=== PATIENT | female | born 2000 | race Caucasian/White ===

== ENCOUNTER 2024-02-01 17:09 | Emergency (ER) | payer OTHER, SELFPAY ==
[2024-02-01 17:14] VITALS: BP 144/79; PULSE 86; TEMP 36.7; O2SAT 100; BMI 22.3
--- NOTE | 2024-02-01 17:23 | US_ITS ---
The [address] [address] Patient Name: ALAINA WARNER MRN: [id number] date: 2000 Sex: F Assigned Patient Location: ER Current Patient Location: ER Accession/Order Number: [id number] Exam Date: 02/01/2024 18:20 Report Date: 02/01/2024 20:54 At the request of: NICK DELANEY Procedure: US OB transvaginal EXAM: US OB transvaginal HISTORY: Bleeding, 7 weeks preg COMPARISON: None. TECHNIQUE: OB ultrasound transvaginal with limited Doppler. FINDINGS: Intrauterine demonstrating a single living fetus and normal-appearing yolk sac. Heart rate 119 bpm. [place]-rump length measurement 0.42 cm corresponds to an ultrasound age of 6 weeks 1 day. Gestational sac margins well-defined, normal adjacent uterus.. No implantation bleed seen. Cervix is closed, length 3.1 cm. Right ovary 4.6 x 2 x 3.5 cm demonstrates a heterogeneous area 1.4 cm consistent with corpus luteum. Trace adnexal free fluid. Left ovary 3.9 x 1.6 x 3 cm with small cyst 1.2 cm. Normal blood flow. US/US OB transvaginal IMPRESSION: Single living IUP, heart rate 119 bpm. [place]-rump length measurement corresponds to an ultrasound age of 6 weeks 1 day. Normal-appearing gestational sac, no evidence of adjacent implantation bleed or hemorrhage. Electronically authenticated by: WILL VALENTIN Date: 02/01/2024 20:54
--- NOTE | 2024-02-01 17:32 | ED_ITS ---
HPI HPI - General Adult General Chief complaint: OB/Uterine Contractions Stated complaint: BLEEDING DURING INTERCOURSE 7 WKS PREG Time Seen by Provider: 02/01/24 17:10 Source: patient Mode of arrival: walk-in History of Present Illness HPI narrative: And is a 23-year-old female who presents to the emergency department for vaginal bleeding. She is a G4, who presents at 6 to 7 weeks of . She states she had intercourse last week and noticed a small amount of bleeding, she had intercourse again last night and noticed more bleeding. She is not continuing to bleed and has not saturated any pads. She states she called her [facility] DIRECT[facility] office and was ordered to have blood work, but on arriving to the hospital there were no orders that had crossed over, and she was not able to get a hold of the office so she states she figured she should come in . She has no pain or nausea at this time. No fevers or vomiting. No urinary symptoms. Related Data Allergies Allergy/AdvReac Type Severity Reaction Status Date / Time No Known Drug Allergies Allergy Verified 02/01/24 17:19 Opioid HPI Opioid Management Most Recent Opioid Data: No Data to Display Review of Systems ROS Constitutional Denies: fever or chills Ears, nose, mouth, and throat Denies: throat pain or nasal congestion Respiratory Denies: shortness of breath Gastrointestinal Denies: abdominal pain, nausea or vomiting Genitourinary Reports: vaginal bleeding; Denies: pelvic pain Integumentary/Breast Denies: rash Neurological Denies: headache Hematologic/Lymphatic Denies: easy bruising or easy bleeding Exam Narrative Exam Narrative: Gen.: Awake, alert, in no distress Head: Normocephalic, atraumatic ENT: Moist mucous membranes Respiratory: No respiratory distress Gastrointestinal: Abdomen is soft, nondistended and nontender to palpation Extremities: Moves extremities equally Psych: Normal mood and affect Neuro: No focal neuro deficit Skin: Warm, dry, intact Constitutional Vital Signs, click to edit/add: Last Vital Signs Temp 98.1 F 02/01/24 17:14 Pulse 77 02/01/24 19:08 Resp 16 02/01/24 19:08 BP 100/58 02/01/24 19:08 Pulse Ox 99 02/01/24 19:08 O2 Del Method Room Air 02/01/24 19:08 Course Vital Signs Vital signs: Vital Signs Temperature 98.1 F 02/01/24 17:14 Pulse Rate 86 02/01/24 17:14 Respiratory Rate 16 02/01/24 17:14 Blood Pressure 144/79 H 02/01/24 17:14 Pulse Oximetry 100 02/01/24 17:14 Oxygen Delivery Method Room Air 02/01/24 17:14 Temperature 98.1 F 02/01/24 17:14 Pulse Rate 77 02/01/24 19:08 Respiratory Rate 16 02/01/24 19:08 Blood Pressure 100/58 02/01/24 19:08 Pulse Oximetry 99 02/01/24 19:08 Oxygen Delivery Method Room Air 02/01/24 19:08 Medical Decision Making MDM Narrative Medical decision making narrative: Patient with no significant hemorrhage in the ER, no request for pain medication or nausea medication. Lab studies show contaminated urine specimen, we will wait for culture as she has no other urinary symptoms. Ultrasound shows a single live intrauterine gestation at 6 weeks and 1 day with heart rate of 119. Patient with O+ blood type, no indication for RhoGAM. She was instructed to follow pelvic rest and follow-up with [facility] DIRECT[facility] for repeat ultrasound surveillance and quantitative hCG levels. Return to the ER if symptoms change or worsen. SUPERVISED APC VISIT, PHYSICIAN ATTESTATION: Based on the medical record the care appears appropriate. ? Medical Records Medical records reviewed: Yes I reviewed the patient's medical records Lab Data Lab results reviewed: Yes I reviewed the patient's lab results Labs: Lab Results 02/01/24 Range/Units 17:24 WBC 8.0 (4.0-11.0) 10^3/uL RBC 4.12 L (4.20-5.40) 10^6/uL Hgb 13.6 (12.0-16.0) g/dL Hct 41.2 (36.0-48.0) % MCV 100.0 H (81.0-99.0) fL MCH 33.0 (26.7-34.0) pg MCHC 33.0 (29.9-35.2) g/dL RDW 12.6 (11.0-15.0) % Plt Count 211 (150-450) 10^3/uL MPV 10.3 (9.5-13.5) fL Neut % (Auto) 52.7 (43.0-75.0) % Lymph % (Auto) 34.1 (20.5-60.0) % [place] % (Auto) 7.4 (1.7-12.0) % Eos % (Auto) 4.8 (0.9-7.0) % Baso % (Auto) 0.9 (0.2-2.0) % Neut # (Auto) 4.2 (1.4-6.5) 10^3/uL Lymph # (Auto) 2.7 (1.2-3.8) 10^3/uL [place] # (Auto) 0.6 (0.3-0.8) 10^3/uL Eos # (Auto) 0.4 (0.0-0.7) 10^3/uL Baso # (Auto) 0.1 (0.0-0.1) 10^3/uL Abs Immat Gran (auto) 0.01 (0.00-0.03) 10^3/uL Imm/Tot Granulo (auto) 0.1 (0.0-0.5) % HCG, Quant 17324 mIU/mL Urine Color Yellow (YELLOW) Urine Clarity Sl cloudy (CLEAR) Urine pH 6.0 (5.0-9.0) Ur Specific [place] >=1.030 A (1.005-1.025) Urine Protein Negative (NEG/TRACE) mg/dL Urine Glucose (UA) Negative (NEGATIVE) mg/dL Urine Ketones Negative (NEGATIVE) mg/dL Urine Occult Blood Moderate A (NEGATIVE) Urine Nitrite Negative (NEGATIVE) Urine Bilirubin Negative (NEGATIVE) Urine Urobilinogen 0.2 (0.2-1.0) EU/dL Ur Leukocyte Esterase Negative (NEGATIVE) Urine RBC 2-5 A (0-2) #/HPF Urine WBC 2-5 A (NONE SEEN) #/HPF Ur Squamous Epith Cells Many A (NONE/RARE) #/LPF Ur Transition Epith Cell Rare A (NONE SEEN) #/LPF Urine Crystals None seen (None Seen) #/HPF Urine Bacteria Moderate A (NONE SEEN) #/HPF Urine Casts None seen (NONE SEEN) #/LPF Urine Mucus Large A (NONE SEEN) Ur Culture Indicated? Yes Blood Type O Positive Imaging Data US - abdomen: Attestation: I have reviewed the pertinent imaging results. Radiologist's impression: ITS Impressions Transvaginal US 02/01/24 17:23 IMPRESSION: Single living IUP, heart rate 119 bpm. [place]-rump length measurement corresponds to an ultrasound age of 6 weeks 1 day. Normal-appearing gestational sac, no evidence of adjacent implantation bleed or hemorrhage. Electronically authenticated by: WILL VALENTIN Date: 02/01/2024 20:54 Discharge Plan Discharge Stand Alone Forms: Portal Instructions Chief Complaint: OB/Uterine Contractions Clinical Impression: Threatened miscarriage, Vaginal bleeding in Patient Disposition: Home, Self-Care Time of Disposition Decision: 21:02 Condition: Good Print Language: Maltese Instructions: Threatened Miscarriage (ED) Referrals: Blake Bowling DO [Physician] - 1 week Physician,Non-Staff, MD [Primary Care Provider] - 1 week
[2024-02-01 17:37] LABS: Basophils Absolute Auto 0.1 10^3/uL (0.0-0.1); Basophils Percent Auto 0.9 % (0.2-2.0); Eosinophils Absolute Auto 0.4 10^3/uL (0.0-0.7); Eosinophils Percent Auto 4.8 % (0.9-7.0); Hematocrit 41.2 % (36.0-48.0); Hemoglobin 13.6 g/dL (12.0-16.0); Immature Granulocytes Abs Auto 0.01 10^3/uL (0.00-0.03); Immature Granulocytes Pct Auto 0.1 % (0.0-0.5); Lymphocytes Absolute Auto 2.7 10^3/uL (1.2-3.8); Lymphocytes Percent Auto 34.1 % (20.5-60.0); Mean Platelet Volume 10.3 fL (9.5-13.5); Monocytes Absolute Auto 0.6 10^3/uL (0.3-0.8); Monocytes Percent Auto 7.4 % (1.7-12.0); Neutrophils Absolute Auto 4.2 10^3/uL (1.4-6.5); Neutrophils Percent Auto 52.7 % (43.0-75.0); Platelet Count 211 10^3/uL (150-450); Red Blood Count 4.12 10^6/uL (4.20-5.40); Red Cell Distribution Width 12.6 % (11.0-15.0)
[2024-02-01 17:39] LABS: Bilirubin Urine NEGATIVE (NEGATIVE); Blood Urine MODERATE (NEGATIVE); Clarity Urine SL CLOUDY (CLEAR); Color Urine YELLOW (YELLOW); Glucose Urine UA NEGATIVE (NEGATIVE); Ketones Urine NEGATIVE (NEGATIVE); Leukocyte Esterase Urine NEGATIVE (NEGATIVE); Nitrite Urine NEGATIVE (NEGATIVE); Protein Urine NEGATIVE (NEG/TRACE); Specific Gravity Urine >=1.030 (1.005-1.025); Urobilinogen Urine 0.2 EU/dL (0.2-1.0)
[2024-02-01 18:19] LABS: Urine Microscopic Indicated YES
[2024-02-01 18:21] LABS: Bacteria Urine MODERATE #/HPF (NONE SEEN); Cast Seen? NONE SEEN #/LPF (NONE SEEN); Crystals Seen? None Seen #/HPF (None Seen); Mucus Urine LARGE (NONE SEEN); Squamous Epithelial Cell Urine MANY #/LPF (NONE/RARE); Transitional Epi Cells Urine RARE #/LPF (NONE SEEN); Urine Culture Indicated YES
[2024-02-01 18:22] LABS: HCG Quantitative 11552 mIU/mL
[2024-02-01 19:08] VITALS: BP 100/58; PULSE 77; O2SAT 99
[2024-02-01 21:06] VITALS: BP 104/72; PULSE 68; O2SAT 100
== END 2024-02-01 21:08 | disposition home or self-care (01) ==
PROVIDERS: Physician Assistant; Emergency Provider Student in an Organized Health Care Education/Training Program
DX: O20.0 Threatened abortion (principal); O20.9 Hemorrhage in early pregnancy, unspecified; Z3A.01 Less than 8 weeks gestation of pregnancy
CPT/HCPCS: 36415; 76817; 81001; 84702; 84703; 85025; 86900; 86901; 87086; 99285

== ENCOUNTER 2024-02-28 08:11 | Outpatient (OUT) | payer OTHER, SELFPAY ==
--- OUTSIDE RECORDS SUMMARY | 2024-02-28 08:20 | XMS_ITS | CCD ---
Author Organization [facility] Care Team Providers Care Checkman Name Role Phone Eloisa Alvarez Unavailable [phone] Unavailable Unavailable lEisa PATEL Primary Care Physician [phone] Unavailable Unavailable MD MARIA R GOSS Referring Unava ilable Kim, Dr. Eloisa Valdovinos Primary Care MD MARIA R Dixon Attending Nedava ilMD MARIA R Motley Referring Unava ilable Lusk, Dr. Eloisa Valdovinos Primary Care MD MARIA R Dixon Attending Nedava ilMD MARIA R Motley Referring Unava ilable Lusk, Dr. Eloisa Valdovinos Primary Care MD MARIA R Dixon Attending Nedava ilable MD MARIA R GOSS Attending Unava ilable Kim, Dr. Eloisa Valdovinos Primary Care MD MARIA R Dixon Referring Unava ilable Eloisa Alvarez MD Primary Care Provider MARIA R GOSS Attending Unavailable ELOISA ALVAREZ Primary Care Unavailabl e Ayde aGnet Attending Unavailable Spencer Gan Admitting Unavailable Trevor Cabral Attending Unavailable Julián Mercer Attending Unavailable Narinder Cardona Attending Unavailable Spencer Gan Attending Unavailable Spencer Gan Attending Unavailable Elisa PATEL Attending Unavailable Elisa PATEL Attending Unavailable Elisa PATEL Admitting Unavailable González Muhammad Attending Unavailable Héctor Denton Attending Unavailabl Héctor Rubalcava Referring UnavailHéctor Benavides Admitting Unavailabl e Corrie, Héctor Awad Attending Unavailabl e Héctor Denton Referring Unavailabl e ROBUCK, Elisa Scherer Attending Unavailable ROBUCK, Elisa E Referring Unavailable ROBUCK, Elisa E Admitting Unavailable Liv, Renea Elias Admitting Unavailable Liv, Renea Elias Attending Unavailable LivRenea Referring Unavailable Tracy, Lucas Baig Referring Unavailable Tracy, Lucas Baig Admitting Unavailable Tracy, Lucas Baig Attending Unavailable Gudimella, Spencer Admitting Unavailable Gudimella, Spencer Attending Unavailable ROBUCK, Elisa E Attending Unavailable ROBUCK, Elisa E Attending Unavailable ROBUCK, Elisa E Attending Unavailable Tracy, Lucas Baig Admitting Unavailable Tracy, Lucas aBig Attending Unavailable ROBUCK, Elisa E Admitting Unavailable ROBUCK, Elisa E Attending Unavailable SarminiSravani Attending Unavaila ble ROBUCK, Elisa E Attending Unavailable ROBUCK, Elisa E Attending Unavailable ROBUCK, Elisa E Attending Unavailable ROBUCK, Elisa E Attending Unavailable ROBUCK, Elisa E Attending Unavailable ROBUCK, Elisa E Attending Unavailable ROBUCK, ORGANIZATIONAL RESEARCH CONSULTANT Elisa E Attending Unavailable Medications Current Medications Medication Drug Class(es) Dates Sig (Normalized) Sig (Original) acetaminophen 325 mg oral tablet (3 sources) Start: 05-22-2023 End: 06-05-2023 take 2 tablets by mouth every six hours Tylenol 325 mg Tab 650 mg, Oral, q6hr, X 14 day(s), # 112 tab(s), Refills(s) 0 Start Date: 05/22/23 Stop Date: 06/05/23 Status: Ordered amoxicillin 875 mg / clavulanate 125 mg oral tablet (1 source) Penicillin-class Antibacterial Start: 04-16-2023 End: 04-26-2023 take 1 tablet by mouth every twelve hours Augmentin 875 mg oral tablet = 1 tab(s), Oral, q12hr, X 10 day(s), # 20 tab(s), Refills(s) 0, Pharmacy: [facility] #[id number], 160, cm, 04/16/23 14:52:00 EDT, Height/Length Dosing, 57.7, kg, 04/16/23 14:52:00 EDT, Weight Dosing Start Date: 04/16/23 Stop Date: 04/26/23 Status: Ordered cephalexin 500 mg oral capsule (1 source) Cephalosporin Antibacterial Start: 11-22-2023 End: 11-29-2023 take 1 capsule by mouth every six hours Keflex 500 mg Cap 500 mg = 1 cap(s), Oral, q6hr, X 7 day(s), # 28 cap(s), Refills(s) 0, Pharmacy: [facility] #[id number], 160, cm, 11/22/23 14:35:00 EDT, Height/Length Dosing, 59.5, kg, 11/22/23 14:35:00 EDT, Weight Dosing Start Date: 11/22/23 Stop Date: 11/29/23 Status: Ordered clindamycin 20 mg/ml vaginal cream (1 source) Lincosamide Antibacterial Start: 07-06-2023 End: 07-13-2023 clindamycin (Cleocin) 2 % vaginal cream Indications: BV (bacterial vaginosis) Insert 1 Application into the vagina once daily at bedtime for 7 days. 20 g 1 07/06/2023 07/13/2023 Active Desogestrel / Ethinyl Estradiol (1 source) Progestin, Estrogen Start: 06-23-2023 take 1 tablet by mouth once daily Enskyce 0.15-0.03 mg tablet Take 1 tablet by mouth once daily. 0 06/23/2023 Active dicyclomine hydrochloride 20 mg oral tablet (16 sources) Anticholinergic Start: 10-01-2023 take 1 tablet by mouth four times daily dicyclomine 20 mg Tab 20 mg = 1 tab(s), Oral, QID, Refills(s) 0 Start Date: 10/01/23 Status: Ordered Start: 06-25-2023 take 1 tablet by zachery th four times daily before mealtime dicyclomine (Bentyl) 20 mg tablet Take 1 tablet (20 mg) by mouth 4 times a day before meals. 0 06/25/2023 Active Start: 03-24-2023 take 1 tablet by zachery th twice daily as needed dicyclomine 20 mg Tab 20 mg = 1 tab(s), Oral, BID, PRN Irritable bowel symptoms, # 180 tab(s), Refills(s) 3, Pharmacy: [facility] #[id number], 160, cm, 03/24/23 16:27:00 EDT, Height/Length Dosing, 58.7, kg, 03/24/23 16:27:00 EDT, Weight Dosing Start Date: 03/24/23 Status: Ordered Start: 10-07-2021 take 1 tablet by zachery th four times daily as needed dicyclomine 20 mg Tab 20 mg = 1 tab(s), Oral, QID, PRN Irritable bowel symptoms, # 30 tab(s), Refills(s) 1, Pharmacy: [facility], 160, cm, 10/07/21 10:23:00 EDT, Height/Length Dosing, 63.5, kg, 10/07/21 10:23:00 EDT, Weight Dosing Start Date: 10/07/21 Status: Ordered doxycycline hyclate 100 mg oral capsule (6 sources) Tetracycline-class Drug Start: 05-28-2023 End: 06-04-2023 take 1 capsule by mouth twice daily doxycycline hyclate 100 mg Cap 100 mg = 1 cap(s), Oral, BID, X 7 day(s), # 14 cap(s), Refills(s) 0, Pharmacy: [facility] #[id number], 160, cm, 05/28/23 15:52:00 EDT, Height/Length Dosing, 59.3, kg, 05/28/23 15:52:00 EDT, Weight Dosing Start Date: 05/28/23 Stop Date: 06/04/23 Status: Ordered Start: 01-08-2022 take 1 tablet by zachery th once daily Doxycycline Hyclate 100 MG Oral Tablet TAKE 1 TABLET EVERY 12 HOURS DAILY. Quantity: 28 Refills: 0 Ordered: 08-Jan-2022 Maria R Goss DO Start : 08-Jan-2022 Active multivitamin, with Folic Acid 1 mg Tab (1 source) Start: 10-04-2020 multivitamin, with Folic Acid 1 mg Tab 1 cap(s), Oral, Daily, 30 cap(s), Refill(s) 0 Start Date: 10/04/20 Status: Ordered omeprazole 20 mg delayed release oral capsule (2 sources) Proton Pump Inhibitor Start: 09-22-2022 take 1 capsule by mouth once daily omeprazole 20 mg Cap-DR 20 mg = 1 cap(s), Oral, Daily, # 90 cap(s), Refills(s) 1, [facility]acy: [facility] #[id number], 160, cm, 09/22/22 14:23:00 EST, Height/Length Dosing, 61.2, kg, 09/22/22 14:23:00 EST, Weight Dosing Start Date: 09/22/22 Status: Ordered Start: 08-25-2022 take 1 capsule [address] [facility] once daily omeprazole 40 mg Cap-DR 40 mg = 1 cap(s), Oral, Daily, # 30 cap(s), Refills(s) 0, Pharmacy: [facility] #[id number], 160, cm, 08/25/22 12:56:00 EST, Height/Length Dosing, 61.6, kg, 08/25/22 12:56:00 EST, Weight Dosing Start Date: 08/25/22 Status: Ordered ondansetron 4 mg oral tablet (3 sources) Serotonin-3 Receptor Antagonist Start: 09-22-2022 take 1 tablet by mouth every six hours as needed for nausea ondansetron 4 mg Tab 4 mg = 1 tab(s), Oral, q6hr, PRN Nausea/Vomiting, # 60 tab(s), Refills(s) 2, Pharmacy: [facility] #[id number], 160, cm, 09/22/22 14:23:00 EST, Height/Length Dosing, 61.2, kg, 09/22/22 14:23:00 EST, Weight Dosing Start Date: 09/22/22 Status: Ordered Start: 10-07-2021 take 1 tablet by [facility] every six hours as needed for nausea ondansetron 4 mg Tab 4 mg = 1 tab(s), Oral, q6hr, PRN Nausea/Vomiting, # 30 tab(s), Refills(s) 1, Pharmacy: [facility] [address] [facility], 160, cm, 10/07/21 10:23:00 EDT, Height/Length Dosing, 63.5, kg, 10/07/21 10:23:00 EDT, Weight Dosing Start Date: 10/07/21 Status: Ordered oxyCODONE hydrochloride 5 mg oral tablet (1 source) Opioid Agonist Start: 05-22-2023 End: 05-27-2023 take 1 tablet by mouth every six hours as needed for pain oxyCODONE 5 mg Tab 5 mg = 1 tab(s), Oral, q6hr, PRN Pain, X 5 day(s), # 20 tab(s), Refills(s) 0, Pharmacy: [facility] #[id number], 158, cm, 05/22/23 6:19:00 EDT, Height/Length Dosing, 57.9, kg, 05/22/23 6:27:00 EDT, Weight Dosing Start Date: 05/22/23 Stop Date: 05/27/23 Status: Ordered phenazopyridine hydrochloride 100 mg oral tablet (1 source) Start: 11-22-2023 End: 11-25-2023 take 1 tablet by mouth three times daily Pyridium 100 mg Tab 100 mg = 1 tab(s), Oral, TID, X 3 day(s), # 9 tab(s), Refills(s) 0, Pharmacy: [facility] #[id number], 160, cm, 11/22/23 14:35:00 EDT, Height/Length Dosing, 59.5, kg, 11/22/23 14:35:00 EDT, Weight Dosing Start Date: 11/22/23 Stop Date: 11/25/23 Status: Ordered Zofran ODT 4 mg Tab-Dis (1 source) Start: 11-22-2023 take 1 tablet by mouth every eight hours as needed for nausea Zofran ODT 4 mg Tab-Dis 4 mg = 1 tab(s), Oral, q8hr, PRN Nausea/Vomiting, # 12 tab(s), Refills(s) 0, Pharmacy: [facility] #[id number], 160, cm, 11/22/23 14:35:00 EDT, Height/Length Dosing, 59.5, kg, 11/22/23 14:35:00 EDT, Weight Dosing Start Date: 11/22/23 Status: Ordered Completed/Discontinued Medications Medication Drug Class(es) Dates Sig (Normalized) Sig (Original) Apri 0.15-30 MG-MCG Oral Tablet (3 sources) Start: 07-16-2021 take 1 tablet by mouth once daily Apri 0.15-30 MG-MCG Oral Tablet TAKE 1 TABLET BY MOUTH EVERY DAY Quantity: 1 Refills: 2 Ordered: 16-Jul-2021 Maria R Goss DO Start : 16-Jul-2021 Active azithromycin 250 mg oral tablet (9 sources) Macrolide Antimicrobial Start: 10-15-2021 take 4 tablets by mouth once Azithromycin 250 MG Oral Tablet TAKE 4 TABLET Once Quantity: 4 Refills: 0 Ordered: 15-Oct-2021 Maria R Goss DO Start : 15-Oct-2021 Active Depo-Provera 150 MG/ML Intramuscular Suspension (1 source) Start: 10-14-2021 Depo-Provera 150 MG/ML Intramuscular Suspension 0 SUSP IM Quantity: 0 Refills: 0 Ordered: 14-Oct-2021 DO Start : 14-Oct-2021 Complete Enskyce 0.15-30 MG-MCG Oral Tablet (4 sources) Start: 10-09-2021 take 1 tablet by mouth once daily Enskyce 0.15-30 MG-MCG Oral Tablet take 1 tablet by mouth once daily Quantity: 28 Refills: 11 Ordered: 24-Feb-2023 Maria R Goss MD Start : 09-Oct-2021 Active Start: 10-09-2021 take 1 tablet by zachery th once daily Enskyce 0.15-30 MG-MCG Oral Tablet take 1 tablet by mouth once daily Quantity: 28 Refills: 11 Ordered: 09-Oct-2021 Maria R Goss DO Start : 09-Oct-2021 Active fluconazole 100 mg oral tablet (2 sources) Azole Antifungal Start: 02-26-2023 take 1 tablet by mouth every other day Fluconazole 100 MG Oral Tablet TAKE 1 TABLET Other every 2 days x 3 doses Quantity: 3 Refills: 2 Ordered: 26-Feb-2023 Maria R Goss MD Start : 26-Feb-2023 Active 1 ml medroxyPROGESTERone acetate 150 mg/ml injection (18 sources) Progestin Start: 06-24-2022 Depo-Provera 150 MG/ML Intramuscular Suspension 0 SUSP IM Quantity: 0 Refills: 0 Ordered: 24-Jun-2022 DO Start : 24-Jun-2022 Complete Start: 01-06-2022 Depo-Provera 1 50 MG/ML Intramuscular Suspension 0 SUSP IM Quantity: 0 Refills: 0 Ordered: 06-Jan-2022 DO Start : 06-Jan-2022 Complete Depo-Provera 150 MG/ML Intramuscular Suspension Prefilled Syringe Quantity: 0 Refills: 0 Ordered: 14-Oct-2021 DO Active TABS (20 sources) TABS Qu antity: 0 Refills: 0 Ordered: 29-Mar-2021 DO Active Senna Leaves (2 sources) Start: 05-22-2023 End: 05-29-2023 take 7 tablets by mouth once daily at bedtime Senna 8.6 mg oral tablet 8.6 mg, 1 tab(s), Oral, Once a day (at bedtime) for constipation for 7 day(s), 7 tab(s), Refill(s) 0, [facility] #[id number], 158, cm, 05/22/23 6:19:00 EDT, Height/Length Dosing, 57.9, kg, 05/22/23 6:27:00 EDT, Weight Dosing Start Date: 05/22/23 Stop Date: 05/29/23 Status: Ordered Problems Active Problems Problem Classification Problem Date Documented Da te Episodic/Chronic Abdominal pain (3 sources) Left lower quadrant pain; Translations: [Left lower quadrant pain] Onset: 2 Episodic Bacterial infection; unspecified site (15 sources) Chlamydial infection; Translations: [Unspecified chlamydial infection] Episodic Biliary tract disease (20 sources) Cholelithiasis without obstruction; Translations: [Calculus of gallbladder without cholecystitis without obstruction] Onset: 2 Episodic Cardiac dysrhythmias (12 sources) Palpitations; Translations: [Palpitations] Onset: 4 Episodic Conditions associated with dizziness or vertigo (12 sources) Dizziness and giddiness; Translations: [Dizziness and giddiness] Onset: 4 Episodic Contraceptive and procreative management (10 sources) Contraception ; Translations: [Surveillance of other contraceptive method] 01-12-2024 Episodic Esophageal disorders (20 sources) Gastroesophageal reflux disease without esophagitis; Translations: [Gastro-esophageal reflux disease without esophagitis] Onset: 2 Chronic Genitourinary symptoms and ill-defined conditions (10 sources) Dysuria; Translations: [Dysuria] Onset: 3 Episodic Immunizations and screening for infectious disease (20 sources) Patient encounter status; Translations: [Screening examination for venereal disease] Episodic Inflammatory diseases of female pelvic organs (2 sources) Bacterial vaginosis; Translations: [Acute vaginitis] 07-06-2023 Episodic Mood disorders (20 sources) Depression 05-29-2014 Chronic Nausea and vomiting (2 sources) Nausea; Translations: [Nausea] Onset: 3 10-07-2021 Episodic Noninfectious gastroenteritis (20 sources) Chronic diarrhea 07-24-2014 Episodic Other female genital disorders (1 source) Abnormal uterine bleeding; Translations: [Abnormal uterine and vaginal bleeding, unspecified] Onset: 4 Chronic Other female genital disorders (6 sources) Vaginal irritation; Translations: [Unspecified noninflammatory disorder of vagina] Episodic Other female genital disorders (3 sources) Vaginal discharge; Translations: [Leukorrhea, not specified as infective] Episodic Other gastrointestinal disorders (20 sources) Irritable bowel syndrome; Translations: [Irritable bowel syndrome without diarrhea] Onset: 3 Chronic Other gastrointestinal disorders (2 sources) Diarrhea; Translations: [Diarrhea, unspecified] Onset: 2 Episodic Other nervous system disorders (1 source) Postoperative pain ; Translations: [Other acute postprocedural pain] Onset: 3 Episodic Other and delivery including normal (20 sources) Delivery normal; Translations: [Normal delivery] Episodic Comment on above: 05/23/2019 29 weeks female 6lbs 9oz; Other screening for suspected conditions (not mental disorders or infectious disease) (20 sources) Cancer cervix screening status; Translations: [Screening for malignant neoplasms of cervix] Episodic Other upper respiratory infections (16 sources) Chronic maxillary sinusitis; Translations: [Chronic maxillary sinusitis] Onset: 3 Chronic Other upper respiratory infections (11 sources) Common cold; Translations: [Acute nasopharyngitis [common cold]] Onset: 4 Episodic Residual codes; unclassified (20 sources) Gestation period, 35 weeks; Translations: [ state, incidental] Episodic Residual codes; unclassified (20 sources) Gestation period, 36 weeks; Translations: [ state, incidental] Episodic Residual codes; unclassified (20 sources) Gestation period, 37 weeks; Translations: [ state, incidental] Episodic Residual codes; unclassified (20 sources) Gestation period, 38 weeks; Translations: [ state, incidental] Episodic Residual codes; unclassified (6 sources) Body mass index 20-24 - normal; Translations: [Body mass index (BMI) 22.0-22.9, adult] Onset: 3 Episodic Residual codes; unclassified (1 source) Acquired absence of organ; Translations: [Acquired absence of other specified parts of digestive tract] Onset: 3 Episodic Residual codes; unclassified (1 source) H/O: risk factor; Translations: [Other specified personal risk factors, not elsewhere classified] Onset: 4 Episodic Screening and history of mental health and substance abuse codes (20 sources) H/O: depression 05-05-2019 Episodic Short gestation; low weight; and growth retardation (20 sources) Small for gestational age fetus; Translations: [Small for gestational age fetus] Episodic Spontaneous (4 sources) Miscarriage; Translations: [Spontaneous , without mention of complication, unspecified] Onset: 4 Episodic Substance-related disorders (20 sources) Smoker; Translations: [Nicotine dependence] Onset: 4 09-22-2022 Chronic Comment on above: Added secondary to d ocumentation in Social History. Substance-related disorders (20 sources) Marijuana user; Translations: [Cannabis misuse] Onset: 4 02-18-2021 Episodic Syncope (6 sources) Syncope and collapse; Translations: [Syncope and collapse] Onset: 4 Episodic Unclassified (1 source) Patient encounter status 12-10-2020 Unclassified (2 sources) Urinary Symptom; Translations: [Urinary Symptom] Onset: 3 Urinary tract infections (20 sources) Acute cystitis; Translations: [Acute cystitis] Onset: 4 Episodic Past or Other Problems Problem Classification Problem Date Documented Da te Episodic/Chronic Unclassified (20 sources) Finding of menstrual bleeding; Translations: [Menstruation] Comment on above: 14; Unclassified (20 sources) Onset: 08-23-2018 Resolved: 07-27-2021 05-25-2019 Results Test Name Value Interpretation Reference Range Facility Coding Summary.on 01-19-2024 Coding Summary. [id number]+PG hlYW Q+US6LNFJaR41ehPCvwF0tX1 NMTElOSywgQVBQTElOSyIgbm IaJF8dwHHsQFWw IC8+CB0tOLKjCousnANjp2X5 uCS6A80ldi0kDFxauOI1CXTh PjGhhupxq8dpaCu0DWtsMqie OyBt NSIxgJ25SZQ3lV43Wm36uYRk sYYkj3yjwRl3EgDiQFYvJZV0 mKacFSuao1KjIYUoE82kpEAm c2U6 HIDhqXdqgUPjDcIbdSG5vH6j TBdiiyben8zdhndaOss1zz20 mYExz9C2jUT9C5HlqiY2YVWp bGQg JjzvzUPJgP2aveypc8ytbvlo PiBbKJXcRDs3MOo9ZZZysOqk AsWhIY09MSO7SLYvwtScF6Zr LWFs iFagSeY8k6O1Zp2OW6AYXupn B1ZZZWVSTEvhtWD+FV51dx42 E3HcMouzLum0CHHhEZI4iZV7 aD0n VLMnTPwcf3R9nDH8A3CjaqHm vh2xp5blUTIkXUnpE79olILb z2I0MQJqnBN7JIRaoEjeXoDx aG93 Oyc+NRNejAxwq3NvXcbit9pr p0ycnLk6BfbiCZWipvNfjLlu QHK8r4QhFg5yKYYmqNV3yHJ4 aD0i FcIoDpY3CBjdV514KzExoCWh XtqyX58yM2VgfNI+PHRyPjx0 ECWvdHhlIY7wK7LzNSWkoxki bGVm pMxdWR8lZSAxpdauECRahQ7w QSIbV0b6PjBbBiZ4OSxvO4Il VHQnsxfjNk60pW0jSfBhHpB8 MGlu N2PyliL6SNZyeOWyUGusEUY1 F01hc0W3CXViFOMgNCU7xAF4 fX5tcQysazpphCQveAdvfrMy dGlj BFfaJWsbY429LSQsqSyaZvPi ZGluZyBEYXRlOiAgMDYvMjUv MjAyNDwvdGQ+ILBcWBU3fErg PSAn oCUiFYlnQs4usPmsyFvjKK7u DMYpehjwUCIyfO6dZTGqvWYz mDziJG8hAKNpaqbra549CpPt MHB0 BKPydASaY6SleP2vRoTnAKLz QLWaS5KrjYPrDYdjB786ZFys PjS8NXRhwcOlB8FtDSBtrPuf OiB0 e2J0Zp3Ig1BdsisiP4QxkSCe JsOiEdlxKEo9W2DxYnrptKC+ KW18FGLaGP28WPq3GUP2cBvu PSdi FTDpW1SznT6qNrEiKUUmHCUv Oyc+PHRhYmxlIHdpZHRoPScx ARCbYrTtzGxzGG7xHx6wZCYk LWNv tIhifQAzYgUpv0ckYBYsSVob TL7kgYpuW0NqaDE7VUZyr2j3 Yg56F08rN7RoyJK+PGNvbCB3 aWR0 yR5eWkHdQtJ4VJnsZ983VrLl rLWsHgoet2ddy2mqaKk9VoS0 SUPnaaQwtKlkHJY9e7QhPr25 Y29s IHdpZHRoPSIxNSUiIHZhbGln eg5hkU7kAe5+LRAjiZL5qGL1 pJ6kLjZeCtI2SEpiA640MwUw cCIv Vojev2lak2ccoOh8OuNsREJg qlOfkGctAMJ6l1IgQj16G0Uw bWmqt7RvFsn2ey38tPRin8S4 bGU9 L8XhUIGcsksruCWnlTanPG2a EXWchivgKORkxN9sUKKjT8w7 LlXzUjA3GXpyB8HkikM5PBOr bGQg WBZzxMBCzC5ytgpcx2yrfwln DsTtCGFlYEc4ACq1TDLwlZha FzKtQUS5YsD4JMK2lLAtiE0k bGln zlwseA2lZya+VED0zAUuzLBK HZ5kNazrwNF+MMDyQPV7cNom OKalHKMobX8wQBOvR5p9AfVr LjA1 EBtvD5FncdY3PIOwqKNnYTDm gENDsE4bwqrst8xllzusHqFn IEGrFHu4FRi0SLQprPksRdPb ZWZ0 OkL6SLQ7jMZljB0biNeuqdhn uC9jXgl+YslqmZoqLNX2DJd0 H5AtCtj6INPreOysXK5qpPAo ZGlu Ok0bsLnaiRfeAY1dXAGtvjfs k139LpSyi9qhPAQlvHAtQMaz XAY5B85gs6U9ZWBnVUDhPXF8 dGV4 sE4bkGcghewlrPPisWbljzXe cNocBIozFYarL985ITVbpGdo LeOtCGc6V3SvIls3DPLwuZyu ZT0n qGLrQWuxVi7oxVawlKnqKY6n YZTsmqmum556YtAlb6cmXLKp iFUoLFekXOL2Y93at5N2CBHf MDAw ZFJ1pXR0zM0pmHknjzfphDBp mIpogiIftYdoYEpkAIlyH258 BOTdaRnfIuRjcHo2Q2QwBhk6 ZCBz aGtdNN9mgIWhEKyqBb7cxMqd sNicNA8bHLYigfefy434OrEs b7mnRJHdrCToNIsmNGN1F95a b3I6 ENKaTLElSVF9eVV1sJ5asQrh bjogbGVmdDsgdmVydGljYWwt XCutC004DJTtiUkeIyYenOak bnQg APciHUr5G5WrWgbeeBF+PC90 PBScMV11gYAvgCWlg2wtdLw4 CnIdFQOkUFA5vVtiVOfzu4Pp ZXIt I63xuSVgp5R7PIIjgRwsdEFw VyKszWU8hS7oYUbjqtful6ud drthGabkd5pdxu07pY26M43z IHdp TQDkZXQlHYSpBLLjgLdfrx8p cM6sXz4+ULPhaOM6sJL9fV7q XLYjKrM1CTflV747HaOilATh Pjxj y0xyi4skiKw7TuE7EAUfqcKj uPcfWOK2r0DrZs94H03jWVcy PGUbOYPmOWXxTZMigWqkmb3f dG9w Ii8+GAFvwWO4gAU7yO2fFtDi IgW8GVyjK298MpFvgCTaZqxd N80lS6BkpKJ+VPVkPnp3IXCe dHls AT6blDWfJIusJz2mOBE1EgVb UgWrCYspJ6PlWOYazikjuiqo jUN8QWJdDMAlrE70Pg6zsSfo MTBw bWBTbW6dzwugf8bcunhqIgLa GKUuPDc2YLj4AJOcgMdmJdBd SFF0FdX8PNH5oWNcqM3igQad bjog jP1lQ0BaKYCdubccQp01qM5c TbUnPvR0OMxhHwc+L74WKIZL QXKbUNJHOIEIJMGSGZ80OE59 dGQg u6V2oVK3V5UqTUJfqvajgcau xWW4IHOnETZurY66mFGyPRbz Ed0hc3W5w757STYyZDRetA62 Zm9u sWmoYMHmsDPWaH8gtnocy4tq feqzLxUaPKQtALa7HHv3USJg nMddHnHnUZB2SxZ3PEI9yMFq bC1h lGomhdsfaK0tXkc+MDUvMDMv TOp5AFepsFM+KTNfNMY7iAmb HSbhUSRdvW8aWSKqL8c3UpCn LjA1 DAndU2VpXRJzajzbMd14lQ9b YpKpOuY6XEyjO3NjmuK6WWLr sNUqUHacYXD3B30if3O7MEOh MDAw XUH4bBN7iR7voBstwufheTNm yQcepdJtjGsjAZtyEQojS801 CHHcxOhyXyM7MCizYPBfXZ17 ZD48 lCOph6B0oGZ8U1HhIDIxkqyh bxqxxNF7USHzLOKiaW05gGYj NPzdPo6ye1I2m476NBCqIMUf aW47 Bw9xiXqrBXGhbGFOjM7opmqr s1cogqzpZaViBMCzTGz2BCw8 TVLywJalImDqXGH3VqW0UFY0 aWNh cD6fiNyraojquI9rXcn+RmVt XDtfGE61GF76cQLuw0V3rEU1 R6NaGWTpsaktjlzxqGW1PXKf MDUw nX74dVAzFKeyIy9uq6H0x865 RUAiWIQaiD75Au4wxHjnBHFx eDYBqB4rzrgba2idvrqrKzYn MDAw HNg2EKp5ATOrhGngIjFlEEC4 AhB8YQN0jFKhvI2phFgvqhuc uA4xWxe+OHKfXOIuf1Zdx5Ed PC90 QE70P0XnQrdeqDNghVT+PHRh YmxlIHdpZHRoPScxMDAlJyBz hQcgYA2oBx9nSYBcPHYrbNln cHNl KzHgl7slNMEjUSekRB8usKie Z1QvaQB4MVSvm0t0Oz99R15s W4NyiLX+ZVUdtEW4bIA7mQ3n MzAl MaA9UBqoN775UuHxlLIrLaoo d9dxe2sadCk6ReNsBUFcbmNt oSgiFPL9l5IbRt20B94rLWae ZHRo WLFtTDFcYZBrtXubet9qgW0u Ii8+MCSnlGN0pON9rP8jYzAd ApD2DRojO461PpTtjFTtPilb Y29s Z3ApkQV+KFWlOgk1KCRzlZct IU9inZInKNmsIy0yAHR9CeWx TjDdSLdeP6NcJWXrxmgavbom aHQ6 MMGdMDClnO97Fl4anIixLd0r KUGdRQK8VSTbrWSyW1QqdP1n VlZjFDVwNFSnS7GqeHJcGVmn Z246 VJwdWmB2NRJxskWtX1YpJDRy zQvxTyZ8x6K2Zq6ObPlkaUKy ZP7nSwZePMi1H2OpDsp4MAXs dHls OR6gxSFhHRaoLu9isVxsnOjo ST2xQBPgociev891ByGvy2wc KIVcrEWiKCjgAII3S74ar2F6 ICMw ZFKlKRP9lZX3uX9ekCrnyysk bGVmdDsgdmVydGljYWwtYWxp J908FVFrcHjoIxKDImp4A2On Pjx0 JHHgiSolIA3sgHSaMOtqGu1t sPyueXtnUH5sEPDvskybf036 RvOcy1bjSFCpvFZyIRhwSWH3 Y29s h5Z0EIHiPIMaWYQ1uIV5dM5v bGlnbjogbGVmdDsgdmVydGlj LOabOAypR614AUQvcMdoBp3Q Tjo8 H4WmTpe6JSSqtQrrHH3noEKd ZJeqHq4vgZjpjQanDG4xYLXj vllcj535PfJru7guKEEzqVSh VGlt XRT3M78zc2C4JCRnFLKfLIQ1 sQM4qP7isUulowujiCIxuNva mvQhtIcmAAdpUYmaH140ORPf cDsn PlBheWVyOjwvdGQ+JI56kl85 A5VdZeqeBtr4BZRrBTH0eDM9 sI1kYMEqGHvpm0G8fNE6W4Qo cmRl sb4ev0ymQYQoB (more content not included)... Normal [facility] Provider Letteron 01-19-2024 Provider Letter (Inserted Image. Neda ble to display) January 19, 2024 ALAINA QUINTINRENNY [address] [place] [id number] : 2000 Dear Alaina_ , We have been trying to reach you with no success. It is important that you return our call regarding your urine culture upon receiving this letter. Also, at the time of your call, please provide us with your current information. Thank you for your prompt attention to this matter. Sincerely, Normal [facility] Chlam/GC/Trich,NAAon 024 C. trachomatis rRNA JOHNIE+probe Ql (Unsp spec) Negative Invalid Interpretation Code Negative [facility] Comment on above: Performed By: #### 1 [id number] #### [facility] [address] [place] [address] N. gonorrhoeae rRNA JOHNIE+probe Ql (Unsp spec) Negative Invalid Interpretation Code Negative [facility] Comment on above: Performed By: #### 1 [id number] #### [facility] [address] [place] [address] T. vaginalis rRNA JOHNIE+probe Ql (Unsp spec) Negative Invalid Interpretation Code Negative [facility] Comment on above: Result Comment: Perf ormed at: = [facility] [id number] MD Deepa Galdamez Performed By: #### 1 [id number] #### [facility] [address] [place] [address] .Interpretation:on 4 HCV Ab IA Ql Comment Invalid Interpretation Code [facility] Comment on above: Result Comment: Not infected with HCV unless early or acute infection is suspected (which may be delayed in an immunocompromised individual), or other evidence exists to indicate HCV infection. Performed at: [facility] [id number] PhD Coreen Lerma Performed By: #### 2 [id number] #### [facility] [address] [place] [id number] Acute Hepatitis A B C Panelo n 01-14-2024 HAV IgM IA Ql Negative Invalid Interpretation Code Negative [facility] Comment on above: Performed By: #### 3 [id number] #### [facility] [address] [place] [address]25 HBV core IgM IA Ql Negative Invalid Interpretation Code Negative [facility] Comment on above: Performed By: #### 3 [id number] #### [facility] [address] [place] [address] 94387 HBV surface Ag IA Ql Negative Invalid Interpretation Code Negative [facility] Comment on above: Performed By: #### 3 [id number] #### [facility] [address] [place] [address] 66357 HCV IgG IA Ql Non-Reactive Invalid Interpretation Code Non Reactive [facility] Comment on above: Result Comment: Perf ormed at: [facility] [address] [id number] PhD Coreen Lerma Performed By: #### 3 [id number] #### [facility] [address] [place] [address] [id number] C Urineon 01-14-2024 Bacteria identified Cx Nom (U) Microbiology PROCEDURE: Urine Culture [R1] SOURCE: U CleanCatch BODY SITE: COLLECTED DATE/TIME: 01/12/2024 12:52 EDT RECEIVED DATE/TIME: 01/12/2024 17:29 EDT START DATE/TIME: 01/12/2024 17:29 EDT FREE TEXT SOURCE: Spencer Gan MD FINAL REPORTS Final Report [] Verified Date/Time: 01/14/2024 12:37 EDT 3,000 cfu/ml Mixed skin contaminants Performing Locations R1: This test was performed at: [facility], [address] [place] [address], [phone] , Normal [facility] Comment on above: Performed By: #### 2 [id number] #### [facility] [address] [place] [address] HIV Screen 4th Generation wR fxon 01-14-2024 HIV 1+2 Ab+HIV1 p24 Ag IA Ql Non-Reactive Invalid Interpretation Code Non Reactive [facility] Comment on above: Result Comment: HIV Negative HIV-1/HIV-2 antibodies and HIV-1 p24 antigen were NOT detected. There is no laboratory evidence of HIV infection. Performed at: [facility] [address] [id number] PhD Coreen Lerma Performed By: #### 9 [id number] #### [facility] [address] [place] [address] RPR with Conf Rfxon 01-14-20 24 Reagin Ab RPR Ql (S) Non-Reactive Invalid Interpretation Code Non Reactive [facility] Comment on above: Result Comment: Perf ormed at: [facility] [address] [id number] PhD Coreen Lerma Performed By: #### 1 [id number] #### [facility] [address] [place] [address] CHEMISTRYOrdered By: SYSTEM SYSTEM on 01-12-2024 Albumin [Mass/Vol] 4.6 g/dL Normal 3.3 - 5.0 gm/dL Remisol Chem Albumin/Globulin [Mass ratio] 1.6 {ratio} Normal 1.1 - 2.2 Remisol Chem ALP [Catalytic activity/Vol] 53 [iU]/d Normal 21 - 98 Int._Unit/L Remisol Chem ALT No additional P-5'-P [Catalytic activity/Vol] 17 [iU]/d Normal 6 - 46 Int._Unit/L Remisol Chem Anion gap [Moles/Vol] 12 mmol/L Normal 6 - 16 mEq/L Remisol Chem AST [Catalytic activity/Vol] 22 [iU]/d Normal 5 - 43 Int._Unit/L Remisol Chem Bilirubin [Mass/Vol] 0.8 mg/dL Normal 0.0 - 1 .1 mg/dL [facility] Chem Calcium [Mass/Vol] 9.7 mg/dL Normal 8.9 - 11. 1 mg/dL [facility] Chem Chloride [Moles/Vol] 106 mmol/L Normal 101 - 1 11 mmol/L [facility] Chem CO2 [Moles/Vol] 23 mmol/L Normal 21 - 31 mmol/L [facility] Chem Creatinine [Mass/Vol] 0.7 mg/dL Normal 0.5 - 1.3 mg/dL [facility] Chem eGFR 123 mL/min/1.73 m2 Normal >=59mL/mi n/1. 73 m2 [facility] Globulin (S) [Mass/Vol] 2.8 g/dL Normal 1.4 - 4.0 gm/dL [facility] Glucose [Mass/Vol] 74 mg/dL Normal 55 - 199 mg/dL [facility] Potassium [Moles/Vol] 3.5 mmol/L Normal 3.5 - 5.3 mmol/L Rem[facility] Chem Protein [Mass/Vol] 7.4 g/dL Normal 6.0 - 7.8 gm/dL [facility] Chem Sodium [Moles/Vol] 137 mmol/L Normal 135 - 145 mmol/L Remisol Chem Urea nitrogen [Mass/Vol] 11 mg/dL Normal 5 - 21 mg/dL [facility] Chem Urea nitrogen/Creatinine [Mass ratio] 16 mg/mg Normal 10 - 20 Remisol Chem CMPon 01-12-2024 Albumin [Mass/Vol] 4.6 g/dL Normal 3.3-5.0 [facility] Comment on above: Performed By: #### 2 [id number] #### [facility] [address] [place] [address] Albumin/Globulin (S) [Mass conc ratio] 1.6 Normal 1.1-2.2 [facility] Comment on above: Performed By: #### 2 [id number] #### [facility] [address] [place] [address] ALP [Catalytic activity/Vol] 53 Int._Unit/L Normal 21-98 [facility] Comment on above: Performed By: #### 2 [id number] #### [facility] [address] [place] [address] ALT No additional P-5'-P [Catalytic activity/Vol] 17 Int._Unit/L Normal 6-46 [facility] Comment on above: Performed By: #### 2 [id number] #### [facility] [address] [place] [address] Anion gap [Moles/Vol] 12 mmol/L Normal 6-16 [facility] Comment on above: Performed By: #### 2 [id number] #### [facility] [address] [place] [address] AST [Catalytic activity/Vol] 22 Int._Unit/L Normal 5-43 [facility] Comment on above: Performed By: #### 2 [id number] #### [facility] [address] [place] [address] Bilirubin [Mass/Vol] 0.8 mg/dL Normal 0.0-1.1 [facility] Comment on above: Performed By: #### 2 [id number] #### [facility] [address] [place] [address] Calcium [Mass/Vol] 9.7 mg/dL Normal 8.9-11.1 [facility] Comment on above: Performed By: #### 2 [id number] #### [facility] [address] [place] [address] Chloride [Moles/Vol] 106 mmol/L Normal 101-111 [facility] Comment on above: Performed By: #### 2 [id number] #### [facility] [address] [place] [address] CO2 [Moles/Vol] 23 mmol/L Normal 21-31 [facility] Comment on above: Performed By: #### 2 [id number] #### [facility] [address] [place] [address] Creatinine [Mass/Vol] 0.7 mg/dL Normal 0.5-1.3 [facility] Comment on above: Performed By: #### 2 [id number] #### [facility] [address] [place] [address] Globulin (S) [Mass/Vol] 2.8 g/dL Normal 1.4-4.0 [facility] Comment on above: Performed By: #### 2 [id number] #### [facility] [address] [place] [address] Glucose [Mass/Vol] 74 mg/dL Normal 55-199 [facility] Comment on above: Performed By: #### 2 [id number] #### [facility] [address] [place] [address] Potassium [Moles/Vol] 3.5 mmol/L Normal 3.5-5.3 [facility] Comment on above: Performed By: #### 2 [id number] #### [facility] [address] [place] [address] Protein [Mass/Vol] 7.4 g/dL Normal 6.0-7.8 [facility] Comment on above: Performed By: #### 2 [id number] #### [facility] [address] [place] [address] Sodium [Moles/Vol] 137 mmol/L Normal 135-145 [facility] Comment on above: Performed By: #### 2 [id number] #### [facility] [address] [place] [address] Urea nitrogen [Mass/Vol] 11 mg/dL Normal 5-21 [facility] Comment on above: Performed By: #### 2 [id number] #### [facility] [address] [place] [address] Urea nitrogen/Creatinine [Mass ratio] 16 No Units Normal 10-20 [facility] Comment on above: Performed By: #### 2 [id number] #### [facility] [address] [place] [address] Family Medicine Office/Clini c Noteon 01-12-2024 Family Medicine Office/Clinic Note Chief Complaint dysuria and nausea HPI Staff Patient here today for dysuria. 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 She was diagnosed with a yeast infection and diagnosed with bacterial vaginosis. Her burning on urination started 2 days ago. She has burning on urination, also has nausea. She has tried cranberry juice. Her last UTI was on 08/03/2023. She has no history of kidney stones. The patient was previously diagnosed with bacterial vaginosis and yeast infection by Dr. White, who prescribed an additional antibiotic in conjunction with her existing medications. Upon receiving the results, it was determined that there was no other infection detected, prompting her to discontinue doxycycline. She has since completed the prescribed yeast infection medication and metronidazole. Currently, she experiences a burning sensation during urination, accompanied by an increased frequency of urination. Approximately 4 days ago, she experienced frequent urination, but for the past 2 days, she has felt the urge to urinate every 4 to 5 hours, a change from her usual frequency 2 months ago. She maintains a high water intake, consuming approximately 6 12-ounce bottles daily. She took Azo for a yeast infection less than a week ago. She is sexually active with 3 male partners in the past 12 months, with the most recent one occurring 2 weeks ago. She reports no use of protection. She has noticed a change in her vaginal discharge, characterized by a white, clumpy discharge, even in her underwear, and more pronounced during urination. She believes the fluconazole was effective in treating her yeast infection, as she no longer experiences vaginal irritation. A follow-up appointment with Dr. White is scheduled in [address] White conducted an STD test, which yielded negative results, including gonorrhea and chlamydia. She denies douching. Review of Systems PHQ Score Initial Depression Screen Score: 0 SCORE Negative except as above Physical Exam Vitals & Measurements HR: 76(Peripheral) BP: 106/78 SpO2: 98% HT: 63 in HT: 160 cm WT: 60.1 kg WT: 132.22 lb BMI: 23.48 General: Patient is alert and oriented x 4 no cardiopulmonary distress answers all questions maintains eye contact Assessment/Plan Vitals within normal limits 1. Symptoms involving urinary system (R39.9: Unspecified symptoms and signs involving the genitourinary system) Ordered lab work Ordered: Acute Hepatitis A B C Panel Chlam/GC/Trich,JOHNIE Comprehensive Metabolic Panel E&M of Est. Patient Moderate 30-39 Min 77343 HIV Screen 4th Generation wRfx RPR with Conf Rfx UA with Cult Rflx 2. Occasionally uses contraception (Z91.89: Other specified personal risk factors, not elsewhere classified) Ordered lab work Ordered: Acute Hepatitis A B C Panel Chlam/GC/Trich,JOHNIE Comprehensive Metabolic Panel E&M of Est. Patient Moderate 30-39 Min 20257 HIV Screen 4th Generation wRfx RPR with Conf Rfx 3. Marijuana use (F12.90: Cannabis use, unspecified, uncomplicated) Patient has reduced from daily use to 2-3 times a month Ordered: E&M of Est. Patient Moderate 30-39 Min 41556 4. Smoker (F17.200: Nicotine dependence, unspecified, uncomplicated) Advised to refrain from use Ordered: E&M of Est. Patient Moderate 30-39 Min 28885 HCG, Urine POC 53252 Urnls Dip Stick Auto w/o Microscopy POC 06194 5. BMI 23.0-23.9, adult (Z68.23: Body mass index [BMI] 23.0-23.9, adult) Advised to follow healthy physical activity, nutrition, and lifestyle practices Ordered: E&M of Est. Patient Moderate 30-39 Min 81518 HCG, Urine POC 46363 Urnls Dip Stick Auto w/o Microscopy POC 64516 31 min spent today preparing the chart, spending ulqz-qw-gxty time with the Pt and family, documenting the encounter, reviewing the chart, and placing orders. Follow-up No qualifying data available Problem List/Past Medical History Ongoing Dizziness H/O: depression IBS (irritable bowel syndrome) Marijuana use Occasionally uses contraception Palpitations Smoker Symptoms involving urinary system Historical Chronic diarrhea Depression Procedure/Surgical History Laparoscopic cholecystectomy (05/22/2023), None. Medications No active medications Allergies No Known Allergies Social History Alcohol - Denies Alcohol Use, 03/25/2014 Household alcohol concerns: No., 01/12/2024 Employment/School Unemployed, 05/22/2019 Substance Abuse Past, Marijuana, 1-2 times per week, 01/12/2024 Tobacco - High Risk, 05/28/2023 4 or less cigarettes(less than 1/4 pack)/day in last 30 days Tobacco Use:. Former vaping or e-cigarette use Smokeless Tobacco Use:. Cigarettes, Ready to change: No. Ye (more content not included)... Normal [facility] Comment on above: Result Comment: Elec tronically Signed By: Spencer Gan MD\.br\Date and Time Signed: 01/12/24 12:45 EDT UA with Cult Rflxon 01-12-20 Bilirubin Ql (U) Negative Normal Negative [facility] Comment on above: Performed By: #### 4 [id number] #### [facility] [address] [place] [address] Clarity (U) Ex.Turbid Abnormal Clear [facility] Comment on above: Performed By: #### 4 [id number] #### [facility] [address] [place] [address] Color (U) [place] Abnormal Yellow [facility] Comment on above: Result Comment: Micr oscopic readings are only performed on those samples that meet specific criteria set forth by [facility]. Performed By: #### 4 [id number] #### [facility] [address] [place] [address] Glucose Ql (U) Negative Normal Negative [facility] Comment on above: Performed By: #### 4 [id number] #### [facility] [address] [place] [address] Hemoglobin Auto test strip (U) [Mass/Vol] Negative Normal Negative [facility] Comment on above: Performed By: #### 4 [id number] #### [facility] [address] [place] [address] Ketones Auto test strip Ql (U) Negative Normal Negative [facility] Comment on above: Performed By: #### 4 [id number] #### [facility] [address] [place] [address] Leukocyte esterase Auto test strip Ql (U) 75 Finn/uL Abnormal Negative [facility] Comment on above: Performed By: #### 4 [id number] #### [facility] [address] [place] [address] Mucus Auto Ql (U) 4+ CD:[id number] Abnormal Negative F [facility] Comment on above: Performed By: #### 4 [id number] #### [facility] [address] [place] [address] Nitrite Auto test strip Ql (U) Negative Normal Negative [facility] Comment on above: Performed By: #### 4 [id number] #### [facility] [address] [place] [address] pH (U) 5.5 [pH] Invalid Interpretation Code 5.0-9.0 [facility] Comment on above: Performed By: #### 4 [id number] #### [facility] [address] [place] [address] Protein Ql (U) 1+ mg/dL Abnormal Negative [facility] Comment on above: Performed By: #### 4 [id number] #### [facility] [address] [place] [address] Specific gravity (U) [Rel density] 1.031 Invalid Interpretation Code 1.005-1.030 [facility] Comment on above: Performed By: #### 4 [id number] #### [facility] [address] [place] [address] Urobilinogen (U) [Mass/Vol] Negative Normal Negative [facility] Comment on above: Performed By: #### 4 [id number] #### [facility] [address] [place] [address] Type of Urine collection method Clean Catch Normal [facility] Comment on above: Performed By: #### 4 [id number] #### [facility] [address] [place], [place] [id number] URINALYSISOrdered By: SYSTEM SYSTEM on 01-12-2024 Bilirubin Ql (U) Negative Normal Negativemg/dL [facility] [place] [place] UA Auto SS Clarity (U) Ex.Turbid *ABN* (01/12/24 12:52 PM) Invalid Interpretation Code Clear [facility] [place] [place] UA Auto SS Color (U) [place] 1 *ABN* (01/12/24 12:52 PM) Invalid Interpretation Code Yellow [facility] UA Auto SS Comment on above: Interpretive Data: M icroscopic readings are only performed on those samples that meet specific criteria set forth by [facility]. Glucose Ql (U) Negative Normal Negativemg/dL [facility] UA Auto SS Hemoglobin Auto test strip (U) [Mass/Vol] Negative Normal Negativemg/dL [facility] UA Aut o SS Ketones Auto test strip Ql (U) Negative Normal Negativemg/dL [facility] UA Auto SS Leukocyte esterase Auto test strip Ql (U) 75 Finn/uL Finn/uL Invalid Interpretation Code NegativeLeu/u L [facility] UA Auto SS Mucus Auto Ql (U) 4+ graded/LPF Invalid Interpretation Code Negativegrade d/LPF [facility] UA Auto SS Nitrite Auto test strip Ql (U) Negative Normal Negativemg/dL [facility] [place] [place] UA Auto SS pH (U) 5.5 *NA* (01/12/24 12:52 PM) Invalid Interpretation Code 5.0 - 9.0 [facility] [place] [place] UA Auto SS Protein Ql (U) 1+ mg/dL Invalid Interpretation Code Negativemg/dL [facility] [place] [place] UA Auto SS Specific gravity (U) [Rel density] 1.031 *NA* (01/12/24 12:52 PM) Invalid Interpretation Code 1.005 - 1.030 [facility] [place] [place] UA Auto SS Urobilinogen (U) [Mass/Vol] Negative Normal Negativemg/dL [facility] [place] [place] UA Auto SS URINALYSISOrdered By: Apurva zapata on 01-12-2024 UA Spec Desc Clean Catch (01/12/24 12:52 PM) Normal [facility] [place] [place] UA Auto SS eGFRon 01-12-2024 eGFR 123 mL/min/1.73 m2 Normal >=59 [facility] Comment on above: Order Comment: Order added by Discern Expert. Performed By: #### 1 [id number] #### [facility] [address] [place] [address] Monitor Recordon 12-30-2023 Monitor Record [id number]#[id number] F Normal [facility] Holter Monitoron 12-29-2023 Holter Monitor HOLTER MONITOR ENROLLMENT PERIOD: 12/18/2023 through 12/20/2023 INDICATION: Palpitations. FINDINGS: Over the monitoring time the Holter monitor recorded predominantly sinus rhythm with minimum heart rate of 51, average heart rate 87, maximum heart rate 145 beats per minute. There were no patient events with symptoms and baseline. There was no secondary arrythmia. There was a total of 32 premature supraventricular contractions, no premature ventricular contractions. CONCLUSIONS: Underlying sinus rhythm, unremarkable Holter monitor. READ BY: Ivan Brock MD ca Dictated: 12/28/2023 [id number] Transcribed: 12/28/2023 [facility] Comment on above: Result Comment: Elec tronically Signed By: Delmy AYALA, Ivan Baig\.br\Date and Time Signed: 12/29/23 13:02 EDT Consent for Treatmenton 11-25 Consent for Treatment [id number]#[id number] F [facility] US Pelvis Non-OB Completeon 12-10-2023 US Pelvis Non-OB Complete Exam Date/Time: 12/08/2023 08:22 EDT Reason for Exam: N93.8 Report IMPRESSION: NEGATIVE ULTRASOUND OF THE PELVIS. CLINICAL HISTORY: N93.8. Irregular periods COMPARISON: Ultrasound 10/02/2023 COMMENT: Transabdominal images were obtained. The uterus measurements and an estimated volume are: Uterus Length: 8.4 cm Uterus Width: 5.2 cm Uterus Height: 3.4 cm Uterus Volume: 77.1 cm3 Endometrium Thickness: 0.4 cm Normal sonographic appearance of uterus. The right ovary measurements and an estimated volume are: Right Ovary Length: 3.4 cm Right Ovary Width: 3.6 cm Right Ovary Height: 2.1 cm Right Ovary Volume: 13.7 cm3 The left ovary measurements and an estimated volume are: Left Ovary Length: 3.5 cm Left Ovary Width: 3.2 cm Left Ovary Height: 2.6 cm Left Ovary Volume: 14.9 cm3 Normal sonographic appearance of the ovaries. Blood flow is identified to both ovaries. No adnexal mass or free fluid within the pelvis. Ordering Provider: Renea Peck FINAL REPORT Dictated: 12/10/2023 1:15 pm Jose M Vaz DO Signed (Electronic Signature): 12/10/2023 1:15 pm Signed by: Jose M Vaz DO Transcribed by: DERIC Technologist: [facility] Normal [facility] Consent for Treatmenton 11-24 Consent for Treatment [id number] F Normal [facility] Family Medicine Office/Clini c Noteon 12-03-2023 Family Medicine Office/Clinic Note Chief Complaint UTI f/u HPI Staff Pt was dx with UTI at [facility] [place] [place] ED 11/22/23. She was prescribed Keflex 500 mg 1Q 6 hrs X 7 days. Pyridium and Zofran. She states her vaginal pressure and abd cramping is gone. She is c/o lower abd pain that makes her feel like she constantly has to have a BM. Pt states she has had the bowel urgency with abd pain for years. States she has discussed this with you and would like to discuss GI referral. We strongly recommend to quit tobacco use. Cigarette smoking harms nearly every organ of the body, causes many diseases, and reduces the health of smokers in general. Quitting smoking lowers your risk for smoking-related diseases and can add years to your life. We encourage you to visit www.smokefree.gov access to helpful resources including free telephone support. If you decide on prescription treatment to help you quit, we would be happy to provide these. History of Present Illness Alaina Warner is a 23-year-old female who is here today for an ER follow-up. She was seen at [facility] ER on 11/22/2023 for vaginal pressure and abdominal cramping. At the ER, she was found to have a UTI, prescribed Keflex, Pyridium, and Zofran. Her UA was very positive, but culture came back negative. UA was positive for protein, ketone, trace ketones, blood, leukocytes, WBCs, but negative for nitrites. She has continued complaints of abdominal pain. She always feels like she has to have a bowel movement, that was a long time ago. This is not new for years. as had bowel urgency and lower abdominal pain. She is interested in a GI referral for this. She did have an abdominal ultrasound back in 09/2022 that showed small gallstones, but otherwise negative study. Then, she had a gallbladder ultrasound that showed cholelithiasis. She underwent cholecystectomy for this in 04/2023. I diagnosed her with IBS a couple of years ago. She was given dicyclomine to use and never worked very well. The patient reports that the initial administration of Dicyclomine (Bentyl) for her irritable bowel syndrome (IBS) was effective in alleviating cramping, but its efficacy has diminished over time. Post-cholecystectomy, she experiences frequent bowel movements, characterized by watery stools 99% of the time. This symptom has slightly increased post-cholecystic removal. She also experiences sporadic periods of constipation lasting only 2 days, accompanied by a sensation of her stomach appearing . She describes a sensation of incomplete bowel evacuation, with a need to defecate 5 minutes post-defecation. She tried xqym-tng-gyvzjga a laxative supplemented with beverages during periods of constipation, which provides some relief, but she refrains from doing so due to its potential to revert to diarrhea. She no longer experiences heartburn, which she believes began immediately post-cholecystectomy. Review of Systems PHQ Score Initial Depression Screen Score: 0 SCORE All other systems are negative except as stated in the HPI. Physical Exam Vitals & Measurements HR: 8(Peripheral) RR: 16 BP: 107/73 SpO2: 100% HT: 63 in HT: 160 cm WT: 62.4 kg WT: 137.28 lb BMI: 24.38 General: Well developed, well nourished, in no acute distress. Lungs: Normal respiratory effort and clear to auscultation. Cardio: Regular rate and rhythm, normal S1 and S2, no murmur, no rub. Neurologic: Grossly normal. Lymph Nodes: No cervical adenopathy, nodes normal. Mental Status: Alert and oriented x3. Normal mood and affect. Abdomen: Soft, nontender, and nondistended. Bowel sounds are within normal limits in all 4 quadrants. There is no hepatosplenomegaly in the gastrointestinal area. Assessment/Plan 1. IBS (irritable bowel syndrome) (K58.9: Irritable bowel syndrome without diarrhea) A referral to a materials handling coordinator has been initiated for further evaluation and management. The patient's current prescription of dicyclomine is no longer effective. She has previously attempted dietary modifications and the FODMAP diet, both of which have proven ineffective. 2. BMI 24.0-24.9, adult (Z68.24: Body mass index [BMI] 24.0-24.9, adult) Normal. ATTESTATION: Documentation services were performed after patient or guardian consented to allow gogaming[employer] experience to record this visit. MILES integrated specialist and provider reviewed before signing. MILES: Nicolas Conner. Portions of this record may have been created with voice recognition artificial intelligence software, specifically [employer], [employer] and or ustyme. Substitutions may have occurred due to the inherent limitations of voice recognition and artificial intelligence software. Follow-up No qualifying data available Patient Education Steps to Quit Smoking, Sycj-mc-[id number] Problem List/Past Medical History Ongoing Dizziness H/O: depression IBS (irritable bowel syndrome) Marijuana use Palpitations Smoker Historical Chronic diarrhea Depression Procedur (more content not included)... [facility] Comment on above: Result Comment: Elec tronically Signed By: Elisa PATEL CNP\.br\Date and Time Signed: 12/03/23 09:10 EDT\.br\Electronically Co-Signed By: Nicolas Conner\.br\Date and Time Co-Signed: 12/02/23 11:19 EDT Physician Orderon 12-03-2023 Physician Order [id number] [facility] Ambulatory Visit Summaryon 0 12-02-2023 Ambulatory Visit Summary ALAINA WARNER Katharine :2000 Visit Date:12/02/2023 Ambulatory Visit Instructions Your Diagnosis IBS (irritable bowel syndrome) BMI 24.0-24.9, adult Your Care Team Attending Physician - Elisa PATEL CNP Primary Care Physician - Elisa PATEL CNP This Is Your Medications List Contact prescribing physician if questions or concerns dicyclomine (dicyclomine 20 mg Tab) Procedures Performed Laparoscopic cholecystectomy (05/22/2023), None. Discharge Vitals Heart Rate (Peripheral) 8 Respiratory Rate 16 Blood Pressure 107/73 Height 160 cm Height 63 in Weight 62.4 kg Weight 137.28 lb BMI 24.38 What to do next Scheduled Follow-Up Appointments Thursday 11:00 AM EDT Where: [facility] Medications What How Much When Instructions Unchanged dicyclomine (dicyclomine 20 mg Tab) 1 Tablets By Mouth 4 times a day Contact prescribing physician if questions or concerns Allergies No Known Allergies Problems Ongoing - Any problem that you are currently receiving treatment for. Dizziness H/O: depression IBS (irritable bowel syndrome) Marijuana use Palpitations Smoker Historical - Any problem that you are no longer receiving treatment for. Chronic diarrhea Depression Patient Survey You may receive a survey via text or e-mail asking about your office visit. Please share your experience with us by completing your survey. We appreciate your feedback and thank you for choosing us for your care. Education Materials Steps to Quit Smoking Smoking tobacco is the leading cause of preventable . It can affect almost every organ in the body. Smoking puts you and people around you at risk for many serious, long-lasting (chronic) diseases. Quitting smoking can be hard, but it is one of the best things that you can do for your health. It is never too late to quit. Do not give up if you cannot quit the first time. Some people need to try many times to quit. Do your best to stick to your quit plan, and talk with your doctor if you have any questions or concerns. How do I get ready to quit? ? Pick a date to quit. Set a date within the next 2 weeks to give you time to prepare. ? Write down the reasons why you are quitting. Keep this list in places where you will see it often. ? Tell your family, friends, and co-workers that you are quitting. Their support is important. ? Talk with your doctor about the choices that may help you quit. ? Find out if your health insurance will pay for these treatments. ? Know the people, places, things, and activities that make you want to smoke (triggers). Avoid them. What first steps can I take to quit smoking? ? Throw away all cigarettes at home, at work, and in your car. ? Throw away the things that you use when you smoke, such as ashtrays and lighters. ? Clean your car. Empty the ashtray. ? Clean your home, including curtains and carpets. What can I do to help me quit smoking? Talk with your doctor about taking medicines and seeing a counselor. You are more likely to succeed when you do both. If you are or : ? Talk with your doctor about counseling or other ways to quit smoking. ? Do not take medicine to help you quit smoking unless your doctor tells you to. Quit right away ? Quit smoking completely, instead of slowly cutting back on how much you smoke over a period of time. Stopping smoking right away may be more successful than slowly quitting. ? Go to counseling. In-person is best if this is an option. You are more likely to quit if you go to counseling sessions regularly. Take medicine You may take medicines to help you quit. Some medicines need a prescription, and some you can buy [id number]. Some medicines may contain a drug called nicotine to replace the nicotine in cigarettes. Medicines may: ? Help you stop having the desire to smoke (cravings). ? Help to stop the problems that come when you stop smoking (withdrawal symptoms). Your doctor may ask you to use: ? Nicotine patches, gum, or lozenges. ? Nicotine inhalers or sprays. ? Non-nicotine medicine that you take by mouth. Find resources Find resources and other ways to help you quit smoking and remain smoke-free after you quit. They include: ? Online chats with a counselor. ? Phone quitlines. ? Printed self-help materials. ? Support groups or group counseling. ? Text messaging programs. ? Mobile phone apps. Use apps on your mobile phone or tablet that can help you stick to your quit plan. Examples of free services include Quit Guide from the CDC and smokefree.gov What can I do to make it easier to quit? ? Talk to your family and friends. Ask them to support and encourage you. ? Call a phone quitline, such as 0-747-FBGN-NOW, reach out to support groups, o (more content not included)... Normal [facility] Patient Educationon 12-02-19 24 Patient Education Pulmonary Medicine Steps to Quit Smoking Smoking tobacco is the leading cause of preventable . It can affect almost every organ in the body. Smoking puts you and people around you at risk for many serious, long-lasting (chronic) diseases. Quitting smoking can be hard, but it is one of the best things that you can do for your health. It is never too late to quit. Do not give up if you cannot quit the first time. Some people need to try many times to quit. Do your best to stick to your quit plan, and talk with your doctor if you have any questions or concerns. How do I get ready to quit? ? Pick a date to quit. Set a date within the next 2 weeks to give you time to prepare. ? Write down the reasons why you are quitting. Keep this list in places where you will see it often. ? Tell your family, friends, and co-workers that you are quitting. Their support is important. ? Talk with your doctor about the choices that may help you quit. ? Find out if your health insurance will pay for these treatments. ? Know the people, places, things, and activities that make you want to smoke (triggers). Avoid them. What first steps can I take to quit smoking? ? Throw away all cigarettes at home, at work, and in your car. ? Throw away the things that you use when you smoke, such as ashtrays and lighters. ? Clean your car. Empty the ashtray. ? Clean your home, including curtains and carpets. What can I do to help me quit smoking? Talk with your doctor about taking medicines and seeing a counselor. You are more likely to succeed when you do both. If you are or : ? Talk with your doctor about counseling or other ways to quit smoking. ? Do not take medicine to help you quit smoking unless your doctor tells you to. Quit right away ? Quit smoking completely, instead of slowly cutting back on how much you smoke over a period of time. Stopping smoking right away may be more successful than slowly quitting. ? Go to counseling. In-person is best if this is an option. You are more likely to quit if you go to counseling sessions regularly. Take medicine You may take medicines to help you quit. Some medicines need a prescription, and some you can buy [id number]. Some medicines may contain a drug called nicotine to replace the nicotine in cigarettes. Medicines may: ? Help you stop having the desire to smoke (cravings). ? Help to stop the problems that come when you stop smoking (withdrawal symptoms). Your doctor may ask you to use: ? Nicotine patches, gum, or lozenges. ? Nicotine inhalers or sprays. ? Non-nicotine medicine that you take by mouth. Find resources Find resources and other ways to help you quit smoking and remain smoke-free after you quit. They include: ? Online chats with a counselor. ? Phone quitlines. ? Printed self-help materials. ? Support groups or group counseling. ? Text messaging programs. ? Mobile phone apps. Use apps on your mobile phone or tablet that can help you stick to your quit plan. Examples of free services include Quit Guide from the CDC and smokefree.gov What can I do to make it easier to quit? ? Talk to your family and friends. Ask them to support and encourage you. ? Call a phone quitline, such as 9-832-UXXO-NOW, reach out to support groups, or work with a counselor. ? Ask people who smoke to not smoke around you. ? Avoid places that make you want to smoke, such as: ? Bars. ? Parties. ? Smoke-break areas at work. ? Spend time with people who do not smoke. ? Lower the stress in your life. Stress can make you want to smoke. Try these things to lower stress: ? Getting regular exercise. ? Doing deep-breathing exercises. ? Doing yoga. ? Meditating. What benefits will I see if I quit smoking? Over time, you may have: ? A better sense of smell and taste. ? Less coughing and sore throat. ? A slower heart rate. ? Lower blood pressure. ? Clearer skin. ? Better breathing. ? Fewer sick days. Summary ? Quitting smoking can be hard, but it is one of the best things that you can do for your health. ? Do not give up if you cannot quit the first time. Some people need to try many times to quit. ? When you decide to quit smoking, make a plan to help you succeed. ? Quit smoking right away, not slowly over a period of time. ? When you start quitting, get help and support to keep you smoke-free. This information is not intended to replace advice given to you by your health care provider. Make sure you discuss any questions you have with your health care provider. Document Revised: 07/04/2022 Document Reviewed: 07/04/2022 Elsevier Patient Education ? 2022 [employer] [facility] ED Note-Physicianon 11-26-19 ED Note-Physician Basic Information Time Seen: James LECHUGA, Gregory Self 11/22/2023 15:03 Chief Complaint c/o nausea, diarrhea, and lower abdominal pain, pressure near rectum and vaginal area that started last night. took motrin last night, helped minimally. gallbladder removed last year. History of Present Illness 22-year-old female reports to the emergency department with a chief complaint of some nausea, lower abdominal pressure, and pressure near her vagina and rectum. Reports that this all started last night. Reports increased smell of her urine as well. States that she took some Motrin last night, without any improvement. Reports that she does have chronic diarrhea, and that has not changed. She reports history of having her gallbladder out. Reports that she has been taking Bentyl, without any relief. States that she does have a history of UTIs. Denies any fever or chills. Denies any allergies to any antibiotics. Review of Systems A 10 point review of systems is negative except as noted above. Medical and Surgical History: Reviewed and noted Social history: Lives at home Family History: Reviewed. Tobacco: User Physical Exam Vitals & Measurements T: 36.5 ?C(Oral) HR: 100(Peripheral) RR: 16 BP: 109/86 SpO2: 100% HT: 160 cm WT: 59.5 kg BMI: 23.24 General: The patient appears well and in no apparent distress. Patient is resting comfortably on bed. Skin: Warm, dry, no pallor noted. Head: Normocephalic, atraumatic Neck: No JVD Eye: PERRLA, EOMI ENT: Moist mucus membranes Cardiovascular: Regular rate normal peripheral perfusion Respiratory: No respiratory distress no accessory muscle use no obvious audible wheezing Chest Wall: no deformity Musculoskeletal: normal ROM, no deformity, no swelling GI: No obvious distention soft suprapubic tenderness on palpation, without CVA tenderness. No rebound tenderness or guarding noted. Neurological: A&O moves all extremities equal strength and symmetry Psychiatric: Cooperative and appropriate Medical Decision Making MEDICAL DECISION MAKING Number and Complexity of Problems Differential Diagnosis: [] [facility] Data External documents reviewed: [] My EKG interpretation: [] My CT interpretation: [] My X-ray interpretation: [] My Ultrasound interpretation: [] Decision rules/scores evaluated: [] Discussed with: [] Treatment and Disposition ED Course: 22-year-old female reports to the ED with a chief complaint of lower abdominal pressure, nausea, and pressure around her rectum and Vagina. Reports increasing smell of her urine as well. Reports that she denies any fevers or chills. States that does have a history of UTIs. Denies any vaginal discharge. Reports that she has chronic diarrhea. On exam of the patient, she does have some suprapubic tenderness on my examination. Rectal exam was relatively benign. No CVA tenderness. Due to her concerns, we did do lab work as well as a urine on the patient. Lab work reviewed and noted. No acute changes seen with labs. Urine was positive for UTI. Discussed with patient discussed using antibiotics for treatment as well as Pyridium. Discussed precautions. Follow-up with your primary care provider in 3 to 5 days. If symptoms worsen, do not improve, or new symptoms arise please report back to emergency department for further evaluation. The patient was understanding and agreeable to plan moving forward. Shared decision making: [] Code status: [] Assessment/Plan UTI (urinary tract infection) (N39.0: Urinary tract infection, site not specified) Orders: cephalexin, 500 mg = 1 cap(s), Oral, q6hr, X 7 day(s), # 28 cap(s), Refills(s) 0, Pharmacy: [facility] #[id number], 160, cm, 11/22/23 14:35:00 EDT, Height/Length Dosing, 59.5, kg, 11/22/23 14:35:00 EDT, Weight Dosing ondansetron, 4 mg = 1 tab(s), Oral, q8hr, PRN Nausea/Vomiting, # 12 tab(s), Refills(s) 0, Pharmacy: [facility] #[id number], 160, cm, 11/22/23 14:35:00 EDT, Height/Length Dosing, 59.5, kg, 11/22/23 14:35:00 EDT, Weight Dosing phenazopyridine, 100 mg = 1 tab(s), Oral, TID, X 3 day(s), # 9 tab(s), Refills(s) 0, Pharmacy: [facility] #[id number], 160, cm, 11/22/23 14:35:00 EDT, Height/Length Dosing, 59.5, kg, 11/22/23 14:35:00 EDT, Weight Dosing Medications Administered Given NS 1000 ml Bolus, 1000 mL, IV Disposition Plan Patient Discharge Condition Stable Discharge Disposition To home Discharge Prescription List Prescriptions Keflex 500 mg Cap, 500 mg= 1 cap(s), Oral, q6hr Pyridium 100 mg Tab, 100 mg= 1 tab(s), Oral, TID Zofran ODT 4 mg Tab-Dis, 4 mg= 1 tab(s), Oral, q8hr, PRN Follow-up With When Contact Information Elisa PATEL In 3 days [address] [place] [address] Business (1) Additional Instructions: Patient Education Upper Respiratory Infection, Adult, Ebrh-vy-Msrs Dysuria Attestation Patient seen and evaluated by the physician advertising assistant manager. Attending physician was present in the emergency department and supervised care. This v (more content not included)... [facility] Comment on above: Result Comment: Elec tronically Signed By: Gregory Ramirez PA-C\.br\Date and Time Signed: 11/22/23 15:42 EDT\.br\Electronically Co-Signed By: Trevor Cabral MD\.br\Date and Time Co-Signed: 11/26/23 22:54 EDT C Urineon 11-24-2023 Bacteria identified Cx Nom (U) Microbiology PROCEDURE: Urine Culture [R1] SOURCE: U CleanCatch BODY SITE: COLLECTED DATE/TIME: 11/22/2023 14:56 EDT RECEIVED DATE/TIME: 11/22/2023 21:59 EDT START DATE/TIME: 11/22/2023 22:00 EDT FREE TEXT SOURCE: Jose Raul LECHUGA, Paul Blunt PA-C, Paul FINAL REPORTS Final Report [] Verified Date/Time: 11/24/2023 09:14 EDT 1,000 cfu/ml Mixed skin contaminants Performing Locations R1: This [facility] performed at: [facility], [address] [place] [address], [address] , , [facility] Comment on above: Performed By: #### 2 [id number], 8871721, 4763479, [id number], 6195542 #### [facility] [address] [place] [address], [place] [address] B hCG Qualon 11-22-2023 Beta HCG ( test) Ql Negative Normal [facility] Comment on above: Performed By: #### 2 432064, 5637872, 02871029, 8328836, 30144345, 7520141 ####[facility] [id number] [place] [address] BMPon 11-22-2023 Anion gap [Moles/Vol] 11 mmol/L Normal 6-16 [facility] Comment on above: Performed By: #### 2 069265, 9284975, 44639454, 7547745, 57352820, 4933401 #### [facility] [address] [place] [address] Calcium [Mass/Vol] 9.4 mg/dL Normal 8.9-11.1 [facility] Comment on above: Performed By: #### 2 843212, 3538644, 83491170, 0046048, 30395890, 9662230 #### [facility] [address] [place] [address] Chloride [Moles/Vol] 104 mmol/L Normal 101-111 [facility] Comment on above: Performed By: #### 2 699666, 9325949, 77208716, 9914223, 95881167, 2411964 #### [facility] [address] [place] [address] CO2 [Moles/Vol] 26 mmol/L Normal 21-31 [facility] Comment on above: Performed By: #### 2 244962, 9258202, 88852087, 6615480, 03710097, 2072307 #### [facility] [address] [place] [address] Creatinine [Mass/Vol] 0.7 mg/dL Normal 0.5-1.3 [facility] Comment on above: Performed By: #### 2 022383, 6631715, 25488119, 8161140, 75203414, 1260949 #### [facility] [address] [place] [address] Glucose [Mass/Vol] 124 mg/dL Normal 55-199 [facility] Comment on above: Performed By: #### 2 630267, 7586027, 85552599, 8160184, 25507952, 2214553 #### [facility] [address] [place] [address] Potassium [Moles/Vol] 3.7 mmol/L Normal 3.5-5.3 [facility] Comment on above: Performed By: #### 2 256848, 0668118, 55206494, 0858449, 62948824, 3958592 #### [facility] [address] [place] [address] Sodium [Moles/Vol] 137 mmol/L Normal 135-145 [facility] Comment on above: Performed By: #### 2 852464, 4940973, 51893135, 0339360, 10477206, 7505220 #### [facility] [address] [place] [address] Urea nitrogen [Mass/Vol] 19 mg/dL Normal 5-21 [facility] Comment on above: Performed By: #### 2 425278, 3362743, 28358852, 2884674, 24300015, 6678414 #### [facility] [address] [place] [address] Urea nitrogen/Creatinine [Mass ratio] 27 No Units High 10-20 [facility] Comment on above: Performed By: #### 2 300586, 5450062, 52752585, 8004267, 28257892, 9235675 #### [facility] [address] [place] [address] CBC w/ Auto Diffon 4 Basophils/100 WBC (Bld) 0.8 % Normal 0.0-2.0 [facility] Comment on above: Performed By: #### 2 401279, 6440955, 97243425, 3823358, 64063424, 5696741 #### [facility] [address] [place] [address] Basophils/Leukocytes Auto (Bld) [Pure # fraction] 0.1 E9/L Normal 0.0-0.2 [facility] Comment on above: Performed By: #### 2 947378, 0196167, 24364754, 8783229, 55277390, 7721497 #### [facility] [address] [place] [address] Eosinophils (Bld) [#/Vol] 0.1 E9/L Normal 0.0-0.5 [facility] Comment on above: Performed By: #### 2 659952, 1003096, 50095878, 7089386, 21262274, 2627200 #### [facility] [address] [place] [address] Eosinophils/100 WBC (Bld) 1.7 % Normal 0.0-8.0 [facility] Comment on above: Performed By: #### 2 175775, 3420281, 94452587, 5836593, 55531471, 5524076 #### [facility] [address] [place] [address] Erythrocyte distribution width (RBC) [Ratio] 13.1 % Normal 10.9-14.2 [facility] Comment on above: Performed By: #### 2 023038, 5628738, 82252084, 1743194, 84748028, 8655754 #### [facility] [address] [place] [address] Hematocrit (Bld) [Volume fraction] 43.1 % Normal 34.0-46.0 [facility] Comment on above: Performed By: #### 2 569030, 7258325, 05887193, 3011644, 57157659, 1484868 #### [facility] [address] [place] [address] Hemoglobin (Bld) [Mass/Vol] 14.3 g/dL Normal 12.0-16.0 [facility] Comment on above: Performed By: #### 2 616338, 7259649, 35248366, 3499219, 23745095, 8050001 #### [facility] [address] [place] [address] Lymphocytes (Bld) [#/Vol] 1.6 E9/L Normal 1.0-4.0 [facility] Comment on above: Performed By: #### 2 337088, 0261408, 65280974, 8533228, 75162807, 5017633 #### [facility] [address] [place] [address] Lymphocytes/100 WBC (Bld) 20.8 % Normal 14.0-50.0 [facility] Comment on above: Performed By: #### 2 037059, 2559739, 55412962, 9908483, 86789477, 2308146 #### [facility] [address] [place] [address]996 MCH (RBC) [Entitic mass] 31.8 pg Normal 27.0-34.0 [facility] Comment on above: Performed By: #### 2 044601, 5338580, 14842956, 7349422, 29793714, 1570456 #### [facility] [address] [place] [address]137 MCHC (RBC) [Mass/Vol] 33.0 g/dL Normal 31.4-36.0 [facility] Comment on above: Performed By: #### 2 199612, 0752741, 84607483, 5519521, 21436507, 4208014 #### [facility] [address] [place] [address] MCV (RBC) [Entitic vol] 96.3 fL Normal 80.0-100.0 [facility] Comment on above: Performed By: #### 2 268411, 0848557, 79031049, 9782124, 89587160, 1315644 #### [facility] [address] [place] [address] Monocytes (Bld) [#/Vol] 0.5 E9/L Normal 0.2-1.0 [facility] Comment on above: Performed By: #### 2 058155, 1230589, 86049738, 8912891, 08065198, 8462405 #### [facility] [address] [place] [address]004 Neutrophils (Bld) [#/Vol] 5.3 E9/L Normal 2.0-7.5 [facility] Comment on above: Performed By: #### 2 398183, 7939289, 90342942, 1216739, 29242964, 4225757 #### [facility] [address] [place] [address]149 Neutrophils/100 WBC (Bld) 69.6 % Normal 36.0-75.0 [facility] Comment on above: Performed By: #### 2 788736, 1897934, 15624138, 6399913, 52023431, 0408217 #### [facility] [address] [place] [address] 77455 Platelet 226.0 E9/L Normal 150.0-500.0 [facility] Comment on above: Performed By: #### 2 927899, 2492172, 49778247, 7419909, 63778628, 0251986 #### [facility] [address] [place] [address] Platelet mean volume (Bld) [Entitic vol] 7.8 fL Normal 6.4-10.8 [facility] Comment on above: Performed By: #### 2 710387, 3701506, 67451862, 2436370, 10593249, 1723253 #### [facility] [address] [place] [address] RBC (Bld) [#/Vol] 4.5 E12/L Normal 4.3-5.9 [facility] Comment on above: Performed By: #### 2 859549, 7914410, 73256503, 6170466, 36090102, 5979789 #### [facility] [address] [place] [id number] WBC corrected for nucl RBC Auto (Bld) [#/Vol] 7.6 E9/L Normal 4.0-11.0 [facility] Comment on above: Performed By: #### 2 442444, 6166753, [id number], 7943665, 23584537, 7649435 #### [facility] [address] [place] [address] CHEMISTRYOrdered By: SYSTEM SYSTEM on 11-22-2023 Albumin [Mass/Vol] 4.5 g/dL Normal 3.3 - 5.0 gm/dL Remisol Chem Albumin/Globulin [Mass ratio] 1.6 {ratio} Normal 1.1 - 2.2 Remisol Chem ALP [Catalytic activity/Vol] 71 [iU]/d Normal 21 - 98 Int._Unit/L Remisol Chem ALT No additional P-5'-P [Catalytic activity/Vol] 24 [iU]/d Normal 6 - 46 Int._Unit/L Remisol Chem Anion gap [Moles/Vol] 11 mmol/L Normal 6 - 16 mEq/L Remisol Chem AST [Catalytic activity/Vol] 38 [iU]/d Normal 5 - 43 Int._Unit/L Remisol Chem Bilirubin [Mass/Vol] 1.3 mg/dL High 0.0 - 1 .1 mg/dL Remisol Chem Bilirubin.direct [Mass/Vol] 0.2 mg/dL Normal 0.0 - 0.4 mg/dL Remisol Chem Bilirubin.indirect [Mass or moles/Vol] 1.1 mg/dL High 0.1 - 0.9 mg/dL Remisol Chem Calcium [Mass/Vol] 9.4 mg/dL Normal 8.9 - 11. 1 mg/dL Remisol Chem Chloride [Moles/Vol] 104 mmol/L Normal 101 - 1 11 mmol/L Remisol Chem CO2 [Moles/Vol] 26 mmol/L Normal 21 - 31 mmol/L Remisol Chem Creatinine [Mass/Vol] 0.7 mg/dL Normal 0.5 - 1.3 mg/dL Remisol Chem eGFR 123 mL/min/1.73 m2 Normal >=59mL/mi n/1. 73 m2 Remisol Chem Globulin (S) [Mass/Vol] 2.8 g/dL Normal 1.4 - 4.0 gm/dL Remisol Chem Glucose [Mass/Vol] 124 mg/dL Normal 55 - 199 mg/dL Remisol Chem Lipase [Catalytic activity/Vol] 29 U/L Normal 13 - 58 unit/L Remisol Chem Potassium [Moles/Vol] 3.7 mmol/L Normal 3.5 - 5.3 mmol/L Remisol Chem Protein [Mass/Vol] 7.3 g/dL Normal 6.0 - 7.8 gm/dL Remisol Chem Sodium [Moles/Vol] 137 mmol/L Normal 135 - 145 mmol/L Remisol Chem Urea nitrogen [Mass/Vol] 19 mg/dL Normal 5 - 21 mg/dL Remisol Chem Urea nitrogen/Creatinine [Mass ratio] 27 mg/mg High 10 - 20 Remisol Chem Consent for Treatmenton 10-26 Consent for Treatment [id number] F Normal [facility] Discharge Instructionson Discharge Instructions [id number] IFF Normal [facility] ED Clinical Summaryon 2023 ED Clinical Summary (Inserted Image. Neda ble to display) [place] [id number] ED Clinical Summary Person Information Name: ALAINA WARNER Lori/[facility] Age: 22 Years : 2000 Sex: Female Language: Nigerien PCP: Elisa PATEL CNP Marital Status: Single Phone: [phone] Visit Id: Visit Reason: Nausea; Diarrhea; Pelvic pain; Abdominal pain; ABD PAIN PRESSURE Speciality: Acuity: 3 Enc Type: Emergency Med Service: Emergency Arrival: 11/22/2023 14:27:01 Discharge: 11/22/2023 15:40:22 LOS: 000 01:13 Checkin: 11/22/2023 14:27:01 Checkout: 11/22/2023 15:40:22 Dispo Type: Home (Routine DC) EVENTS: Event Name Event Status Request Date/Time Start Date/Time Complete Date/Time Arrive Complete 11/22/2023 14:27:01 11/22/2023 14:27:01 11/22/2023 14:27:01 Document Home Meds Request 11/22/2023 14:27:01 Triage Complete 11/22/2023 14:27:01 11/22/2023 14:35:09 11/22/2023 14:35:09 Bed Assign Complete 11/22/2023 14:28:57 11/22/2023 14:28:57 11/22/2023 14:28:57 Dr Exam Complete 11/22/2023 14:28:57 11/22/2023 15:03:00 11/22/2023 15:03:00 RN Exam Complete 11/22/2023 14:28:57 11/22/2023 15:00:10 11/22/2023 15:00:10 Registration Complete 11/22/2023 14:29:19 11/22/2023 14:29:19 11/22/2023 14:29:19 Reg Complete Request 11/22/2023 14:29:19 Reg Bed Request Complete 11/22/2023 14:29:19 11/22/2023 14:29:19 11/22/2023 14:29:19 Meds Admin Complete 11/22/2023 14:39:03 11/22/2023 14:54:04 Pending Labs Complete 11/22/2023 14:39:03 11/22/2023 15:21:03 Lab Complete 11/22/2023 14:39:03 11/22/2023 15:14:50 Pending Labs Complete 11/22/2023 14:56:00 11/22/2023 14:56:00 11/22/2023 15:14:50 Lab Complete 11/22/2023 14:56:00 11/22/2023 14:56:00 11/22/2023 15:14:50 Pending Labs Complete 11/22/2023 14:58:13 11/22/2023 14:58:13 11/22/2023 14:58:14 Registration Complete 11/22/2023 15:03:00 11/22/2023 15:06:57 11/22/2023 15:06:57 Pending Labs Collected 11/22/2023 15:10:36 11/22/2023 15:10:36 Lab Collected 11/22/2023 15:10:36 11/22/2023 15:10:36 Discharge Complete 11/22/2023 15:31:41 11/22/2023 15:40:26 11/22/2023 15:40:26 Transfer Complete 11/22/2023 15:40:26 11/22/2023 15:40:26 11/22/2023 15:40:26 ADDRESS: [address] [place] [id number] PHYS DOC NOTES: MEDICAL INFORMATION: Prescriptions Given: New Medications [id number], [address] [place], [place] [id number], [phone] cephalexin (Keflex 500 mg Cap) 1 Capsules By Mouth every 6 hours for 7 Days. Refills: 0. ondansetron (Zofran ODT 4 mg Tab-Dis) 1 Tablets By Mouth every 8 hours as needed Nausea/Vomiting. Refills: 0. phenazopyridine (Pyridium 100 mg Tab) 1 Tablets By Mouth 3 times a day for 3 Days. Refills: 0. Medications to Continue with No Changes Other Medications dicyclomine (dicyclomine 20 mg Tab) 1 Tablets By Mouth 4 times a day. PATIENT EDUCATION INFORMATION: Instructions: Upper Respiratory Infection, Adult, Emsf-lw-Tatq; Dysuria Follow up: With: Address: When: Elisa PATEL [address] [place] [address] Business (1) In 3 days DIAGNOSIS: UTI (urinary tract infection) Normal [facility] ED Patient Education Noteon 11-22-2023 ED Patient Education Note Infectious Disease Upper Respiratory Infection, Adult An upper respiratory infection (URI) affects the nose, throat, and upper airways that lead to the lungs. The most common type of URI is often called the common cold. URIs usually get better on their own, without medical treatment. What are the causes? A URI is caused by a germ (virus). You may catch these germs by: ? Breathing in droplets from an infected person's cough or sneeze. ? Touching something that has the germ on it (is contaminated) and then touching your mouth, nose, or eyes. What increases the risk? You are more likely to get a URI if: ? You are very young or very old. ? You have close contact with others, such as at work, school, or a health care facility. ? You smoke. ? You have long-term (chronic) heart or lung disease. ? You have a weakened disease-fighting system (immune system). ? You have nasal allergies or asthma. ? You have a lot of stress. ? You have poor nutrition. What are the signs or symptoms? ? Runny or stuffy (congested) nose. ? Cough. ? Sneezing. ? Sore throat. ? Headache. ? Feeling tired (fatigue). ? Fever. ? Not wanting to eat as much as usual. ? Pain in your forehead, behind your eyes, and over your cheekbones (sinus pain). ? Muscle aches. ? Redness or irritation of the eyes. ? Pressure in the ears or face. How is this treated? URIs usually get better on their own within 7?10 days. Medicines cannot cure URIs, but your doctor may recommend certain medicines to help relieve symptoms, such as: ? Gzyt-eot-spsbtri cold medicines. ? Medicines to reduce coughing (cough suppressants). Coughing is a type of defense against infection that helps to clear the nose, throat, windpipe, and lungs (respiratory system). Take these medicines only as told by your doctor. ? Medicines to lower your fever. Follow these instructions at home: Activity ? Rest as needed. ? If you have a fever, stay home from work or school until your fever is gone, or until your doctor says you may return to work or school. ? You should stay home until you cannot spread the infection anymore (you are not contagious). ? Your doctor may have you wear a face mask so you have less risk of spreading the infection. Relieving symptoms ? Rinse your mouth often with salt water. To make salt water, dissolve ??1 tsp (3?6 g) of salt in 1 cup (237 mL) of warm water. ? Use a cool-mist humidifier to add moisture to the air. This can help you breathe more easily. Eating and drinking ? Drink enough fluid to keep your pee (urine) pale yellow. ? Eat soups and other clear broths. General instructions ? Take hglq-soa-iutbckx and prescription medicines only as told by your doctor. ? Do not smoke or use any products that contain nicotine or tobacco. If you need help quitting, ask your doctor. ? Avoid being where people are smoking (avoid secondhand smoke). ? Stay up to date on all your shots (immunizations), and get the flu shot every year. ? Keep all follow-up visits. How to prevent the spread of infection to others ? Wash your hands with soap and water for at least 20 seconds. If you cannot use soap and water, use hand photographic platemaker. ? Avoid touching your mouth, face, eyes, or nose. ? Cough or sneeze into a tissue or your sleeve or elbow. Do not cough or sneeze into your hand or into the air. Contact a doctor if: ? You are getting worse, not better. ? You have any of these: ? A fever or chills. ? Brown or red mucus in your nose. ? Yellow or brown fluid (discharge)coming from your nose. ? Pain in your face, especially when you bend forward. ? Swollen neck glands. ? Pain when you swallow. ? White areas in the back of your throat. Get help right away if: ? You have shortness of breath that gets worse. ? You have very bad or constant: ? Headache. ? Ear pain. ? Pain in your forehead, behind your eyes, and over your cheekbones (sinus pain). ? Chest pain. ? You have long-lasting (chronic) lung disease along with any of these: ? Making high-pitched whistling sounds when you breathe, most often when you breathe out (wheezing). ? Long-lasting cough (more than 14 days). ? Coughing up blood. ? A change in your usual mucus. ? You have a stiff neck. ? You have changes in your: ? Vision. ? Hearing. ? Thinking. ? Mood. These symptoms may be an emergency. Get help right away. Call 911. ? Do not wait to see if the symptoms will go away. ? Do not drive yourself to the hospital. Summary ? An upper respiratory infection (URI) is caused by a germ (virus). The most common type of URI is often called the common cold. ? URIs usually get better within 7?10 days. ? Take pttr-uyb-jdyhwkt and prescription medicines only as told by your doctor. This information is not intended to replace advice given to you by your health care (more content not included)... Normal [facility] ED Patient Summaryon 024 ED Patient Summary (Inserted Image. Neda ble to display) [address] [address] Patient Discharge Instructions Person Information Name: ALAINA WARNER Age: 22 Years Arrival Date: 11/22/2023 14:27:01 Discharge Diagnosis: UTI (urinary tract infection) Primary Care Physician: Elisa PATEL CNP Provider Information Primary Provider: Advanced Superintendent Meter Tests:None The exam and treatment you received in the Emergency Department were for an urgent problem and are not intended as complete care. It is important that you follow up with a doctor, nurse practitioner, or physician?s advertising assistant manager for ongoing care. If your symptoms become worse or you do not improve as expected and you are unable to reach your usual health care provider, you should return to the Emergency Department. We are available 24 hours a day. ALAINA WARNER has been given the following list of patient education materials, prescriptions and follow-up instructions: Follow-up Instructions: With: Address: When: Elisa PATEL [address] [place] [address] Business (1) In 3 days In the event that this physician does not participate in your insurance network, please consult with your insurance company to find a nearby participating provider. Patient Education Materials: Upper Respiratory Infection, Adult, Xmtf-om-Hjaj; Dysuria A MESSAGE TO ALL PATIENTS REGARDING OPIOIDS PRESCRIPTION OPIOIDS: WHAT YOU NEED TO KNOW Prescription opioids can be used to help relieve lzrdcvgb-cr-capbua pain and are often prescribed following a surgery or injury, or for certain health conditions. These medications can be an important part of the treatment but also come with serious risks. It is important to work with your healthcare provider to make sure you are getting the safest, most effective care. WHAT ARE THE RISKS AND SIDE EFFECTS OF OPIOID USE? Prescription opioids carry serious risks of addiction and overdose, especially with prolonged use. An opioid overdose, often marked by slowed breathing, can cause sudden . The use of prescription opioids can have a number of side effects as well, even when taken as directed: ? Tolerance?meaning you might need to take more of the medication for the same pain relief ? Physical dependence?meaning you have symptoms of withdrawal when a medication is stopped ? Increased sensitivity to pain ? Constipation ? Nausea, vomiting, and dry mouth ? Sleepiness and dizziness ? Confusion ? Depression ? Low levels of testosterone that can result in lower sex drive, energy, and strength ? Itching and sweating RISKS ARE GREATER WITH: ? History of drug misuse, substance use disorder, or overdose ? Mental health conditions (such as depression or anxiety) ? Sleep apnea ? Older age (65 years and older) ? Avoid alcohol while taking prescription opioids. Also, unless specifically advised by your health care provider, medications to avoid include: ? Benzodiazepines (such as Xanax or Valium) ? Muscle relaxants (such as Soma or Flexeril) ? Hypnotics (such as Ambien or Lunesta) ? Other prescription opioids KNOW YOUR OPTIONS Talk to your health care provider about ways to manage your pain that don?t involve prescription opioids. Some of these options may actually work better and have fewer risks and side effects. Options may include: ? Pain relievers such as acetaminophen, ibuprofen, and naproxen ? Some medication that are also used for depression or seizures ? Physical therapy and exercise ? Cognitive behavioral therapy, a psychological, goal-directed approach, in which patients learn how to modify physical, behavioral, and emotional triggers of pain and stress. IF YOU ARE PRESCRIBED OPIOIDS FOR PAIN: ? Never take opioids in greater amounts or more often than prescribed. ? Follow up with your primary health care provider. o Work together to create a plan on how to manage your pain. o Talk about ways to help manage your pain that don?t involve prescription opioids. o Talk about any and all concerns and side effects. ? Help prevent misuse and abuse o Never sell or share prescription opioids. o Never use another person?s prescription opioids. ? Store prescription opioids in a secure place and out of reach of others (this may include visitors, children, friends, and family). ? Safely dispose of unused prescription opioids: Find your community drug take-back program or your pharmacy mail-back program, or flush them down the toilet, following guidance from the Food and Drug Administration (www.fda.gov/Drugs/Resou rcesForYou). ? Visit www.cdc.gov/drugoverdose to learn about the risks of opioids abuse and overdose. ? If you believe you may be struggling with addiction, tell your health career center advisor and ask for guidance or call [facility]?S National Helpline at 2-221-272-NWRD. n Source: [place] Departme (more content not included)... Normal [facility] HEMATOLOGYOrdered By: SYSTEM SYSTEM on 11-22-2023 Basophils/100 WBC (Bld) 0.8 % Normal 0.0 - 2.0 % Remisol Heme Basophils/Leukocytes Auto (Bld) [Pure # fraction] 0.1 E9/L Normal 0.0 - 0.2 E9/L Remisol Heme Eosinophils (Bld) [#/Vol] 0.1 E9/L Normal 0.0 - 0.5 E9/L Remisol Heme Eosinophils/100 WBC (Bld) 1.7 % Normal 0.0 - 8.0 % Remisol Heme Erythrocyte distribution width (RBC) [Ratio] 13.1 % Normal 10.9 - 14.2 % Remisol Heme Hematocrit (Bld) [Volume fraction] 43.1 % Normal 34.0 - 46.0 % Remisol Heme Hemoglobin (Bld) [Mass/Vol] 14.3 g/dL Normal 12.0 - 16.0 gm/dL Remisol Heme Lymphocytes (Bld) [#/Vol] 1.6 E9/L Normal 1.0 - 4.0 E9/L Remisol Heme Lymphocytes/100 WBC (Bld) 20.8 % Normal 14.0 - 50.0 % Remisol Heme MCH (RBC) [Entitic mass] 31.8 pg Normal 27.0 - 34.0 pg Remisol Heme MCHC (RBC) [Mass/Vol] 33.0 g/dL Normal 31.4 - 36.0 gm/dL Remisol Heme MCV (RBC) [Entitic vol] 96.3 fL Normal 80.0 - 100.0 fL Rem[facility] Heme Monocytes (Bld) [#/Vol] 0.5 E9/L Normal 0.2 - 1.0 E9/L Remisol Heme Monocytes/100 WBC (Bld) 7.1 % Normal 4.0 - 14.0 % Remisol Heme Neutrophils (Bld) [#/Vol] 5.3 E9/L Normal 2.0 - 7.5 E9/L Remisol Heme Neutrophils/100 WBC (Bld) 69.6 % Normal 36.0 - 75.0 % [facility] Heme Platelet 226.0 E9/L Normal 150.0 - 500.0 E9/L Remisol Heme Platelet mean volume (Bld) [Entitic vol] 7.8 fL Normal 6.4 - 10.8 fL Remisol Heme RBC (Bld) [#/Vol] 4.5 E12/L Normal 4.3 - 5.9 E12/L Rem[facility] Heme WBC corrected for nucl RBC Auto (Bld) [#/Vol] 7.6 E9/L Normal 4.0 - 11.0 E9/L Remisol Heme Hep Func Panelon 11-22-2023 Albumin [Mass/Vol] 4.5 g/dL Normal 3.3-5.0 [facility] Comment on above: Performed By: #### 2 888110, 3559291, 99560444, 3535505, 25460620, 8112729 ####[facility] [address] [place] [address] Albumin/Globulin (S) [Mass conc ratio] 1.6 Normal 1.1-2.2 [facility] Comment on above: Performed By: #### 2 285991, 8561913, 49181001, 6626563, 03628640, 6506611 ####[facility] [address] [place] [address] ALP [Catalytic activity/Vol] 71 Int._Unit/L Normal 21-98 [facility] Comment on above: Performed By: #### 2 424358, 9990902, 76219254, 4476984, 84161065, 5264556 ####[facility] [address] [place] [address] ALT No additional P-5'-P [Catalytic activity/Vol] 24 Int._Unit/L Normal 6-46 [facility] Comment on above: Performed By: #### 2 382753, 1847028, 01743595, 8563452, 58993771, 2594116 ####[facility] [address] [place] [address] AST [Catalytic activity/Vol] 38 Int._Unit/L Normal 5-43 [facility] Comment on above: Performed By: #### 2 478208, 7108933, 42833869, 5727420, 77651911, 5472599 ####[facility] [address] [place] [address] Bilirubin [Mass/Vol] 1.3 mg/dL High 0.0-1.[address] [facility] Comment on above: Performed By: #### 2 150306, 0713697, 73155501, 0138063, 92217794, 8118327 ####[place] [address] [place] [address] Bilirubin.direct [Mass/Vol] 0.2 mg/dL Normal 0.0-0.4 [facility] Comment on above: Performed By: #### 2 054161, 4081931, 02442406, 5607529, 89085954, 8656248 ####[facility] [address] [place] [address] Bilirubin.indirect [Mass or moles/Vol] 1.1 mg/dL High 0.1-0.9 [facility] Comment on above: Performed By: #### 2 977645, 6834750, 25189725, 4227420, 73933220, 1840473 ####[place] [address] [place] [address] Globulin (S) [Mass/Vol] 2.8 g/dL Normal 1.4-4.0 [facility] Comment on above: Performed By: #### 2 757972, 1655076, 87237364, 9033098, 50070394, 2044866 ####[facility] [address] [place] [address] Protein [Mass/Vol] 7.3 g/dL Normal 6.0-7.8 [facility] Comment on above: Performed By: #### 2 642453, 7102095, 68188580, 0391848, 52833208, 8421124 ####[facility] [address] [place] [address] Lipase Levelon 11-22-2023 Lipase [Catalytic activity/Vol] 29 U/L Normal 13-58 [facility] Comment on above: Performed By: #### 2 844292, 8416053, 84998696, 7018265, 53987444, 7259239 ####[facility] [address] [place] [address] SEROLOGYOrdered By: Dawson Viramontes urgeon on 11-22-2023 Beta HCG ( test) Ql Negative (11/22/23 2:51 PM) Normal [facility] [place] [place] Man Sero UA with Cult Rflxon 11-22-19 Bilirubin Ql (U) Negative Normal Negative [facility] Comment on above: Performed By: #### 2 446687, 0161936, 3315326, 25965661, 6490753 #### [facility] [address] [place] [address] Clarity (U) Turbid Abnormal Clear [facility] Comment on above: Performed By: #### 2 344716, 1549592, 7000776, 29174167, 7324227 #### [facility] [address] [place] [address] Color (U) Yellow Normal Yellow [facility] Comment on above: Result Comment: Micr oscopic readings are only performed on those samples that meet specific criteria set forth by [facility]. Performed By: #### 2 381229, 1583354, 6097680, 72768463, 1219190 #### [facility] [address] [place] [address] Epithelial cells.squamous Auto (Urine sed) [#/Area] >10 Abnormal 0-2 [facility] Comment on above: Performed By: #### 2 012352, 4209783, 2232152, 09337340, 0088946 #### [facility] [address] [place] [address] Glucose Ql (U) Negative Normal Negative [facility] Comment on above: Performed By: #### 2 192790, 9266952, 6664609, 11269029, 4020997 #### [facility] [address] [place] [address] Hemoglobin Auto test strip (U) [Mass/Vol] 1+ mg/dL Abnormal Negative [facility] Comment on above: Performed By: #### 2 192649, 8483956, 0226764, 62670385, 0563499 #### [facility] [address] [place] [address] Ketones Auto test strip Ql (U) Trace Abnormal Negative [facility] Comment on above: Performed By: #### 2 508802, 1736865, 7612007, 72816385, 0227463 #### [facility] [address] [place] [address] Leukocyte esterase Auto test strip Ql (U) 75 Finn/uL Abnormal Negative [facility] Comment on above: Performed By: #### 2 164099, 5822297, 5646181, 65479893, 2053366 #### [facility] [address] [place] [address] Mucus Auto Ql (U) 1+ [id number] Abnormal Negative F [facility] Comment on above: Performed By: #### 2 877947, 2239940, 8923271, 43218286, 6198537 #### [facility] [address] [place] [address] Nitrite Auto test strip Ql (U) Negative Normal Negative [facility] Comment on above: Performed By: #### 2 474750, 2354875, 2545252, 77528302, 2226203 #### [facility] [address] [place] [address] pH (U) 5.5 [pH] Invalid Interpretation Code 5.0-9.0 [facility] Comment on above: Performed By: #### 2 763470, 8126498, 2730446, 83952610, 8633865 #### [facility] [address] [place] [address] Protein Ql (U) 1+ mg/dL Abnormal Negative [facility] Comment on above: Performed By: #### 2 348441, 3956279, 4752950, 35305410, 6687715 #### [facility] [address] [place] [address] RBC Ql (U) 4-20 Abnormal 0-3 [facility] Comment on above: Performed By: #### 2 855205, 5615365, 0760965, 97833487, 5890649 #### [facility] [address] [place], [place] [address] Specific gravity (U) [Rel density] 1.034 Invalid Interpretation Code 1.005-1.030 [facility] Comment on above: Performed By: #### 2 267172, 7754216, 7312471, 06954828, 8179618 #### [facility] [address] [place] [address] Urobilinogen (U) [Mass/Vol] 2 mg/dL Abnormal Negative [facility] Comment on above: Performed By: #### 2 843420, 4271029, 8700309, 12690094, 8690613 #### [facility] [address] [place], [place] [address] WBC Auto (Urine sed) [#/Area] 16-25 Abnormal 0-5 [facility] Comment on above: Performed By: #### 2 870117, 6092624, 0105871, 49307752, 6702069 #### [facility] [address] [place] [address] Type of Urine collection method Clean Catch Normal [facility] Comment on above: Performed By: #### 2 845563, 3362753, 2464507, 22672328, 5808139 #### [facility] [address] [place] [address] URINALYSISOrdered By: SYSTEM SYSTEM on 11-22-2023 Bilirubin Ql (U) Negative Normal Negativemg/dL [facility] [place] [place] UA Auto SS Clarity (U) Turbid *ABN* (11/22/23 2:56 PM) Invalid Interpretation Code Clear [facility] UA Auto SS Color (U) Yellow 1 (11/22/23 2:56 PM) Normal Yellow [facility] UA Auto SS Comment on above: Interpretive Data: M icroscopic readings are only performed on those samples that meet specific criteria set forth by [facility]. Epithelial cells.squamous Auto (Urine sed) [#/Area] >10 graded/HPF Invalid Interpretation Code 0-2graded/HPF [facility] UA Auto SS Glucose Ql (U) Negative Normal Negativemg/dL [facility] Auto SS Hemoglobin Auto test strip (U) [Mass/Vol] 1+ mg/dL Invalid Interpretation Code Negativemg/dL [facility] SS Ketones Auto test strip Ql (U) Trace mg/dL Invalid Interpretation Code Negativemg/dL [facility] SS Leukocyte esterase Auto test strip Ql (U) 75 Finn/uL Finn/uL Invalid Interpretation Code NegativeLeu/u L [facility] Mucus Auto Ql (U) 1+ graded/LPF Invalid Interpretation Code Negativegrade d/LPF [facility] SS Nitrite Auto test strip Ql (U) Negative Normal Negativemg/dL [facility] pH (U) 5.5 *NA* (11/22/23 2:56 PM) Invalid Interpretation Code 5.0 - 9.0 [facility] SS Protein Ql (U) 1+ mg/dL Invalid Interpretation Code Negativemg/dL [facility] Auto SS RBC Ql (U) 4-20 graded/HPF Invalid Interpretation Code 0-3graded/HPF [facility] Auto SS Specific gravity (U) [Rel density] 1.034 *NA* (11/22/23 2:56 PM) Invalid Interpretation Code 1.005 - 1.030 [facility] Auto SS Urobilinogen (U) [Mass/Vol] 2 mg/dL Invalid Interpretation Code Negativemg/dL [facility] Auto SS WBC Auto (Urine sed) [#/Area] 16-25 graded/HPF Invalid Interpretation Code 0-5graded/HPF [facility] Auto SS URINALYSISOrdered By: Paul Blunt on 11-22-2023 UA Spec Desc Clean Catch (11/22/23 2:56 PM) Normal [facility] Auto SS Work Phone: eGFRon 11-22-2023 eGFR 123 mL/min/1.73 m2 Normal >=59 [facility] Comment on above: Order Comment: Order added by Discern Expert. Performed By: #### 2 [id number], [id number], [id number], 9792406, [id number], [id number] ####[facility] [address] [place] [address] Clipboard Summaryon 10-06-19 Clipboard Summary {[id number] -[id number] }XML Normal [facility] PAP [id number] 10-06-2023 Cytology report Cyto stain Doc (Cvx/Vag) Note Invalid Interpretation Code [facility] Comment on above: Result Comment: TEST S RESULT FLAG UNITS REF RANGE LAB Clinician Provided Cytology Information Source.............Endocervix LMP / Prev Treat...OSR=[id number] Other..............Oral Contraceptives No. of containers..01 ThinPrep Vial DIAGNOSIS: 01 NEGATIVE FOR INTRAEPITHELIAL LESION OR MALIGNANCY. Specimen adequacy: 01 Satisfactory for evaluation. Endocervical and/or squamous metaplastic cells (endocervical component) are present. Performed by: Dinesh Wolff, Bomb Loader ([facility]) . 01 Note: Note 01 The Pap smear is a screening test designed to aid in the detection of premalignant and malignant conditions of the uterine cervix. It is not a diagnostic procedure and should not be used as the sole means of detecting cervical cancer. Both false-positive and false-negative reports do occur. Test Methodology: Note 01 The Noitavonne(R) Manager System was unable to read this specimen. Therefore a manual review was performed. . 01 The HPV DNA reflex criteria were not met with this specimen result therefore, no HPV testing was performed. FLAG LEGEND: L-Low Normal,H-High Normal,LL-Alert Low,HH-Alert High <-Panic Low,>-Panic High,A-Abnormal,AA-Critical Abnormal Performed at: 01 [facility] [address] [place] [address] Denice Arenas MD, Performed at: [facility] [address] [place], [place] [id number] MD Deepa Galdamez Performed By: #### 2 783308, 0411700, 5430907, [id number], [id number] #### [facility] [address] [place] [address] BMPon 10-02-2023 Anion gap [Moles/Vol] 13 mmol/L Normal 6-16 [facility] Comment on above: Performed By: #### 2 826300, 2205738, 1570742, 76587687, 0114502 #### [facility] [address] [place] [address] Calcium [Mass/Vol] 9.4 mg/dL Normal 8.9-11.1 [facility] Comment on above: Performed By: #### 2 001802, 9192162, 8308977, 53284912, 4127385 #### [facility] [address] [place] [address] Chloride [Moles/Vol] 104 mmol/L Normal 101-111 [facility] Comment on above: Performed By: #### 2 893606, 0326811, 0619731, 24244497, 4995071 #### [facility] [address] [place] [address] CO2 [Moles/Vol] 22 mmol/L Normal 21-31 [facility] Comment on above: Performed By: #### 2 053345, 0995635, 9710083, 87288339, 1980204 #### [facility] [address] [place] [address] Creatinine [Mass/Vol] 0.9 mg/dL Normal 0.5-1.3 [facility] Comment on above: Performed By: #### 2 092712, 4630764, 5716902, 22824808, 0520973 #### [facility] [address] [place] [address] Glucose [Mass/Vol] 81 mg/dL Normal 55-199 [facility] Comment on above: Performed By: #### 2 207219, 5156116, 7491082, 90282262, 2544655 #### [facility] [address] [place] [address] Potassium [Moles/Vol] 4.1 mmol/L Normal 3.5-5.3 [facility] Comment on above: Performed By: #### 2 435473, 1368980, 6787251, 45571317, 3830442 #### [facility] [address] [place] [address] Sodium [Moles/Vol] 135 mmol/L Normal 135-145 [facility] Comment on above: Performed By: #### 2 727321, 4848819, 4959682, 54440315, 4116150 #### [facility] [address] [place] [address] Urea nitrogen [Mass/Vol] 17 mg/dL Normal 5-21 [facility] Comment on above: Performed By: #### 2 160619, 0151586, 0370257, 11966212, 1913504 #### [facility] [address] [place] [address] Urea nitrogen/Creatinine [Mass ratio] 19 No Units Normal 10-20 [facility] Comment on above: Performed By: #### 2 615891, 3656486, 2105089, 29509010, 2027335 #### [facility] [address] [place] [address] CHEMISTRYOrdered By: SYSTEM SYSTEM on 10-02-2023 Anion gap [Moles/Vol] 13 mmol/L Normal 6 - 16 mEq/L [facility] Calcium [Mass/Vol] 9.4 mg/dL Normal 8.9 - 11. 1 mg/dL [facility] Chloride [Moles/Vol] 104 mmol/L Normal 101 - 1 11 mmol/L [facility] Cholesterol [Mass/Vol] 171 mg/dL Normal 120 - 200 mg/dL [facility] Cholesterol in HDL [Mass/Vol] 62 mg/dL Invalid Interpretation Code [facility] Comment on above: Result Comment: '>= 60 LOW RISK' '<= 40 HIGH RISK' Cholesterol in LDL [Mass/Vol] 101 mg/dL Normal <=129mg/dL [facility] Cholesterol in VLDL [Mass/Vol] 17 mg/dL Normal 7 - 40 mg/dL [facility] CO2 [Moles/Vol] 22 mmol/L Normal 21 - 31 mmol/L [facility] Creatinine [Mass/Vol] 0.9 mg/dL Normal 0.5 - 1.3 mg/dL [facility] eGFR 91 mL/min/1.73 m2 Normal >=59mL/min /1. 73 m2 [facility] Glucose [Mass/Vol] 81 mg/dL Normal 55 - 199 mg/dL [facility] Potassium [Moles/Vol] 4.1 mmol/L Normal 3.5 - 5.3 mmol/L [facility] Sodium [Moles/Vol] 135 mmol/L Normal 135 - 145 mmol/L [facility] Triglyceride [Mass/Vol] 84 mg/dL Normal <=149mg/dL [facility] TSH Qn 0.89 m[IU]/L Normal 0.34 - 5.60 mcIU/mL [facility] Urea nitrogen [Mass/Vol] 17 mg/dL Normal 5 - 21 mg/dL [facility] Urea nitrogen/Creatinine [Mass ratio] 19 mg/mg Normal 10 - 20 [facility] Consent for Treatmenton Consent for Treatment [id number] F Normal [facility] Consent for Treatment [id number] F Normal [facility] Lipid Panelon 10-02-2023 Cholesterol [Mass/Vol] 171 mg/dL Normal 120-200 [facility] Comment on above: Performed By: #### 2 600854, 7997501, 7237825, 73959055, 5906113 #### [facility] [address] [place] [address] Cholesterol in HDL [Mass/Vol] 62 mg/dL Invalid Interpretation Code [facility] Comment on above: Result Comment: '>= 60 LOW RISK' '<= 40 HIGH RISK' Performed By: #### 2 450223, 9906735, 1697292, 25875978, 9441344 #### [facility] [address] [place] [address] Cholesterol in LDL [Mass/Vol] 101 mg/dL Normal <=129 [facility] Comment on above: Performed By: #### 2 064338, 2395865, 3340793, 85607044, 2002516 #### [facility] [address] [place] [address] Cholesterol in VLDL [Mass/Vol] 17 mg/dL Normal 7-40 [facility] Comment on above: Performed By: #### 2 411774, 8195243, 5595294, 05507901, 0991329 #### [facility] [address] [place] [address] Triglyceride [Mass/Vol] 84 mg/dL Normal <=149 [facility] Comment on above: Performed By: #### 2 591619, 1490850, 1177803, 80781036, 2260918 #### [facility] [address] [place] [address] TSH With T4fr Reflexon 10-01 TSH Qn 0.89 m[IU]/L Normal 0.34-5.60 [facility] Comment on above: Performed By: #### 2 330577, 0527253, 8682078, 97909908, 2719442 #### [facility] [address] [place] [address] US Pelvis Non-OB Completeon 10-02-2023 US Pelvis Non-OB Complete Exam Date/Time: 10/02/2023 12:38 EST Reason for Exam: N93.8 Report IMPRESSION: NEGATIVE ULTRASOUND OF THE PELVIS. EXAM: US Pelvis Non-OB Complete DATE: 10/02/2023 12:25 PM CLINICAL HISTORY: N93.8. Irregular periods. COMPARISON: First trimester ultrasound 08/03/2023. TECHNIQUE: Transabdominal ultrasound was performed of the pelvis. FINDINGS: The study is mild to moderately limited by the patient's body habitus. The uterus is anteverted in position, and otherwise unremarkable in appearance. The central endometrial complex appears within normal limits for early proliferative phase, measuring approximately 2.2 mm in combined thickness in the fundus. Both ovaries appear within normal limits for the patient's age group. Equivalent blood flow is noted to both ovaries on Doppler analysis. There is no significant free fluid, abnormal adnexal masses, or other findings of concern identified. The uterine measurements and estimated volume: Uterus Length: 8.7 cm Uterus Width: 4.7 cm Uterus Height: 3.0 cm Uterus Volume: 64.0 cm3 Endometrium Thickness: 0.2 cm The right ovary measurements and estimated volume: Right Ovary Length: 3.4 cm Right Ovary Width: 4.0 cm Right Ovary Height: 2.8 cm Right Ovary Volume: 20.0 cm3 The left ovary measurements and an estimated volume are: Report Left Ovary Length: 4.0 cm Left Ovary Width: 3.7 cm Left Ovary Height: 3.1 cm Left Ovary Volume: 24.0 cm3 Ordering Provider: Lucas Molina FINAL REPORT Dictated: 10/02/2023 5:24 pm Reinaldo Lewis MD Signed (Electronic Signature): 10/02/2023 5:24 pm Signed by: Reinaldo Lewis MD Transcribed by: DERIC Technologist: BRANDON Technical Comments Transabdominal Ultrasound Performed Uterus Position Anteverted Normal [facility] eGFRon 10-02-2023 eGFR 91 mL/min/1.73 m2 Normal >=59 [facility] Comment on above: Order Comment: Order added by Discern Expert. Performed By: #### 2 181519, 0236273, 9459485, 36939705, 2827006 #### [facility] [address] [place] [address] Family Medicine Office/Clini c Noteon 10-01-2023 Family Medicine Office/Clinic Note Chief Complaint Weakness, dizziness. HPI Staff Pt is here today with c/o weakness and dizziness after eating sugary foods. States drinking a sugary coffee or donut will make her feel nauseous, shaky and lightheaded. Pt also c/o passing out or nearly passing out while laughing, states she will be laughing and feel herself go out for a second and come right back. Both of these issues have been going on for years, since middle school. She states as a teenage she was supposed to cardiac testing, but she cannot remember if she ever went through with it. History of Present Illness Alaina Warner is a 22-year-old female who is here today for an acute visit. She is complaining of near syncope with laughing and also weakness and dizziness after sugary food intake. These issues have been going on for many years since she was in middle school. She was seen for the near syncope when she was in middle school and high school. They wanted to do cardiac testing. She does not think she ever had it done. The patient reports episodes of sudden loss of consciousness, typically occurring during laughter. She describes the episodes as brief, with a sensation of her body dropping. The frequency of these episodes is unknown as she does not monitor their occurrence. She notes that these episodes do not occur every time she laughs, despite laughing frequently. She suspects these episodes are triggered when she is worked up . No similar episodes are reported during times when she is not laughing. She has researched her symptoms and suspects they may be due to hypoxia. She admits to a history of heavy breathing and occasionally requires deep breaths to achieve full respiration. She denies any history of asthma. She also reports that when she contracts a cold, it typically progresses from her throat to her chest. The patient has been experiencing prolonged episodes of weakness and dizziness, which occur almost immediately after consuming sugary or sweet foods. She describes an instance where she felt shaky and nauseous after drinking coffee from [employer], necessitating her to lie down. She infrequently consumes sweets and drinks. If she skips caffeinated or sugary beverages for breakfast or lunch, she experiences lightheadedness. Her symptoms improve after consuming a beverage with a small amount of sugar. Her eating pattern is intermittent, and she does not consume 3 meals daily. She often lacks an appetite but ensures she eats lunch and dinner. The patient typically consumes iced coffee or a donut in the morning. There is no correlation with bowel movements. She experiences dizziness upon sudden positional changes. She denies tachycardia but reports sensations of heart palpitations. The patient experienced severe throat discomfort 2 weeks ago, which has since resolved. She initially suspected pneumonia. She attempted to schedule an appointment, but due to a fully booked schedule for the upcoming week, she was unable to secure a slot. The patient expresses reluctance to visit an urgent care center due to accessibility issues. Review of Systems PHQ Score Initial Depression Screen Score: 1 SCORE All other systems are negative except as stated in the HPI. Physical Exam Vitals & Measurements HR: 91(Peripheral) BP: 101/69 SpO2: 96% HT: 63 in HT: 160 cm WT: 60.8 kg WT: 133.76 lb BMI: 23.75 General: Well developed, well nourished, in no acute distress. Eyes: PERRLA bilaterally. Lungs: Normal respiratory effort and clear to auscultation. Cardio: Regular rate and rhythm, normal S1 and S2, no murmur, no rub. Neurologic: Grossly neurologically intact. Lymph Nodes: No cervical adenopathy, nodes normal. Mental Status: Alert and oriented x3. Normal mood and affect. Assessment/Plan 1. Palpitations (R00.2: Palpitations) We will get Holter monitor given near syncope episodes. Also, we will check thyroid with fasting labs. 2. Dizziness (R42: Dizziness and giddiness) Had lengthy discussion about good eating habits, body metabolism, and how blood sugar and insulin works. She was encouraged to eat a more routine and regular diet, higher in proteins and healthy fats and limit carbs. 3. Near syncope (R55: Syncope and collapse) Unclear etiology. Lungs sound clear today. I will get Holter monitor and go from there. Follow up in 6 weeks. 4. BMI 23.0-23.9, adult (Z68.23: Body mass index [BMI] 23.0-23.9, adult) Normal BMI. Portions of this record may have been created with voice recognition artificial intelligence software, specifically [employer], [employer] and or ustyme. Substitutions may have occurred due to the inherent limitations of voice recognition and artificial intelligence software. Documentation services were performed after patient or guardian consented to allow gogamingo experience to record this visit. MILES integrated specialist and provider reviewed before signing. MILES: Bar King. Follow-up With When Contact Information MARILYN (more content not included)... Normal [facility] Comment on above: Result Comment: Elec tronically Signed By: Elisa PATEL CNP\.br\Date and Time Signed: 10/01/23 14:33 EST\.br\Electronically Co-Signed By: Bar King\.br\Date and Time Co-Signed: 10/01/23 14:09 EST PAP [id number] 10-01-2023 Collection [employer]ique BRUSH-SPATULA Normal [facility] Comment on above: Performed By: #### 2 044423, 4163576, 4838407, 27811228, 7842248 #### [facility] [address] [place] [address] Gynecological Body Site ENDOCERVIX Normal [facility] Comment on above: Performed By: #### 2 454240, 3321965, 5594876, 44822246, 0587071 #### [facility] [address] [place] [address] LMP or Menopause Date [id number] Invalid Interpretation Code [facility] Comment on above: Performed By: #### 2 421830, 4367953, 8446353, 90405400, 3206681 #### [facility] [address] [place] [address] Other Patient Information OC Normal [facility] Comment on above: Performed By: #### 2 597707, 5017897, 4965048, 88050268, 0659205 #### [facility] [address] [place] [address] Previous Cytology Negative Normal [facility] Comment on above: Performed By: #### 2 701877, 7171221, 6725639, 63629094, 9925434 #### [facility] [address] [place] [address] Previous Treatment NONE [facility] Comment on above: Performed By: #### 2 005200, 9150699, 8133972, 91217163, 8920226 #### [facility] [address] [place] [address] Physician Orderon 09-30-2023 Physician Order [id number] FF [facility] Physician Order [id number] F [facility] C Urineon 08-05-2023 Bacteria identified Cx Nom (U) Microbiology PROCEDURE: Urine Culture [R1] SOURCE: U CleanCatch BODY SITE: COLLECTED DATE/TIME: 08/03/2023 14:02 EST RECEIVED DATE/TIME: 08/03/2023 14:38 EST START DATE/TIME: 08/03/2023 14:38 EST FREE TEXT SOURCE: James LECHUGA, Gregory Elias. James LECHUGA, Gregory Elias. FINAL REPORTS Final Report [] Verified Date/Time: 08/05/2023 10:15 EST 200 cfu/ml Streptococcus agalactiae (Group B) Presumptive isolated. Penicillin is the drug of choice for Beta Hemolytic Streptococci Isolates. Routine susceptibility testing on Beta Hemolytic Streptococcus isolates is no longer performed. Susceptibilities will continue to be performed on Isolates from sterile body fluids and serious wound infections. 1,000 cfu/ml Mixed skin contaminants Performing Locations R1: This test was performed at: [facility], [address] [place] [address], [address] , , [facility] Comment on above: Performed By: #### 2 212988, 3214700, 8251132, 60913523, 8751539 #### [facility] [address] [place] [address] Family Medicine Office/Clini c Noteon 08-05-2023 Family Medicine Office/Clinic Note HPI Staff Sx onset - 3 days Headache - On and off Body aches - No Earache - No Cough - No Runny/stuffy nose - Runny Sore throat - Yes Scratchy tickly throat - No Chest symptoms - No NICE - No Orthopnea - No Lung Hx asthma, bronchitis, chest colds - No Fever/chills - No GI symptoms - Nausea, diarrhea Exposure - Daughter tested positive for strep Sun. OTC [place] - No We strongly recommend to quit tobacco use. Cigarette smoking harms nearly every organ of the body, causes many diseases, and reduces the health of smokers in general. Quitting smoking lowers your risk for smoking-related diseases and can add years to your life. We encourage you to visit www.smokefree.gov access to helpful resources including free telephone support. If you decide on prescription treatment to help you quit, we would be happy to provide these. History of Present Illness The patient or their guardian verbally consented to allow Devonte Dominguez to record this visit. Alaina Warner is a 22-year-old female who presents today with concerns of streptococcal pharyngitis. She has a sore throat and her youngest daughter tested positive for strep over the weekend. The patient and her older daughter also had a sore throat. Her sore throat has been present for 3 days now. She has intermittent headaches, but no body aches, earache, or cough. She does have a little bit of rhinorrhea, however, no shortness of breath or wheezing. She has had some nausea and diarrhea. No fever. Review of Systems All other systems are negative except as stated in the HPI. Physical Exam Vitals & Measurements T: 37.0 ?C(Tympanic) HR: 79(Peripheral) BP: 119/86 SpO2: 96% HT: 63 in HT: 160 cm WT: 61.8 kg WT: 135.96 lb BMI: 24.14 General: Well developed, well nourished, in no acute distress Ears: No deformity or lesion of external ear. Canals and TM appear normal bilaterally. TM's intact, not inflamed, with normal light reflex. Hearing grossly normal to conversational speech Nose: No deformity, discharge, inflammation, or lesions Mouth: Mucous membranes moist. Normal oropharynx, and posterior pharynx without lesions or exudates. Tongue normal no cobblestoning no tonsillar enlargement no tonsillar exudate Neck: Neck supple. No masses or palpable cervical nodes. Trachea midline. Thyroid without nodules, masses, tenderness, or enlargement Lungs: Normal respiratory effort and clear to auscultation Cardio: Regular rate and rhythm, normal S1 and S2, no murmur, no rub Abdomen: Not assessed Musculoskeletal: Not assessed Extremity: Not assessed Neurologic: Grossly normal Skin: [place], moist, well hydrated. No tenting Lymph Nodes: No cervical adenopathy, nodes normal Mental Status: Alert and oriented x3. Normal mood and affect Assessment/Plan 1. Acute nasopharyngitis (J00: Acute nasopharyngitis [common cold]) Procedure 2. Viral pharyngitis (J02.9: Acute pharyngitis, unspecified) 3. BMI 24.0-24.9, adult (Z68.24: Body mass index [BMI] 24.0-24.9, adult) BMI is 24, normal. Portions of this record may have been created with voice recognition artificial intelligence software, specifically [employer], [employer] and or [employer]. Substitutions may have occurred due to the inherent limitations of voice recognition and artificial intelligence ATTESTATION: Documentation services were performed after patient or guardian consented to allow [email or web address] to record this visit. MILES integrated specialist and provider reviewed before signing. MILES: Rosa Mishra/ Federico Thompson Follow-up With When Contact Information Elisa PATEL CNP Only if needed [address] [phone] Additional Instructions: Patient Education Steps to Quit Smoking, Qcdq-vq-Zohz Problem List/Past Medical History Ongoing Acute nasopharyngitis Gallstones GERD (gastroesophageal reflux disease) H/O: depression IBS (irritable bowel syndrome) Marijuana use Maxillary sinusitis Smoker Viral pharyngitis Historical Chronic diarrhea Depression Procedure/Surgical History Laparoscopic cholecystectomy (05/22/2023), None. Medications No active medications Allergies No Known Allergies Social History Alcohol - Denies Alcohol Use, 03/25/2014 Household alcohol concerns: No., 07/05/2019 Employment/School Unemployed, 05/22/2019 Substance Abuse Current, Marijuana, 1-2 times per week, 05/21/2023 Household substance abuse concerns: No., 07/05/2019 Tobacco - High Risk, 05/28/2023 5-9 cigarettes (between 1/4 to 1/2 pack)/day in last 30 days Tobacco Use:. Never Smokeless Tobacco Use:. Cigarettes, Ready to change: No. Household tobacco concerns: No. Yes, 08/04/2023 Family History Family history is negative Immunizations Vaccine Date Status Comments influenza virus vaccine, inactivated - Not Given Patient Refuses influenza virus vaccine, inactivated - Not Given Patien (more content not included)... Normal [facility] Comment on above: Result Comment: Elec tronically Signed By: Elisa PATEL CNP\.br\Date and Time Signed: 08/05/23 09:27 EST\.br\Electronically Co-Signed By: Nicolas Conner\.br\Date and Time Co-Signed: 08/04/23 13:20 EST Ambulatory Visit Summaryon 0 08-04-2023 Ambulatory Visit Summary ALAINA WARNER :2000 Visit Date:08/04/2023 Ambulatory Visit Instructions Your Diagnosis Acute nasopharyngitis Viral pharyngitis BMI 24.0-24.9, adult Your Care Team Attending Physician - Elisa PATEL CNP Primary Care Physician - Elisa PATEL CNP Procedures Performed Laparoscopic cholecystectomy (05/22/2023), None. Discharge Vitals Temperature (Tympanic) 37.0 ?C Heart Rate (Peripheral) 79 Blood Pressure 119/86 Height 160 cm Height 63 in Weight 61.8 kg Weight 135.96 lb BMI 24.14 What to do next You Need to Schedule the Following Appointments Follow Up with Elisa PATEL CNP When: Only if needed Where: [address] [place] [address]- Allergies No Known Allergies Problems Ongoing - Any problem that you are currently receiving treatment for. Acute nasopharyngitis Gallstones GERD (gastroesophageal reflux disease) H/O: depression IBS (irritable bowel syndrome) Marijuana use Maxillary sinusitis Smoker Viral pharyngitis Historical - Any problem that you are no longer receiving treatment for. Chronic diarrhea Depression Patient Survey You may receive a survey via text or e-mail asking about your office visit. Please share your experience with us by completing your survey. We appreciate your feedback and thank you for choosing us for your care. Education Materials Steps to Quit Smoking Smoking tobacco is the leading cause of preventable . It can affect almost every organ in the body. Smoking puts you and people around you at risk for many serious, long-lasting (chronic) diseases. Quitting smoking can be hard, but it is one of the best things that you can do for your health. It is never too late to quit. Do not give up if you cannot quit the first time. Some people need to try many times to quit. Do your best to stick to your quit plan, and talk with your doctor if you have any questions or concerns. How do I get ready to quit? ? Pick a date to quit. Set a date within the next 2 weeks to give you time to prepare. ? Write down the reasons why you are quitting. Keep this list in places where you will see it often. ? Tell your family, friends, and co-workers that you are quitting. Their support is important. ? Talk with your doctor about the choices that may help you quit. ? Find out if your health insurance will pay for these treatments. ? Know the people, places, things, and activities that make you want to smoke (triggers). Avoid them. What first steps can I take to quit smoking? ? Throw away all cigarettes at home, at work, and in your car. ? Throw away the things that you use when you smoke, such as ashtrays and lighters. ? Clean your car. Empty the ashtray. ? Clean your home, including curtains and carpets. What can I do to help me quit smoking? Talk with your doctor about taking medicines and seeing a counselor. You are more likely to succeed when you do both. If you are or : ? Talk with your doctor about counseling or other ways to quit smoking. ? Do not take medicine to help you quit smoking unless your doctor tells you to. Quit right away ? Quit smoking completely, instead of slowly cutting back on how much you smoke over a period of time. Stopping smoking right away may be more successful than slowly quitting. ? Go to counseling. In-person is best if this is an option. You are more likely to quit if you go to counseling sessions regularly. Take medicine You may take medicines to help you quit. Some medicines need a prescription, and some you can buy htkc-byh-lytcpkz. Some medicines may contain a drug called nicotine to replace the nicotine in cigarettes. Medicines may: ? Help you stop having the desire to smoke (cravings). ? Help to stop the problems that come when you stop smoking (withdrawal symptoms). Your doctor may ask you to use: ? Nicotine patches, gum, or lozenges. ? Nicotine inhalers or sprays. ? Non-nicotine medicine that you take by mouth. Find resources Find resources and other ways to help you quit smoking and remain smoke-free after you quit. They include: ? Online chats with a counselor. ? Phone quitlines. ? Printed self-help materials. ? Support groups or group counseling. ? Text messaging programs. ? Mobile phone apps. Use apps on your mobile phone or tablet that can help you stick to your quit plan. Examples of free services include Quit Guide from the CDC and smokefree.gov What can I do to make it easier to quit? ? Talk to your family and friends. Ask them to support and encourage you. ? Call a phone quitline, such as 3-132-DELEStoryzNOW, reach out to support groups, or work with a counselor. ? Ask people who smoke to not smoke around you. ? Avoid places that make you want to smoke, such a (more content not included)... Normal [facility] ED Note-Physicianon 08-04-19 ED Note-Physician Basic Information Time Seen: James LECHUGA, Gregory Elias. 08/03/2023 13:54 Chief Complaint Patient states that she took the pill 2 weeks ago. Since then she has been having cramping and abdominal pain. patient states that she passed a couple clots and had some bleeding after the pill. History of Present Illness A 22-year-old female reports the emergency department with chief complaint of some lower abdominal cramping and vaginal bleeding that is been going on for a couple weeks now. Reports that she was treated for a UTI as well as her , that she went to terminate. Reports that 2 weeks ago, she did go to a facility in [facility] and, that was like [facility], where she was given an pill. Reports that she was given this 2 weeks ago. Reports ever then since she has had some lower abdominal cramping, has been passing some clots as well. Reports still having some vaginal bleeding. Reports little bit lightheadedness with this as well. She denies any nausea or vomiting. Denies any fevers or chills. Denies any known allergies. Reports that she believes that she has been a total of 5 times, with 2 living children. Reports that her EN[facility]IRONMENT[facility] MON[facility]ING SPECIALIST is Dr. Goss in [place]. Review of Systems A 10 point review of systems is negative except as noted above. Medical and Surgical History: Reviewed and noted Social history: Lives at home Family History: Reviewed. Tobacco: Denies Physical Exam Vitals & Measurements T: 36.3 ?C(Oral) HR: 96(Peripheral) RR: 16 BP: 123/80 SpO2: 98% HT: 160 cm WT: 59.6 kg BMI: 23.28 General: The patient appears well and in no apparent distress. Patient is resting comfortably on bed. afebrile Skin: Warm, dry, no pallor noted. Head: Normocephalic, atraumatic Neck: No JVD Eye: PERRLA, EOMI ENT: Moist mucus membranes Cardiovascular: Regular rate normal peripheral perfusion. Radial pulses +2 bilaterally Respiratory: No respiratory distress no accessory muscle use no obvious audible wheezing Chest Wall: no deformity Musculoskeletal: normal ROM, no deformity, no swelling GI: No obvious distention soft. Mild tenderness around the suprapubic region of the abdomen. No rebound tenderness or guarding noted. Neurological: A&O moves all extremities equal strength and symmetry Psychiatric: Cooperative and appropriate Medical Decision Making MEDICAL DECISION MAKING Number and Complexity of Problems Differential Diagnosis: [] [facility] Data External documents reviewed: [] My EKG interpretation: [] My CT interpretation: [] My X-ray interpretation: [] My Ultrasound interpretation: reviewed Decision rules/scores evaluated: [] Discussed with: [] Treatment and Disposition ED Course: 22-year-old female reports to the emergency department with chief complaint of some lower abdominal pain, and vaginal bleeding. States that this has been going on for last 2 weeks. Reports that 2 weeks ago she took an pill had some clinic. Reports that she was treated for UTI as well. Reports that she still having bleeding, will get checked out. Reports he does follow-up with ENVIRONMENTAL [facility]ITORING SPECIALIST in [place]. Denies any fevers or chills. States that she believes that she is approximately 7 weeks when she took the pill. Physical exam is benign. Mild tenderness of her abdomen, but no other signs of infection. Due to concerns, we did do lab work as well as urine, and ultrasound. Lab reviewed. No acute changes seen, except potassium slightly low. Due to this, we did replace here in emergency department. Her Beta quant level was 929. Ultrasound showed no retained products. Discussed with the patient. Discussed follow-up with ENVIRONMENTAL MONITORING SPECIALIST. Discussed that appears that she is continue to have some vaginal bleeding due to her . Discussed return precautions. Follow-up with your primary care provider in 3 to 5 days. If symptoms worsen, do not improve, or new symptoms arise please report back to emergency department for further evaluation. The patient was understanding and agreeable to plan moving forward. Shared decision making: [] Code status: [] Assessment/Plan Complete (O03.9: Complete or unspecified spontaneous without complication) Vaginal bleeding (N93.9: Abnormal uterine and vaginal bleeding, unspecified) Orders: potassium chloride, 40 mEq = 2 tab(s), Tab-ER, Oral, Once, Stop date 08/03/23 15:40:00 EST, STAT, Start date 08/03/23 15:40:00 EST, 08/03/23 15:40:00 EST ABO/Rh Automated Diff Basic Metabolic Panel Beta hCG Quantitative CBC w/ Auto Diff eGFR Extra SST Tube U Beta Hcg Qual UA With Cult Reflex Urine Culture US 1st Trimester Disposition Plan Patient Discharge Condition stable Discharge Disposition to home Discharge Prescription List Prescriptions No active prescription medications Follow-up With When Contact Information Lucas Tracy In 3 days 08/06/[address], [place] [address] (more content not included)... Normal [facility] Comment on above: Result Comment: Elec tronically Signed By: Gregory Ramirez PA-C\.br\Date and Time Signed: 08/03/23 16:00 EST\.br\Electronically Co-Signed By: Narinder Cardona DO\.natalie\Date and Time Co-Signed: 08/04/23 08:46 EST Patient Educationon 08-04-19 Patient Education Pulmonary Medicine Steps to Quit Smoking Smoking tobacco is the leading cause of preventable . It can affect almost every organ in the body. Smoking puts you and people around you at risk for many serious, long-lasting (chronic) diseases. Quitting smoking can be hard, but it is one of the best things that you can do for your health. It is never too late to quit. Do not give up if you cannot quit the first time. Some people need to try many times to quit. Do your best to stick to your quit plan, and talk with your doctor if you have any questions or concerns. How do I get ready to quit? ? Pick a date to quit. Set a date within the next 2 weeks to give you time to prepare. ? Write down the reasons why you are quitting. Keep this list in places where you will see it often. ? Tell your family, friends, and co-workers that you are quitting. Their support is important. ? Talk with your doctor about the choices that may help you quit. ? Find out if your health insurance will pay for these treatments. ? Know the people, places, things, and activities that make you want to smoke (triggers). Avoid them. What first steps can I take to quit smoking? ? Throw away all cigarettes at home, at work, and in your car. ? Throw away the things that you use when you smoke, such as ashtrays and lighters. ? Clean your car. Empty the ashtray. ? Clean your home, including curtains and carpets. What can I do to help me quit smoking? Talk with your doctor about taking medicines and seeing a counselor. You are more likely to succeed when you do both. If you are or : ? Talk with your doctor about counseling or other ways to quit smoking. ? Do not take medicine to help you quit smoking unless your doctor tells you to. Quit right away ? Quit smoking completely, instead of slowly cutting back on how much you smoke over a period of time. Stopping smoking right away may be more successful than slowly quitting. ? Go to counseling. In-person is best if this is an option. You are more likely to quit if you go to counseling sessions regularly. Take medicine You may take medicines to help you quit. Some medicines need a prescription, and some you can buy ucuh-ajg-[id number]. Some medicines may contain a drug called nicotine to replace the nicotine in cigarettes. Medicines may: ? Help you stop having the desire to smoke (cravings). ? Help to stop the problems that come when you stop smoking (withdrawal symptoms). Your doctor may ask you to use: ? Nicotine patches, gum, or lozenges. ? Nicotine inhalers or sprays. ? Non-nicotine medicine that you take by mouth. Find resources Find resources and other ways to help you quit smoking and remain smoke-free after you quit. They include: ? Online chats with a counselor. ? Phone quitlines. ? Printed self-help materials. ? Support groups or group counseling. ? Text messaging programs. ? Mobile phone apps. Use apps on your mobile phone or tablet that can help you stick to your quit plan. Examples of free services include Quit Guide from the CDC and smokefree.gov What can I do to make it easier to quit? ? Talk to your family and friends. Ask them to support and encourage you. ? Call a phone quitline, such as 0-805-DJWOStoryzNOW, reach out to support groups, or work with a counselor. ? Ask people who smoke to not smoke around you. ? Avoid places that make you want to smoke, such as: ? Bars. ? Parties. ? Smoke-break areas at work. ? Spend time with people who do not smoke. ? Lower the stress in your life. Stress can make you want to smoke. Try these things to lower stress: ? Getting regular exercise. ? Doing deep-breathing exercises. ? Doing yoga. ? Meditating. What benefits will I see if I quit smoking? Over time, you may have: ? A better sense of smell and taste. ? Less coughing and sore throat. ? A slower heart rate. ? Lower blood pressure. ? Clearer skin. ? Better breathing. ? Fewer sick days. Summary ? Quitting smoking can be hard, but it is one of the best things that you can do for your health. ? Do not give up if you cannot quit the first time. Some people need to try many times to quit. ? When you decide to quit smoking, make a plan to help you succeed. ? Quit smoking right away, not slowly over a period of time. ? When you start quitting, get help and support to keep you smoke-free. This information is not intended to replace advice given to you by your health care provider. Make sure you discuss any questions you have with your health care provider. Document Revised: 07/04/2022 Document Reviewed: 07/04/2022 Elsevier Patient Education ? 2022 [employer] Normal [facility] ABO/Rhon 08-03-2023 ABO/Rh Positive Invalid Interpretation Code [facility] Comment on above: Performed By: #### 2 [id number], 4097911, 9352903, [id number], 8877334 #### [facility] [address] [place] [address] Auto Diffon 08-03-2023 Basophils/100 WBC (Bld) 1.4 % Normal 0.0-2.0 [facility] Comment on above: Order Comment: Order Added by Discern Expert. Performed By: #### 2 868541, 3028607, 6543834, 37529855, 1616303 #### [facility] [address] [place] [address] Basophils/Leukocytes Auto (Bld) [Pure # fraction] 0.1 E9/L Normal 0.0-0.2 [facility] Comment on above: Order Comment: Order Added by Discern Expert. Performed By: #### 2 614477, 1852709, 8589504, 48374127, 0554721 #### [facility] [address] [place] [address] Eosinophils/100 WBC (Bld) 2.7 % Normal 0.0-8.0 [facility] Comment on above: Order Comment: Order Added by Discern Expert. Performed By: #### 2 783599, 7356863, 2015654, 41253212, 0631595 #### [facility] [address] [place] [address] Eosinophils/Leukocyt es Auto (Bld) [Pure # fraction] 0.2 E9/L Normal 0.0-0.5 [facility] Comment on above: Order Comment: Order Added by Discern Expert. Performed By: #### 2 490754, 7941409, 9663004, 56568027, 7848699 #### [facility] [address] [place] [address] Lymphocytes/100 WBC (Bld) 28.9 % Normal 14.0-50.0 [facility] Comment on above: Order Comment: Order Added by Discern Expert. Performed By: #### 2 703193, 1756438, 8344011, 58069313, 9516245 #### [facility] [address] [place] [address] Lymphocytes/Leukocyt es Auto (Bld) [Pure # fraction] 1.7 E9/L Normal 1.0-4.0 [facility] Comment on above: Order Comment: Order Added by Discern Expert. Performed By: #### 2 687689, 1066819, 0867920, 72768316, 1390520 #### [facility] [address] [place] [address] Monocytes/100 WBC (Bld) 5.2 % Normal 4.0-14.0 [facility] Comment on above: Order Comment: Order Added by Discern Expert. Performed By: #### 2 247729, 3046760, 7136575, 53946696, 7892918 #### [facility] [address] [place] [address] Monocytes/Leukocytes Auto (Bld) [Pure # fraction] 0.3 E9/L Normal 0.2-1.0 [facility] Comment on above: Order Comment: Order Added by Discern Expert. Performed By: #### 2 387794, 5875453, 2480349, 37262851, 5153568 #### [facility] [address] [place] [address] Neutrophils/100 WBC (Bld) 61.8 % Normal 36.0-75.0 [facility] Comment on above: Order Comment: Order Added by Discern Expert. Performed By: #### 2 815069, 6083225, 4028695, 65203027, 7728316 #### [facility] [address] [place] [address] Neutrophils/Leukocyt es Auto (Bld) [Pure # fraction] 3.7 E9/L Normal 2.0-7.5 [facility] Comment on above: Order Comment: Order Added by Discern Expert. Performed By: #### 2 798139, 9473093, 4635426, 97129668, 2606237 #### [facility] [address] [place] [address] BLOOD BANKOrdered By: Marge Musa on 08-03-2023 ABO/Rh Interp Positive Invalid Interpretation Code [facility] [place] [place] BB Subsection BMPon 08-03-2023 Anion gap [Moles/Vol] 9 mmol/L Normal 6-16 [facility] Comment on above: Performed By: #### 2 823489, 7557131, 5668236, 44524937, 5070587 #### [facility] [address] [place] [address] BUN/Creat Ratio 11 No Units Normal 10-20 [facility] Comment on above: Performed By: #### 2 739970, 4936002, 9551768, 60013497, 7630327 #### [facility] [address] [place] [address] Calcium [Mass/Vol] 8.8 mg/dL Low 8.9-11.1 [facility] Comment on above: Performed By: #### 2 604479, 0207292, 1936780, 04552668, 8150439 #### [facility] [address] [place] [address] Chloride [Moles/Vol] 108 mmol/L Normal 101-111 [facility] Comment on above: Performed By: #### 2 157239, 4918231, 1275131, 49725619, 6815771 #### [facility] [address] [place] [address] CO2 [Moles/Vol] 24 mmol/L Normal 21-31 [facility] Comment on above: Performed By: #### 2 326585, 5392302, 7218919, 23639226, 8924486 #### [facility] [address] [place] [address] Creatinine [Mass/Vol] 0.8 mg/dL Normal 0.5-1.3 [facility] Comment on above: Performed By: #### 2 600968, 6987322, 0177706, 92342209, 4802529 #### [facility] [address] [place] [address] Glucose [Mass/Vol] 124 mg/dL Normal 55-199 [facility] Comment on above: Performed By: #### 2 030734, 7711184, 3326198, 25546176, 4444028 #### [facility] [address] [place] [address] Potassium [Moles/Vol] 3.2 mmol/L Low 3.5-5.3 [facility] Comment on above: Performed By: #### 2 173528, 2646479, 3897795, 12652812, 6721775 #### [facility] [address] [place] [address] Sodium [Moles/Vol] 138 mmol/L Normal 135-145 [facility] Comment on above: Performed By: #### 2 184419, 8171603, 6302036, 40007574, 7464053 #### [facility] [address] [place] [address] Urea nitrogen [Mass/Vol] 9 mg/dL Normal 5-21 [facility] Comment on above: Performed By: #### 2 637863, 6314060, 2091854, 98262919, 9758764 #### [facility] [address] [place] [address] BhCG Quanton 08-03-2023 Beta hCG Qnt 929 mIU/mL High 1-3 [facility] Comment on above: Result Comment: 'F N ON < 1 - 3' ' 0.2 - 1 WEEK = 5 TO 50' ' 1 - 2 WEEKS = 50 - 500' ' 2 - 3 WEEKS = 100 - 5000' ' 3 - 4 WEEKS = 500 - 30747' ' 4 - 5 WEEKS = 1000 - 14941' ' 5 - 6 WEEKS = 70062 - 884808' ' 6 - 8 WEEKS = 60803 - 590532' ' 8 - 12 WEEKS = 85393 - 348303' Performed By: #### 2 962456, 9207103, 6201062, 94063056, 7153451 #### [facility] [address] [place] [address] CBC w/ Auto Diffon 4 Erythrocyte distribution width (RBC) [Ratio] 13.2 % Normal 10.9-14.2 [facility] Comment on above: Performed By: #### 2 651680, 0993376, 2383980, 29909727, 0052396 #### [facility] [address] [place] [address] Hematocrit (Bld) [Volume fraction] 39.0 % Normal 34.0-46.0 [facility] Comment on above: Performed By: #### 2 777833, 9178160, 1229453, 03519515, 1370736 #### [facility] [address] [place] [address] Hemoglobin (Bld) [Mass/Vol] 13.1 g/dL Normal 12.0-16.0 [facility] Comment on above: Performed By: #### 2 357990, 0465414, 7477609, 77682821, 6083307 #### [facility] [address] [place] [address] MCH (RBC) [Entitic mass] 32.0 pg Normal 27.0-34.0 [facility] Comment on above: Performed By: #### 2 702171, 5485910, 8056267, 55245636, 5879875 #### [facility] [address] [place] [address] MCHC (RBC) [Mass/Vol] 33.6 g/dL Normal 31.4-36.0 [facility] Comment on above: Performed By: #### 2 945296, 7171875, 6226202, 29950553, 3724079 #### [facility] [address] [place] [address] 27787 MCV (RBC) [Entitic vol] 95.3 fL Normal 80.0-100.0 [facility] Comment on above: Performed By: #### 2 098725, 9473470, 5311929, 40196020, 7832454 #### [facility] [address] [place] [address] Platelet mean volume (Bld) [Entitic vol] 7.9 fL Normal 6.4-10.8 [facility] Comment on above: Performed By: #### 2 155626, 0198210, 5167684, 83803975, 5227915 #### [facility] [address] [place] [address] Platelets (Bld) [#/Vol] 209.0 E9/L Normal 150.0-500.0 [facility] Comment on above: Performed By: #### 2 102977, 4657790, 7335453, 23771844, 9309503 #### [facility] [address] [place] [address] RBC (Bld) [#/Vol] 4.1 E12/L Low 4.3-5.9 [facility] Comment on above: Performed By: #### 2 433227, 8930699, 4851490, 98904028, 1092961 #### [facility] [address] [place] [address] 695[address] WBC corrected for nucl RBC Auto (Bld) [#/Vol] 6.0 E9/L Normal 4.0-11.0 [facility] Comment on above: Performed By: #### 2 144231, 7529997, 9769976, 43436614, 7952121 #### [facility] [address] [place] [address] CHEMISTRYOrdered By: SYSTEM SYSTEM on 08-03-2023 Anion gap [Moles/Vol] 9 mmol/L Normal 6 - 16 mEq/L [facility] Calcium [Mass/Vol] 8.8 mg/dL Low 8.9 - 11. 1 mg/dL [facility] Chloride [Moles/Vol] 108 mmol/L Normal 101 - 1 11 mmol/L [facility] CO2 [Moles/Vol] 24 mmol/L Normal 21 - 31 mmol/L [facility] Creatinine [Mass/Vol] 0.8 mg/dL Normal 0.5 - 1.3 mg/dL [facility] eGFR mL/min/1.73 m2 Normal >=59mL/min/1. 73 m2 [facility] Glucose [Mass/Vol] 124 mg/dL Normal 55 - 199 mg/dL [facility] HCG.beta subunit Qn 929 m[IU]/mL High 1 - 3 mIU/mL R [facility] Comment on above: Result Comment: 'F N ON < 1 - 3' ' 0.2 - 1 WEEK = 5 TO 50' ' 1 - 2 WEEKS = 50 - 500' ' 2 - 3 WEEKS = 100 - 5000' ' 3 - 4 WEEKS = 500 - 19266' ' 4 - 5 WEEKS = 1000 - 84029' ' 5 - 6 WEEKS = 24358 - 780429' ' 6 - 8 WEEKS = 50482 - 876100' ' 8 - 12 WEEKS = 95894 - 364426' Potassium [Moles/Vol] 3.2 mmol/L Low 3.5 - 5.3 mmol/L [facility] Sodium [Moles/Vol] 138 mmol/L Normal 135 - 145 mmol/L [facility] Urea nitrogen [Mass/Vol] 9 mg/dL Normal 5 - 21 mg/dL Remisol Chem Urea nitrogen/Creatinine [Mass ratio] 11 mg/mg Normal 10 - 20 Remisol Chem Consent for Treatmenton Consent for Treatment [id number] F Normal [facility] Discharge Instructionson Discharge Instructions [id number] FF Normal [facility] ED Clinical Summaryon 2023 ED Clinical Summary (Inserted Image. Neda ble to display) [address] [address] ED Clinical Summary Person Information Name: ALAINA WARNER [place] Age: 22 Years : 2000 Sex: Female Language: Nigerien PCP: [facility] CONSULTANT, Elisa E Marital Status: Single Phone: [phone] Visit Id: Visit Reason: Test; Abdominal pain; CRAMPING AND DIZZINESS Speciality: Acuity: 3 Enc Type: Emergency Med Service: Emergency Arrival: 08/03/2023 13:47:37 Discharge: 08/03/2023 16:03:25 LOS: 000 02:16 Checkin: 08/03/2023 13:47:37 Checkout: 08/03/2023 16:03:25 Dispo Type: Home (Routine DC) EVENTS: Event Name Event Status Request Date/Time Start Date/Time Complete Date/Time Arrive Complete 08/03/2023 13:47:37 08/03/2023 13:47:37 08/03/2023 13:47:37 Document Home Meds Request 08/03/2023 13:47:37 Triage Complete 08/03/2023 13:47:37 08/03/2023 13:58:11 08/03/2023 13:58:11 Bed Assign Complete 08/03/2023 13:49:54 08/03/2023 13:49:54 08/03/2023 13:49:54 Dr Exam Complete 08/03/2023 13:49:54 08/03/2023 13:54:20 08/03/2023 13:54:20 RN Exam Complete 08/03/2023 13:49:54 08/03/2023 14:10:33 08/03/2023 14:10:33 Registration Complete 08/03/2023 13:50:18 08/03/2023 13:50:18 08/03/2023 13:50:18 Reg Complete Request 08/03/2023 13:50:18 Reg Bed Request Complete 08/03/2023 13:50:18 08/03/2023 13:50:18 08/03/2023 13:50:18 Registration Request 08/03/2023 13:54:20 Dr Exam Complete 08/03/2023 13:54:34 08/03/2023 13:54:34 08/03/2023 13:54:34 Pending Labs Complete 08/03/2023 13:59:05 08/03/2023 14:21:44 Lab Complete 08/03/2023 13:59:05 08/03/2023 14:21:44 Urine Collect Complete 08/03/2023 13:59:05 08/03/2023 14:21:44 Pending Labs Inlab 08/03/2023 14:13:01 08/03/2023 14:13:01 Lab Inlab 08/03/2023 14:13:01 08/03/2023 14:13:01 Pending Labs Complete 08/03/2023 14:15:27 08/03/2023 14:51:53 Lab Complete 08/03/2023 14:15:27 08/03/2023 14:51:53 US Complete 08/03/2023 14:15:27 08/03/2023 15:17:14 08/03/2023 15:46:26 Pending Labs Complete 08/03/2023 14:17:06 08/03/2023 14:45:02 Blood Collect Request 08/03/2023 14:17:06 Pending Labs Complete 08/03/2023 14:27:44 08/03/2023 14:27:44 08/03/2023 14:51:53 Lab Complete 08/03/2023 14:27:44 08/03/2023 14:27:44 08/03/2023 14:51:53 Pending Labs Complete 08/03/2023 14:34:21 08/03/2023 14:34:21 08/03/2023 14:34:22 Pending Labs Complete 08/03/2023 14:35:21 08/03/2023 14:35:21 08/03/2023 15:15:58 Lab Complete 08/03/2023 14:35:21 08/03/2023 14:35:21 08/03/2023 15:15:58 Pending Labs Complete 08/03/2023 14:39:01 08/03/2023 14:39:01 08/03/2023 14:39:09 Lab Complete 08/03/2023 14:39:01 08/03/2023 14:39:01 08/03/2023 14:39:09 Meds Admin Complete 08/03/2023 15:41:01 08/03/2023 15:58:55 Discharge Complete 08/03/2023 15:53:52 08/03/2023 16:03:35 08/03/2023 16:03:35 Transfer Complete 08/03/2023 16:03:35 08/03/2023 16:03:35 08/03/2023 16:03:35 ADDRESS: [address] [place] [phone] PHYS DOC NOTES: MEDICAL INFORMATION: Prescriptions Given: PATIENT EDUCATION INFORMATION: Instructions: Follow up: With: Address: When: Lucas Molina [address] [place] [id number] Business (1) In 3 days 08/06/2023 With: Address: When: Follow-up with your ENVIRONMENTAL MONITORING SPECIALIST for further evaluation of your symptoms. If symptoms continue may report back to emergency department. In 3 days 08/06/2023 With: Address: When: Elisa PATEL [address] [place] [address] Business (1) In 3 days 08/06/2023 Comments: Follow-up with your primary care provider in 3 to 5 days. If symptoms worsen, do not improve, or new symptoms arise please report back to emergency department for further evaluation. DIAGNOSIS: Complete ; Vaginal bleeding Normal [facility] ED Patient Education Noteon 08-03-2023 ED Patient Education Note Normal [facility] ED Patient Summaryon 024 ED Patient Summary (Inserted Image. Neda ble to display) [address] [address] Patient Discharge Instructions Person Information Name: ALAINA WARNER Age: 22 Years Arrival Date: 08/03/2023 13:47:37 Discharge Diagnosis: Complete ; Vaginal bleeding Primary Care Physician: Elisa PATEL CNP Provider Information Primary Provider: Narinder Cardona DO Advanced Superintendent Meter Tests:None The exam and treatment you received in the Emergency Department were for an urgent problem and are not intended as complete care. It is important that you follow up with a doctor, nurse practitioner, or physician?s advertising assistant manager for ongoing care. If your symptoms become worse or you do not improve as expected and you are unable to reach your usual health care provider, you should return to the Emergency Department. We are available 24 hours a day. LAAINA WARNER has been given the following list of patient education materials, prescriptions and follow-up instructions: Follow-up Instructions: With: Address: When: Lucas Molina [address], [facility] [address], [place] [address] Business (1) In 3 days 08/06/2023 With: Address: When: Follow-up with your ENVIRONMENTAL MONITORING SPECIALIST for further evaluation of your symptoms. If symptoms continue may report back to emergency department. In 3 days 08/06/2023 With: Address: When: Elisa SANDERSJULIAN [address] [place] [address] Business (1) In 3 days 08/06/2023 Comments: Follow-up with your primary care provider in 3 to 5 days. If symptoms worsen, do not improve, or new symptoms arise please report back to emergency department for further evaluation. In the event that this physician does not participate in your insurance network, please consult with your insurance company to find a nearby participating provider. Patient Education Materials: A MESSAGE TO ALL PATIENTS REGARDING OPIOIDS PRESCRIPTION OPIOIDS: WHAT YOU NEED TO KNOW Prescription opioids can be used to help relieve rtpatfeu-ds-jqzwmk pain and are often prescribed following a surgery or injury, or for certain health conditions. These medications can be an important part of the treatment but also come with serious risks. It is important to work with your healthcare provider to make sure you are getting the safest, most effective care. WHAT ARE THE RISKS AND SIDE EFFECTS OF OPIOID USE? Prescription opioids carry serious risks of addiction and overdose, especially with prolonged use. An opioid overdose, often marked by slowed breathing, can cause sudden . The use of prescription opioids can have a number of side effects as well, even when taken as directed: ? Tolerance?meaning you might need to take more of the medication for the same pain relief ? Physical dependence?meaning you have symptoms of withdrawal when a medication is stopped ? Increased sensitivity to pain ? Constipation ? Nausea, vomiting, and dry mouth ? Sleepiness and dizziness ? Confusion ? Depression ? Low levels of testosterone that can result in lower sex drive, energy, and strength ? Itching and sweating RISKS ARE GREATER WITH: ? History of drug misuse, substance use disorder, or overdose ? Mental health conditions (such as depression or anxiety) ? Sleep apnea ? Older age (65 years and older) ? Avoid alcohol while taking prescription opioids. Also, unless specifically advised by your health care provider, medications to avoid include: ? Benzodiazepines (such as Xanax or Valium) ? Muscle relaxants (such as Soma or Flexeril) ? Hypnotics (such as Ambien or Lunesta) ? Other prescription opioids KNOW YOUR OPTIONS Talk to your health care provider about ways to manage your pain that don?t involve prescription opioids. Some of these options may actually work better and have fewer risks and side effects. Options may include: ? Pain relievers such as acetaminophen, ibuprofen, and naproxen ? Some medication that are also used for depression or seizures ? Physical therapy and exercise ? Cognitive behavioral therapy, a psychological, goal-directed approach, in which patients learn how to modify physical, behavioral, and emotional triggers of pain and stress. IF YOU ARE PRESCRIBED OPIOIDS FOR PAIN: ? Never take opioids in greater amounts or more often than prescribed. ? Follow up with your primary health care provider. o Work together to create a plan on how to manage your pain. o Talk about ways to help manage your pain that don?t involve prescription opioids. o Talk about any and all concerns and side effects. ? Help prevent misuse and abuse o Never sell or share prescription opioids. o Never use another person?s prescription opioids. ? Store prescription opioids in a secure place and out of reach of others (this may include visitors, children, friends, and family). ? Safely dispose of unused prescription opioids: Fi (more content not included)... Normal [facility] HEMATOLOGYOrdered By: SYSTEM SYSTEM on 08-03-2023 Basophils/100 WBC (Bld) 1.4 % Normal 0.0 - 2.0 % [facility] [place] [place] HemeAutoSS Basophils/Leukocytes Auto (Bld) [Pure # fraction] 0.1 E9/L Normal 0.0 - 0.2 E9/L FT HemeAutoSS Eosinophils/100 WBC (Bld) 2.7 % Normal 0.0 - 8.0 % [facility] [place] [place] HemeAutoSS Eosinophils/Leukocyt es Auto (Bld) [Pure # fraction] 0.2 E9/L Normal 0.0 - 0.5 E9/L [facility] [place] [place] HemeAutoSS Lymphocytes/100 WBC (Bld) 28.9 % Normal 14.0 - 50.0 % [facility] HemeAutoSS Lymphocytes/Leukocyt es Auto (Bld) [Pure # fraction] 1.7 E9/L Normal 1.0 - 4.0 E9/L [facility] HemeAutoSS Monocytes/100 WBC (Bld) 5.2 % Normal 4.0 - 14.0 % [facility] HemeAutoSS Monocytes/Leukocytes Auto (Bld) [Pure # fraction] 0.3 E9/L Normal 0.2 - 1.0 E9/L [facility] HemeAutoSS Neutrophils/100 WBC (Bld) 61.8 % Normal 36.0 - 75.0 % [facility] HemeAutoSS Neutrophils/Leukocyt es Auto (Bld) [Pure # fraction] 3.7 E9/L Normal 2.0 - 7.5 E9/L [facility] HemeAutoSS HEMATOLOGYOrdered By: Marge Musa on 08-03-2023 Erythrocyte distribution width (RBC) [Ratio] 13.2 % Normal 10.9 - 14.2 % [facility] HemeAutoSS Hematocrit (Bld) [Volume fraction] 39.0 % Normal 34.0 - 46.0 % [facility] HemeAutoSS Hemoglobin (Bld) [Mass/Vol] 13.1 g/dL Normal 12.0 - 16.0 gm/dL [facility] HemeAutoSS MCH (RBC) [Entitic mass] 32.0 pg Normal 27.0 - 34.0 pg [facility] HemeAutoSS MCHC (RBC) [Mass/Vol] 33.6 g/dL Normal 31.4 - 36.0 gm/dL [facility] HemeAutoSS MCV (RBC) [Entitic vol] 95.3 fL Normal 80.0 - 100.0 fL [facility] HemeAutoSS Platelet mean volume (Bld) [Entitic vol] 7.9 fL Normal 6.4 - 10.8 fL [facility] HemeAutoSS Platelets (Bld) [#/Vol] 209.0 E9/L Normal 150.0 - 500.0 E9/L [facility] HemeAutoSS RBC (Bld) [#/Vol] 4.1 E12/L Low 4.3 - 5.9 E12/L [facility] HemeAutoSS WBC corrected for nucl RBC Auto (Bld) [#/Vol] 6.0 E9/L Normal 4.0 - 11.0 E9/L [facility] HemeAutoSS SEROLOGYOrdered By: Mitra Palafox on 08-03-2023 HCG.beta subunit (U) [Moles/Vol] Positive (08/03/23 2:02 PM) Normal [facility] [place] [place] Man Sero U BetaHcg Qualon 08-03-2023 HCG.beta subunit (U) [Moles/Vol] Positive Normal [facility] Comment on above: Performed By: #### 2 081024, [id number], 8721267, [id number], 0848525 #### [facility] [address] [place] [address] UA With Cult Reflexon 2023 Bacteria LM Ql (Urine sed) TRACE Normal Trace [facility] Comment on above: Performed By: #### 2 426280, 8918572, 5370933, [id number], 7669868 #### [facility] [address] [place] [address] Bilirubin Ql (U) Negative Normal Negative [facility] Comment on above: Performed By: #### 2 216862, 7480919, 1449870, 99564276, 4046899 #### [facility] [address] [place] [address] Clarity (U) SL CLOUDY Abnormal Clear [facility] Comment on above: Performed By: #### 2 403473, 5289270, 9439569, 03949066, 5841249 #### [facility] [address] [place] [address] Color (U) YELLOW Normal Yellow [facility] Comment on above: Performed By: #### 2 639847, 4951321, 3473929, 77917352, 2809254 #### [facility] [address] [place] [address] Crystals LM Ql (Urine sed) Present Normal [facility] Comment on above: Performed By: #### 2 343368, 0951047, 6616715, 83227496, 2295200 #### [facility] [address] [place] [address] Epithelial cells.squamous LM.HPF (Urine sed) [#/Area] 5-8 Normal 0-2 [facility] Comment on above: Performed By: #### 2 503932, 8926916, 2771518, 58624742, 3501258 #### [facility] [address] [place] [address] Glucose Test strip (U) [Mass/Vol] Negative Normal Negative [facility] Comment on above: Performed By: #### 2 884744, 0354236, 4843965, 11555132, 5729083 #### [facility] [address] [place] [address] Hemoglobin Ql (U) TRACE Abnormal Negative [facility] Comment on above: Performed By: #### 2 774584, 1904940, 3624500, 23238601, 1427431 #### [facility] [address] [place] [address] Ketones (U) [Mass/Vol] Negative Normal Negative [facility] Comment on above: Performed By: #### 2 710898, 6817834, 2657085, 61558149, 8955845 #### [facility] [address] [place] [address] Montmorenci.plasma/Lithi um.RBC (Bld) [Mass ratio] 0-3 Normal 0-3 [facility] Comment on above: Performed By: #### 2 264407, 5527454, 4566273, 49975739, 1026689 #### [facility] [address] [place] [address] Mucus Ql (Urine sed) TRACE Normal [facility] Comment on above: Performed By: #### 2 046551, 9456753, 0348266, 91485272, 5638468 #### [facility] [address] [place] [address] Nitrite Ql (U) Negative Normal Negative [facility] Comment on above: Performed By: #### 2 453752, 9803969, 5651829, 62777566, 6293058 #### [facility] [address] [place] [address] pH (U) 6.0 [pH] Invalid Interpretation Code 5.0-9.0 [facility] Comment on above: Performed By: #### 2 668387, 4597063, 8623269, 54051109, 7538946 #### [facility] [address] [place] [address] Protein (U) [Mass/Vol] Negative Normal Negative [facility] Comment on above: Performed By: #### 2 631928, 9843198, 4183210, 38289918, 3149426 #### [facility] [address] [place] [address] Specific gravity (U) [Rel density] 1.015 Invalid Interpretation Code 1.005-1.030 [facility] Comment on above: Performed By: #### 2 081138, 2128639, 7757947, 45261346, 4214910 #### [facility] [address] [place] [address] Type of Urine collection method Clean Catch Normal [facility] Comment on above: Performed By: #### 2 722951, 9964948, 2567936, 71904568, 5500948 #### [facility] [address] [place] [address] Urobilinogen Qn (U) 0.2 {Jan'U}/dL Normal 0.0-1.0 [facility] Comment on above: Performed By: #### 2 886306, 8108997, 1658974, 07423395, 6185384 #### [facility] [address] [place] [address] WBC Auto Ql (U) 2+ Abnormal Negative [facility] Comment on above: Performed By: #### 2 619646, 6519607, 0115032, 17669789, 6069367 #### [facility] [address] [place] [address] WBC casts LM.LPF (Urine sed) [#/Area] 0-3 Normal [facility] Comment on above: Performed By: #### 2 157848, 6720604, 0712835, 73141579, 2280427 #### [facility] [address] [place] [address] WBC LM.HPF (Urine sed) [#/Area] 6-15 Abnormal 0-5 [facility] Comment on above: Performed By: #### 2 123527, 3055632, 9089334, 08971660, 3970015 #### [facility] [address] [place] [address] URINALYSISOrdered By: Sho Palafox on 08-03-2023 Bacteria LM Ql (Urine sed) Trace /HPF Normal Trace/HPF [facility] UA Auto SS Bilirubin Ql (U) Negative (08/03/23 2:02 PM) Normal Negative [facility] UA Auto SS Clarity (U) Slightly Cloudy *ABN* (08/03/23 2:02 PM) Invalid Interpretation Code Clear [facility] UA Auto SS Color (U) Yellow (08/03/23 2:02 PM) Normal Yellow [facility] UA Auto SS Crystals LM Ql (Urine sed) Present (08/03/23 2:02 PM) Normal [facility] UA Auto SS Epithelial cells.squamous LM.HPF (Urine sed) [#/Area] 5-8 /HPF Normal 0-2/HPF [facility] UA Auto SS Glucose Test strip (U) [Mass/Vol] Negative (08/03/23 2:02 PM) Normal Negative [facility] UA Auto SS Hemoglobin Ql (U) Trace *ABN* (08/03/23 2:02 PM) Invalid Interpretation Code Negative [facility] UA Auto SS Ketones (U) [Mass/Vol] Negative (08/03/23 2:02 PM) Normal Negative [facility] UA Auto SS Montmorenci.plasma/Lithi um.RBC (Bld) [Mass ratio] 0-3 /HPF Normal 0-3/HPF [facility] UA Auto SS Mucus Ql (Urine sed) Trace (08/03/23 2:02 PM) Normal [facility] UA Auto SS Nitrite Ql (U) Negative (08/03/23 2:02 PM) Normal Negative [facility] UA Auto SS pH (U) 6.0 *NA* (08/03/23 2:02 PM) Invalid Interpretation Code 5.0 - 9.0 [facility] UA Auto SS Protein (U) [Mass/Vol] Negative (08/03/23 2:02 PM) Normal Negative [facility] [place] [place] UA Auto SS Specific gravity (U) [Rel density] 1.015 *NA* (08/03/23 2:02 PM) Invalid Interpretation Code 1.005 - 1.030 [facility] [place] [place] UA Auto SS UA Spec Desc Clean Catch (08/03/23 2:02 PM) Normal [facility] [place] [place] UA Auto SS Urobilinogen Qn (U) 0.2938219 {Jan'U}/dL Normal 0.0 - 1.0 EU/dL [facility] [place] [place] UA Auto SS WBC Auto Ql (U) 2+ *ABN* (08/03/23 2:02 PM) Invalid Interpretation Code Negative [facility] [place] [place] UA Auto SS WBC casts LM.LPF (Urine sed) [#/Area] 0-3 (08/03/23 2:02 PM) Normal [facility] [place] [place] UA Auto SS WBC LM.HPF (Urine sed) [#/Area] 6-15 /HPF Invalid Interpretation Code 0-5/HPF [facility] [place] [place] UA Auto SS US 1st Trimesteron 08-03-2023 US 1st Trimester Exam Date/Time: 08/03/2023 15:46 EST Reason for Exam: retained products;Other (please specify) Report IMPRESSION: NO EVIDENCE OF INTRAUTERINE GESTATIONAL SAC NOR RETAINED PRODUCTS OF CONCEPTION. CLINICAL HISTORY: retained products. COMMENT: Transabdominal images were obtained. The patient declined transvaginal scanning. The uterus measurements and an estimated volume are: Uterus Length: 8.3 cm Uterus Width: 6.0 cm Uterus Height: 4.2 cm Uterus Volume: 109.1 cm3 Endometrium Thickness: 0.7 cm The uterus is retroflexed. No fluid is noted in the uterine canal. No intrauterine gestational sac nor ultrasound evidence of retained products of conception is noted. The echo pattern of the myometrium is unremarkable. No uterine mass is evident. The right ovary measurements and an estimated volume are: Right Ovary Length: 3.0 cm Right Ovary Width: 2.1 cm Right Ovary Height: 3.3 cm Right Ovary Volume: 10.6 cm3 The left ovary measurements and an estimated volume are: Left Ovary Length: 2.7 cm Left Ovary Width: 2.9 cm Left Ovary Height: 2.3 cm Left Ovary Volume: 9.4 cm3 There are small follicular ovarian cysts. No large cyst nor adnexal mass is evident. On color flow Doppler images, there is vascular flow to each ovary. No free fluid is noted in the cul-de-sac.. Ordering Provider: Gregory Ramirez FINAL REPORT Dictated: 08/03/2023 4:32 pm Héctor Meng M.D. Signed (Electronic Signature): 08/03/2023 4:32 pm Signed by: Héctor Meng M.D. Transcribed by: DERIC Technologist: BRANDON Technical Comments LMP : 05/18/23 History 5 Para 2 SAB 3 Transabdominal Ultrasound Performed Uterus Position Retroflexed Normal [facility] eGFRon 08-03-2023 GFR/1.73 sq M.predicted among non-blacks MDRD (S/P/Bld) [Vol rate/Area] mL/min/{1.73_m2} Normal >=59 [facility] Comment on above: Order Comment: Order added by Discern Expert. Performed By: #### 2 925975, 8708673, 0118408, 58739288, 3521790 #### [facility] [address] [place] [address] Bacteria identifiedon 2022 Bacteria identified Aer cx Nom (Genital specimen) Test: Genital Culture Specimen Source: Vaginal Specimen Type: Swab Specimen Date: 07/06/2023 10:37 AM Result Date: 07/10/2023 10:21 AM Result Status: Final result Abnormal: Yes Resulting Lab: [facility] [id number] [place] [address] CULTURE (1+) Rare Streptococcus agalactiae (Group B Streptococcus) (Abnormal) (1+) Rare Anahi albicans (Abnormal) Culture examined for Group A Streptococcus, Group B Streptococcus, Neisseria gonorrhoeae and Yeast ONLY.Streptococcus agalactiae (Group B Streptococcus) is universally susceptible to beta-lactam antibiotics and vancomycin. Routine susceptibility testing not performed. For penicillin allergic patients, please contact the laboratory within 5 days of collection at to request susceptibility testing. Abnormal [facility] Comment on above: Performed By: #### 1 0352-3 #### STALIN Verma ([id number]) [facility] ([facility]) [address] [place] [address] Bacteria identified Cx Nom (U) Test: Urine Culture Specimen Source: Clean Catch/Voided Specimen Type: Urine Specimen Date: 07/06/2023 10:37 AM Result Date: 07/07/2023 11:49 AM Result Status: Final result Abnormal: No Resulting Lab: [facility] [address] [place] [address] CULTURE No significant growth Normal [facility] Comment on above: Performed By: #### 6 30-4 #### STALIN Verma ([id number]) [facility] ([facility]) [address] [place], [place] [id number] C Urineon 06-12-2023 Bacteria identified Cx Nom (U) Microbiology PROCEDURE: Urine Culture [R1] SOURCE: U CleanCatch BODY SITE: COLLECTED DATE/TIME: 06/10/2023 15:17 EST RECEIVED DATE/TIME: 06/10/2023 17:34 EST START DATE/TIME: 06/10/2023 17:34 EST FREE TEXT SOURCE: Elisa PATEL CNP, CNP, Elisa Scherer FINAL REPORTS Final Report [] Verified Date/Time: 06/12/2023 11:08 EST 1,000 cfu/ml Mixed skin contaminants Performing Locations R1: This test was performed at: [facility], [address] [place] [address], [address] , , [facility] Comment on above: Performed By: #### 2 [id number] ####[facility] [id number] [place] [address] Chlamydia/Gonococcus, NAAon 06-02-2023 C. trachomatis rRNA JOHNIE+probe Ql (Unsp spec) Negative Invalid Interpretation Code Negative [facility] Comment on above: Performed By: #### 1 [id number] ####[facility] [address] [place] [address] N. gonorrhoeae rRNA JOHNIE+probe Ql (Unsp spec) Negative Invalid Interpretation Code Negative [facility] Comment on above: Result Comment: Perf ormed at: =G [facility] [address] MICHELLE Rojas [id number] MD Deepa Galdamez Performed By: #### 1 [id number] ####[facility] [id number] [place] [address] Operative Reporton 3 Operative Report Indication for Surge ry This is a 22-year-old female that emergency department with right upper quadrant abdominal pain. This has been going on for multiple months making her miss work. Ultrasound was consistent with cholelithiasis. Risk benefits potential complications to elective minimally invasive cholecystectomy were explained to the patient and she wished to proceed. Preoperative Diagnosis Cholelithiasis Postoperative Diagnosis Same Operation Robotic cholecystectomy Surgeon(s) Héctor Denton DO Anesthesia General Estimated Blood Loss 10 Urine Output Not recorded Findings Cholelithiasis Specimen(s) Gallbladder Complications None Technique Patient is brought the operating placed in supine position. After induction of general anesthesia the abdomen is prepped and draped in usual sterile fashion. The abdomen was entered using the Optiview technique in the left upper quadrant at Marion's point. The abdomen was insufflated and tolerated well by the patient. The abdomen is inspected there is no signs of any injury from injury. Next 3 additional 5 to 8 mm trocars were placed in a linear fashion just inferior to the umbilicus to in the right lower quadrant and 1 in the left hemiabdomen. The left upper quadrant 5 mm trocar was then exchanged for an 8 mm trocar. The robot was then docked and the instruments inserted under direct visualization. The dome of the gallbladder was then grasped and retracted cephalad. The cystic duct and cystic artery were then dissected free with a combination of blunt and sharp dissection to obtain a critical view of safety. The cystic duct and cystic artery were then clipped proximally distally and divided between with hook cautery. The gallbladder was then removed from the gallbladder fossa using electrocautery. An 8 mm bag was then advanced through the left upper quadrant incision and the gallbladder placed in it. The abdomen is inspected and hemostasis was achieved. The robotic instruments were removed and the robot was undocked. The gallbladder was then removed through the left upper quadrant technique with no dilation of the incision. The ports were removed and the abdomen desufflated. Skin incision was closed with subcuticular 4-0 Monocryl. Patient was extubated taken to PACU in stable condition. Normal [facility] Comment on above: Result Comment: Elec tronically Signed By: Héctor Denton DO\.br\Date and Time Signed: 06/01/23 10:44 EST ED Note-Physicianon 05-29-20 ED Note-Physician Basic Information Time Seen: Julián Mercer DO 05/28/2023 15:51 Chief Complaint pt c/o burning with urination that started last night. pt states that she noticed a foul smell two days ago and hematuria. denies fever, chills, n/v. hx gallbladder removal on thursday. History of Present Illness 22-year-old female presents to the ED with complaints of burning with urination. States she has noted a foul smell as well. States she has seen some blood in her urine. Reports some mild suprapubic abdominal pain. No fevers, chills, nausea, vomiting. Patient's history significant for recent cholecystectomy 1 week ago. Patient does admit to mild vaginal discharge as well. Reports that she did have recent exposure to a new sexual partner and is uncertain of any history of STIs. Review of Systems All organ systems are reviewed. Pertinent positive and negative findings as mentioned in the HPI. Physical Exam Vitals & Measurements T: 36.7 ?C(Oral) HR: 81(Peripheral) RR: 16 BP: 116/76 SpO2: 99% HT: 160 cm WT: 59.3 kg BMI: 23.16 GENERAL APPEARANCE: Well developed, well nourished, alert and cooperative, and appears to be in no acute distress. HEAD: normocephalic, atraumatic EYES: PERRL, EOMI. Vision is grossly intact. EARS: External auditory canals clear, hearing grossly intact. NOSE: No nasal discharge. THROAT: Oral cavity and pharynx normal. Oral mucosa moist. CARDIAC: Normal heart sounds, no murmurs. Rhythm is regular. LUNGS: Clear to auscultation without rales, rhonchi, wheezing or diminished breath sounds. ABDOMEN: Soft, nondistended, nontender. No guarding or rebound. MUSCULOSKELETAL: Adequately aligned spine. ROM intact spine and extremities. No joint erythema or tenderness. : Pelvic exam deferred NEUROLOGICAL: CN grossly intact. Strength and sensation symmetric and intact throughout. SKIN: Skin normal color, texture and turgor with no lesions or eruptions. Assessment/Plan 1. Dysuria (R30.0: Dysuria) Orders: ceftriaxone, 500 mg = 1 EA, Injection, IntraMuscular, Once, Stop date 05/28/23 16:45:00 EDT, STAT, Start date 05/28/23 16:45:00 EDT, 05/28/23 16:45:00 EDT doxycycline, 100 mg = 1 cap(s), Oral, BID, X 7 day(s), # 14 cap(s), Refills(s) 0, Pharmacy: [facility] #[id number], 160, cm, 05/28/23 15:52:00 EDT, Height/Length Dosing, 59.3, kg, 05/28/23 15:52:00 EDT, Weight Dosing doxycycline, 100 mg = 1 cap(s), Cap, Oral, Once, Stop date 05/28/23 16:53:00 EDT, STAT, Start date 05/28/23 16:53:00 EDT, 05/28/23 16:53:00 EDT fluconazole, 150 mg = 1 tab(s), Tab, Oral, Once, Stop date 05/28/23 16:55:00 EDT, STAT, Start date 05/28/23 16:55:00 EDT, 05/28/23 16:55:00 EDT ondansetron, 4 mg = 1 tab(s), Tab-Dis, Oral, Once, Stop date 05/28/23 16:45:00 EDT, STAT, Start date 05/28/23 16:45:00 EDT, 05/28/23 16:45:00 EDT Add on Test Chlamydia/Gonococcus, JOHNIE 22-year-old female presents to the ED with complaints of dysuria. In the ED patient is afebrile, vital signs are stable stable no acute distress. Urinalysis without evidence of obvious infection. Urine negative. Results discussed with the patient. Discussed recent new sexual partner and possible exposure to STIs. Patient is requesting treatment and prophylaxis for STIs. Patient treated with Rocephin, Doxy, Zofran, and also given fluconazole. Educated on abstaining from sexual activity until finishing antibiotics and having partners tested for STIs as well. She is to follow with her PCP and is to return to the ED with any new or worsening symptoms. Patient voices understanding and is agreeable to plan Medications Administered Given cefTRIAXone IM, 500 mg, IntraMuscular doxycycline hyclate 100 mg Cap, 100 mg, Oral fluconazole 150 mg Tab, 150 mg, Oral Zofran ODT 4 mg Tab-Dis, 4 mg, Oral Disposition Plan Patient Discharge Condition Improved, stable Discharge Disposition To home Discharge Prescription List Prescriptions doxycycline hyclate 100 mg Cap, 100 mg= 1 cap(s), Oral, BID Follow-up With When Contact Information Elisa PATEL In 3 days [address] [id number] Business (1) Additional Instructions: Patient Education Dysuria Attestation Patient was treated and evaluated by the Physician Patient Biller. The attending physician was in the Emergency Department at all times and supervised care. The case was discussed with the attending physician and diagnostics were reviewed as needed. Problem List/Past Medical History Ongoing Gallstones GERD (gastroesophageal reflux disease) H/O: depression IBS (irritable bowel syndrome) Marijuana use Maxillary sinusitis Smoker Historical Chronic diarrhea Depression Procedure/Surgical History Laparoscopic cholecystectomy (05/22/2023), None. Medications Inpatient No active inpatient medications Home doxycycline hyclate 100 mg Cap, 100 mg= 1 cap(s), Oral, BID Senna 8.6 mg oral tablet, 8.6 mg= 1 tab(s), Oral, Once a day (at bedtime), PRN Tylenol 325 mg Tab, 650 mg, (more content not included)... [facility] Comment on above: Result Comment: Elec tronically Signed By: Meaghan Timmons PA-C\.br\Date and Time Signed: 05/28/23 21:12 EDT\.br\Electronically Co-Signed By: Julián Mercer DO.br\Date and Time Co-Signed: 05/29/23 14:11 EDT Consent for Treatmenton Consent for Treatment [id number] FF [facility] Discharge Instructionson Discharge Instructions [id number] F Normal [facility] ED Clinical Summaryon 2022 ED Clinical Summary (Inserted Image. Neda ble to display) [address] [id number] ED Clinical Summary Person Information Name: ALAINA WARNER [place] Age: 22 Years : 2000 Sex: Female Language: Nigerien PCP: Elisa PATEL CNP Marital Status: Single Visit Id: Visit Reason: Hematuria; Dysuria; BURNING - URINATION Speciality: Acuity: 4 Enc Type: Emergency Med Service: Emergency Arrival: 05/28/2023 15:45:21 Discharge: 05/28/2023 17:41:10 LOS: 000 01:56 Checkin: 05/28/2023 15:45:21 Checkout: 05/28/2023 17:41:10 Dispo Type: Home (Routine DC) EVENTS: Event Name Event Status Request Date/Time Start Date/Time Complete Date/Time Arrive Complete 05/28/2023 15:45:21 05/28/2023 15:45:21 05/28/2023 15:45:21 Document Home Meds Request 05/28/2023 15:45:21 Triage Complete 05/28/2023 15:45:21 05/28/2023 15:52:10 05/28/2023 15:52:10 Bed Assign Complete 05/28/2023 15:46:54 05/28/2023 15:46:54 05/28/2023 15:46:54 Dr Exam Complete 05/28/2023 15:46:54 05/28/2023 15:51:05 05/28/2023 15:51:05 RN Exam Complete 05/28/2023 15:46:54 05/28/2023 15:51:06 05/28/2023 15:51:06 Pending Labs Complete 05/28/2023 15:50:32 05/28/2023 16:19:44 Lab Complete 05/28/2023 15:50:32 05/28/2023 16:19:44 Urine Collect Complete 05/28/2023 15:50:32 05/28/2023 16:19:44 Pending Labs Complete 05/28/2023 15:50:51 05/28/2023 16:08:26 Lab Complete 05/28/2023 15:50:51 05/28/2023 16:08:26 Urine Collect Complete 05/28/2023 15:50:51 05/28/2023 16:08:26 Registration Complete 05/28/2023 15:51:05 05/28/2023 16:02:41 05/28/2023 16:02:41 Dr Exam Complete 05/28/2023 15:51:45 05/28/2023 15:51:45 05/28/2023 15:51:45 Dr Exam Complete 05/28/2023 15:51:52 05/28/2023 15:51:52 05/28/2023 15:51:52 Reg Complete Request 05/28/2023 16:02:41 Reg Bed Request Complete 05/28/2023 16:02:41 05/28/2023 16:02:41 05/28/2023 16:02:41 Dr Exam Complete 05/28/2023 16:12:24 05/28/2023 16:12:24 05/28/2023 16:12:24 Registration Complete 05/28/2023 16:12:24 05/28/2023 16:50:27 05/28/2023 16:50:27 Pending Labs Collected 05/28/2023 16:27:25 05/28/2023 16:27:25 Meds Admin Complete 05/28/2023 16:56:16 05/28/2023 17:11:17 Discharge Complete 05/28/2023 16:56:49 05/28/2023 17:41:14 05/28/2023 17:41:14 Transfer Complete 05/28/2023 17:41:14 05/28/2023 17:41:14 05/28/2023 17:41:14 ADDRESS: [address] [place] [id number] PHYS DOC NOTES: MEDICAL INFORMATION: Prescriptions Given: New Medications [facility] #[id number], [address] [place], [place] [id number], [phone] doxycycline (doxycycline hyclate 100 mg Cap) 1 Capsules By Mouth 2 times a day for 7 Days. Refills: 0. Medications to Continue with No Changes Other Medications acetaminophen (Tylenol 325 mg Tab) 650 Milligram By Mouth every 6 hours for 14 Days. Refills: 0. senna (Senna 8.6 mg oral tablet) 1 Tablets By Mouth once a day (at bedtime) as needed for constipation for 7 Days. Refills: 0. PATIENT EDUCATION INFORMATION: Instructions: Dysuria Follow up: With: Address: When: Elisa PATEL [address] [place] [address] Business (1) In 3 days DIAGNOSIS: 1:Dysuria Normal [facility] ED Patient Education Noteon 05-28-2023 ED Patient Education Note Urology Dysuria Dysuria is pain or discomfort during urination. The pain or discomfort may be felt in the part of the body that drains urine from the bladder (urethra) or in the surrounding tissue of the genitals. The pain may also be felt in the groin area, lower abdomen, or lower back. You may have to urinate frequently or have the sudden feeling that you have to urinate (urgency). Dysuria can affect anyone, but it is more common in females. Dysuria can be caused by many different things, including: ? Urinary tract infection. ? Kidney stones or bladder stones. ? Certain STIs (sexually transmitted infections), such as chlamydia. ? Dehydration. ? Inflammation of the tissues of the vagina. ? Use of certain medicines. ? Use of certain soaps or scented products that cause irritation. Follow these instructions at home: Medicines ? Take srsb-nkc-pxvllcq and prescription medicines only as told by your health care provider. ? If you were prescribed an antibiotic medicine, take it as told by your health care provider. Do not stop taking the antibiotic even if you start to feel better. Eating and drinking ? Drink enough fluid to keep your urine pale yellow. ? Avoid caffeinated beverages, tea, and alcohol. These beverages can irritate the bladder and make dysuria worse. In males, alcohol may irritate the prostate. General instructions ? Watch your condition for any changes. ? Urinate often. Avoid holding urine for long periods of time. ? If you are female, you should wipe from front to back after urinating or having a bowel movement. Use each piece of toilet paper only once. ? Empty your bladder after sex. ? Keep all follow-up visits. This is important. ? If you had any tests done to find the cause of dysuria, it is up to you to get your test results. Ask your health care provider, or the department that is doing the test, when your results will be ready. Contact a health care provider if: ? You have a fever. ? You develop pain in your back or sides. ? You have nausea or vomiting. ? You have blood in your urine. ? You are not urinating as often as you usually do. Get help right away if: ? Your pain is severe and not relieved with medicines. ? You cannot eat or drink without vomiting. ? You are confused. ? You have a rapid heartbeat while resting. ? You have shaking or chills. ? You feel extremely weak. Summary ? Dysuria is pain or discomfort while urinating. Many different conditions can lead to dysuria. ? If you have dysuria, you may have to urinate frequently or have the sudden feeling that you have to urinate (urgency). ? Watch your condition for any changes. Keep all follow-up visits. ? Make sure that you urinate often and drink enough fluid to keep your urine pale yellow. This information is not intended to replace advice given to you by your health care provider. Make sure you discuss any questions you have with your health care provider. Document Revised: 02/22/2021 Document Reviewed: 02/22/2021 [employer] Patient Education ? 2022 [employer] Normal [facility] ED Patient Summaryon 023 ED Patient Summary (Inserted Image. Neda ble to display) [address] [id number] Patient Discharge Instructions Person Information Name: ALAINA WARNER Age: 22 Years Arrival Date: 05/28/2023 15:45:21 Discharge Diagnosis: 1:Dysuria Primary Care Physician: Elisa PATEL CNP Provider Information Primary Provider: Julián Mercer DO Advanced Superintendent Meter Tests:Meaghan Timmons PA-C The exam and treatment you received in the Emergency Department were for an urgent problem and are not intended as complete care. It is important that you follow up with a doctor, nurse practitioner, or physician?s advertising assistant manager for ongoing care. If your symptoms become worse or you do not improve as expected and you are unable to reach your usual health care provider, you should return to the Emergency Department. We are available 24 hours a day. ALAINA WARNER has been given the following list of patient education materials, prescriptions and follow-up instructions: Follow-up Instructions: With: Address: When: Elisa PATEL [address] [place] [address] [employer] (1) In 3 days In the event that this physician does not participate in your insurance network, please consult with your insurance company to find a nearby participating provider. Patient Education Materials: Dysuria A MESSAGE TO ALL PATIENTS REGARDING OPIOIDS PRESCRIPTION OPIOIDS: WHAT YOU NEED TO KNOW Prescription opioids can be used to help relieve fkxbkiyy-rt-noalli pain and are often prescribed following a surgery or injury, or for certain health conditions. These medications can be an important part of the treatment but also come with serious risks. It is important to work with your healthcare provider to make sure you are getting the safest, most effective care. WHAT ARE THE RISKS AND SIDE EFFECTS OF OPIOID USE? Prescription opioids carry serious risks of addiction and overdose, especially with prolonged use. An opioid overdose, often marked by slowed breathing, can cause sudden . The use of prescription opioids can have a number of side effects as well, even when taken as directed: ? Tolerance?meaning you might need to take more of the medication for the same pain relief ? Physical dependence?meaning you have symptoms of withdrawal when a medication is stopped ? Increased sensitivity to pain ? Constipation ? Nausea, vomiting, and dry mouth ? Sleepiness and dizziness ? Confusion ? Depression ? Low levels of testosterone that can result in lower sex drive, energy, and strength ? Itching and sweating RISKS ARE GREATER WITH: ? History of drug misuse, substance use disorder, or overdose ? Mental health conditions (such as depression or anxiety) ? Sleep apnea ? Older age (65 years and older) ? Avoid alcohol while taking prescription opioids. Also, unless specifically advised by your health care provider, medications to avoid include: ? Benzodiazepines (such as Xanax or Valium) ? Muscle relaxants (such as Soma or Flexeril) ? Hypnotics (such as Ambien or Lunesta) ? Other prescription opioids KNOW YOUR OPTIONS Talk to your health care provider about ways to manage your pain that don?t involve prescription opioids. Some of these options may actually work better and have fewer risks and side effects. Options may include: ? Pain relievers such as acetaminophen, ibuprofen, and naproxen ? Some medication that are also used for depression or seizures ? Physical therapy and exercise ? Cognitive behavioral therapy, a psychological, goal-directed approach, in which patients learn how to modify physical, behavioral, and emotional triggers of pain and stress. IF YOU ARE PRESCRIBED OPIOIDS FOR PAIN: ? Never take opioids in greater amounts or more often than prescribed. ? Follow up with your primary health care provider. o Work together to create a plan on how to manage your pain. o Talk about ways to help manage your pain that don?t involve prescription opioids. o Talk about any and all concerns and side effects. ? Help prevent misuse and abuse o Never sell or share prescription opioids. o Never use another person?s prescription opioids. ? Store prescription opioids in a secure place and out of reach of others (this may include visitors, children, friends, and family). ? Safely dispose of unused prescription opioids: Find your community drug take-back program or your pharmacy mail-back program, or flush them down the toilet, following guidance from the Food and Drug Administration (www.fda.gov/Drugs/Resou rcesForYou). ? Visit www.cdc.gov/drugoverdose to learn about the risks of opioids abuse and overdose. ? If you believe you may be struggling with addiction, tell your health career center advisor and ask for guidance or call [facility] National Helpline at 4-700-039-FEGN. v Source: US Department of Health and Human Services/ (more content not included)... Normal [facility] SEROLOGYOrdered By: Mitra Palafox on 05-28-2023 HCG.beta subunit (U) [Moles/Vol] Negative Normal [facility] [place] [place] Man Sero U BetaHcg Qualon 05-28-2023 HCG.beta subunit (U) [Moles/Vol] Negative Normal [facility] Comment on above: Performed By: #### 2 [id number] #### [facility] [address] [place] [id number] UA With Cult Reflexon 2022 Bacteria LM Ql (Urine sed) TRACE Normal Trace [facility] Comment on above: Performed By: #### 1 [id number] #### [facility] [address] [place] [address] Bilirubin Ql (U) Negative Normal Negative [facility] Comment on above: Performed By: #### 1 [id number] #### [facility] [address] [place] [address] Clarity (U) SL CLOUDY Abnormal Clear [facility] Comment on above: Performed By: #### 1 [id number] #### [facility] [address] [place] [address] Color (U) YELLOW Normal Yellow [facility] Comment on above: Performed By: #### 1 [id number] #### [facility] [address] [place] [address] Crystals LM Ql (Urine sed) Present Normal [facility] Comment on above: Performed By: #### 1 [id number] #### [facility] [address] [place] [address] Epithelial cells.squamous LM.HPF (Urine sed) [#/Area] 5-8 Normal 0-2 [facility] Comment on above: Performed By: #### 1 [id number] #### [facility] [address] [place] [address] Glucose Test strip (U) [Mass/Vol] Negative Normal Negative [facility] Comment on above: Performed By: #### 1 [id number] #### [facility] [address] [place] [address] Hemoglobin Ql (U) 1+ Abnormal Negative [facility] Comment on above: Performed By: #### 1 [id number] #### [facility] [address] [place] [address] Ketones (U) [Mass/Vol] Negative Normal Negative [facility] Comment on above: Performed By: #### 1 [id number] #### [facility] [address] [place] [address] Montmorenci.plasma/Lithi um.RBC (Bld) [Mass ratio] 0-3 Normal 0-3 [facility] Comment on above: Performed By: #### 1 [id number] #### [facility] [address] [place] [address] Mucus Ql (Urine sed) TRACE Normal [facility] Comment on above: Performed By: #### 1 [id number] #### [facility] [address] [place] [address] Nitrite Ql (U) Negative Normal Negative [facility] Comment on above: Performed By: #### 1 [id number] #### [facility] [address] [place] [address] pH (U) 5.5 [pH] Invalid Interpretation Code 5.0-9.0 [facility] Comment on above: Performed By: #### 1 [id number] #### [facility] [address] [place] [address] Protein (U) [Mass/Vol] Negative Normal Negative [facility] Comment on above: Performed By: #### 1 [id number] #### [facility] [address] [place] [address] Specific gravity (U) [Rel density] >=1.030 Invalid Interpretation Code 1.005-1.030 [facility] Comment on above: Performed By: #### 1 [id number] #### [facility] [address] [place] [address] Type of Urine collection method Clean Catch Normal [facility] Comment on above: Performed By: #### 1 [id number] #### [facility] [address] [place] [address] Urobilinogen Qn (U) 0.2 {Jan'U}/dL Normal 0.0-1.0 [facility] Comment on above: Performed By: #### 1 [id number] #### [facility] [address] [place] [address] WBC Auto Ql (U) Negative Normal Negative [facility] Comment on above: Performed By: #### 1 [id number] #### [facility] [address] [place] [address] WBC LM.HPF (Urine sed) [#/Area] 0-5 Normal 0-5 [facility] Comment on above: Performed By: #### 1 [id number] #### [facility] [address] [place] [address] URINALYSISOrdered By: Sho Palafox on 05-28-2023 Bacteria LM Ql (Urine sed) Trace /HPF Normal Trace/HPF [facility] UA Auto SS Bilirubin Ql (U) Negative (05/28/23 3:56 PM) Normal Negative [facility] UA Auto SS Clarity (U) Slightly Cloudy *ABN* (05/28/23 3:56 PM) Invalid Interpretation Code Clear [facility] UA Auto SS Color (U) Yellow (05/28/23 3:56 PM) Normal Yellow [facility] UA Auto SS Crystals LM Ql (Urine sed) Present (05/28/23 3:56 PM) Normal [facility] UA Auto SS Epithelial cells.squamous LM.HPF (Urine sed) [#/Area] 5-8 /HPF Normal 0-2/HPF [facility] UA Auto SS Glucose Test strip (U) [Mass/Vol] Negative (05/28/23 3:56 PM) Normal Negative [facility] UA Auto SS Hemoglobin Ql (U) 1+ *ABN* (05/28/23 3:56 PM) Invalid Interpretation Code Negative [facility] UA Auto SS Ketones (U) [Mass/Vol] Negative (05/28/23 3:56 PM) Normal Negative [facility] UA Auto SS Mont[place]nci.plasma/Lithi um.RBC (Bld) [Mass ratio] 0-3 /HPF Normal 0-3/HPF [facility] UA Auto SS Mucus Ql (Urine sed) Trace (05/28/23 3:56 PM) Normal [facility] UA Auto SS Nitrite Ql (U) Negative (05/28/23 3:56 PM) Normal Negative [facility] UA Auto SS pH (U) 5.5 *NA* (05/28/23 3:56 PM) Invalid Interpretation Code 5.0 - 9.0 [facility] UA Auto SS Protein (U) [Mass/Vol] Negative (05/28/23 3:56 PM) Normal Negative [facility] UA Auto SS Specific gravity (U) [Rel density] >=1.030 *NA* (05/28/23 3:56 PM) Invalid Interpretation Code 1.005 - 1.030 [facility] [place] [place] UA Auto SS UA Spec Desc Clean Catch (05/28/23 3:56 PM) Normal [facility] [place] [place] UA Auto SS Urobilinogen Qn (U) 0.1752510 {Jan'U}/dL Normal 0.0 - 1.0 EU/dL [facility] [place] [place] UA Auto SS WBC Auto Ql (U) Negative (05/28/23 3:56 PM) Normal Negative [facility] [place] [place] UA Auto SS WBC LM.HPF (Urine sed) [#/Area] 0-5 /HPF Normal 0-5/HPF [facility] [place] [place] UA Auto SS IntraOperative Documentson 1 07-27-2022 Intra[employer]ative Documents [id number] F [facility] Progress Note-Physicianon Progress Note-Physician Patient: ALAINA WARNER Age: 22 years Sex: Female : 2000 Associated Diagnoses: None Author: MD Reza Ahmad F Postoperative Information Postoperative disposition: Postoperative disposition: To PACU. Optimetrix number: Optimetrix number [id number]. Anesthetic utilized: General. Health Status Allergies: Allergic Reactions (Selected) No Known Allergies Physical Examination VS/Measurements Pain Assessment: Controlled. General: Awake, Alert, Appropriate. Respiratory: Adequate air exchange. Cardiovascular: Stable, Normal peripheral perfusion. Neurological: Normal sensory function, Normal motor function. Assessment Anesthetic outcome No anesthetic complications noted. Adequate pain relief. able to void without difficulty, able to ambulate with assist, tolerating PO intake, no N/V. Review / Management Condition: Stable. Plan Transfer/Discharge: Transfer/Discharge Discharge when meets criteria ( To home ). [facility] Comment on above: Result Comment: Elec tronically Signed By: MD Reza Ahmad F\.br\Date and Time Signed: 05/27/23 09:59 EDT Progress Note-Physician Patient: ALAINA WARNER Age: 22 years Sex: Female : 2000 Associated Diagnoses: None Author: MD Libia, Hedy Can Preoperative Information Time patient last ate or drank:=== (npo 8 hours) Anesthesia history: Patient history: No prior anesthesia problems. Re-evaluation prior to induction: Completed, Initial evaluation reviewed. Review of Systems Respiratory: No shortness of breath. Cardiovascular: No chest pain. Hematology/Lymphatics: No bruising tendency, No bleeding tendency. Health Status Allergies: Allergic Reactions (All) No Known Allergies Current medications: (Selected) Prescriptions Prescribed Senna 8.6 mg oral tablet: 8.6 mg, 1 tab(s), Oral, Once a day (at bedtime) for constipation for 7 day(s), 7 tab(s), Refill(s) 0, [facility] #[id number], 158, cm, 05/22/23 6:19:00 EDT, Height/Length Dosing, 57.9, kg, 05/22/23 6:27:00 EDT, Weight Dosing Tylenol 325 mg Tab: 650 mg, Oral, q6hr, X 14 day(s), # 112 tab(s), Refills(s) 0 oxyCODONE 5 mg Tab: 5 mg = 1 tab(s), Oral, q6hr, PRN Pain, X 5 day(s), # 20 tab(s), Refills(s) 0, Pharmacy: [facility] #[id number], 158, cm, 05/22/23 6:19:00 EDT, Height/Length Dosing, 57.9, kg, 05/22/23 6:27:00 EDT, Weight Dosing Problem list: All Problems H/O: depression / SNOMED CT 576744189 / Confirmed Marijuana use / SNOMED CT 6185672002 / Confirmed Gallstones / SNOMED CT 671677461 / Confirmed GERD (gastroesophageal reflux disease) / SNOMED CT 415862170 / Confirmed IBS (irritable bowel syndrome) / SNOMED CT 67929929 / Confirmed Smoker / SNOMED CT 394272861 / Confirmed Added secondary to documentation in Social History. Maxillary sinusitis / SNOMED CT 870589733 / Confirmed Resolved: Depression / SNOMED CT 453683115 Resolved: Chronic diarrhea / SNOMED CT 345222529 Resolved: / SNOMED CT 434940297 Resolved: / SNOMED CT 424202388 Canceled: None / SNOMED CT 740175463 Canceled: Supervision of high risk in third trimester / SNOMED CT 59805440 Canceled: Two vessel umbilical cord / SNOMED CT 685546928 Canceled: Preventative health care / SNOMED CT 371116230 Canceled: Supervision of normal intrauterine in multigravida in first trimester / SNOMED CT 894073210 Canceled: Supervision of normal intrauterine in multigravida in second trimester / SNOMED CT 027464077 Canceled: Diarrhea / SNOMED CT 494533290 Canceled: Nausea / SNOMED CT 7195963929 Canceled: Abdominal cramping, bilateral lower quadrant / SNOMED CT 21115861 Canceled: Body mass index (BMI) of 24.0 to 24.9 in adult / SNOMED CT 3791935593 Histories Past Medical History: Resolved (895185014): Onset on 07/23/2020 at 19 years. Resolved. (801070049): Onset on 08/23/2018 at 17 years. Resolved on 05/23/2019 at 18 years. Depression (743360509): Resolved. Chronic diarrhea (830121920): Resolved. Family History: Entire family history is negative. Procedure history: Laparoscopic cholecystectomy ([id number]) on 05/22/2023 at 22 Years. Comments: 05/22/2023 10:08 CAROLE Sow RN, Lashae Alcantar With robotic assistance None ([id number]). Social History Social & Psychosocial Habits Alcohol 05/22/2023 Risk Assessment: Denies Alcohol Use 05/22/2023 Concerns about alcohol use in household: No Comment: DENIES - 04/21/2019 08:05 Heena Smiley LPN Employment/School 05/22/2023 Status: Unemployed Substance Abuse 05/22/2023 Concerns about substance abuse in household: No Comment: DENIES - 04/21/2019 08:05 Heena Smiley LPN 05/22/2023 Use: Current Type: Marijuana Frequency: 1-2 times per week Tobacco 05/22/2023 Tobacco Use: Never (less than 100 in l Smokeless tobacco use: Never Type: Vaping Tobacco use per day: 4 Ready to change: No Concerns about tobacco use in household: No Smoking Cessation Yes 05/22/2023 Type: Cigarettes, Vaping . Physical Examination Please see preop flow sheet Airway: Mallampati classification: II (soft palate, fauces, uvula visible). Respiratory: Lungs are clear to auscultation. Cardiovascular: Normal rate, Regular rhythm. Neurologic: Alert. Review / Management Results review Interpretation of Outside Results Chest x-ray results Radiology results ECG interpretation Condition Plan [place] [employer] Anesthesiologists (ASA) physical status classification: Class II. Anesthetic Preoperative Plan Anesthesia: General. . Anesthetic plan, risks, benefits, and alternatives discussed with the patient and/or family. Risks discussed: nausea, vomiting, headache, sore throat, dental injury, serious complications. Patient verbalized understanding. Communication: face to face with patient 5 minutes. [facility] Comment on above: Result Comment: Elec tronically Signed By: MD Libia, Hedy Can\.br\Date and Time Signed: 05/27/23 09:56 EDT Consent for Anesthesiaon Consent for Anesthesia [id number] FF [facility] Discharge Instructionson Discharge Instructions [id number] FF [facility] IntraOperative Documentson 1 IntraOperative Documents [id number] [facility] Main OR Intraoperative Recor don 05-25-2023 Main OR Intraoperative Record IntraOp Document Type FT Summary Primary Physician: Héctor Denton DO Finalized Date/Time: 05/25/23 13:08:37 Pt. Name: ALAINA WARNER/Sex: 2000 Female Med Rec #: [id number] Physician: Héctor Denton DO Financial #: [id number] Pt. Type: A Room/Bed: AS15 Admit/Disch: 05/22/23 05:49:37 - 05/22/23 12:15:00 Institution: Case Times FT Entry 1 Patient Times In Room 05/22/23 07:31:00 Out Room 05/22/23 09:21:00 Procedure Times Start 05/22/23 07:55:00 Stop 05/22/23 09:08:00 Anesthesia Times Start 05/22/23 07:31:00 Stop 05/22/23 09:21:00 Last Modified By: Daniel Rizo Ii 05/22/23 09:25:00 General Comments: Robot dock and undock time 811 . Surgeon to console time 812. ELIEZER steel 05/25/23 Chart opened to review and send charges LRoth CSFA Case Attendance FT Entry 1 Entry 2 Entry 3 Case Attendee Alfie JOE, Narinder Denton DO, Héctor Gomes CST, Nilda Scherer Role Performed Anesthesiologist Surgeon - Primary SOFTWARE TRAINER/SA Patient Biller Time In 05/22/23 07:31:00 05/22/23 07:31:00 05/22/23 07:31:00 Time Out 05/22/23 09:21:00 05/22/23 09:05:00 05/22/23 09:21:00 Procedure CHOLECYSTECOMY ROBOT CHOLECYSTECOMY ROBOT CHOLECYSTECOMY ROBOT ASSISTED(.) ASSISTED(.) ASSISTED(.) Comments Dr. Reza anesthesia assist supervisor grove Last Modified By: Daniel Rizo Ii, Alfons Ii F Letrondo, Alfons Ii F 05/22/23 09:25:04 05/22/23 09:25:04 05/22/23 09:25:04 Entry 4 Entry 5 Entry 6 Case Attendee Mitra Saab Alfons Ii F Kipp, Jessica D Role Performed Scrub - Primary Caddie - Primary Staff - Other Time In 05/22/23 07:31:00 05/22/23 07:31:00 05/22/23 07:31:00 Time Out 05/22/23 09:21:00 05/22/23 09:21:00 05/22/23 07:50:00 Procedure CHOLECYSTECOMY ROBOT CHOLECYSTECOMY ROBOT CHOLECYSTECOMY ROBOT ASSISTED(.) ASSISTED(.) ASSISTED(.) Comments Helped in positioning Last Modified By: LetronDaniel polanco Ii, Alfons Ii F Letrondo, Alfons Ii F 05/22/23 09:25:04 05/22/23 09:25:04 05/22/23 09:25:04 General Comments: Maximino Hamilton student PA is also scrubbing. ANYA yBrd is also in attendance. milviamobile solutions architect Protocols FT Pre-Care Text: Implements protective measures prior to operative or invasive procedure, confirms identity before the operative or invasive procedure, verifies operative procedure, surgical site, and laterality Entry 1 Procedure(s) CHOLECYSTECOMY ROBOT Patient Identity Birthday, Blood Band, ASSISTED(.) Verified (select at ID Band Check, Patient least 2): Participation Consents / H and P Anesthesia Consent, Operative Site N/A Verified HandP, Surgery/Procedure Marking Verified Consent, Transfusion Consent Surgical Site Yes Laterality Verified n/a Verified Procedure Verified Yes Correct Patient Yes Position Verified Availability Equipment, Medication Prep Dry Yes Verified (If Applicable) PreOp Antibiotic Yes Time Out Narinder Foster, Given Participants Héctor Denton DO, Roth CST, Liane E, Chaput, Madison A, Kipp, Jessica D Time Out Complete 05/22/23 07:54:00 Outcomes Met? Yes Last Modified By: Daniel Rizo Ii 05/22/23 07:58:24 Post-Care Text: The patient is free from signs and symptoms of injury caused by extraneous objects Allergy Information FT Pre-Care Text: Verifies allergies Entry 1 Allergies Reviewed? Yes Allergies Reviewed Self/Patient With Outcomes Met? Yes Last Modified By: Daniel Rizo Ii 05/22/23 07:59:28 Post-Care Text: The patient received appropriate medication(s) safely administered during the perioperative period Surgical Procedures FT Entry 1 Procedure Description Procedure CHOLECYSTECOMY ROBOT Modifiers . ASSISTED Surgeon Description LAPAROSCOPIC ROBOTIC CHOLECYSTECTOMY Primary Procedure Yes Primary Surgeon Héctor Denton DO Start 05/22/23 07:55:00 Stop 05/22/23 09:08:00 Anesthesia Type General Surgical Service General Wound Class 2 - Clean-Contaminated Last Modified By: Daniel Rizo Ii 05/22/23 09:25:14 General Case Data FT Pre-Care Text: Classifies surgical wound, implements aseptic technique, initiates traffic control Entry 1 Case Information OR OR 5 FT Case Level Level 5 Wound Class 2 - Clean-Contaminated Specialty General ASA Class 2 Preop Diagnosis CHOLELITHIASIS Postop Same As Preop Yes Postop Diagnosis CHOLELITHIASIS Outcomes Met? Yes Last Modified By: Daniel Rizo Ii 05/22/23 09:17:05 Post-Care Text: The patient is free from signs and symptoms of infection Skin Assessment (Pre Procedure) FT Pre-Care Text: Implements protective measures to prevent skin/ tissue injury due to thermal or mechanical sources Evaluates for signs and symptoms of physical injury to skin and tissue Entry 1 Skin Integrity Intact, [place], Warm, and Skin Abnormality No Dry Outcomes Met? Yes Last Modified By: Daniel Rizo Ii (more content not included)... [facility] Preoperative Documentson Preoperative Documents [id number] FF [facility] Consent for Procedure/Surger yon 05-22-2023 Consent for Procedure/Surgery [id number] FF [facility] Consent for Treatmenton 04-27 Consent for Treatment [id number] F [facility] Discharge Instructionson Discharge Instructions QUINTINRENNYAMYALAINA N :2000 Visit Date:05/22/2023 Inpatient Discharge Instructions Your Care Team Admitting Physician - Héctor Denton DO Referring Physician - Héctor Denton DO Reason for Your Visit CHOLELITHIASIS` Your Diagnosis Gallstones Biliary colic Acute post-operative pain S/P laparoscopic cholecystectomy Tests Performed XR Cholangiogram in OR -- Results Pending -- Please visit your patient portal for your results or contact your primary care physician. Procedure History Laparoscopic cholecystectomy (05/22/2023), None. Discharge Vitals Temperature (Axillary) 36.4 ?C Heart Rate (Monitored) 81 Respiratory Rate 20 Blood Pressure 113/77 Height 158 cm Weight 57.9 kg What to do next Instructions From Your Doctor Event Name Event Result Discharge Activity Ambulate as tolerated, Expect mild pain, Expect minimal amount of drainage and/or bleeding Discharge Restrictions No restrictions Discharge Diet(s) Regular Call Your Doctor For Persistent or heavy bleeding, Temperature above 100 degrees, Redness, swelling, or pus at operative site, Severe pain at the operative site, Persistent vomiting Pending Diagnostic Test Results None [facility] No heavy lifting >15 lbs for 4 weeks. OK to shower starting tomorrow. The glue over your incisions will fall off in 7-10 days. Taken tylenol every 6 hrs for pain. Take oxycodone every 6 hrs as needed. You will have a phone follow up on 06/03/23. New Follow Up Appointments after Discharge Follow Up with Trauma Clinic When: 06/03/2023 11:00 AM EST Comments: You will have a phone visit between 11am-2pm. Please call with any questions or concerns Where: [address] [place] [phone] Medications What How Much When Instructions Next Dose New acetaminophen (Tylenol 325 mg Tab) 650 Milligram By Mouth Every 6 hours Duration: 14 Days Printed Prescription New oxycodone (oxyCODONE 5 mg Tab) 1 Tablets By Mouth Every 6 hours as needed for Pain Duration: 5 Days Pickup at [facility] #[id number] New senna (Senna 8.6 mg oral tablet) 1 Tablets By Mouth Once a day (at bedtime) as needed for for constipation Duration: 7 Days Pickup at [facility] #[id number] Pharmacy Information [facility] #[id number]: [address] [place], [place] [phone] What How Much When Why Comments Stop Taking dicyclomine (dicyclomine 20 mg Tab) 1 Tablets By Mouth 2 times a day as needed for Irritable bowel symptoms Abdominal cramping, bilateral lower quadrant Allergies No Known Allergies Problems Ongoing - Any problem that you are currently receiving treatment for. Gallstones GERD (gastroesophageal reflux disease) H/O: depression IBS (irritable bowel syndrome) Marijuana use Maxillary sinusitis Smoker Historical - Any problem that you are no longer receiving treatment for. Chronic diarrhea Depression Education Materials Minimally Invasive Cholecystectomy, Care After The following information offers guidance on how to care for yourself after your procedure. Your health care provider may also give you more specific instructions. If you have problems or questions, contact your health care provider. What can I expect after the procedure? After the procedure, it is common to have: ? Pain at your incision sites. You will be given medicines to control this pain. ? Mild nausea or vomiting. ? Bloating and possible shoulder pain from the gas that was used during the procedure. Follow these instructions at home: Medicines ? Take fmgd-hzq-epuuuxy and prescription medicines only as told by your health care provider. ? If you were prescribed an antibiotic medicine, take it as told by your health care provider. Do not stop using the antibiotic even if you start to feel better. ? Ask your health care provider if the medicine prescribed to you: ? Requires you to avoid driving or using machinery. ? Can cause constipation. You may need to take these actions to prevent or treat constipation: ? Drink enough fluid to keep your urine pale yellow. ? Take hkgy-hkg-tkwmmzi or prescription medicines. ? Eat foods that are high in fiber, such as beans, whole grains, and fresh fruits and vegetables. ? Limit foods that are high in fat and processed sugars, such as fried or sweet foods. Incision care ? Follow instructions from your health care provider about how to take care of your incisions. Make sure you: ? Wash your hands with soap and water for at least 20 seconds before and after you change your bandage (dressing). If soap and water are not available, use hand photographic platemaker. ? Change your dressing as told by your health care provider. ? Leave stitches (sutures), ski (more content not included)... Normal [facility] Comment on above: Result Comment: Elec tronically Signed By: Maig MARTINS, Lashae Alcantar\.br\Date and Time Signed: 05/22/23 10:09 EDT Main OR PACU I Recordon 04-27 Main OR PACU I Record PACU Phase I Document Type FT Summary Primary Physician: Héctor Denton DO Finalized Date/Time: 05/22/23 10:12:09 Pt. Name: ALAINA WARNERO.B./Sex: 2000 Female Med Rec #: [id number] Physician: Héctor Denton DO Financial #: [id number] Pt. Type: A Room/Bed: [place] [address] Admit/Disch: 05/22/23 05:49:37 - Institution: Case Times PACU I FT Pre-Care Text: Identifies barriers to communication and implements measures to provide psychological support Develops individualized plan of care, and ensures continuity of care Maintains patient's dignity and privacy, and maintains patient confidentiality Identifies and reports philosophical, cultural, and spiritual beliefs and values Identifies individual values and wishes concerning care Implements aseptic technique, and administers prescribed antibiotic therapy and immunizing agents as ordered Evaluates postoperative tissue perfusion Implements thermoregulation measures, and monitors body temperature Evaluates postoperative respiratory status Evaluates postoperative cardiac status Evaluates postoperative neurological status Assesses pain control, collaborated in initiating patient-controlled analgesia and implements alternative methods of pain control Verifies allergies, administers prescribed medications and solutions, evaluates response to medications Entry 1 In PACU I 05/22/23 09:22:00 Discharge from PACU 05/22/23 09:52:00 I Outcomes Met? Yes Last Modified By: Oxana Dubois RN 05/22/23 10:11:54 Post-Care Text: The patient demonstrates knowledge of the expected response to the operative or invasive procedure The patient's care is consistent with the individualized perioperative plan of care The patient's right to privacy is maintained The patient's value system, lifestyle, ethnicity, and culture are considered, respected, and incorporated into the perioperative plan of care The patient participates in decisions affecting his or her perioperative plan of care The patient is free from signs and symptoms of infection The patient has wound/tissue perfusion consistent with or improved from baseline levels established preoperatively The patient is at or returning to normothermia at the conclusion of the immediate postoperative period The patient's respiratory function is consistent with or improved from baseline levels established preoperatively The patient's cardiovascular status is consistent with or improved from baseline levels established preoperatively The patient's cardiovascular status is consistent with or improved from baseline levels established preoperatively The patient demonstrates and/or reports adequate pain control throughout the perioperative period The patient received appropriate medication(s), safely administered during the perioperative period Acuity Level PACU I FT Entry 1 Start Time 05/22/23 09:22:00 Stop Time 05/22/23 09:52:00 Acuity Level Acuity Level I Last Modified By: Oxana Dubois RN 05/22/23 10:12:05 Finalized By: Oxana Dubois RN Document Signatures Signed By: Oxana Dubois RN 05/22/23 10:12 Normal [facility] Main OR PACU II Recordon Main OR PACU II Record PACU Phase II Document Type FT Summary Primary Physician: Héctor Denton DO Finalized Date/Time: 05/22/23 12:59:54 Pt. Name: ALAINA WARNER Katharine /Sex: 2000 Female Med Rec #: [id number] Physician: Héctor Denton DO Financial #: [id number] Pt. Type: A Room/Bed: [place] [address] Admit/Disch: 05/22/23 05:49:37 - Institution: Case Times PACU II FT Pre-Care Text: Identifies barriers to communication and implements measures to provide psychological support and determines knowledge level Develops individualized plan of care, and ensures continuity of care Maintains patient's dignity and privacy, and maintains patient confidentiality Identifies and reports philosophical, cultural, and spiritual beliefs and values Identifies individual values and wishes concerning care administers prescribed antibiotic therapy and immunizing agents as ordered, Evaluates postoperative tissue perfusion Implements thermoregulation measures, and monitors body temperature Evaluates postoperative respiratory status Evaluates postoperative cardiac status Evaluates postoperative neurological status Assesses pain control, collaborated in initiating patient-controlled analgesia and implements alternative methods of pain control Verifies allergies, administers prescribed medications and solutions, evaluates response to medications Entry 1 In PACU II 05/22/23 09:55:00 Discharge from PACU 05/22/23 12:15:00 II Outcomes Met? Yes Last Modified By: Lashae Sow RN 05/22/23 12:59:51 Post-Care Text: The patient demonstrates knowledge of the expected response to the operative or invasive procedure The patient's care is consistent with the individualized perioperative plan of care The patient's right to privacy is maintained The patient's value system, lifestyle, ethnicity, and culture are considered, respected, and incorporated into the perioperative plan of care The patient participates in decisions affecting his or her perioperative plan of care. The patient is free from signs and symptoms of infection The patient has wound/tissue perfusion consistent with or improved from baseline levels established preoperatively The patient is at or returning to normothermia at the conclusion of the immediate postoperative period The patient's respiratory function is consistent with or improved from baseline levels established preoperatively The patient's cardiovascular status is consistent with or improved from baseline levels established preoperatively The patient's neurological status is consistent with or improved from baseline levels established preoperatively The patient demonstrates and/or reports adequate pain control throughout the perioperative period The patient received appropriate medication(s), safely administered during the perioperative period Finalized By: Lashae Sow RN Document Signatures Signed By: Lashae Sow RN 05/22/23 12:59 Normal [facility] Main OR Preoperative Recordo n 05-22-2023 Main OR Preoperative Record PreOp Document Type FT Summary Primary Physician: Héctor Denton DO Finalized Date/Time: 05/22/23 08:17:39 Pt. Name: ALAINA WARNER Katharine /Sex: 2000 Female Med Rec #: [id number] Physician: Héctor Denton DO Financial #: [id number] Pt. Type: Room/Bed: [place] [address] Admit/Disch: 05/22/23 05:49:37 - Institution: Case Times PreOp FT Pre-Care Text: Verifies consent for planned procedure, identifies individual values and wishes concerning care, includes family members in perioperative teaching Entry 1 Patient Times. In Pre Surgery 05/22/23 05:55:00 Out Pre Surgery 05/22/23 07:29:00 Outcomes Met? Yes Last Modified By: Daniel Rizo Ii 05/22/23 08:17:38 Post-Care Text: The patient participates in decisions affecting his or her perioperative plan of care Finalized By: Daniel Rizo Ii Document Signatures Signed By: Daniel Rizo Ii 05/22/23 08:17 [facility] Monitor Recordon 05-22-2023 Monitor Record [id number] FF [facility] Patient Education - Texton 1 Patient Education - Text Gastroenterology Minimally Invasive Cholecystectomy, Care After The following information offers guidance on how to care for yourself after your procedure. Your health care provider may also give you more specific instructions. If you have problems or questions, contact your health care provider. What can I expect after the procedure? After the procedure, it is common to have: ? Pain at your incision sites. You will be given medicines to control this pain. ? Mild nausea or vomiting. ? Bloating and possible shoulder pain from the gas that was used during the procedure. Follow these instructions at home: Medicines ? Take mvbf-drs-ejyxgpe and prescription medicines only as told by your health care provider. ? If you were prescribed an antibiotic medicine, take it as told by your health care provider. Do not stop using the antibiotic even if you start to feel better. ? Ask your health care provider if the medicine prescribed to you: ? Requires you to avoid driving or using machinery. ? Can cause constipation. You may need to take these actions to prevent or treat constipation: ? Drink enough fluid to keep your urine pale yellow. ? Take oxun-bzz-bbjlamf or prescription medicines. ? Eat foods that are high in fiber, such as beans, whole grains, and fresh fruits and vegetables. ? Limit foods that are high in fat and processed sugars, such as fried or sweet foods. Incision care ? Follow instructions from your health care provider about how to take care of your incisions. Make sure you: ? Wash your hands with soap and water for at least 20 seconds before and after you change your bandage (dressing). If soap and water are not available, use hand photographic platemaker. ? Change your dressing as told by your health care provider. ? Leave stitches (sutures), skin glue, or adhesive strips in place. These skin closures may need to be in place for 2 weeks or longer. If adhesive strip edges start to loosen and curl up, you may trim the loose edges. Do not remove adhesive strips completely unless your health care provider tells you to do that. ? Do not take baths, swim, or use a hot tub until your health care provider approves. Ask your health care provider if you may take showers. You may only be allowed to take sponge baths. ? Check your incision area every day for signs of infection. Check for: ? More redness, swelling, or pain. ? Fluid or blood. ? Warmth. ? Pus or a bad smell. Activity ? Rest as told by your health care provider. Do not do activities that require a lot of effort. ? Avoid sitting for a long time without moving. Get up to take short walks every 1?2 hours. This is important to improve blood flow and breathing. Ask for help if you feel weak or unsteady. ? Do not lift anything that is heavier than 10 lb (4.5 kg), or the limit that you are told, until your health care provider says that it is safe. ? Do not play contact sports until your health care provider approves. ? Do not return to work or school until your health care provider approves. ? Return to your normal activities as told by your health care provider. Ask your health care provider what activities are safe for you. General instructions ? If you were given a sedative during the procedure, it can affect you for several hours. Do not drive or operate machinery until your health care provider says that it is safe. ? Keep all follow-up visits. This is important. Contact a health care provider if: ? You develop a rash. ? You have more redness, swelling, or pain around your incisions. ? You have fluid or blood coming from your incisions. ? Your incisions feel warm to the touch. ? You have pus or a bad smell coming from your incisions. ? You have a fever. ? One or more of your incisions breaks open. Get help right away if: ? You have trouble breathing. ? You have chest pain. ? You have more pain in your shoulders. ? You faint or feel dizzy when you stand. ? You have severe pain in your abdomen. ? You have nausea or vomiting that lasts for more than one day. ? You have leg pain that is new or unusual, or if it is localized to one specific spot. These symptoms may represent a serious problem that is an emergency. Do not wait to see if the symptoms will go away. Get medical help right away. Call your local emergency services (911 in the [place] Do not drive yourself to the hospital. Summary ? After your procedure, it is common to have pain at the incision sites. You may also have nausea or bloating. ? Follow your health care provider's instructions about medicine, activity restrictions, and caring for your incision areas. Do not do activities that require a lot of effort. ? Contact a health care provider if you have a fever or other signs of infection, such as more redness, swelling, or pain around the incisions. ? Get help right away if yo (more content not included)... Normal [facility] Trauma Office/Clinic Noteon 05-22-2023 Trauma Office/Clinic Note HPI Staff Alaina is a 22 y.o. female here for ER follow up Patient presented to [facility] [place] [place] ER on 05/19/23 w abdominal pain, nausea History of Present Illness Is a 22-year-old female who presents for follow-up after presenting to the ER with upper abdominal pain. The pain is located in the midportion of her abdomen sometimes radiates to the back. It is crampy-like in nature and lasts for couple hours. Last night's lasted more than 4 hours. She states she has had this going on for multiple months. She last her last job due to the fact that she missed many days due to upper abdominal pain. She presents to the office today to discuss issues concerning possibly removing her gallbladder. Review of Systems Constitutional: no fever, no chills, no sweats, no weakness Skin: no Jaundice, no rash, no lesions, nopetechiae ENMT: no ear pain, no sore throat, no congestion, no hoarseness Respiratory: no shortness of breath, no cough, no orthopnea, no wheezing Cardiovascular: no chest pain, no palpitations, no edema Gastrointestinal: no nausea, no vomiting, no diarrhea, no GI bleeding Genitourinary: no dysuria, no hematuria, no discharge, no pain Musculoskeletal: no back pain, no trauma Neurologic: no headache, no dizziness, no numbness, no weakness Psychiatric: no sleeping problems, no irritability, no mood swings/depression. Heme/Lymph: no bleeding tendency, no bruising tendency, no petechiae, no swollen nodes Allergy/Immunologic: no seasonal allergies, no food allergies, no recurrent infections, no impaired immunity Additional ROS info: Except as noted in the above Review of Systems and in the History of Present Illness all other systems have been reviewed and are negative or noncontributory. Physical Exam General: Sitting in chair comfortably Skin: warm, dry Head: no trauma, normocephalic Neck: Trachea midline, no adenopathy, no tenderness Eye: normal conjunctiva, sclera clear ENMT: Moist mucous membranes Cardiovascular: Regular rate Respiratory: No audible wheezes or rhonchi Chest wall: no deformity. Gastrointestinal: soft soft, nondistended, mild tenderness in the epigastric and right upper quadrant. No rigidity peritonitis or guarding. Back: No tenderness, Normal ROM, Normal alignment. Extremities: no deformity, no trauma Neurological: oriented x 4, LOC appropriate for age, motor strength equal & normal bilaterally, sensation equal & normal bilaterally, speech normal Psychiatric: cooperative, affect appropriate for age, normal judgement, normal psychiatric thoughts. Assessment/Plan Symptomatic cholelithiasis I discussed the etiology of her pain is likely her gallstones causing intermittent obstruction of her gallbladder which leads to right upper quadrant pain. I discussed that this pain will continue to happen and but she does not require emergent surgery. Patient wishes to have surgical removal of her gallbladder in the next few days. Will discuss OR timing. Last week plan for removal on 05/22/2023. Risk-benefit potential complications including bleeding, infection, damage to surrounding structures were discussed with the patient. Consent will be obtained on day of surgery surgery. Follow-up No qualifying data available Problem List/Past Medical History Ongoing Gallstones GERD (gastroesophageal reflux disease) H/O: depression IBS (irritable bowel syndrome) Marijuana use Maxillary sinusitis Smoker Historical Chronic diarrhea Depression Procedure/Surgical History None. Medications cefazolin additive + Sodium Chloride 0.9% intravenous solution 50 mL dicyclomine 20 mg Tab, 20 mg= 1 tab(s), Oral, BID, PRN, 3 refills, Not taking Lactated Ringers IV Yamilka 1000 mL 1,000 mL, 1000 mL, IV Allergies No Known Allergies Social History Alcohol - Denies Alcohol Use, 03/25/2014 Household alcohol concerns: No., 07/05/2019 Employment/School Unemployed, 05/22/2019 Substance Abuse Current, Marijuana, 1-2 times per week, 05/21/2023 Household substance abuse concerns: No., 07/05/2019 Tobacco Cigarettes, Vaping, 05/21/2023 Never (less than 100 in lifetime) Tobacco Use:. Never Smokeless Tobacco Use:. Vaping, 4 per day. Ready to change: No. Household tobacco concerns: No. Yes, 04/16/2023 Family History Family history is negative Immunizations Vaccine Date Status Comments influenza virus vaccine, inactivated - Not Given Patient Refuses influenza virus vaccine, inactivated - Not Given Patient Refuses SARS-CoV-2 mRNA (tomanojnameran 5y-11y) vac - Not Given Patient Refuses influenza virus vaccine, inactivated - Not Given Patient Refuses influenza virus vaccine, inactivated 04/12/2021 Recorded diphtheria/pertussis, acel/tetanus adult 04/05/2021 Recorded SARS-CoV-2 (COVID-19) mRNA-1273 vaccine - Not Given Postpone due to refusal influenza virus vaccine, inactivated - Not Given Patient Refuses influenza virus vaccine, inactivated 05/24/2019 Given Nursing Judgment influe (more content not included)... 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 [employer]. NPCR PER [facility] CODE LOADING MANAGER [id number]. DX CODE [id number] [facility]. [facility] ED Note-Physicianon 05-20-20 ED Note-Physician Basic Information Time Seen: Tejinder LECHUGA, Shanti Self 05/19/2023 20:16 Chief Complaint Pt arrives to ED with abdominal for about 2 weeks that worsened last night into today. Hx of gallstones. C/o nausea. No vomitting. Pt states she feels constipated; last BM two days ago. History of Present Illness This patient presents emergency department chief complaint of nausea and abdominal pain. She states in the past she had an ultrasound that showed gallstones. She has been absolutely miserable for the last 2 weeks. She denies any constipation or diarrhea. She denies any vaginal discharge. She denies any urinary burning frequency urgency. She denies any fevers chills or sweats. The patient is very nauseous all the time, but has not actually vomited. Review of Systems Constitutional: Denies weight loss, fevers, chills, sweats, malaise Eyes: Denies visual changes, eye pain, double vision, scotomas, floaters ENT: Denies runny nose, epistaxis, sinus pain, ear pain, ringing in ears, tooth ache, sore throat, pain with swallowing Cardiovascular: Denies chest pain, shortness of breath, orthopnea, edema, palpitations, loss of consciousness, claudication Respiratory: Denies cough, sputum production, wheezing, hemoptysis, shortness of breath, dyspnea on exertion Gastrointestinal: Denies unintentional weight loss, difficulty swallowing, indigestion, bloating, cramping, vomiting, diarrhea, constipation, hematochezia, melena. + nausea, loss of appetite, upper abdominal pain Genitourinary: Denies any incontinence of urine, dysuria, hematuria, nocturia, polyuria, hesitancy, frequency, urgency, burning Musculoskeletal: Denies joint pain, morning stiffness, joint swelling, decreased range of motion, crepitus Integumentary: Denies any pruritus, rashes, lesions, wounds, petechiae Neurologic: Denies any changes in sight, smell, hearing, taste, seizures, headache, paresthesia, numbness, weakness, balance disturbance Psychiatric denies any depression, change in sleep patterns, anxiety, difficulty concentrating, paranoia, anhedonia, lack of energy, paolo Hematologic/lymphatic: Denies any purpura, petechiae, excessive bleeding, bruising Physical Exam Vitals & Measurements T: 36.7 ?C(Oral) HR: 73(Monitored) RR: 17 BP: 107/76 SpO2: 99% HT: 162.94 cm WT: 59.1 kg BMI: 22.26 Vital signs and nursing notes reviewed. General: Awake, alert, NAD. HEENT: Head is normocephalic, atraumatic. PERRL. EOMI. Sclerae are anicteric. External ears are normal. TMs are intact bilaterally. Canals are clear bilaterally. Nares are patent bilaterally. Oral mucosa is pink and moist. No lesions noted. Tongue protrudes in midline. Uvula rises with phonation. Neck is supple, no no palpable adenopathy. No JVD. Trachea is midline. Thorax: Symmetrical rise and fall Lungs: Clear to auscultation throughout all mendes, no wheezes, no crackles Heart: Regular rate and rhythm. No murmur, gallop, or rub Abdomen: +tenderness on palpation RUQ, + chavez sign. Bowel sounds are present active and normal. No organomegaly. No palpable masses. No CVA tenderness. Extremities: Motor sensory pulses intact x4 extremities. No lower extremity edema. Skin: No lesions, rashes, ulcerations. No bruising or petechiae. Color appropriate, warm and dry Neuro: No oriented x3, no focal neuro deficits Psych: Mood and affect are normal Medical Decision Making MEDICAL DECISION MAKING Number and Complexity of Problems Differential Diagnosis: Cholecystitis, cholelithiasis, pancreatitis, gastroenteritis, diverticulitis, acute lower urinary tract infection MDM Data External documents reviewed: Not applicable My EKG interpretation: Noted in chart if applicable My CT interpretation: Noted in chart if applicable My X-ray interpretation: Noted in chart if applicable My Ultrasound interpretation: Not applicable Decision rules/scores evaluated: Noted in chart if applicable Discussed with: Dr Denton Treatment and Disposition ED Course: Patient was interviewed and examined. The appropriate ER work-up was initiated. Patient is given a liter IV fluid hydration, white blood count 7.3, hemoglobin 14.1, hematocrit 41.8, platelets of 208. Sodium 138, potassium 3.4, chloride 108, CO2 26, BUN 17, creatinine 0.7, glucose 87, calcium 9.3. Urine hCG negative. UA remarkable for 1+ blood otherwise unremarkable. Ultrasound of the gallbladder was performed which shows multiple large gallstones present. I discussed the case in its entirety with the on-call surgeon, Dr. Denton. He is willing to see the patient in follow-up in clinic tomorrow. I discussed the plan of care with the patient. I discussed with her that she needs to call the clinic at 9 AM tomorrow to get scheduled in for an appointment. The patient was in agreement with this plan of care. I have discussed the discharge diagnosis, plan of care, need for close follow-up with Dr. Denton with the patient. The patient will be discharged home in stable condition. She is to return to the (more content not included)... Normal [facility] Comment on above: Result Comment: Elec tronically Signed By: Shanti Marr PA-C\.br\Date and Time Signed: 05/19/23 23:02 EDT\.br\Electronically Co-Signed By: González Muhammad DO.br\Date and Time Co-Signed: 05/20/23 01:28 EDT US Gallbladderon 05-20-2023 US Gallbladder Exam Date/Time: 05/19/2023 22:19 EDT Reason for Exam: Abdominal pain Report IMPRESSION: CHOLELITHIASIS. EXAMINATION: US Gallbladder HISTORY: Epigastric pain. History of gallstones. COMPARISON: Ultrasound 10/18/2021 TECHNIQUE: Ultrasound evaluation was performed of the right upper quadrant of the abdomen FINDINGS: Normal echogenicity and contour of the liver. No liver lesion or intrahepatic biliary dilatation identified. Liver length measured at approximately 13.2 cm. The gallbladder is partially contracted. Tiny gallstones are identified. No pericholecystic fluid. Gallbladder wall thickness is normal measured at approximately 2.1 mm. Common bile duct is normal measuring approximately 4.8 mm in diameter. No overt abnormality of the pancreas. Ordering Provider: Shanti Marr FINAL REPORT Dictated: 05/20/2023 9:54 am Jose M Vaz DO Signed (Electronic Signature): 05/20/2023 9:54 am Signed by: Jose M Vaz DO Transcribed by: DERIC Technologist: ED Peterson [facility] Auto Diffon 05-19-2023 Basophils/100 WBC (Bld) 1.2 % Normal 0.0-2.0 [facility] Comment on above: Order Comment: Order Added by Discern Expert. Performed By: #### 2 [id number], [id number], 7093316, [id number], [id number] #### [facility] [address] [place] [address] Basophils/Leukocytes Auto (Bld) [Pure # fraction] 0.1 E9/L Normal 0.0-0.2 [facility] Comment on above: Order Comment: Order Added by Discern Expert. Performed By: #### 2 611150, 7912495, 6894278, [id number], [id number] #### [facility] [address] [place] [address] Eosinophils/100 WBC (Bld) 3.5 % Normal 0.0-8.0 [facility] Comment on above: Order Comment: Order Added by Discern Expert. Performed By: #### 2 955842, 4655432, 4390785, [id number], 4817250 #### [facility] [address] [place] [address] Eosinophils/Leukocyt es Auto (Bld) [Pure # fraction] 0.3 E9/L Normal 0.0-0.5 [facility] Comment on above: Order Comment: Order Added by Discern Expert. Performed By: #### 2 391310, 6581325, 5799997, 85104224, 9543679 #### [facility] [address] [place] [address] Lymphocytes/100 WBC (Bld) 35.2 % Normal 14.0-50.0 [facility] Comment on above: Order Comment: Order Added by Discern Expert. Performed By: #### 2 927069, 6171931, 4491372, 09733095, 7361149 #### [facility] [address] [place] [address] Lymphocytes/Leukocyt es Auto (Bld) [Pure # fraction] 2.6 E9/L Normal 1.0-4.0 [facility] Comment on above: Order Comment: Order Added by Discern Expert. Performed By: #### 2 402452, 9969301, 9616129, 84104930, 8065037 #### [facility] [address] [place] [address] Monocytes/100 WBC (Bld) 7.0 % Normal 4.0-14.0 [facility] Comment on above: Order Comment: Order Added by Discern Expert. Performed By: #### 2 093114, 1414542, 8128923, 00706509, 0930598 #### [facility] [address] [place] [address] Monocytes/Leukocytes Auto (Bld) [Pure # fraction] 0.5 E9/L Normal 0.2-1.0 [facility] Comment on above: Order Comment: Order Added by Discern Expert. Performed By: #### 2 247282, 9213816, 6117729, 27298247, 2688665 #### [facility] [address] [place] [address] Neutrophils/100 WBC (Bld) 53.1 % Normal 36.0-75.0 [facility] Comment on above: Order Comment: Order Added by Discern Expert. Performed By: #### 2 310683, 3919355, 9861062, 85504211, 6709692 #### [facility] [address] [place] [address] Neutrophils/Leukocyt es Auto (Bld) [Pure # fraction] 3.9 E9/L Normal 2.0-7.5 [facility] Comment on above: Order Comment: Order Added by Discern Expert. Performed By: #### 2 137581, 5899979, 7384309, 39696897, 7614983 #### [facility] [address] [place] [address] BMPon 05-19-2023 Creatinine [Mass/Vol] 0.7 mg/dL Normal 0.5-1.3 [facility] Comment on above: Performed By: #### 2 278068, 6001259, 6849643, 36290476, 8172890 #### [facility] [address] [place] [address] Urea nitrogen [Mass/Vol] 17 mg/dL Normal 5-21 [facility] Comment on above: Performed By: #### 2 531510, 9884550, 5917887, 29571435, 7675781 #### [facility] [address] [place] [address] Urea nitrogen/Creatinine [Mass ratio] 24 No Units High 10-20 [facility] Comment on above: Performed By: #### 2 864377, 4240146, 8641804, 31399975, 7223102 #### [facility] [address] [place] [address] Anion gap [Moles/Vol] 7 mmol/L Normal 6-16 [facility] Comment on above: Performed By: #### 2 435804, 5677215, 1819475, 42659363, 6805299 #### [facility] [address] [place] [address] Calcium [Mass/Vol] 9.3 mg/dL Normal 8.9-11.1 [facility] Comment on above: Performed By: #### 2 088751, 6454858, 2218887, 02624371, 6494254 #### [facility] [address] [place] [address] Chloride [Moles/Vol] 108 mmol/L Normal 101-111 [facility] Comment on above: Performed By: #### 2 962831, 8091979, 5265653, 51335077, 9383445 #### [facility] [address] [place] [address] CO2 [Moles/Vol] 26 mmol/L Normal 21-31 [facility] Comment on above: Performed By: #### 2 202784, 5462712, 7369862, 36546328, 8974244 #### [facility] [address] [place] [address] Glucose [Mass/Vol] 87 mg/dL Normal 55-199 [facility] Comment on above: Result Comment: If t his glucose result represents a fasting glucose, interpretation should refer to the following reference range: 55-99 mg/dL Performed By: #### 2 651960, 8955777, 0453888, 61247609, 9700168 #### [facility] [address] [place] [address] Potassium [Moles/Vol] 3.4 mmol/L Low 3.5-5.3 [facility] Comment on above: Performed By: #### 2 573321, 3307697, 8001796, 41491017, 0006109 #### [facility] [address] [place] [address] Sodium [Moles/Vol] 138 mmol/L Normal 135-145 [facility] Comment on above: Performed By: #### 2 980539, 5652797, 0265188, 23873262, 2961167 #### [facility] [address] [place] [address] CBC w/ Auto Diffon 3 Erythrocyte distribution width (RBC) [Ratio] 13.2 % Normal 10.9-14.2 [facility] Comment on above: Performed By: #### 2 046678, 2310429, 5011271, 51705965, 1859521 #### [facility] [address] [place] [address] Hematocrit (Bld) [Volume fraction] 41.8 % Normal 34.0-46.0 [facility] Comment on above: Performed By: #### 2 379838, 1002986, 4619791, 33053886, 0603516 #### [facility] [address] [place] [address] Hemoglobin (Bld) [Mass/Vol] 14.1 g/dL Normal 12.0-16.0 [facility] Comment on above: Performed By: #### 2 218879, 6447384, 5464354, 99193844, 0414274 #### [facility] [address] [place] [address] MCH (RBC) [Entitic mass] 32.1 pg Normal 27.0-34.0 [facility] Comment on above: Performed By: #### 2 539352, 3272909, 4103627, 55674771, 4399045 #### [facility] [address] [place] [address] MCHC (RBC) [Mass/Vol] 33.8 g/dL Normal 31.4-36.0 [facility] Comment on above: Performed By: #### 2 189407, 5646829, 9159573, 31329289, 3925582 #### [facility] [address] [place] [address] MCV (RBC) [Entitic vol] 95.1 fL Normal 80.0-100.0 [facility] Comment on above: Performed By: #### 2 441152, 5368697, 4671495, 02702931, 3463029 #### [facility] [address] [place] [address] Platelet mean volume (Bld) [Entitic vol] 8.6 fL Normal 6.4-10.8 [facility] Comment on above: Performed By: #### 2 971175, 2685490, 9370886, 59246647, 3954642 #### [facility] [address] [place] [address] Platelets (Bld) [#/Vol] 208.0 E9/L Normal 150.0-500.0 [facility] Comment on above: Performed By: #### 2 419918, 8860818, 9635483, 20840465, 3945726 #### [facility] [address] [place] [address] RBC (Bld) [#/Vol] 4.4 E12/L Normal 4.3-5.9 [facility] Comment on above: Performed By: #### 2 084780, 0867830, 2567463, 41585087, 4186421 #### [facility] [address] [place] [address] WBC corrected for nucl RBC Auto (Bld) [#/Vol] 7.3 E9/L Normal 4.0-11.0 [facility] Comment on above: Performed By: #### 2 035683, 6858705, 8731759, 66829087, 6026605 #### [facility] [address] [place] [address] CHEMISTRYOrdered By: SYSTEM SYSTEM on 05-19-2023 Albumin [Mass/Vol] 4.5 g/dL Normal 3.3 - 5.0 gm/dL [facility] Remisol Albumin/Globulin [Mass ratio] 1.4 {ratio} Normal 1.1 - 2.2 [facility] Remisol ALP [Catalytic activity/Vol] 65 [iU]/d Normal 21 - 98 Int._Unit/L [facility] Remisol ALT No additional P-5'-P [Catalytic activity/Vol] 13 [iU]/d Normal 6 - 46 Int._Unit/L [facility] Remisol Anion gap [Moles/Vol] 7 mmol/L Normal 6 - 16 mEq/L [facility] Remisol AST [Catalytic activity/Vol] 17 [iU]/d Normal 5 - 43 Int._Unit/L [facility] Bilirubin [Mass/Vol] 0.6 mg/dL Normal 0.0 - 1 .1 mg/dL [facility] Bilirubin.direct [Mass/Vol] mg/dL Normal 0.1 - 0.4 mg/dL [facility] Bilirubin.indirect [Mass or moles/Vol] Unable to Calculate mg/dL Invalid Interpretation Code 0.1 - 0.9 mg/dL [facility] Calcium [Mass/Vol] 9.3 mg/dL Normal 8.9 - 11. 1 mg/dL [facility] Chloride [Moles/Vol] 108 mmol/L Normal 101 - 1 11 mmol/L [facility] CO2 [Moles/Vol] 26 mmol/L Normal 21 - 31 mmol/L [facility] Creatinine [Mass/Vol] 0.7 mg/dL Normal 0.5 - 1.3 mg/dL [facility] GFR/1.73 sq M.predicted among non-blacks MDRD (S/P/Bld) [Vol rate/Area] 124 mL/min/1.73 m2 Normal >=59mL/min/1. 73 m2 [facility] [place] [place] Chem S Comment on above: Interpretive Data: C hronic kidney disease could be indicated at eGFR's of less than 60 mL/min/1.73m2. Kidney failure is indicated at less than 15 mL/min/1.73m2. Globulin (S) [Mass/Vol] 3.2 g/dL Normal 1.4 - 4.0 gm/dL [facility] Glucose [Mass/Vol] 87 mg/dL Normal 55 - 199 mg/dL [facility] Comment on above: Interpretive Data: I f this glucose result represents a fasting glucose, interpretation should refer to the following reference range: 55-99 mg/dL Lipase [Catalytic activity/Vol] 40 U/L Normal 13 - 58 unit/L [facility] Potassium [Moles/Vol] 3.4 mmol/L Low 3.5 - 5.3 mmol/L [facility] Protein [Mass/Vol] 7.7 g/dL Normal 6.0 - 7.8 gm/dL [facility] Sodium [Moles/Vol] 138 mmol/L Normal 135 - 145 mmol/L [facility] Urea nitrogen [Mass/Vol] 17 mg/dL Normal 5 - 21 mg/dL [facility] Urea nitrogen/Creatinine [Mass ratio] 24 mg/mg High 10 - 20 [facility] [place] [place] Remisol Consent for Treatmenton 04-27 Consent for Treatment [id number] F Normal [facility] Discharge Instructionson Discharge Instructions [id number] FF Normal [facility] ED Clinical Summaryon 2022 ED Clinical Summary (Inserted Image. Neda ble to display) [place] [id number] ED Clinical Summary Person Information Name: ALAINA WARNER Lori/[facility] Age: 22 Years : 2000 Sex: Female Language: Nigerien PCP: Elisa PATEL CNP Marital Status: Single Visit Id: Visit Reason: Constipation; Abdominal pain; Nausea; ABD PAIN Speciality: Acuity: 3 Enc Type: Emergency Med Service: Emergency Arrival: 05/19/2023 19:12:34 Discharge: 05/19/2023 23:06:42 LOS: 000 03:54 Checkin: 05/19/2023 19:12:34 Checkout: 05/19/2023 23:06:42 Dispo Type: Home (Routine DC) EVENTS: Event Name Event Status Request Date/Time Start Date/Time Complete Date/Time Arrive Complete 05/19/2023 19:12:34 05/19/2023 19:12:34 05/19/2023 19:12:34 Document Home Meds Request 05/19/2023 19:12:34 Triage Complete 05/19/2023 19:12:34 05/19/2023 19:30:12 05/19/2023 19:30:12 Registration Complete 05/19/2023 19:15:42 05/19/2023 19:15:42 05/19/2023 19:15:42 Reg Complete Request 05/19/2023 19:15:42 Reg Bed Request Complete 05/19/2023 19:15:42 05/19/2023 19:15:42 05/19/2023 19:15:42 Bed Assign Complete 05/19/2023 19:30:51 05/19/2023 19:30:51 05/19/2023 19:30:51 Dr Exam Complete 05/19/2023 19:30:51 05/19/2023 20:16:40 05/19/2023 20:16:40 RN Exam Complete 05/19/2023 19:30:51 05/19/2023 20:00:33 05/19/2023 20:00:33 Registration Start 05/19/2023 20:16:40 05/19/2023 20:56:43 Pending Labs Complete 05/19/2023 20:22:51 05/19/2023 20:49:44 Lab Complete 05/19/2023 20:22:51 05/19/2023 20:49:44 Urine Collect Complete 05/19/2023 20:22:51 05/19/2023 20:49:44 Dr Exam Complete 05/19/2023 20:24:26 05/19/2023 20:24:26 05/19/2023 20:24:26 US Complete 05/19/2023 20:54:58 05/19/2023 21:33:52 05/19/2023 22:19:44 NPO Request 05/19/2023 20:54:58 Meds Admin Complete 05/19/2023 20:54:58 05/19/2023 21:05:54 Pending Labs Complete 05/19/2023 20:54:58 05/19/2023 21:42:12 Lab Complete 05/19/2023 20:54:58 05/19/2023 21:42:12 Patient Care Request 05/19/2023 20:54:58 Pending Labs Complete 05/19/2023 21:18:24 05/19/2023 21:18:24 05/19/2023 21:42:11 Lab Complete 05/19/2023 21:18:24 05/19/2023 21:18:24 05/19/2023 21:42:11 Pending Labs Complete 05/19/2023 21:22:03 05/19/2023 21:22:03 05/19/2023 21:22:11 Lab Complete 05/19/2023 21:22:03 05/19/2023 21:22:03 05/19/2023 21:22:11 CT Cancel 05/19/2023 21:48:09 05/19/2023 21:50:10 Pending Labs Complete 05/19/2023 21:48:38 05/19/2023 21:48:38 05/19/2023 21:48:39 Discharge Complete 05/19/2023 22:48:27 05/19/2023 23:06:47 05/19/2023 23:06:47 Transfer Complete 05/19/2023 23:06:47 05/19/2023 23:06:47 05/19/2023 23:06:47 ADDRESS: [address] [place] [phone] PHYS DOC NOTES: MEDICAL INFORMATION: Prescriptions Given: Medications to Continue with No Changes Other Medications dicyclomine (dicyclomine 20 mg Tab) 1 Tablets By Mouth 2 times a day as needed Irritable bowel symptoms. Refills: 3. PATIENT EDUCATION INFORMATION: Instructions: Cholelithiasis Follow up: With: Address: When: Héctor Denton [address] [facility], [place] [address], [address] [phone] Business (1) In 3 days 05/22/2023 With: Address: When: Elisa PATEL [address] [place] [address] Business (1) In 3 days DIAGNOSIS: 1:Symptomatic cholelithiasis Normal [facility] ED Patient Education Noteon 05-19-2023 ED Patient Education Note Gastroenterology Cholelithiasis Cholelithiasis is a disease in which gallstones form in the gallbladder. The gallbladder is an organ that stores bile. Bile is a fluid that helps to digest fats. Gallstones begin as small crystals and can slowly grow into stones. They may cause no symptoms until they block the gallbladder duct, or cystic duct, when the gallbladder tightens (contracts) after food is eaten. This can cause pain and is known as a gallbladder attack, or biliary colic. There are two main types of gallstones: ? Cholesterol stones. These are the most common type of gallstone. These stones are made of hardened cholesterol and are usually yellow-green in color. Cholesterol is a fat-like substance that is made in the liver. ? Pigment stones. These are dark in color and are made of a red-yellow substance, called bilirubin,that forms when hemoglobin from red blood cells breaks down. What are the causes? This condition may be caused by an imbalance in the different parts that make bile. This can happen if the bile: ? Has too much bilirubin. This can happen in certain blood diseases, such as sickle cell anemia. ? Has too much cholesterol. ? Does not have enough bile salts. These salts help the body absorb and digest fats. In some cases, this condition can also be caused by the gallbladder not emptying completely or often enough. This is common during . What increases the risk? The following factors may make you more likely to develop this condition: ? Being female. ? Having multiple pregnancies. Health care providers sometimes advise removing diseased gallbladders before future pregnancies. ? Eating a diet that is heavy in fried foods, fat, and refined carbohydrates, such as white bread and white rice. ? Being obese. ? Being older than age 40. ? Using medicines that contain female hormones (estrogen) for a long time. ? Losing weight quickly. ? Having a family history of gallstones. ? Having certain medical problems, such as: ? Diabetes mellitus. ? Cystic fibrosis. ? Crohn's disease. ? Cirrhosis or other long-term (chronic) liver disease. ? Certain blood diseases, such as sickle cell anemia or leukemia. What are the signs or symptoms? In many cases, having gallstones causes no symptoms. When you have gallstones but do not have symptoms, you have silent gallstones. If a gallstone blocks your bile duct, it can cause a gallbladder attack. The main symptom of a gallbladder attack is sudden pain in the upper right part of the abdomen. The pain: ? Usually comes at night or after eating. ? Can last for one hour or more. ? Can spread to your right shoulder, back, or chest. ? Can feel like indigestion. This is discomfort, burning, or fullness in your upper abdomen. If the bile duct is blocked for more than a few hours, it can cause an infection or inflammation of your gallbladder (cholecystitis), liver, or pancreas. This can cause: ? Nausea or vomiting. ? Bloating. ? Pain in your abdomen that lasts for 5 hours or longer. ? Tenderness in your upper abdomen, often in the upper right section and under your rib cage. ? Fever or chills. ? Skin or the white parts of your eyes turning yellow (jaundice). This usually happens when a stone has blocked bile from passing through the common bile duct. ? Dark urine or light-colored stools. How is this diagnosed? This condition may be diagnosed based on: ? A physical exam. ? Your medical history. ? Ultrasound. ? CT scan. ? MRI. You may also have other tests, including: ? Blood tests to check for signs of an infection or inflammation. ? Cholescintigraphy, or HIDA scan. This is a scan of your gallbladder and bile ducts (biliary system) using non-harmful radioactive material and special cameras that can see the radioactive material. ? Endoscopic retrograde cholangiopancreatogram. This involves inserting a small tube with a camera on the end (endoscope) through your mouth to look at bile ducts and check for blockages. How is this treated? Treatment for this condition depends on the severity of the condition. Silent gallstones do not need treatment. Treatment may be needed if a blockage causes a gallbladder attack or other symptoms. Treatment may include: ? Home care, if symptoms are not severe. ? During a simple gallbladder attack, stop eating and drinking for 12?24 hours (except for water and clear liquids). This helps to cool down your gallbladder. After 1 or 2 days, you can start to eat a diet of simple or clear foods, such as broths and crackers. ? You may also need medicines for pain or nausea or both. ? If you have cholecystitis and an infection, you will need antibiotics. ? A hospital stay, if needed for pain control or for cholecystitis with severe infection. ? Cholecystectomy, or surgery to remove your gallbladder. This is the most common treatment if all other treatments have not worked. ? Medicines to break (more content not included)... Normal [facility] ED Patient Summaryon 023 ED Patient Summary (Inserted Image. Neda ble to display) [address] [address] Patient Discharge Instructions Person Information Name: ALAINA WARNER Age: 22 Years Arrival Date: 05/19/2023 19:12:34 Discharge Diagnosis: 1:Symptomatic cholelithiasis Primary Care Physician: Elisa PATEL CNP Provider Information Primary Provider: González Muhammad DO Advanced Superintendent Meter Tests:None The exam and treatment you received in the Emergency Department were for an urgent problem and are not intended as complete care. It is important that you follow up with a doctor, nurse practitioner, or physician?s advertising assistant manager for ongoing care. If your symptoms become worse or you do not improve as expected and you are unable to reach your usual health care provider, you should return to the Emergency Department. We are available 24 hours a day. ALAINA WARNER has been given the following list of patient education materials, prescriptions and follow-up instructions: Follow-up Instructions: With: Address: When: Héctor Denton [address] [place] [address], [place] [address], [address] [phone] Business (1) In 3 days 05/22/2023 With: Address: When: Elisa PATEL [address] [place] [phone] Business (1) In 3 days In the event that this physician does not participate in your insurance network, please consult with your insurance company to find a nearby participating provider. Patient Education Materials: Cholelithiasis A MESSAGE TO ALL PATIENTS REGARDING OPIOIDS PRESCRIPTION OPIOIDS: WHAT YOU NEED TO KNOW Prescription opioids can be used to help relieve fqbjwlhg-rx-qgadfj pain and are often prescribed following a surgery or injury, or for certain health conditions. These medications can be an important part of the treatment but also come with serious risks. It is important to work with your healthcare provider to make sure you are getting the safest, most effective care. WHAT ARE THE RISKS AND SIDE EFFECTS OF OPIOID USE? Prescription opioids carry serious risks of addiction and overdose, especially with prolonged use. An opioid overdose, often marked by slowed breathing, can cause sudden . The use of prescription opioids can have a number of side effects as well, even when taken as directed: ? Tolerance?meaning you might need to take more of the medication for the same pain relief ? Physical dependence?meaning you have symptoms of withdrawal when a medication is stopped ? Increased sensitivity to pain ? Constipation ? Nausea, vomiting, and dry mouth ? Sleepiness and dizziness ? Confusion ? Depression ? Low levels of testosterone that can result in lower sex drive, energy, and strength ? Itching and sweating RISKS ARE GREATER WITH: ? History of drug misuse, substance use disorder, or overdose ? Mental health conditions (such as depression or anxiety) ? Sleep apnea ? Older age (65 years and older) ? Avoid alcohol while taking prescription opioids. Also, unless specifically advised by your health care provider, medications to avoid include: ? Benzodiazepines (such as Xanax or Valium) ? Muscle relaxants (such as Soma or Flexeril) ? Hypnotics (such as Ambien or Lunesta) ? Other prescription opioids KNOW YOUR OPTIONS Talk to your health care provider about ways to manage your pain that don?t involve prescription opioids. Some of these options may actually work better and have fewer risks and side effects. Options may include: ? Pain relievers such as acetaminophen, ibuprofen, and naproxen ? Some medication that are also used for depression or seizures ? Physical therapy and exercise ? Cognitive behavioral therapy, a psychological, goal-directed approach, in which patients learn how to modify physical, behavioral, and emotional triggers of pain and stress. IF YOU ARE PRESCRIBED OPIOIDS FOR PAIN: ? Never take opioids in greater amounts or more often than prescribed. ? Follow up with your primary health care provider. o Work together to create a plan on how to manage your pain. o Talk about ways to help manage your pain that don?t involve prescription opioids. o Talk about any and all concerns and side effects. ? Help prevent misuse and abuse o Never sell or share prescription opioids. o Never use another person?s prescription opioids. ? Store prescription opioids in a secure place and out of reach of others (this may include visitors, children, friends, and family). ? Safely dispose of unused prescription opioids: Find your community drug take-back program or your pharmacy mail-back program, or flush them down the toilet, following guidance from the Food and Drug Administration (www.fda.gov/Drugs/Resou rcesForYou). ? Visit www.cdc.gov/drugoverdose to learn about the risks of opioids abuse and overdose. ? If you believe you may be struggling with addiction, tell your healt (more content not included)... Normal [facility] HEMATOLOGYOrdered By: SYSTEM SYSTEM on 05-19-2023 Basophils/100 WBC (Bld) 1.2 % Normal 0.0 - 2.0 % [facility]eAuto[facility] Basophils/Leukocytes Auto (Bld) [Pure # fraction] 0.1 E9/L Normal 0.0 - 0.2 E9/L [facility]eAuto[facility] Eosinophils/100 WBC (Bld) 3.5 % Normal 0.0 - 8.0 % [facility]eAutoSS Eosinophils/Leukocyt es Auto (Bld) [Pure # fraction] 0.3 E9/L Normal 0.0 - 0.5 E9/L [facility]Auto[facility] Lymphocytes/100 WBC (Bld) 35.2 % Normal 14.0 - 50.0 % [facility]eAuto[facility] Lymphocytes/Leukocyt es Auto (Bld) [Pure # fraction] 2.6 E9/L Normal 1.0 - 4.0 E9/L [facility] Monocytes/100 WBC (Bld) 7.0 % Normal 4.0 - 14.0 % [facility]eAuto[facility] Monocytes/Leukocytes Auto (Bld) [Pure # fraction] 0.5 E9/L Normal 0.2 - 1.0 E9/L [facility]AutoSS Neutrophils/100 WBC (Bld) 53.1 % Normal 36.0 - 75.0 % [facility]eAuto[facility] Neutrophils/Leukocyt es Auto (Bld) [Pure # fraction] 3.9 E9/L Normal 2.0 - 7.5 E9/L [facility] HEMATOLOGYOrdered By: Caro Etienne on 05-19-2023 Erythrocyte distribution width (RBC) [Ratio] 13.2 % Normal 10.9 - 14.2 % [facility] Hematocrit (Bld) [Volume fraction] 41.8 % Normal 34.0 - 46.0 % [facility]eAutoSS Hemoglobin (Bld) [Mass/Vol] 14.1 g/dL Normal 12.0 - 16.0 gm/dL [facility] MCH (RBC) [Entitic mass] 32.1 pg Normal 27.0 - 34.0 pg [facility] MCHC (RBC) [Mass/Vol] 33.8 g/dL Normal 31.4 - 36.0 gm/dL [facility] MCV (RBC) [Entitic vol] 95.1 fL Normal 80.0 - 100.0 fL [facility] Platelet mean volume (Bld) [Entitic vol] 8.6 fL Normal 6.4 - 10.8 fL [facility]eAuto[facility] Platelets (Bld) [#/Vol] 208.0 E9/L Normal 150.0 - 500.0 E9/L [facility] [place] [place] HemeAutoSS RBC (Bld) [#/Vol] 4.4 E12/L Normal 4.3 - 5.9 E12/L [facility] [place] [place] HemeAutoSS WBC corrected for nucl RBC Auto (Bld) [#/Vol] 7.3 E9/L Normal 4.0 - 11.0 E9/L [facility] [place] [place] HemeAutoSS Hep Func Panelon 05-19-2023 Bilirubin.indirect [Mass or moles/Vol] UTC Abnormal 0.1-0.9 [facility] Comment on above: Result Comment: Resu lt verified by Discern Rule. Performed result UT (Unable to Calculate) was sent as an Alpha code due the inability to calculate a valid numeric value. Performed By: #### 2 [id number], [id number], 6962065, [id number], [id number] #### [facility] [address] [place] [address] Albumin [Mass/Vol] 4.5 g/dL Normal 3.3-5.0 [facility] Comment on above: Performed By: #### 2 935665, 0574346, 9400136, [id number], 3435742 #### [facility] [address] [place] [address] Albumin/Globulin (S) [Mass conc ratio] 1.4 Normal 1.1-2.2 [facility] Comment on above: Performed By: #### 2 637775, 7808387, 6660243, [id number], 0866414 #### [facility] [address] [place] [address] ALP [Catalytic activity/Vol] 65 Int._Unit/L Normal 21-98 [facility] Comment on above: Performed By: #### 2 744728, 4856015, 4908374, 41693787, 9966331 #### [facility] [address] [place] [address] ALT No additional P-5'-P [Catalytic activity/Vol] 13 Int._Unit/L Normal 6-46 [facility] Comment on above: Performed By: #### 2 808240, 4230751, 8783871, 79328643, 9593606 #### [facility] [address] [place] [address] AST [Catalytic activity/Vol] 17 Int._Unit/L Normal 5-43 [facility] Comment on above: Performed By: #### 2 805018, 2641764, 4422631, 36321958, 6515404 #### [facility] [address] [place] [address] Bilirubin [Mass/Vol] 0.6 mg/dL Normal 0.0-1.1 [facility] Comment on above: Performed By: #### 2 947949, 2461926, 0099946, 02492808, 6988177 #### [facility] [address] [place] [address] Globulin (S) [Mass/Vol] 3.2 g/dL Normal 1.4-4.0 [facility] Comment on above: Performed By: #### 2 595733, 1199610, 5908153, 76799326, 3677871 #### [facility] [address] [place] [address] Protein [Mass/Vol] 7.7 g/dL Normal 6.0-7.8 [facility] Comment on above: Performed By: #### 2 334262, 0383362, 2897254, 05339070, 6786102 #### [facility] [address] [place] [address] Bilirubin.direct [Mass/Vol] mg/dL Normal 0.1-0.4 [facility] Comment on above: Performed By: #### 2 138209, 2807870, 9064786, 54961110, 5322232 #### [facility] [address] [place] [address] Lipase Levelon 05-19-2023 Lipase [Catalytic activity/Vol] 40 U/L Normal 13-58 [facility] Comment on above: Performed By: #### 2 262695, 9017011, 8509276, 76051385, 4493184 #### [facility] [address] [place] [address] SEROLOGYOrdered By: Grisel mack on 05-19-2023 HCG.beta subunit (U) [Moles/Vol] Negative Normal [facility] [place] [place] Man Sero U BetaHcg Qualon 05-19-2023 HCG.beta subunit (U) [Moles/Vol] Negative Normal [facility] Comment on above: Performed By: #### 1 3041868, [id number] ####[facility] [address] [place] [address] UA With Cult Reflexon 2022 Bacteria LM Ql (Urine sed) TRACE Normal Trace [facility] Comment on above: Performed By: #### 1 2767836, [id number] ####[facility] [address] [place] [address] Bilirubin Ql (U) Negative Normal Negative [facility] Comment on above: Performed By: #### 1 7649015, [id number] ####[facility] [address] [place] [address] Clarity (U) SL CLOUDY Invalid Interpretation Code [facility] Comment on above: Performed By: #### 1 1523552, [id number] ####[facility] [address] [place] [address] Color (U) YELLOW Normal Yellow [facility] Comment on above: Performed By: #### 1 2154828, [id number] ####[facility] [address] [place] [address] Epithelial cells.squamous LM.HPF (Urine sed) [#/Area] 5-8 Normal 0-2 [facility] Comment on above: Performed By: #### 1 9957816, 22368415 ####[facility] [address] [place] [address] Glucose Test strip (U) [Mass/Vol] Negative Normal Negative [facility] Comment on above: Performed By: #### 1 8020951, 44468215 ####[facility] [address] [place] [address] Hemoglobin Ql (U) 1+ Abnormal Negative [facility] Comment on above: Performed By: #### 1 1153533, 71876616 ####[facility] [address] [place] [address] Ketones (U) [Mass/Vol] Negative Normal Negative [facility] Comment on above: Performed By: #### 1 0518824, 47154935 ####[facility] [address] [place] [address] Montmorenci.plasma/Lithi um.RBC (Bld) [Mass ratio] 0-3 Normal 0-3 [facility] Comment on above: Performed By: #### 1 3577886, 74675700 ####[facility] [address] [place] [address] Mucus Ql (Urine sed) 2+ Normal [facility] Comment on above: Performed By: #### 1 0047874, [id number] ####[facility] [address] [place] [address] Nitrite Ql (U) Negative Normal Negative [facility] Comment on above: Performed By: #### 1 3819481, 28615175 ####[facility] [address] [place] [address] pH (U) 5.5 [pH] Invalid Interpretation Code 5.0-9.0 [facility] Comment on above: Performed By: #### 1 1913276, [id number] ####[facility] [address] [place] [address] Protein (U) [Mass/Vol] Negative Normal Negative [facility] Comment on above: Performed By: #### 1 8065319, 38658098 ####[facility] [address] [place] [address] Specific gravity (U) [Rel density] 1.025 Invalid Interpretation Code 1.005-1.030 [facility] Comment on above: Performed By: #### 1 9159660, 73732709 ####[facility] [address] [place] [address] Type of Urine collection method Clean Catch Normal [facility] Comment on above: Performed By: #### 1 6093202, 11782673 ####[facility] [address] [place] [address] Urobilinogen Qn (U) 1.0 {Jan'U}/dL Normal 0.0-1.0 [facility] Comment on above: Performed By: #### 1 9179924, [id number] ####[address] [address] WBC Auto Ql (U) Negative Normal Negative [facility] Comment on above: Performed By: #### 1 2622000, [id number] ####[facility] [address] [place] [address] WBC LM.HPF (Urine sed) [#/Area] 0-5 Normal 0-5 [facility] Comment on above: Performed By: #### 1 0423167, [id number] ####[facility] [address] [place] [address] URINALYSISOrdered By: Grisel Mccarty on 05-19-2023 Bacteria LM Ql (Urine sed) Trace /HPF Normal Trace/HPF [facility]A Auto SS Bilirubin Ql (U) Negative (05/19/23 8:26 PM) Normal Negative [facility] UA Auto SS Clarity (U) SL CLOUDY Invalid Interpretation Code [facility] UA Auto SS Color (U) Yellow (05/19/23 8:26 PM) Normal Yellow [facility]A Auto SS Epithelial cells.squamous LM.HPF (Urine sed) [#/Area] 5-8 /HPF Normal 0-2/HPF [facility] UA Auto SS Glucose Test strip (U) [Mass/Vol] Negative (05/19/23 8:26 PM) Normal Negative [facility] UA Auto SS Hemoglobin Ql (U) 1+ *ABN* (05/19/23 8:26 PM) Invalid Interpretation Code Negative [facility] Auto SS Ketones (U) [Mass/Vol] Negative (05/19/23 8:26 PM) Normal Negative [facility] UA Auto SS [place].plasma/Lithi um.RBC (Bld) [Mass ratio] 0-3 /HPF Normal 0-3/HPF [facility] UA Auto SS Mucus Ql (Urine sed) 2+ (05/19/23 8:26 PM) Normal [facility]A Auto SS Nitrite Ql (U) Negative (05/19/23 8:26 PM) Normal Negative [facility] UA Auto SS pH (U) 5.5 *NA* (05/19/23 8:26 PM) Invalid Interpretation Code 5.0 - 9.0 [facility] UA Auto SS Protein (U) [Mass/Vol] Negative (05/19/23 8:26 PM) Normal Negative [facility] UA Auto SS Specific gravity (U) [Rel density] 1.025 *NA* (05/19/23 8:26 PM) Invalid Interpretation Code 1.005 - 1.030 [facility] UA Auto SS UA Spec Desc Clean Catch (05/19/23 8:26 PM) Normal [facility] Auto SS Urobilinogen Qn (U) 1.6300680 {Jan'U}/dL Normal 0.0 - 1.0 EU/dL [facility] UA Auto SS WBC Auto Ql (U) Negative (05/19/23 8:26 PM) Normal Negative [facility] UA Auto SS WBC LM.HPF (Urine sed) [#/Area] 0-5 /HPF Normal 0-5/HPF [facility] UA Auto SS eGFRon 05-19-2023 GFR/1.73 sq M.predicted among non-blacks MDRD (S/P/Bld) [Vol rate/Area] 124 mL/min/1.73 m2 Normal >=59 [facility] Comment on above: Order Comment: Order added by Discern Expert. Result Comment: Food Technology Teacher annika kidney disease could be indicated at eGFR's of less than 60 mL/min/1.73m2. Kidney failure is indicated at less than 15 mL/min/1.73m2. Performed By: #### 2 [id number], [id number], [id number] #### [facility] [address], [place] [id number] [place] [address] Medicine Office/Clini c Noteon 04-20-2023 Family Medicine Office/Clinic Note Chief Complaint URI sx HPI Staff Pt is c/o facial swelling, sinus congestion and pressure. States she is very congested, cannot breathe through her nose but her nose is runny at the same time. Throat feels raw, she has been sneezing a lot. Denies cough. No fever. Pt tried Tylenol Cold, Dayquil, Nyquil and Benadryl with no relief. Sx started on Thursday but have gotten worse in the past two days. Pt states her brother and mom are both sick with sinus stuff right now. History of Present Illness Alaina Warner is a 22-year-old female who presents today with concerns of possible sinus infection. Her symptoms started on 04/12/2022, however, the last 2 days have gotten much worse including sinus pain, pressure, and swelling. She is very stuffy in her nose, but also it is runny. She has throat irritation and is sneezing, but no cough, shortness of breath, fever, or body aches. Her appetite is okay. Tylenol Cold, DayQuil, NyQuil, and Benadryl are not helpful. She does have positive sick family members with similar symptoms, but not as bad as hers. The patient states that her daughters are not sick. Review of Systems PHQ Score Initial Depression Screen Score: 0 Physical Exam Vitals & Measurements T: 37.0 ?C(Tympanic) HR: 97(Peripheral) BP: 118/83 SpO2: 97% HT: 63 in HT: 160 cm WT: 57.7 kg WT: 126.94 lb BMI: 22.54 General: Patient is acutely ill-appearing, but no acute distress. Skin and Oropharynx appear well hydrated. Her voice does sound very congested compared to her normal. Eyes: She does have visible puffiness under both eyes where the left maxillary sinuses. There is also a little bit of darkening in color. Both frontal and maxillary sinuses are tender to palpation. Boggy turbinates in the nose with purulent drainage noticed. Ears: Normal. Lungs: Normal respiratory effort and clear to auscultation Cardio: Regular rate and rhythm, normal S1 and S2, no murmur, no rub Mental Status: Alert and oriented x3. Normal mood and affect Assessment/Plan 1. Maxillary sinusitis (J32.0: Chronic maxillary sinusitis) True sinusitis suspected. Rx Augmentin, take with food, complete entire course. May take zcgy-fnb-mdafvon decongestants, ibuprofen to help with symptom relief, warm salt water gargles for throat relief. Follow up with primary care provider if signs or symptoms persist or worsen. 2. BMI 22.0-22.9, adult (Z68.22: Body mass index [BMI] 22.0-22.9, adult) Normal. Portions of this record may have been created with voice recognition artificial software, specifically [employer], [employer] and or ustyme. Substitutions may have occurred unintentionally. Please notify the author if changes are necessary or if the meaning of any statement is unclear. Documentation services were performed after patient or guardian consented to allow [email or web address] to record this visit. MLIES integrated specialist and provider reviewed before signing. MILES: Bianca Wilson Follow-up No qualifying data available Problem List/Past Medical History Ongoing Gallstones GERD (gastroesophageal reflux disease) H/O: depression IBS (irritable bowel syndrome) Marijuana use Maxillary sinusitis Smoker Historical Chronic diarrhea Depression Procedure/Surgical History None. Medications Augmentin 875 mg oral tablet, 1 tab(s), Oral, q12hr dicyclomine 20 mg Tab, 20 mg= 1 tab(s), Oral, BID, PRN, 3 refills Allergies No Known Allergies Social History Alcohol - Denies Alcohol Use, 03/25/2014 Household alcohol concerns: No., 07/05/2019 Employment/School Unemployed, 05/22/2019 Substance Abuse - Denies Substance Abuse, 03/25/2014 Household substance abuse concerns: No., 07/05/2019 Tobacco - Denies Tobacco Use, 03/25/2014 Never (less than 100 in lifetime) Tobacco Use:. Never Smokeless Tobacco Use:. Vaping, 4 per day. Ready to change: No. Household tobacco concerns: No. Yes, 04/16/2023 Family History Family history is negative Immunizations Vaccine Date Status Comments influenza virus vaccine, inactivated - Not Given Patient Refuses influenza virus vaccine, inactivated - Not Given Patient Refuses SARS-CoV-2 mRNA (tozinameran 5y-11y) vac - Not Given Patient Refuses influenza virus vaccine, inactivated - Not Given Patient Refuses influenza virus vaccine, inactivated 04/12/2021 Recorded diphtheria/pertussis, acel/tetanus adult 04/05/2021 Recorded SARS-CoV-2 (COVID-19) mRNA-1273 vaccine - Not Given Postpone due to refusal influenza virus vaccine, inactivated - Not Given Patient Refuses influenza virus vaccine, inactivated 05/24/2019 Given Nursing Judgment influenza virus vaccine, inactivated - Not Given Patient Refuses diphtheria/pertussis, acel/tetanus adult 04/21/2019 Recorded influenza virus vaccine, inactivated 08/06/2016 Recorded human papillomavirus vaccine 08/18/2011 Recorded hepatitis A pediatric vaccine 08/18/2011 Recorded influenza virus vaccine (more content not included)... Normal [facility] Comment on above: Result Comment: Elec tronically Signed By: Elisa PATEL CNP\.br\Date and Time Signed: 04/20/23 10:08 EDT\.br\Electronically Co-Signed By: Bianca Wilson\.br\Date and Time Co-Signed: 04/16/23 17:00 EDT Ambulatory Visit Summaryon 0 04-16-2023 Ambulatory Visit Summary ALAINA WARNER Katharine :2000 Visit Date:04/16/2023 Ambulatory Visit Instructions Your Diagnosis BMI 22.0-22.9, adult Your Care Team Attending Physician - Elisa PATEL CNP Primary Care Physician - Elisa PATEL CNP This Is Your Medications List amoxicillin-clavulanate (Augmentin 875 mg oral tablet) Contact prescribing physician if questions or concerns dicyclomine (dicyclomine 20 mg Tab) Procedures Performed None. Discharge Vitals Temperature (Tympanic) 37.0 ?C Heart Rate (Peripheral) 97 Blood Pressure 118/83 Height 160 cm Height 63 in Weight 57.7 kg Weight 126.94 lb BMI 22.54 Medications What How Much When Why Instructions New amoxicillin-clavulanate (Augmentin 875 mg oral tablet) 1 Tablets By Mouth Every 12 hours Duration: 10 Days Pickup at [id number] Unchanged dicyclomine (dicyclomine 20 mg Tab) 1 Tablets By Mouth 2 times a day as needed for Irritable bowel symptoms Abdominal cramping, bilateral lower quadrant Contact prescribing physician if questions or concerns Pharmacy Information [id number]: [address] [place], [place] [id number] [phone] Medications and Immunizations Administered Not Given influenza virus vaccine, inactivated, Patient Refuses Allergies No Known Allergies Problems Ongoing - Any problem that you are currently receiving treatment for. Gallstones GERD (gastroesophageal reflux disease) H/O: depression IBS (irritable bowel syndrome) Marijuana use Smoker Historical - Any problem that you are no longer receiving treatment for. Chronic diarrhea Depression Normal [facility] Family Medicine Office/Clini c Noteon 03-25-2023 Family Medicine Office/Clinic Note Chief Complaint GERD HPI Staff GERD - Pt takes the Omeprazole and Bentyl daily. States she has noticed if she does not take the Bentyl by 11:00 am her stomach starts to hurt with the burning sensation that goes into her back. Pt feels like she really does not need the Omeprazole, she would like to try to not take it for awhile. Refills - Bentyl. History of Present Illness Alaina Warner is a 22-year-old female who presents today for a 6-month follow-up of GERD and IBS. In 07/2022, she was having GERD symptoms and epigastric pain, also some inconsistency with stools. She started on omeprazole 40 mg for the GERD and Bentyl and Zofran for IBS. She was told to follow a FODMAP diet. On follow-up, she was doing much better. Symptoms had improved drastically. We decreased her omeprazole to 20 mg. She has been taking that and the Bentyl daily since. She no longer thinks she needs omeprazole and would like to try to get off it. The Bentyl she tried to get off of completely, but she does get the crampy burning sensation when she does not take it. The patient states that she is taking Bentyl every day as soon as her stomach starts hurting. It usually starts around 11:00 AM. She did not take an extra dose today. Review of Systems PHQ Score Initial Depression Screen Score: 0 All other systems are negative except as stated in the HPI. Physical Exam Vitals & Measurements HR: 91(Peripheral) BP: 108/73 SpO2: 97% HT: 63 in HT: 160 cm WT: 58.7 kg WT: 129.14 lb BMI: 22.93 General: Well, developed, well nourished, in no acute distress. Lungs: Normal respiratory effort and clear to auscultation. Cardio: Regular rate and rhythm, normal S1 and S2, no murmur, no rub. Neurologic: Grossly normal. Lymph Nodes: No cervical adenopathy, nodes normal. Mental Status: Alert and oriented x3. Normal mood and affect. Assessment/Plan 1. BMI 22.0-22.9, adult (Z68.22: Body mass index [BMI] 22.0-22.9, adult) Normal 2. IBS (irritable bowel syndrome) (K58.9: Irritable bowel syndrome without diarrhea) Continue Bentyl once or twice a day as needed. Refill sent. No longer needs Zofran. Continue FODMAP diet. 3. GERD (gastroesophageal reflux disease) (K21.9: Gastro-esophageal reflux disease without esophagitis) No longer having issues. Trial going off the omeprazole. Call me if we need to restart it. Follow up yearly and as needed. Portions of this record may have been created with voice recognition artificial intelligence software, specifically [employer], [employer] and or [employer]. Substitutions may have occurred unintentionally. Please notify the author if changes are necessary or if the meaning of any statement is unclear. ATTESTATION: Documentation services were performed after patient or guardian consented to allow [email or web address] to record this visit. MILES integrated specialist and provider reviewed before signing. MILES: Leslie Murillo Follow-up With When Contact Information Elisa PATEL CNP In 1 year [address] [id number] Additional Instructions: Problem List/Past Medical History Ongoing Gallstones GERD (gastroesophageal reflux disease) H/O: depression IBS (irritable bowel syndrome) Marijuana use Smoker Historical Chronic diarrhea Depression Procedure/Surgical History None. Medications dicyclomine 20 mg Tab, 20 mg= 1 tab(s), Oral, BID, PRN, 3 refills Allergies No Known Allergies Social History Alcohol - Denies Alcohol Use, 03/25/2014 Household alcohol concerns: No., 07/05/2019 Employment/School Unemployed, 05/22/2019 Substance Abuse - Denies Substance Abuse, 03/25/2014 Household substance abuse concerns: No., 07/05/2019 Tobacco - Denies Tobacco Use, 03/25/2014 Never (less than 100 in lifetime), Smoker, current status unknown Tobacco Use:. Never Smokeless Tobacco Use:. Vaping, 4 per day. Ready to change: No. Household tobacco concerns: No. Yes, 03/24/2023 Family History Family history is negative Immunizations Vaccine Date Status Comments influenza virus vaccine, inactivated - Not Given Patient Refuses SARS-CoV-2 mRNA (tozinameran 5y-11y) vac - Not Given Patient Refuses influenza virus vaccine, inactivated - Not Given Patient Refuses influenza virus vaccine, inactivated 04/12/2021 Recorded diphtheria/pertussis, acel/tetanus adult 04/05/2021 Recorded SARS-CoV-2 (COVID-19) mRNA-1273 vaccine - Not Given Postpone due to refusal influenza virus vaccine, inactivated - Not Given Patient Refuses influenza virus vaccine, inactivated 05/24/2019 Given Nursing Judgment influenza virus vaccine, inactivated - Not Given Patient Refuses diphtheria/pertussis, acel/tetanus adult 04/21/2019 Recorded influenza virus vaccine, inactivated 08/06/2016 Recorded human papillomavirus vaccine 08/18/2011 Recorded hepatitis A pediatric vaccine 08/18/2011 Recorded influenza virus vaccine, inactivated 05/12/2011 Recorded hum (more content not included)... Normal [facility] Comment on above: Result Comment: Elec tronically Signed By: Elisa PATEL CNP\.br\Date and Time Signed: 03/25/23 10:52 EDT\.br\Electronically Co-Signed By: Leslie Murillo\.br\Date and Time Co-Signed: 03/24/23 17:05 EDT Ambulatory Visit Summaryon 0 03-24-2023 Ambulatory Visit Summary QUINTINRENNYALAINA Katharine :2000 Visit Date:03/24/2023 Ambulatory Visit Instructions Your Diagnosis IBS (irritable bowel syndrome) GERD (gastroesophageal reflux disease) Your Care Team Attending Physician - Elisa PATEL CNP Primary Care Physician - Elisa PATEL CNP This Is Your Medications List dicyclomine (dicyclomine 20 mg Tab) [Image Removed: STOP]Stop taking these medications omeprazole (omeprazole 20 mg Cap-DR) Procedures Performed None. Discharge Vitals Heart Rate (Peripheral) 91 Blood Pressure 108/73 Height 160 cm Height 63 in Weight 58.7 kg Weight 129.14 lb BMI 22.93 What to do next You Need to Schedule the Following Appointments Follow Up with Elisa PATEL CNP When: In 1 year Where: [address] [place] [address]- Medications What How Much When Why Instructions Changed dicyclomine (dicyclomine 20 mg Tab) 1 Tablets By Mouth 2 times a day as needed for Irritable bowel symptoms Abdominal cramping, bilateral lower quadrant Pickup at [id number] Pharmacy Information [facility] #[id number]: [address] [place], [place] [id number] [phone] What How Much When Comments Stop Taking omeprazole (omeprazole 20 mg Cap-DR) 1 Capsules By Mouth Every day Allergies No Known Allergies Problems Ongoing - Any problem that you are currently receiving treatment for. Gallstones GERD (gastroesophageal reflux disease) H/O: depression IBS (irritable bowel syndrome) Marijuana use Smoker Historical - Any problem that you are no longer receiving treatment for. Chronic diarrhea Depression Normal [facility] GC + CHLAMYDIA BY AMPLIFIED DETECTIONon 02-25-2023 CHLAMYDIA TRACH.,AMPLIFIED Negative Normal Negative [facility] Comment on above: Result Comment: The APTIMA Combo 2 assay is FDA-approved for Chlamydia trachomatis and Neisseria gonorrhoeae testing on female endocervical and vaginal swabs, ThinPrep liquid pap samples, male urine samples and urethral swabs. Performance characteristics for Chlamydia trachomatis and Neisseria gonorrhoeae testing on specific hnm-YOU-rmynkoxu sample types (female urine samples) have been validated by [facility]. This laboratory is certified by CLIA to perform high complexity testing. Samples from all other sites are not validated for this method. Performed By: #### [facility] #### [facility] [address] [place] [address] N.GONORRHEA,AMPLIFIE D Negative Normal Negative [facility] Comment on above: Result Comment: The APTIMA Combo 2 assay is FDA-approved for Chlamydia trachomatis and Neisseria gonorrhoeae testing on female endocervical and vaginal swabs, ThinPrep liquid pap samples, male urine samples and urethral swabs. Performance characteristics for Chlamydia trachomatis and Neisseria gonorrhoeae testing on specific mdg-EKE-ibtcodnp sample types (female urine samples) have been validated by [facility]. This laboratory is certified by CLIA to perform high complexity testing. Samples from all other sites are not validated for this method. Performed By: #### [facility] #### [facility] [address] [place] [address] CHLAMYDIA TRACH.,AMPLIFIED Negative Normal Negative [facility] Comment on above: Result Comment: The APTIMA Combo 2 assay is FDA-approved for Chlamydia trachomatis and Neisseria gonorrhoeae testing on female endocervical and vaginal swabs, ThinPrep liquid pap samples, male urine samples and urethral swabs. Performance characteristics for Chlamydia trachomatis and Neisseria gonorrhoeae testing on specific ava-QOP-tezujejq sample types (female urine samples) have been validated by [facility]. This laboratory is certified by CLIA to perform high complexity testing. Samples from all other sites are not validated for this method. Performed By: #### [facility] #### [facility] [address] [place] [address] N.GONORRHEA,AMPLIFIE D Negative Normal Negative [facility] Comment on above: Result Comment: The APTIMA Combo 2 assay is FDA-approved for Chlamydia trachomatis and Neisseria gonorrhoeae testing on female endocervical and vaginal swabs, ThinPrep liquid pap samples, male urine samples and urethral swabs. Performance characteristics for Chlamydia trachomatis and Neisseria gonorrhoeae testing on specific ddr-YHA-thobpclq sample types (female urine samples) have been validated by [facility]. This laboratory is certified by CLIA to perform high complexity testing. Samples from all other sites are not validated for this method. Performed By: #### [facility] #### [facility] [address] [place] [address] CBC ANEMIA PANEL WITH REFLEX ,PREGNANCYon 02-24-2023 Erythrocyte distribution width (RBC) [Ratio] 13.2 % Normal 11.5 - 14.5 [facility] Comment on above: Performed By: #### A NEMI #### [address] [address] Hematocrit (Bld) [Volume fraction] 43.5 % Normal 36.0 - 46.0 [facility] Comment on above: Performed By: #### A NEMI #### [address] [address] Hemoglobin (Bld) [Mass/Vol] 13.9 g/dL Normal 12.0 - 16.0 [facility] Comment on above: Performed By: #### A NEMI #### [address] [address] MCHC (RBC) [Mass/Vol] 32.0 g/dL Normal 32.0 - 36.0 [facility] Comment on above: Performed By: #### A NEMI #### [address] [address] MCV (RBC) [Entitic vol] 100 fL Normal 80 - 100 [facility] Comment on above: Performed By: #### A NEMI #### [address] [address] Platelets (Bld) [#/Vol] 217 10*3/uL Normal 150 - 450 [facility] Comment on above: Performed By: #### A NEMI #### [address] [address] RBC 4.37 x10E12/L Normal 4.00 - 5.20 [facility] Comment on above: Performed By: #### A NEMI #### [address] [address] REFLEX ADDED, ANEMIA PANEL NONE Normal [facility] Comment on above: Performed By: #### A NEMI #### [address] [address] WBC (Bld) [#/Vol] 6.3 10*3/uL Normal 4.4 - 11.3 [facility] Comment on above: Performed By: #### A NEMI #### [address] [address] Cult, Genitalon 02-24-2023 Bacteria identified Aer cx Nom (Genital specimen) Abnormal [facility] [address] Work Phone: Cult, Urineon 02-24-2023 Bacteria identified Cx Nom (U) [facility] [address] Work Phone: GC + CHLAMYDIA BY AMPLIFIED DETECTIONon 02-24-2023 Lab Specimen Source Urine Normal [facility] Comment on above: Performed By: #### [facility] #### [facility] [address] [place] [address] Lab Specimen Source Urine Normal [facility] Comment on above: Performed By: #### [facility] #### [facility] [address] [place] [address] GC + Chlamydia By Amplified Detectionon 02-24-2023 C. trachomatis rRNA JOHNIE+probe Ql (Unsp spec) Negative Negative [facility] [address] Work Phone: Comment on above: The APTIMA Combo 2 a ssay is FDA-approved for Chlamydia trachomatis and Neisseria gonorrhoeae testing on female endocervical and vaginal swabs, ThinPrep liquid pap samples, male urine samples and urethral swabs. Performance characteristics for Chlamydia trachomatis and Neisseria gonorrhoeae testing on specific cpt-NXP-cwuwwenv sample types (female urine samples) have been validated by [facility]. This laboratory is certified by CLIA to perform high complexity testing. Samples from all other sites are not validated for this method. N. gonorrhoeae rRNA JOHNIE+probe Ql (Unsp spec) Negative Negative [facility] [address] Work Phone: Comment on above: SOURCE: Urine The AP ELVER Combo 2 assay is FDA-approved for Chlamydia trachomatis and Neisseria gonorrhoeae testing on female endocervical and vaginal swabs, ThinPrep liquid pap samples, male urine samples and urethral swabs. Performance characteristics for Chlamydia trachomatis and Neisseria gonorrhoeae testing on specific spe-UJS-xzmqgswb sample types (female urine samples) have been validated by [facility]. This laboratory is certified by CLIA to perform high complexity testing. Samples from all other sites are not validated for this method. C. trachomatis rRNA JOHNIE+probe Ql (Unsp spec) Negative Negative [facility] [address] Work Phone: Comment on above: The APTIMA Combo 2 a ssay is FDA-approved for Chlamydia trachomatis and Neisseria gonorrhoeae testing on female endocervical and vaginal swabs, ThinPrep liquid pap samples, male urine samples and urethral swabs. Performance characteristics for Chlamydia trachomatis and Neisseria gonorrhoeae testing on specific dur-BZN-xzpwiidi sample types (female urine samples) have been validated by [facility]. This laboratory is certified by CLIA to perform high complexity testing. Samples from all other sites are not validated for this method. N. gonorrhoeae rRNA JOHNIE+probe Ql (Unsp spec) Negative Negative [facility] [address] Work Phone: Comment on above: SOURCE: Urine The AP ELVER Combo 2 assay is FDA-approved for Chlamydia trachomatis and Neisseria gonorrhoeae testing on female endocervical and vaginal swabs, ThinPrep liquid pap samples, male urine samples and urethral swabs. Performance characteristics for Chlamydia trachomatis and Neisseria gonorrhoeae testing on specific dua-QDI-caxcxnhk sample types (female urine samples) have been validated by [facility]. This laboratory is certified by CLIA to perform high complexity testing. Samples from all other sites are not validated for this method. GENITAL CULTURE, BACT.on GENITAL CULTURE, BACT. PATIENT: ALAINA WARNER LOCATION: [facility] BILL#: [id number] : [birth year] AGE: SEX: F ORDERED BY: MARIA R GOSS SOURCE: GENITAL COLLECTED: 02/24/23 11:32 ANTIBIOTICS AT VINCE.: RECEIVED : 02/25/23 00:10 SITE: Vaginal R E S U L T S GENITAL CULTURE, BACT. FINAL 02/28/23 08:13 Culture examined for Group A Streptococcus, Group B Streptococcus, Neisseria gonorrhoeae and Yeast ONLY. NO Neisseria gonorrhoeae ISOLATED. ISOLATE1 : Anahi albicans 1+ Normal [facility] Comment on above: Performed By: #### G ENLO #### [facility] [address] [place] [address] HCG, Beta Quantitativeon HCG.beta subunit Qn m[IU]/mL [facility] [address] Work Phone: Comment on above: .Total HCG measureme nt is performed using the Mainstream Data AccessImmunoassay which detects intact HCG and free beta HCG subunit. .This test is not indicated for use as a tumor marker.HCG testing is performed using a different test methodology at [facility] than other [facility]. Direct result comparisonshould only be made within the same method. REF VALUESNON FEMALE <5MALES <5 HCG,BETA-QUANTITATIVEon 08-0 HCG,BETA-QUANTITATIV E <2 Normal [facility] Comment on above: Result Comment: . Total HCG measurement is performed using the [employer] [place] Access Immunoassay which detects intact HCG and free beta HCG subunit. . This test is not indicated for use as a tumor marker. HCG testing is performed using a different test methodology at [facility] than other [facility]. Direct result comparison should only be made within the same method. REF VALUES NON FEMALE <5 MALES <5 Performed By: #### H QU #### [facility] [address] [place] [address] LMPon 02-24-2023 Last menstrual period start date 10Feb2023 [facility] [address] Work Phone: [phone] Laboratory - Hematology and Cell countson 02-24-2023 Erythrocyte distribution width (RBC) [Ratio] 13.2 % See Below [facility] [address] Work Phone: [phone] Comment on above: Reference Range: 11. 5 - 14.5 Hematocrit (Bld) [Volume fraction] 43.5 % See Below [facility] [address] Work Phone: [phone] Comment on above: Reference Range: 36. 0 - 46.0 Hemoglobin (Bld) [Mass/Vol] 13.9 g/dL See Below [facility] [address] Work Phone: [phone] Comment on above: Reference Range: 12. 0 - 16.0 MCHC (RBC) [Mass/Vol] 32.0 g/dL See Below [facility] [address] Work Phone: [phone] Comment on above: Reference Range: 32. 0 - 36.0 MCV (RBC) [Entitic vol] 100 fL 80 - 100 [facility] [address] Work Phone: [phone] Platelets (Bld) [#/Vol] 217 10*3/uL 150 - 450 [facility] [address] Work Phone: [phone] RBC (Bld) [#/Vol] 4.37 {x10E12/L} See Below [facility] [address] Work Phone: [phone] Comment on above: Reference Range: 4.0 0 - 5.20 WBC (Bld) [#/Vol] 6.3 10*3/uL 4.4 - 11.3 [facility] [address] Work Phone: [phone] Panel Informationon 02-24 NONE [facility] [employer] Work Phone: [phone] ENVIRONMENTAL MONITORING SPECIALIST - Office Visiton ENVIRONMENTAL MONITORING SPECIALIST - Office Visit Diagnoses/Problems Assessed Miscarriage (634.90) (O03.9) Orders Renew: Enskyce 0.15-30 MG-MCG Oral Tablet; take 1 tablet by mouth once daily Cult, Urine; Status:In Progress - Specimen/Data Collected,Retrospective Authorization; Done: 24Feb2023 COMPLETE BLOOD COUNT ANEMIA PANEL WITH REFLEX,; Status:Active; Requested for:24Feb2023; HCG, Beta Quantitative; Status:Active; Requested for:24Feb2023; GC + Chlamydia By Amplified Detection; Status:In Progress - Specimen/Data Collected,Retrospective Authorization; Done: 24Feb2023 Cult, Genital; Status:In Progress - Specimen/Data Collected,Retrospective Authorization; Done: 24Feb2023 Site : Vaginal Provider Impressions Julianne is a 22-year-old who 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 Pap smear was not indicated. Patient reports prolonged irregular bleeding with the Depo-Provera has since discontinued it. We will restart her on a control pill. Patient with low-grade pelvic pain and a previous miscarriage we will get blood work and cultures and call back patient with any abnormal results Chief Complaint PT HERE TODAY WANTING TO DISCUSS CONTROL. PT WAS ON THE DEPO, BUT MISSED HER LAST ONE IN AUG, 2022. PT STATES SHE HAS BEEN BLEEDING WITH THE DEPO, HAVING MULTIPLE EPISODES OF BLEEDING A MONTH. PT WOULD LIKE TO SWITCH BACK TO THE PILL. History of Present IllnessJulianne is a 22-year-old who 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 Patient has been on the Depo-Provera for over a year and reports that from the time she started that she never really stopped bleeding she would bleed every month throughout the month sometimes heavy sometimes light. Patient is no longer interested in doing the Depo-Provera her last injection was over 3 months ago. Patient wants to be switched back to her control pills that she was taking previously. Patient reports also that she had a miscarriage at approximately a month ago and had very heavy bleeding. She did not go to the emergency room but reports that since then she has been having some low-grade discomfort and still having some bloody discharge. Review of Systems Constitutional: Denies any significant changes. Cardiovascular: Denies any chest pain or palpitations. Respiratory: Denies any shortness of breath or cough. Gastrointestinal: Denies any changes in bowel habits or abdominal pain. Genitourinary: as noted in HPI. Musculoskeletal: Denies any changes in her bowel habits. Psychiatric: Eyes any changes in her mood or in her sleep. Active Problems Problems Acute cystitis without hematuria (595.0) (N30.00) Chlamydia infection (079.98) (A74.9) Contraception management (V25.9) (Z30.9) Encounter for surveillance of injectable contraceptive (V25.49) (Z30.42) exam (V24.2) (Z39.2) with 35 completed weeks gestation (V22.2) (Z3A.35) with 36 completed weeks gestation (V22.2) (Z3A.36) with 37 weeks completed gestation (V22.2) (Z3A.37) with 38 completed weeks gestation (V22.2) (Z3A.38) Screen for STD (sexually transmitted disease) (V74.5) (Z11.3) Screening for cervical cancer (V76.2) (Z12.4) Small for gestational age fetus Urine test negative (V72.41) (Z32.02) Vaginal irritation (623.9) (N89.8) Women's annual routine gynecological examination (V72.31) (Z01.419) Past Medical History Problems History of Menstruation 14 History of Normal vaginal delivery (650) (O80) 05/23/2019 29 weeks female 6lbs 9oz Social History Problems Current some day smoker (305.1) (F17.200) Denies alcohol consumption (V49.89) (Z78.9) Allergies NoKnown No Known Allergies Recorded By: Mechelle Etienne; 03/29/2021 10:54:12 AM Current Meds Medication NameInstruction Depo-Provera 150 MG/ML Intramuscular Suspension Prefilled Syringe TABS Vitals Vital Signs Recorded: 24Feb2023 11:07AM Pdcykfxj190 Zoifuggxr30 Height5 ft 4 in Dgfmjg021 lb 5.84 oz BMI Psxwspppiv89.21 kg/m2 BSA Calculated1.63 [id number] Physical Exam Constitutional: Young healthy appearing in no distress. Head and Face: No obvious lesions. Neck: Supple without adenopathy. Cardiovascular: Regular rate and rhythm. Pulmonary: Clear to auscultation. Chest: No masses discharge retraction or skin changes. Abdomen: Soft nontender no masses. External genitalia revealed no lesions the vagina appeared well estrogenized with a small amount of brownish mucousy discharge the cervix was healthy nonfriable uterus and adnexa were normal nontender Musculoskeletal: Good mobility. Psychiatric: Appropriately oriented with normal mood and affect. Signatures Electronically signed by : Maria R Goss MD; Feb 24 2023 11:35AM EST (Author) Normal Touchworks URINE CULTURE,BACTERIALon URINE CULTURE,BACTERIAL PATIENT: ALAINA WARNER LOCATION: [address]#: [id number] : [birth year] AGE: SEX: F ORDERED BY: MARIA R GOSS SOURCE: URINE COLLECTED: 02/24/23 11:31 ANTIBIOTICS AT VINCE.: RECEIVED : 02/25/23 00:27 SITE: Clean Catch/Voided R E S U L T S URINE CULTURE,BACTERIAL FINAL 02/25/23 17:07 NO GROWTH Normal [facility] Comment on above: Performed By: #### U RINC #### [facility] [address] [place] [address] GC + CHLAMYDIA BY AMPLIFIED DETECTIONon 06-28-2022 CHLAMYDIA TRACH.,AMPLIFIED Negative Normal Negative [facility] Comment on above: Result Comment: The APTIMA Combo 2 assay is FDA-approved for Chlamydia trachomatis and Neisseria gonorrhoeae testing on female endocervical and vaginal swabs, ThinPrep liquid pap samples, male urine samples and urethral swabs. Performance characteristics for Chlamydia trachomatis and Neisseria gonorrhoeae testing on specific atv-OYJ-xgwbbsgb sample types (female urine samples) have been validated by [facility]. This laboratory is certified by CLIA to perform high complexity testing. Samples from all other sites are not validated for this method. Performed By: #### G [facility] #### [facility] [address] [place] [address] N.GONORRHEA,AMPLIFIE D Negative Normal Negative [facility] Comment on above: Result Comment: The APTIMA Combo 2 assay is FDA-approved for Chlamydia trachomatis and Neisseria gonorrhoeae testing on female endocervical and vaginal swabs, ThinPrep liquid pap samples, male urine samples and urethral swabs. Performance characteristics for Chlamydia trachomatis and Neisseria gonorrhoeae testing on specific myw-TNR-hcjanmyv sample types (female urine samples) have been validated by [facility]. This laboratory is certified by CLIA to perform high complexity testing. Samples from all other sites are not validated for this method. Performed By: #### G [facility] #### [facility] [address] [place], [place] Cult, Genitalon 06-27-2022 Bacteria identified Aer cx Nom (Genital specimen) [facility] [address] Work Phone: [phone] Cult, Urineon 06-27-2022 Bacteria identified Cx Nom (U) [facility] [address] Work Phone: [phone] GC + CHLAMYDIA BY AMPLIFIED DETECTIONon 06-27-2022 Lab Specimen Source Urine Normal [facility] Comment on above: Performed By: #### G [facility] #### [facility] [address] [place], [place] GC + Chlamydia By Amplified Detectionon 06-27-2022 C. trachomatis rRNA JOHNIE+probe Ql (Unsp spec) Negative Negative [facility] [address] Work Phone: [phone] Comment on above: The APTIMA Combo 2 a ssay is FDA-approved for Chlamydia trachomatis and Neisseria gonorrhoeae testing on female endocervical and vaginal swabs, ThinPrep liquid pap samples, male urine samples and urethral swabs. Performance characteristics for Chlamydia trachomatis and Neisseria gonorrhoeae testing on specific rzi-JJU-abbgheuq sample types (female urine samples) have been validated by [facility]. This laboratory is certified by CLIA to perform high complexity testing. Samples from all other sites are not validated for this method. N. gonorrhoeae rRNA JOHNIE+probe Ql (Unsp spec) Negative Negative [facility] [address] Work Phone: Comment on above: SOURCE: Urine The AP ELVER Combo 2 assay is FDA-approved for Chlamydia trachomatis and Neisseria gonorrhoeae testing on female endocervical and vaginal swabs, ThinPrep liquid pap samples, male urine samples and urethral swabs. Performance characteristics for Chlamydia trachomatis and Neisseria gonorrhoeae testing on specific qjv-NXT-refyqolv sample types (female urine samples) have been validated by [facility]. This laboratory is certified by CLIA to perform high complexity testing. Samples from all other sites are not validated for this method. GENITAL CULTURE, BACT.on GENITAL CULTURE, BACT. PATIENT: ALANIA WARNER LOCATION: [facility] BILL#: [id number] : [birth year] AGE: SEX: F ORDERED BY: MARIA R GOSS SOURCE: GENITAL COLLECTED: 06/27/22 15:47 ANTIBIOTICS AT VINCE.: RECEIVED : 06/28/22 00:59 SITE: Vaginal R E S U L T S GENITAL CULTURE, BACT. FINAL 07/01/22 13:01 NO PATHOGENS Culture examined for Group A Streptococcus, Group B Streptococcus, Neisseria gonorrhoeae and Yeast ONLY. Normal [facility] Comment on above: Performed By: #### G ENLO #### [facility] [address] [place] [address] LMPon 06-27-2022 Last menstrual period start date 23Jun2022 [facility] [address] Work Phone: ENVIRONMENTAL MONITORING SPECIALIST - Office Visiton ENVIRONMENTAL MONITORING SPECIALIST - Office Visit Diagnoses/Problems Assessed Vaginal irritation (623.9) (N89.8) Screen for STD (sexually transmitted disease) (V74.5) (Z11.3) Orders GC + Chlamydia By Amplified Detection; Status:In Progress - Specimen/Data Collected; Done: [id number] Cult, Genital; Status:In Progress - Specimen/Data Collected; Done: [id number] Site : Vaginal Cult, Urine; Status:In Progress - Specimen/Data Collected; Done: [id number] Provider Impressions Patient is a 21-year-old who comes in with concerns of vulvitis suspect it was secondary to her new pantiliners. Exam was benign cultures were sent patient was reassured. Chief Complaint Patient here today for vaginal irritation. She states it was worse yesterday when she was wearing pads for her spotting. She states they were new. As well as a new razor she is using. LMP:06/23/2022 History of Present IllnessPatient is here for evaluation of vulvar irritation for several days. Patient reports that she has been on the Depo-Provera now for approximately 6 months and occasionally has slight bleeding. Patient reports that she used new panty liners and is concerned that the irritation was not from the panty liners and that it may be from some other source. However since she stopped using those pantiliners the irritation and swelling has resolved patient currently denies any abnormal discharge Active Problems Problems Acute cystitis without hematuria (595.0) (N30.00) Chlamydia infection (079.98) (A74.9) Contraception management (V25.9) (Z30.9) Encounter for surveillance of injectable contraceptive (V25.49) (Z30.42) exam (V24.2) (Z39.2) with 35 completed weeks gestation (V22.2) (Z3A.35) with 36 completed weeks gestation (V22.2) (Z3A.36) with 37 weeks completed gestation (V22.2) (Z3A.37) with 38 completed weeks gestation (V22.2) (Z3A.38) Screen for STD (sexually transmitted disease) (V74.5) (Z11.3) Screening for cervical cancer (V76.2) (Z12.4) Small for gestational age fetus Urine test negative (V72.41) (Z32.02) Women's annual routine gynecological examination (V72.31) (Z01.419) Past Medical History Problems History of Menstruation 14 History of Normal vaginal delivery (650) (O80) 05/23/2019 29 weeks female 6lbs 9oz Social History Problems Current some day smoker (305.1) (F17.200) Denies alcohol consumption (V49.89) (Z78.9) Allergies NoKnown No Known Allergies Recorded By: Mechelle Etienne; 03/29/2021 10:54:12 AM Current Meds Medication NameInstruction Depo-Provera 150 MG/ML Intramuscular Suspension Prefilled Syringe TABS Vitals Vital Signs Recorded: [id number] 03:13PM Sfkykool179 Eibadhzdo00 Height5 ft 4 in Bvwcax795 lb 8 oz BMI Ikwlcnwmhf98.57 kg/m2 BSA Calculated1.64 [id number] Physical Exam Constitutional: Healthy-appearing in no distress. Head and Face: No obvious lesions. Pulmonary: Clear to auscultation. Chest: Breathing comfortably. External genitalia revealed no lesions no erythema no induration external genitalia was completely healthy the vagina was well estrogenized with scant creamy white sfc-srbs-wrdhgurg discharge the cervix was nonfriable Musculoskeletal: Good mobility of her extremities. Psychiatric: Appropriately oriented with normal mood and affect. Wet mount negative x3 Signatures Electronically signed by : Maria R Goss DO; Jun 27 2022 4:40PM EST (Author) Normal Touchworks URINE CULTURE,BACTERIALon URINE CULTURE,BACTERIAL PATIENT: ALAINA WARNER LOCATION: [address]#: [id number] : [birth year] AGE: SEX: F ORDERED BY: MARIA R GOSS SOURCE: URINE COLLECTED: 06/27/22 15:17 ANTIBIOTICS AT VINCE.: RECEIVED : 06/28/22 00:56 SITE: Clean Catch/Voided R E S U L T S URINE CULTURE,BACTERIAL FINAL 06/28/22 17:30 NO GROWTH Normal [facility] Comment on above: Performed By: #### U RINC #### [facility] [address] [place] [address] GC + Chlamydia By Amplified Detectionon 02-04-2022 C. trachomatis rRNA JOHNIE+probe Ql (Unsp spec) Negative Negative [facility] [address] Work Phone: Comment on above: The APTIMA Combo 2 a ssay is FDA-approved for Chlamydia trachomatis and Neisseria gonorrhoeae testing on female endocervical and vaginal swabs, ThinPrep liquid pap samples, male urine samples and urethral swabs. Performance characteristics for Chlamydia trachomatis and Neisseria gonorrhoeae testing on specific xlj-UHZ-wykixexn sample types (female urine samples) have been validated by [facility]. This laboratory is certified by CLIA to perform high complexity testing. Samples from all other sites are not validated for this method. N. gonorrhoeae rRNA JOHNIE+probe Ql (Unsp spec) Negative Negative [facility] [address] Work Phone: Comment on above: SOURCE: Urine The AP ELVER Combo 2 assay is FDA-approved for Chlamydia trachomatis and Neisseria gonorrhoeae testing on female endocervical and vaginal swabs, ThinPrep liquid pap samples, male urine samples and urethral swabs. Performance characteristics for Chlamydia trachomatis and Neisseria gonorrhoeae testing on specific aja-XZG-rfoyruez sample types (female urine samples) have been validated by [facility]. This laboratory is certified by CLIA to perform high complexity testing. Samples from all other sites are not validated for this method. GC + Chlamydia By Amplified Detectionon 01-07-2022 C. trachomatis rRNA JOHNIE+probe Ql (Unsp spec) Positive Abnormal Negative [facility] [address] Work Phone: Comment on above: The APTIMA Combo 2 a ssay is FDA-approved for Chlamydia trachomatis and Neisseria gonorrhoeae testing on female endocervical and vaginal swabs, ThinPrep liquid pap samples, male urine samples and urethral swabs. Performance characteristics for Chlamydia trachomatis and Neisseria gonorrhoeae testing on specific hxy-VVS-mgovpmxi sample types (female urine samples) have been validated by [facility]. This laboratory is certified by CLIA to perform high complexity testing. Samples from all other sites are not validated for this method. N. gonorrhoeae rRNA JOHNIE+probe Ql (Unsp spec) Negative Negative [facility] [address] Work Phone: Comment on above: SOURCE: Urine The AP ELVER Combo 2 assay is FDA-approved for Chlamydia trachomatis and Neisseria gonorrhoeae testing on female endocervical and vaginal swabs, ThinPrep liquid pap samples, male urine samples and urethral swabs. Performance characteristics for Chlamydia trachomatis and Neisseria gonorrhoeae testing on specific inq-IWL-wkioexwn sample types (female urine samples) have been validated by [facility]. This laboratory is certified by CLIA to perform high complexity testing. Samples from all other sites are not validated for this method. HIV 1/2 ANTIGEN/ANTIBODY SCR EEN WITH REFLEX TO CONFIRMATIONon 01-07-2022 HIV 1+2 Ab Qn (S) Non-Reactive See Below [facility] [address] Work Phone: Comment on above: SOURCE: Reference nge: NONREACTIVE HIV Ag/Ab screen is performed using the Siemens DopiosllPATHEOS HIV Ag/Ab Combo assay which detects the presence of HIV p24 antigen as well as antibodies to HIV-1 (Group M and O) and HIV-2..No laboratory evidence of HIV infection. If acute HIV infection is suspected, consider testing for HIV RNA by PCR (viral load). HSV TYPE I / II, IGMon 01-07 HSV 1+2 IgM IA Qn (S) 0.38 {IV} <=0.89 [facility] [address] Work Phone: Comment on above: INTERPRETIVE INFORMA TION: Herpes Simplex Virus Type 1 and/or 2 Antibodies, IgM by JOSH 0.89 IV or Less .......... Not Detected 0.90 - 1.09 IV ........... Indeterminate- Repeat testing in 10-14 days may be helpful. 1.10 IV or Greater ....... Detected-IgM antibody to HSV detected, which may indicate a current or recent infection. However, low levels of IgM antibodies may occasionally persist for more than 12 months post-infection.Performed By: [employer] [place] [id number] Director: Grisel Juares MD Hepatitis Panel, Acute (HCFA )on 01-07-2022 HAV IgM IA Ql Non-Reactive See Below [facility] [address] Work Phone: Comment on above: SOURCE: Reference Ra nge: NONREACTIVE Biotin interference may cause falsely decreased results. Patients taking a Biotin dose of up to 5 mg/day should refrain from taking Biotin for 24 hours before sample collection. Providers may contact their local laboratory for further information. Hepatitis Panel, Acute (HCFA) Non-Reactive See Below [facility] [address] Work Phone: Comment on above: SOURCE: Reference Ra nge: NONREACTIVE Biotin interference may cause falsely decreased results. Patients taking a Biotin dose of up to 5 mg/day should refrain from taking Biotin for 24 hours before sample collection. Providers may contact their local laboratory for further information. Reference Range: NON REACTIVE Results from patients taking biotin supplements or receiving high-dose biotin therapy should be interpreted with caution due to possible interference with this test. Providers may contact their local laboratory for further information. Reference Range: NON REACTIVE Biotin interference may cause falsely decreased results. Patients taking a Biotin dose of up to 5 mg/day should refrain from taking Biotin for 24 hours before sample collection. Providers may contact their local laboratory for further information. LMPon 01-07-2022 Last menstrual period start date Depo [facility] [address] Work Phone: No Panel Informationon 01-07 <0.2 [facility] [address] Work Phone: [phone] Comment on above: POTENTIAL FOR CROSS- REACTIVITY BETWEENHSV I AND HSV II EXISTS.REF VALUESNEGATIVE <0.9EQUIVOCAL >=0.90 <=1.10POSITIVE >1.10 >8.0 Abnormal [facility] [address] Work Phone: Comment on above: REF VALUESNEGATIVE < 0.9EQUIVOCAL >=0.90 <=1.10POSITIVE >1.10 SYPHILIS SCREENING WITH REFL EXon 01-07-2022 T. pallidum IgG+IgM IA Ql (S) Non-Reactive See Below [facility] [address] Work Phone: Comment on above: Reference Range: NON REACTIVENo significant level of Treponema pallidum antibody detected. Repeat testing in 2 to 4 weeks may be considered if early infection or incubating syphilis infection is suspected. GC + Chlamydia By Amplified Detectionon 10-14-2021 C. trachomatis rRNA JOHNIE+probe Ql (Unsp spec) Positive Abnormal Negative [facility] [place] [address] Work Phone: [phone] Comment on above: The APTIMA Combo 2 a ssay is FDA-approved for Chlamydia trachomatis and Neisseria gonorrhoeae testing on female endocervical and vaginal swabs, ThinPrep liquid pap samples, male urine samples and urethral swabs. Performance characteristics for Chlamydia trachomatis and Neisseria gonorrhoeae testing on specific kne-CWQ-ruintgvs sample types (female urine samples) have been validated by [facility]. This laboratory is certified by CLIA to perform high complexity testing. Samples from all other sites are not validated for this method. N. gonorrhoeae rRNA JOHNIE+probe Ql (Unsp spec) Negative Negative [facility] [place] [address] Work Phone: [phone] Comment on above: SOURCE: Urine The AP ELVER Combo 2 assay is FDA-approved for Chlamydia trachomatis and Neisseria gonorrhoeae testing on female endocervical and vaginal swabs, ThinPrep liquid pap samples, male urine samples and urethral swabs. Performance characteristics for Chlamydia trachomatis and Neisseria gonorrhoeae testing on specific kcx-AVG-mpvqbbma sample types (female urine samples) have been validated by [facility] [place]. This laboratory is certified by CLIA to perform high complexity testing. Samples from all other sites are not validated for this method. IO HCG, Urine Test on 10-14-2021 HCG ( test) Ql (U) Negative [facility] [place] [address] [address] Work Phone: [phone] IO HCG, Urine Test on 10-07-2021 HCG ( test) Ql (U) Negative [facility] [place] [address] [address] Work Phone: [phone] LMPon 10-07-2021 Last menstrual period start date 30Sep2021 [facility] [address] [address] Work Phone: [phone] Laboratory - Cytologyon 09-24 Cytology report Cyto stain.thin prep Doc (Cvx/Vag) [facility] [place] [address] [address] Work Phone: [phone] CBCon 05-09-2021 Erythrocyte distribution width (RBC) [Ratio] 13.4 % Normal 11.5 - 14.5 [facility] Comment on above: Performed By: #### S YPHR #### [facility] [address] [place] [address] Hematocrit (Bld) [Volume fraction] 33.2 % Low 36.0 - 46.0 [facility] Comment on above: Performed By: #### S YPHR #### [facility] [address] [place] [address] Hemoglobin (Bld) [Mass/Vol] 11.0 g/dL Low 12.0 - 16.0 [facility] Comment on above: Performed By: #### S YPHR #### [facility] [address] [place] [address] MCHC (RBC) [Mass/Vol] 33.0 g/dL Normal 32.0 - 36.0 [facility] Comment on above: Performed By: #### S YPHR #### [facility] [address] [place] [address] MCV (RBC) [Entitic vol] 103 fL High 80 - 100 [facility] Comment on above: Performed By: #### S YPHR #### [facility] [address] [place] [address] Platelets (Bld) [#/Vol] 238 10*3/uL Normal 150 - 450 [facility] Comment on above: Performed By: #### S YPHR #### [facility] [address] [place] [address] RBC 3.24 x10E12/L Low 4.00 - 5.20 [facility] Comment on above: Performed By: #### S YPHR #### [facility] [address] [place] [address] WBC (Bld) [#/Vol] 15.6 10*3/uL High 4.4 - 11.3 [facility] Comment on above: Performed By: #### S YPHR #### [facility] [address] [place] [address] Discharge [id number] Discharge Profile2 Discharge Orders: Anticipated Discharge Date: Anticipated Discharge [id number] Anticipated Discharge Time12:00 Problem List: Admitting Dx: : Catalog Name: Encounter for supervision of normal , unspecified, unspecified trimester Hospital Providers: Provider RoleProvider Name Jessica Sanchezna DNAR: DNAR Status: none : Call 911: Call 911 or go to the nearest emergency room RIGHT AWAY if you have:. Chest pain or pressure; heart racing. Shortness of breath or difficulty breathing. Seizures; change in alertness or confusion. Thoughts of hurting yourself or someone else. Call Provider: Call your OB Provider if you have: (If you can't reach your healthcare provider, call 911 or go to an emergency room). Heavy bleeding. Soaking a large pad every hour or passing large clots. Incision that is not healing, is red or more painful, or has pus (if you have an incision). Red or swollen leg that is painful or warm to touch. Temperature of 100.4 degrees F or higher; bad-smelling vaginal blood or discharge. Headache that does not get better, even after taking medicine; bad headache with vision changes; pain in the upper right area of your belly. Signs of Depression. Examples include: 1. Persistent sadness 2. Frequent crying 3. Sleep problems 4. Excessive worrying 5. Feeling unable to cope. Red or swollen breast that is painful or warm to touch. Pain, burning, or difficulty with emptying your bladder. Severe constipation (more than 5 days). Trust your instincts. Always get medical care if you are not feeling well or have questions or concerns.. Activity: Return to normal activity as tolerated. Patient Instructions: Pelvic Rest: DO NOT place anything in vagina until cleared by OB Provider. May NOT return to school/work until cleared by OB Provider. Blood Pressure: Any Blood Pressure Systolic (upper number) 160 or higher OR Diastolic (bottom number) 110 or higher, call your doctor or backend tester immediately. Blood Pressure Systolic (upper number) 150 - 159 OR Diastolic (bottom number) 100 - 109, repeat in one hour. If repeat Blood Pressure Systolic 150 - 159 OR Diastolic 100 - 109, call your doctor or backend tester to discuss blood pressure management.. Diet: Regular. Follow-Up - OB Provider: Physician/Dept/ServiceOB Provider Dr Goss Call to Schedule in6 weeks Phone [phone] Electronic Signatures: Maria R Goss) (Signed 09-May-2021 11:26) Authored: Discharge Orders, , Gold Form - Parachute/Combatant Diver Officer Summary Last Updated: 09-May-2021 11:26 by Maria R Goss) [facility] Order Reconciliationon 05-09 Order Reconciliation Page 1 Discharge Reconciliation Document Reconciliation Type: Discharge requested on behalf of Maria R Goss (Physician) done by Maria R Goss) Discharge - Reconciliation: 09-May-2021 11:22 by: Maria R Goss) Home Medications EnteredHOME MEDICATIONS AT DISCHARGE DateReconciliation Comment/ Additional Information 1 Plus 1 oral tablet 1 tab(s) orally once a day 07-May-2021 06:18 1 Plus 1 oral tablet 1 tab(s) orally once a day 07-May-2021 06:18 1 Plus 1 oral tablet is continued as 1 Plus 1 oral tablet Current OrdersDateHOME MEDICATIONS AT DISCHARGE DateReconciliation Comment/ Additional Information Benzocaine 20% - Menthol 0.5% Topical [place] (DERMOPLAST)DOSE = 1 application(s) Topical 4 Times a Day, PRN DiscomfortApply to Perianal Area 08-May-2021 06:40 Benzocaine 20% - Menthol 0.5% Topical is not required Bisacodyl Rectal Suppository (DULCOLAX)DOSE = 10 mg Rectal Daily, PRN Severe constipation 08-May-2021 06:40 Bisacodyl Rectal is not required diphenhydrAMINE Capsule (BENADRYL)DOSE = 25 mg Oral Every 6 Hours, PRN Itching 08-May-2021 06:40 diphenhydrAMINE is not required Docusate Capsule (COLACE)DOSE = 100 mg Oral 2 Times a Day, PRN Stool Softening 08-May-2021 06:40 Docusate is not required hydrALAZINE (APRESOLINE) Injectable DOSE = 5 mg IntraVenous Push Once, PRN Acute-onset, severe HTN w/out known, suspected CADClinician Notes: Consult provider prior to administration. Push over more than 2 minutes. Systolic greater than or equal to 16 11-Oct-2021 10:13 hydrALAZINE (APRESOLINE) Injectable is not required Ibuprofen Tablet (ADVIL, MOTRIN)DOSE = 600 mg Oral Every 6 HoursClinician Notes: Give with Acetaminophen. 08-May-2021 06:40 ibuprofen 600 mg oral tablet 1 tab(s) orally every 6 hours 09-May-2021 11:20 Prescription is created for ibuprofen 600 mg oral tablet Lanolin Topical Ointment (LANSINOH)DOSE = 1 application(s) Topical Daily, PRN Dry SkinApply to NippleClinician Notes: After and PRN 08-May-2021 06:40 Lanolin Topical is not required Loperamide Capsule (IMODIUM)DOSE = 4 mg Oral Every 2 Hours, PRN If Carboprost given or loose stoolsClinician Notes: Max dose of 16mg / 24 hours 06-May-2021 10:13 Loperamide is not required Magnesium Hydroxide -Al Hydrox -Simethicone Oral Liquid (MAALOX)DOSE = 30 mL Oral Every 4 Hours, PRN Indigestion 08-May-2021 06:40 Magnesium Hydroxide -Al Hydrox -Simethicone Oral Liquid is not required Magnesium Hydroxide Oral Liquid CONCENTRATE (MILK OF MAGNESIA)DOSE = 10 mL Oral Every 24 Hours, PRN Constipation 08-May-2021 06:40 Magnesium Hydroxide Oral Liquid CONCENTRATE is not required Measles -Mumps -Rubella (Live) MMR Vaccine DOSE = 0.5 mL SubCutaneous Once, PRN if patient screen is non- immune or equivocalClinician Notes: administer if patient screen is non- immune or equivocal 08-May-2021 06:40 Measles -Mumps -Rubella (Live) MMR Vaccine is not required miSOPROStol Tablet (CYTOTEC)DOSE = 25 microgram(s) Oral Every 2 HoursStop After 6 DosesClinician Notes: Contraindication: prior delivery, myomectomy or transfundal surgery.Notes from Pharmacy: Reproductive Risk - Single Nitrile Glove 06-May-2021 10:13 miSOPROStol is not required miSOPROStol Rectal Tablet (Cytotec)DOSE = 800 microgram(s) Rectal Once, PRN post bleedingClinician Notes: Consult provider prior to administration.Notes from Pharmacy: Reproductive Risk - Single Nitrile Glove 06-May-2021 10:13 miSOPROStol Rectal is not required Multivitamin with Minerals TabletDOSE = 1 tablet(s) Oral Daily 07-May-2021 07:44 Multivitamin with Minerals is not required NIFEdipine (PROCARDIA) CapsuleDOSE = 10 mg Oral Once, PRN Acute-onset, severe HTN w/out IV access/ pref oralClinician Notes: Consult provider prior to administration. Systolic greater than or equal to 160 OR Diastolic greater than or equal to 110. Cap 06-May-2021 10:13 NIFEdipine (PROCARDIA) is not required oxyCODONE Immediate Release Tablet (OXYIR, ROXICODONE)DOSE = 5 mg Oral Every 4 Hours, PRN Pain - Mod (4-6) cramping or back pain 08-May-2021 06:40 oxyCODONE Immediate Release is not required Oxytocin 30 units/ NaCL 0.9% 500 mL Bolus Solution (PITOCIN)IntraVenous ONE TIME Bolus = 600 milliunits/minAdmin Rate = 60 mL/hrStop After 1 DosesClinician Notes: Conditional order. 600 milliunits/min x 30 mins., then 60 milliunits/ 08-May-2021 06:40 Oxytocin 30 units/ NaCL 0.9% 500 mL Bolus is not required Oxytocin 30 units/ NaCL 0.9% 500 mL Infusion. Solution (PITOCIN)IntraVenous Initial Admin Rate = 2 mL/hrMAX DOSE Rate = 30 milliunits/minTitration Directions: Increase every 30 min by 2 mU/min per Oxytocin Administration guideline and 07-May-2021 16:55 Oxytocin 30 units/ NaCL 0.9% 500 mL Infusion. is not required Oxytocin Injectable (PITOCIN)DOSE = 10 unit(s) IntraMuscular OnceClinician Notes: Conditional order. Consult Provider prior to administra (more content not included)... Normal [facility] Delivery Recordon 05-08-2021 Delivery Record Lab Tests/Results: Labs: Labs: Blood Typed Date: 12-Apr-2021 Blood Type: O positive Antibody Screen Results: negative Chlamydia Results: not ordered Gonorrhea Results: not ordered Group B Strep Date: 05-Apr-2021 Strep Results: negative HBsAG Date: 12-Apr-2021 HBsAG Results: negative Hemoglobin A1C (dd-mmm-yy): 12-Apr-2021 Hemoglobin A1C: 4.4 % Estimated Average Glucose: 80 HIV Date: 12-Apr-2021 HIV Results: negative Rubella Date: 12-Apr-2021 Rubella Results: immune Rubella Comments: Result Value POSITIVE Syphilis (mmm-dd-yyyy): 07-May-2021 Syphilis Results: negative Maternal Delivery Information: Vaginal Delivery Information: Counts Correctyes [place] Delivery Information: Web Project Manager Information: Baby's Post Discharge Care Provider (Provider Name, Address and Phone Number) Dr. Alvarez Name of Inhouse PediatricianLMARY Galloway [place] A Delivery Information: Baby A Delivery: Rupture of Membranes date/[id number] 20:30 Amniotic Fluid Colorclear Delivery Typevaginal delivery Delivery Locationlabor and delivery Delivery Date/[id number] 06:10 Length of Time of ROM (rounded down to nearest hour)9 Sexfemale Identification Band [id number] Electronic Transponder [id number] ID Bands Verified byELIEZER [place] 4th ID band toFOB Weight (kg)3.205 kilogram(s) Length (cm)52 centimeter(s) Head Circumference (cm)35 centimeter(s) Chest Circumference (cm)31.7 Delivery of Placenta (hh:mm)06:20 Baby A: Placenta disposaldiscarded 1 Min: Heart [place] than 100 beats/min Respiratory Rateweak, irregular Muscle Tonewell flexed Reflex Irritabilitycough or sneeze Colorbody pink, extremities blue 1 Minute Score, Baby A8 5 Min: Heart Rat[place] than 100 beats/min Respiratory Rategood, crying Muscle Tonewell flexed Reflex Irritabilitycough or sneeze Colorbody pink, extremities blue 5 Minute Score, Baby A9 Resuscitation Efforts: Vigorous at Birthyes Resuscitation Effortstactile stimulation; bulb syringe Baby A: Transfer Baby A: Transfer toRemains with mother Baby A: Labs sentcord blood Delivery Team: Baby NurseAlice Tsai RN Electronic Signatures: Sydni Hale (RN) (Signed 08-May-2021 09:45) Authored: Lab Tests/Results, Maternal Delivery Information, [place] Delivery Information Last Updated: 08-May-2021 09:45 by Sydni Hale (RN) [facility] REQUEST-LEUKOREDUCED RED SRIRAM LSon 05-08-2021 REQUEST-LEUKOREDUCED RED CELLS ORDER RECD Normal [facility] Comment on above: Performed By: #### [facility] #### [facility] [address] [place] [place] [id number] Admission Risk Screen - OBon 05-07-2021 Admission Risk Screen - OB Allergies: Allergies: No Known Allergies: Patient Verification: New W ID Band Applied in my Departmentyes Patient Identity Verified Bypatient ID Band FULL Name, include Middle, spelling matches patient's ID used for verificationyes ID Band Matches Patient ID used for Verficationyes ID Band MRN Matches EMR MRNyes Visitor Restriction: Coronavirus Visitor Restriction: Reasonable restrictions to in-person visitors will be observed due to current coronavirus pandemic. Travel History: COVID-19 Screening Completedno exposure or symptoms Travel or Exposure Past 30 DaysNO travel to International locations in the past 30 days Advance Directive: Advance Directive/DNRno Advance Directive Information Givenpatient/family declined Ash Fall Screen: History of falling (immediate or previous)no (0) Secondary Diagnosisno (0) Intravenous Therapy/ Heparin/Saline Lockyes (20) Gait/Transferringnormal/ bedrest/wheelchair (0) Ambulatory Aidsnone/bedrest/nurse assist (0) Mental Statusoriented to own ability (0) Score: Low risk (<25). Moderate risk (25-44). High risk (>44).20 Ash InterventionsLOW INTERVENTIONS: *patient oriented to surroundings and call system, * patient/family falls education completed and documented, *patients fall status communicated during bedside handoff, *whiteboard updated, *mode of toileting discussed with patient, *bed in low position with brakes locked, *call light in reach, * non-skid footwear Functional screen: Functional Screen: In the recent/past 2-4 weeks, patient or family have noticedno issues that require a rehabilitation consult at this time Learning Assessment (Patient): Patient is Able to be Assessed for Learningyes Factors Influencing Readiness to Learnanxiety Factors that Impact Ability to Learnnone Devices/Methods Used to Communicateglasses Learning Preferenceswritten material; verbal instruction Cultural Considerationsnone Developmental Considerationsnone Nondenominational Considerationsnone Learning Assessment (Other Learner): Other learner availableno Nutrition Risk Screen: Nutrition Risk Screenno indicators present Nutrition Consult needed this visitno Can Patient Participate in Room Serviceyes Pain Screen: Pain Control Method: Laborepidural Pain Control Method: Postpartummedication Pain Scalenumerical 0-10 Pain Scale Educationteaching provided Acceptable Pain Level7 = Severe Presence of Painno Expression of Pain (nonverbal)none Lifestyle Changes/Adaptations in Response to Painno change Barriers to Reporting Painnone Chronic Painno Skin - Kt Scale: Kt Scale (daily): Kt: Sensory Perception (response to environment)(4) no impairment Kt: Moisture (degree skin exposed to moisture)(4) rarely moist Kt: Activity (ability to walk)(4) walks frequently Kt: Mobility (amount/control of body movement)(4) no limitation Kt: Nutrition (quality of food intake)(4) excellent Kt: Friction and Shear(3) no apparent problem Kt: Score23 Pressure Injury Present on Admissionno Spiritual Screen: Are there any cultural, spiritual, orthodox practices/values/needs that are important for us to knowno Do you want a visit/item from Pastoral [facility] Would you like your Music Composition Teacher/Neighborhood Service Center Director notifiedno Depression Screen: During the past month, have you often been bothered by feeling down, depressed or hopelessno During the past month, have you often had little interest or pleasure in doing thingsno Have you had any thoughts of harming anyone elseno [place] Suicide: Risk Screen Not Applicable/Able to Answerable to be screened In the Past Month: Have you wished you were or could go to sleep and not wake upno In the Past Month: Have you had any actual thoughts of killing yourselfno Lifetime: Have you ever done, started to do, or prepared to do anything to end your lifeno [place] Suicide Risknegative Family Violence Screen: Are you or have you been threatened or abused physically, emotionally, or sexually by anyoneno Has anyone ever threatened to hurt your family or your petsno Does anyone try to keep you from having/contacting other friends or doing things outside your homeno Do you feel UNSAFE going back to the place where you are livingno Do you feel anyone has exploited or taken advantage of you financially or of your personal propertyno Clinical assessment: Are there any apparent signs of injuries/behaviors that could be related to abuse/neglectno Social Service Consult for abuse/neglect needed this visitno Vaccinations: Vaccination - Influenza Vaccination Screen: Is it flu season (between and October 24)Yes Screening for identified contraindications to influenza vaccinationpatient already received vaccine this season Vaccination - Pneumonia Vaccination Screen: Patient has received a previous pneumonia vacci (more content not included)... Normal [facility] CBCon 05-07-2021 Erythrocyte distribution width (RBC) [Ratio] 13.3 % Normal 11.5 - 14.5 [facility] Comment on above: Performed By: #### C BC #### [place] [id number] Hematocrit (Bld) [Volume fraction] 34.9 % Low 36.0 - 46.0 [facility] Comment on above: Performed By: #### C BC #### [place] [id number] Hemoglobin (Bld) [Mass/Vol] 11.8 g/dL Low 12.0 - 16.0 [facility] Comment on above: Performed By: #### C BC #### [place] [id number] MCHC (RBC) [Mass/Vol] 33.8 g/dL Normal 32.0 - 36.0 [facility] Comment on above: Performed By: #### C BC #### [place] [id number] MCV (RBC) [Entitic vol] 101 fL High 80 - 100 [facility] Comment on above: Performed By: #### C BC #### [place] [id number] Platelets (Bld) [#/Vol] 266 10*3/uL Normal 150 - 450 [facility] Comment on above: Performed By: #### C BC #### [address] [address] RBC 3.45 x10E12/L Low 4.00 - 5.20 [facility] Comment on above: Performed By: #### C BC #### [address] [address] WBC (Bld) [#/Vol] 12.4 10*3/uL High 4.4 - 11.3 [facility] Comment on above: Performed By: #### C BC #### [place] [address] CORONAVIRUS 2019, SCREEN ASY MPTOMATICon 05-07-2021 SARS-CoV-2 (COVID-19) RNA JOHNIE+probe Ql (Unsp spec) Not detected Normal Not Detected [facility] Comment on above: Result Comment: . This test has received FDA Emergency Use Authorization (EUA) and has been verified by [facility]. This test is only authorized for the duration of time that circumstances exist to justify the authorization of the emergency use of in vitro diagnostic tests for the detection of SARS-CoV-2 virus and/or diagnosis of COVID-19 infection under section 564(b)(1) of the Act, 21 U.S.C. 360bbb-3(b)(1), unless the authorization is terminated or revoked sooner. [facility] is certified under CLIA-88 as qualified to perform high complexity testing. Testing is performed in the [facility] laboratory located at [address] [place] [address]. SARS-CoV-2/Flu/RSV Multiplex Test: Fact sheet for providers: https://www.fda.gov/media/603094/download Fact sheet for patients: https://www.fda.gov/media/252942/download Performed By: #### C OVSC #### [place] [address] Lab Specimen Source Nasal, Nasopharyngeal Normal [facility] Comment on above: Performed By: #### C OVSC #### [place] [address] Clinical Event Noteon 2020 Clinical Event Note Clinical Event: Clinical Event Note: Details Patient induction of labor. DetailsPatient reports she's comfortable s/p epidural. Denies LOF. No concerns Objective Information Alert and comfortable Cvx 4+/80/-2/soft/mid FHR : 140's moderate LTV, no decels, no variables [place]: ct'x aq 2-4 min Plan: start oxytocin. Recheck pt 4 hrs for AROM if not yet SROM. Continue with oxytocin per protocol. Plan of Care Reviewed Withpatient Electronic Signatures: Maria R Goss) (Signed 07-May-2021 16:59) Authored: Clinical Event Note Last Updated: 07-May-2021 16:59 by Maria R Goss) [facility] Covid 19 Resultson 1 SARS-CoV-2 (COVID-19) RNA JOHNIE+probe Ql (Unsp spec) NEGATIVE COVID-19 Test Coronaviruses are common world-wide and are the cause of many common colds. SARS-COV2 is a new coronavirus that began circulating worldwide in 2019 so we are calling it COVID-19. It has been estimated that four out of five patients with COVID-19 will recover at home without the need for medical attention. Symptoms of COVID-19 may include cough, fever, shortness of breath, loss of taste or smell and other flu-like symptoms including chills, sore muscles, sore throat, and headache. Severe illness is more common in older people and people with other health problems such as high blood pressure, obesity, and immune system problems. If the test is positive, you have COVID-19. You will be contacted by the ordering physicians office and instructed to remain on home isolation, in accordance with CDC guidelines. You may also be contacted by the [facility] to see if any of your close contacts may have been exposed to the virus and need to quarantine. If the test is negative, you likely do not have COVID-19 at this time, but you still may have a different illness that can spread to other people (like Influenza, or the Flu) and could still be at risk for getting COVID-19. We recommend that you stay away from other people to limit the spread of illness until your symptoms are improving and you are fever-free for 24 hours without the use of fever lowering medications such as acetaminophen or ibuprofen. No test is 100% accurate so if you are still concerned you may have COVID-19, talk to your doctor about the need to continue to stay away from others. Medicines Unless your provider told you not to use the following: Acetaminophen (Tylenol and others) is generally safe. Anti-inflammatory medications, such as Ibuprofen (Advil or Motrin) or Naproxen (Aleve) can also be used. Fjxf-xxx-obguifr cough and cold medicines can be used according to the instructions on the package. Some roqb-tha-nowozvb medicines also contain acetaminophen. Make sure you are not taking more than your recommended dose. For those not hospitalized, there is no specific treatment available for this illness. Antibiotics do not treat Coronaviruses. Follow-Up Follow up with your doctor by scheduling a virtual visit or consider follow-up at one of our urgent care fever clinics. If you are having difficulty breathing, or are very weak and having difficulty standing, this is a medical emergency. Call 911 or have someone take you to the nearest emergency room immediately. If possible, wear a facemask. Additional guidance from the CDC for patients who tested POSITIVE for COVID-19 How to isolate: Isolate yourself in a specific room at home and limit your contact with others. Use a separate bathroom from other members of the household, when possible. Leave home only to get essential medical care. Do not go to work, school or public areas. Avoid using public transportation, ride-sharing, or taxis. Restrict contact with pets and other animals. If you must care for your pet or be around animals while you are sick, wash your hands before and after your interaction and wear a facemask. Make sure that shared spaces in the home have good airflow, such as by an air conditioner or an opened window, weather permitting. Personal Hygiene Procedures: Wear a face mask when in the same room as other people or pets. If a face mask interferes with your breathing, others should wear a mask when sharing space with you. Frequent hand-washing: wash your hands with soap and water for at least 20 seconds. If soap and water are not available, use alcohol-based hand photographic platemaker. Avoid touching your eyes, nose, and mouth with unwashed hands. Household Hygiene Procedures: Avoid sharing personal household items such as dishes, glassware, cups, eating utensils, towels or bedding with other people or pets in your home. After use, these items should be washed with soap and hot water. Disinfect all high-touch surfaces every day with antibacterial cleaning solutions such as Lysol wipes, bleach, cleansers, etc. High-touch surfaces include tabletops, doorknobs, bathroom fixtures, toilets, phones, keyboards, tablets and bedside tables. Immediately clean any surfaces that may have blood, poop or body fluids on them, using antibacterial cleaning solutions such as Lysol wipes, bleach, cleansers, etc. If clothing or bedding come into contact with blood, poop or body fluids, they should be washed immediately. Follow the directions on the laundry detergent and clothing labels but hot water is recommended when possible. Stopping home isolation precautions: If possible, consult your doctor before stopping home isolation precautions. According to the CDC, you can discontinue home isolation precautions when you have met both of these criteria: Your fever and respiratory symptoms have been gone for 24 carolann (more content not included)... Normal [facility] Discharge Planning [id number] 1 Discharge Planning Note2 Discharge Planning: Discharge Barriersnone Planned Dispositionhome Anticipated Discharge [id number] Discharge Planning Date and Time: 05/07/21 0700 Discharge Planning initiated on admission and formally reevaluated at this time. Patient independent with ambulation and ADL's prior to admission. Additional home going needs anticipated at this time: None Handouts given to and reviewed with patient/caregiver per unit folder standards. Patient verbalizes understanding and denies any other post-discharge needs. Plan to continue to assess home going/discharge needs. Coordinate with interdisciplinary team as needed. Signature: ELIEZER Oviedo Date and Time: 05/09/21 @ 1440 According to plan, patient discharged home with in car seat and FOB Discharge instructions printed and reviewed. Teaching provided on new medications, self-care, signs and symptoms to report, and follow-up appointments. Patient verbalized understanding and denies any questions at time of discharge. Patient instructed to call provider with any additional questions after discharge. Signature: Abdelrahman Haro RNrubber off: Discharge Planning Assessment [id number] Lives Withdependent child(jorge); significant other(1) Living Arrangementshouse(1) [place]rived [place] ([place]) Resource/Environmental Concernsnone(1) Anticipated Transition T[place](1) Services Anticipated at Transitionnone(1) Anticipated Changes Related to Illnessnone Equipment Needed After Dischargenone Anticipated Discharge Facility/Level of Care NeedsHome Nursing Checklist: Discharge Instructions Reviewed WithPatient, Significant Other Discharge Instructions Outcomeverbalize recall/understanding Discharge Instructions Review Completed with Patient/Family (diet, activity, pt instructions)yes Discharge Documentation: Discharge/Transfer Date/[id number] 14:40 Discharged Accompanied Bysignificant other/partner Discharge Modeambulatory Transportation Methodprivate car Final DispositionHome Electronic Signatures: Candy Haro (RN) (Signed 09-May-2021 15:24) Authored: Discharge Planning, Nursing Checklist, Discharge Documentation Sydni Hale (RN) (Signed 07-May-2021 07:52) Authored: Discharge Planning, Assessment Last Updated: 09-May-2021 15:24 by Candy Haro (RN) References: 1. Data Referenced From Patient Profile - OB v3 07-May-2021 06:42 [facility] Order Reconciliationon 05-07 Order Reconciliation Page 1 Admission Reconciliation Document Reconciliation Type: Admission requested on behalf of Maria R Goss (Physician) done by Maria R Goss) Admission - Reconciliation: 07-May-2021 07:44 by: Maria R Goss) Home MedicationsEnteredLast Dose TakenReconciled with current Order Reconciliation Comment/ Additional Information 1 Plus 1 oral tablet 1 tab(s) orally once a [id number]-May-2021 PM Multivitamin with Minerals TabletDOSE = 1 tablet(s) Oral Daily 1 Plus 1 oral tablet continued as the inpatient order Multivitamin with Minerals Additional Current Orders Acetaminophen Rectal Suppository (TYLENOL)DOSE = 650 mg Rectal Once, PRN Initial pain mgmt following deliveryClinician Notes: Administer in the OR. Carboprost IntraMuscular (HEMABATE)DOSE = 250 microgram(s) IntraMuscular Once, PRN post bleeding in non-asthmatic patientClinician Notes: Consult provider prior to administration. hydrALAZINE (APRESOLINE) Injectable DOSE = 5 mg IntraVenous Push Once, PRN Acute-onset, severe HTN w/out known, suspected CADClinician Notes: Consult provider prior to administration. Push over more than 2 minutes. Systolic greater than or equal to 160 OR Diastolic greater than or equal to 110. Contraindication: coronary artery disease (CAD); Caution in suspected CAD. Labetalol Injectable (TRANDATE)DOSE = 20 mg IntraVenous Push Once, PRN Acute-onset, sev HTN w/o active asthma/ radha<60Clinician Notes: Consult provider prior to administration. Push over more than 2 minutes. Systolic greater than or equal to 160 OR Diastolic greater than or equal to 110. Contraindications: active asthma, heart disease, heart failure, maternal bradycardia < 60. Lactated Ringers Infusion IV Bag Volume = 1,000 mL Run at: 125 mL/hr IntraVenous Lactated Ringers IV Bolus DOSE = 500 mL Once, PRN resuscitationInfuse over 30 minute(s) Lactated Ringers IV Bolus DOSE = 500 mL Once, PRN If patient is given an EpiduralInfuse over 30 minute(s)Clinican Notes: Give 30 minutes prior to Epidural catheter placement Loperamide Capsule (IMODIUM)DOSE = 4 mg Oral Every 2 Hours, PRN If Carboprost given or loose stoolsClinician Notes: Max dose of 16mg / 24 hours Methylergonovine Injectable (METHERGINE)DOSE = 0.2 mg IntraMuscular Once, PRN PPH in pts w/o HTN or receiving ART for HIV mgmt.Clinician Notes: Consult provider prior to administration.Notes from Pharmacy: Reproductive Risk - Single Nitrile Glove miSOPROStol Rectal Tablet (Cytotec)DOSE = 800 microgram(s) Rectal Once, PRN post bleedingClinician Notes: Consult provider prior to administration.Notes from Pharmacy: Reproductive Risk - Single Nitrile Glove miSOPROStol Tablet (CYTOTEC)DOSE = 25 microgram(s) Oral Every 2 HoursStop After 6 DosesClinician Notes: Contraindication: prior delivery, myomectomy or transfundal surgery.Notes from Pharmacy: Reproductive Risk - Single Nitrile Glove miSOPROStol Tablet (CYTOTEC)DOSE = 25 microgram(s) Oral Every 4 HoursNotes from Pharmacy: Reproductive Risk - Single Nitrile Glove NIFEdipine (PROCARDIA) CapsuleDOSE = 10 mg Oral Once, PRN Acute-onset, severe HTN w/out IV access/ pref oralClinician Notes: Consult provider prior to administration. Systolic greater than or equal to 160 OR Diastolic greater than or equal to 110. Capsules administered orally and swallowed whole; Do not puncture or crush; Do not administer sublingually. Ondansetron Injectable (ZOFRAN)DOSE = 4 mg IntraVenous Push Once, PRN Nausea & Vomiting Oxytocin 30 units/ NaCL 0.9% 500 mL Bolus Solution (PITOCIN)IntraVenous ONE TIME Bolus = 600 milliunits/minAdmin Rate = 60 mL/hrStop After 1 DosesClinician Notes: 600 milliunits/min x 30 mins., then 60 milliunits/min for the remainder of the bag.Begin infusion at delivery of (s).Notes from Pharmacy: DOSE Rate = 60 milliunits/min = 60 mL/hr.Reproductive Risk - Single Nitrile Glove Oxytocin 30 units/ NaCL 0.9% 500 mL Bolus Solution (PITOCIN)IntraVenous ONE TIME Bolus = 600 milliunits/minAdmin Rate = 60 mL/hrStop After 1 DosesClinician Notes: Conditional order. 600 milliunits/min x 30 mins., then 60 milliunits/min for the remainder of the bag. For continued hemorrhage. Consult Provider prior to administration.Notes from Pharmacy: DOSE Rate = 60 milliunits/min = 60 mL/hr. Oxytocin Injectable (PITOCIN)DOSE = 10 unit(s) IntraMuscular OnceClinician Notes: Conditional order. Consult Provider prior to administration. Oxytocin Injectable (PITOCIN)DOSE = 10 unit(s) IntraMuscular Once, PRN Management-3rd Stage of labor if not given IVPBClinician Notes: Consult Provider prior to administration.Notes from Pharmacy: Reproductive Risk - Single Nitrile Glove Terbutaline Injectable (BRETHINE)DOSE = 0.25 mg SubCutaneous Once, PRN for Onset of Uterine Tetany Tranexamic Acid Injectable (CYKLOKAPRON)DOSE = 1,000 mg IntraVenous Push Once, PRN Po (more content not included)... [facility] Patient Profile - OB v3on Patient Profile - OB v3 Profile: Initial Info: How to be AddressedBreana Spoken Language PreferredEnglish Source of Informationpatient Reason for admission this visitexpected delivery Wants Family/Rep Notified of Admissionn/a; family present Notify PCPdo not notify PCP Informed of Patient Visiting Rightsyes Limitations on Visitors/Phone Callsnone Temporary Family Living Arrangements (While Hospitalized)none needed Arrived [facility] Was Admitted To in Past 90 Daysnone Patient Belongingsremains with patient Home Meds have been Reviewed and Verified with Patient/Familyyes Medications Brought to Hospitalno Info: Gravida2 Term Deliveries1 Deliveries0 Abortions0 Living Children1 Patient stated [id number] Calculation of EGA based on patient stated EDD39.3 Records availableyes Trimester Care Initiatedfirst Care ProviderCarmona Current Risksnone Testsultrasound Previous live (any gestational age)yes Most Recent Live [id number] All Previous Delivery Type(s)vaginal delivery All Previous /Delivery Complicationsnone Planno Childbirth Education Classes Planned or Attendedn/a Contraceptionnone Baby's Post Discharge Care Provider (Provider Name, Address and Phone Number) Miguel billie Cord Blood/Tissue Banking Plannednone Feedingbreastmilk Benefits of Breast Milk DiscussionThe benefits of exclusive breast milk feeding and the risk of adding formula have been discussed with patient / mother. Discussion Date / [id number] 06:47 Previous Experienceyes General Health: Current Weight in kg79.8 kilogram(s) Current Weight in pgh248.9 pound(s) Weight Methodactual (measured) Scale Typestanding Pre Weight (lb)130 pound(s) Total Weight Gain (lb)45 pound(s) Height in feet5 feet Height in inches3 inch(es) Height in cm160 centimeter(s) Height Methodstated BMI (kg/m2)31.171 square meter Patient or Family Member Reaction to Anesthesianever had anesthesia; no previous family member reaction Blood Avoidance/Restrictionsno ne Previous Transfusion Reactionno Rsp Based Care: How would you like to participate in your carekeep invovled in decisions What is the number one concern for you during this hospitalizationhealthy mom and baby What is the most important thing we can do to support you during this hospitalizationkeep informed of POC Is there anything we need to know to best care for youno Substance: Smoking Statusformer smoker Alcohol Usedenies Drug Usehistory of abuse Drug 2 Usedenies Substance Commentmarijuanna prior to Health Mgmt: Symptoms/Conditions Managed at Homenone Barriers to Managing Healthnone Relationship/Environ: Primary Source of Support/Comfortsignifica nt other Lives Withdependent child(jorge); significant other Living Arrangementshouse Significant Exposurenone Resource/Environmental Concernsnone Anticipated Transition T[facility] Services Anticipated at Transitionnone Additional Information: Information Review: Allergies and Significant Events have been Reviewed and Verified with Patient/Familyno Allergy, Intolerance, Adverse Event: Allergies: No Known Allergies: Active Electronic Signatures: Sydni Hale (RN) (Signed 07-May-2021 06:54) Authored: Initial Info, Info, General Health, Rsp Based Care, Substance, Health Mgmt, Relationship/Environ, Additional Information Last Updated: 07-May-2021 06:54 by Sydni Hale (RN) [facility] SYPHILIS SCREENING WITH REFL EXon 05-07-2021 SYPHILIS TOTAL AB Non-Reactive Normal NONREACTIVE [facility] Comment on above: Result Comment: No s ignificant level of Treponema pallidum antibody detected. Repeat testing in 2 to 4 weeks may be considered if early infection or incubating syphilis infection is suspected. Performed By: #### S YPHR #### [facility] [address] [place] [address] Lab Specimen Source [facility] Comment on above: Performed By: #### S YPHR #### [facility] [address] [place] [address] TYPE + SCREENon 05-07-2021 ABO TYPE O [facility] Comment on above: Performed By: #### T +S #### [place] [address] RH TYPE Positive [facility] Comment on above: Performed By: #### T +S #### [place] [id number] No Panel Informationon 04-25 Normal [facility] [address] Work Phone: HEPATITIS B SURFACE AGon HEP.B SURFACE AG Non-Reactive Normal NONREACTIVE [facility] Comment on above: Result Comment: Biot in interference may cause falsely decreased results. Patients taking a Biotin dose of up to 5 mg/day should refrain from taking Biotin for 24 hours before sample collection. Providers may contact their local laboratory for further information. Performed By: #### H BSAG #### [facility] [address] [place] [id number] HIV 1/2 ANTIGEN/ANTIBODY SCR EEN WITH REFLEX TO CONFIRMATIONon 04-13-2021 HIV 1/2 AG/AB SCREEN Non-Reactive Normal NONREACTIVE [facility] Comment on above: Result Comment: HIV Ag/Ab screen is performed using the Siemens AtellPATHEOS HIV Ag/Ab Combo assay which detects the presence of HIV p24 antigen as well as antibodies to HIV-1 (Group M and O) and HIV-2. . No laboratory evidence of HIV infection. If acute HIV infection is suspected, consider testing for HIV RNA by PCR (viral load). Performed By: #### H IV #### [facility] [address] [place] [address] RUBELLA IGG ABon 04-13-2021 RUBELLA IGG AB Positive Normal [facility] Comment on above: Result Comment: INTE RPRETATIVE COMMENT NEGATIVE: No IgG antibodies specific to Rubella detected. It is likely that the patient has not had a previous exposure to Rubella through infection or vaccination. Alternatively, the patient may have been exposed to Rubella but a failure to respond may indicate immunodeficiency. EQUIVOCAL:Equivocal results; obtain additional sample for retesting. POSITIVE: IgG antibody to Rubella detected. This may indicate that the patient was exposed to Rubella through infection or vaccination. The interpretation of serological tests should take into account the immunological status of the patient. Test results for patients, including immunocompromised patients, neonates, and pediatric patients, reflect their capacity to respond immunologically to the virus as well as their exposure to the pathogen. Patients treated with IVIG may demonstrate altered results in serological assays. Performed By: #### R UBIG #### [facility] [address] [place] [address] SYPHILIS SCREENING WITH REFL EXon 04-13-2021 SYPHILIS TOTAL AB Non-Reactive Normal NONREACTIVE [facility] Comment on above: Result Comment: No s ignificant level of Treponema pallidum antibody detected. Repeat testing in 2 to 4 weeks may be considered if early infection or incubating syphilis infection is suspected. Performed By: #### S YPHR #### [facility] [address] [place] [address] CBC AND DIFFERENTIALon 04-12 Basophils (Bld) [#/Vol] 0.10 10*3/uL Normal 0.00 - 0.10 [facility] Comment on above: Performed By: #### C BC #### [facility] [address] [place] [address] Basophils/100 WBC (Bld) 0.5 % Normal 0.0 - 2.0 [facility] Comment on above: Performed By: #### C BC #### [address] [address] Eosinophils (Bld) [#/Vol] 0.20 10*3/uL Normal 0.00 - 0.70 [facility] Comment on above: Performed By: #### C BC #### [address] [address] Eosinophils/100 WBC (Bld) 1.5 % Normal 0.0 - 6.0 [facility] Comment on above: Performed By: #### C BC #### [address] [address] Erythrocyte distribution width (RBC) [Ratio] 13.0 % Normal 11.5 - 14.5 [facility] Comment on above: Performed By: #### C BC #### [address] [address] Hematocrit (Bld) [Volume fraction] 36.6 % Normal 36.0 - 46.0 [facility] Comment on above: Performed By: #### C BC #### [address] [address] Hemoglobin (Bld) [Mass/Vol] 12.2 g/dL Normal 12.0 - 16.0 [facility] Comment on above: Performed By: #### C BC #### [address] [address] Lymphocytes (Bld) [#/Vol] 2.40 10*3/uL Normal 1.20 - 4.80 [facility] Comment on above: Performed By: #### C BC #### [address] [address] Lymphocytes/100 WBC (Bld) 16.4 % Normal 13.0 - 44.0 [facility] Comment on above: Performed By: #### C BC #### [address] [address] MCHC (RBC) [Mass/Vol] 33.3 g/dL Normal 32.0 - 36.0 [facility] Comment on above: Performed By: #### C BC #### [address] [address] MCV (RBC) [Entitic vol] 101 fL High 80 - 100 [facility] Comment on above: Performed By: #### C BC #### [address] [address] Monocytes (Bld) [#/Vol] 1.10 10*3/uL High 0.10 - 1.00 [facility] Comment on above: Performed By: #### C BC #### [address] [address] Monocytes/100 WBC (Bld) 7.8 % Normal 2.0 - 10.0 [facility] Comment on above: Performed By: #### C BC #### [address] [address] Neutrophils (Bld) [#/Vol] 10.90 10*3/uL High 1.20 - 7.70 [facility] Comment on above: Result Comment: Perc ent differential counts (%) should be interpreted in the context of the absolute cell counts (cells/L). Performed By: #### C BC #### [address] [address] Neutrophils/100 WBC (Bld) 73.8 % Normal 40.0 - 80.0 [facility] Comment on above: Performed By: #### C BC #### [address] [address] Platelets (Bld) [#/Vol] 240 10*3/uL Normal 150 - 450 [facility] Comment on above: Performed By: #### C BC #### [address] [address] RBC 3.61 x10E12/L Low 4.00 - 5.20 [facility] Comment on above: Performed By: #### C BC #### [address] [address] WBC (Bld) [#/Vol] 14.7 10*3/uL High 4.4 - 11.3 [facility] Comment on above: Performed By: #### C #### [facility] [address] [place] [address] Complete Blood Count + Diffe marylin 04-12-2021 Basophils/100 WBC (Bld) 0.5 % 0.0 - 2.0 [facility] [address] Work Phone: [phone] Erythrocyte distribution width (RBC) [Ratio] 13.0 % See Below [facility] [address] Work Phone: [phone] Comment on above: Reference Range: 11. 5 - 14.5 Hematocrit (Bld) [Volume fraction] 36.6 % See Below [facility] [address] Work Phone: [phone] Comment on above: Reference Range: 36. 0 - 46.0 Hemoglobin (Bld) [Mass/Vol] 12.2 g/dL See Below [facility] [address] Work Phone: [phone] Comment on above: Reference Range: 12. 0 - 16.0 Lymphocytes/100 WBC (Bld) 16.4 % See Below [facility] [address] Work Phone: [phone] Comment on above: Reference Range: 13. 0 - 44.0 MCHC (RBC) [Mass/Vol] 33.3 g/dL See Below [facility] [address] Work Phone: [phone] Comment on above: Reference Range: 32. 0 - 36.0 MCV (RBC) [Entitic vol] 101 fL above high threshold 80 - 100 [facility] [address] Work Phone: [phone] Monocytes/100 WBC (Bld) 7.8 % 2.0 - 10.0 [facility] [address] Work Phone: [phone] Neutrophils/100 WBC (Bld) 73.8 % See Below [facility] [address] Work Phone: [phone] Comment on above: Reference Range: 40. 0 - 80.0 Platelets (Bld) [#/Vol] 240 10*3/uL 150 - 450 [facility] [address] Work Phone: [phone] RBC (Bld) [#/Vol] 3.61 {x10E12/L} below low threshold See Below [facility] [address] Work Phone: [phone] Comment on above: Reference Range: 4.0 0 - 5.20 WBC (Bld) [#/Vol] 14.7 10*3/uL above high threshold 4.4 - 11.3 [facility] [address] Work Phone: [phone] Complete Blood Count + Differential 0.10 {x10E9/L} See Below [facility] [address] Work Phone: [phone] Comment on above: Reference Range: 0.0 0 - 0.10 Complete Blood Count + Differential 0.20 {x10E9/L} See Below [facility] [address] Work Phone: [phone] Comment on above: Reference Range: 0.0 0 - 0.70 Complete Blood Count + Differential 1.10 {x10E9/L} above high threshold See Below [facility] [address] Work Phone: [phone] Comment on above: Reference Range: 0.1 0 - 1.00 Complete Blood Count + Differential 2.40 {x10E9/L} See Below [facility] [address] Work Phone: [phone] Comment on above: Reference Range: 1.2 0 - 4.80 Complete Blood Count + Differential 10.90 {x10E9/L} above high threshold See Below [facility] [address] Work Phone: [phone] Comment on above: Reference Range: 1.2 0 - 7.70 Percent differential counts (%) should be interpreted in the context of the absolute cell counts (cells/L). Complete Blood Count + Differential 1.5 % 0.0 - 6.0 [facility] [address] Work Phone: [phone] Cult, Urineon 04-12-2021 Bacteria identified Cx Nom (U) [facility] [address] Work Phone: HEMOGLOBIN A1Con 04-12-2021 Glucose [Mass/Vol] 80 mg/dL Normal [facility] Comment on above: Performed By: #### H BA1E #### [address] [address] HbA1c (Bld) [Mass fraction] 4.4 % Normal [facility] Comment on above: Result Comment: Diag nosis of Diabetes-Adults Non-Diabetic: < or = 5.6% Increased risk for developing diabetes: 5.7-6.4% Diagnostic of diabetes: > or = 6.5% . Monitoring of Diabetes Age (y) Therapeutic Goal (%) Adults: >18 <7.0 Pediatrics: 13-18 <7.5 7-12 <8.0 0- 6 7.5-8.5 [place] [employer]. Diabetes Care 33(S1), Jul 2009. Performed By: #### H BA1E #### [address] [address] HIV 1/2 ANTIGEN/ANTIBODY SCR EEN WITH REFLEX TO CONFIRMATIONon 04-12-2021 HIV 1+2 Ab Qn (S) Non-Reactive See Below [facility] [address] Work Phone: [phone] Comment on above: SOURCE: Reference Ra nge: NONREACTIVE HIV Ag/Ab screen is performed using the Siemens Atellica HIV Ag/Ab Combo assay which detects the presence of HIV p24 antigen as well as antibodies to HIV-1 (Group M and O) and HIV-2..No laboratory evidence of HIV infection. If acute HIV infection is suspected, consider testing for HIV RNA by PCR (viral load). Hemoglobin A1Con 04-12-2021 Glucose [Mass/Vol] 80 mg/dL [facility] [address] Work Phone: [phone] HbA1c (Bld) [Mass fraction] 4.4 % [facility] [address] Work Phone: [phone] Comment on above: Diagnosis of Diabete s-Adults Non-Diabetic: < or = 5.6% Increased risk for developing diabetes: 5.7-6.4% Diagnostic of diabetes: > or = 6.5%. Monitoring of Diabetes Age (y) Therapeutic Goal (%) Adults: >18 <7.0 Pediatrics: 13-18 <7.5 7-12 <8.0 0- 6 7.5-8.5 [place] [employer]. Diabetes Care 33(S1), Jul 2009. Hepatitis B Surface Antigeno n 04-12-2021 Hepatitis B Surface Antigen Non-Reactive See Below [facility] [address] Work Phone: Comment on above: SOURCE: Reference Ra nge: NONREACTIVE Biotin interference may cause falsely decreased results. Patients taking a Biotin dose of up to 5 mg/day should refrain from taking Biotin for 24 hours before sample collection. Providers may contact their local laboratory for further information. Laboratory - Blood bankon ABO group Nom (Bld) [facility] [address] Work Phone: Blood group antibody screen Ql Negative [facility] [address] Work Phone: Rh immune globulin screen (Bld) [Interp] Positive [facility] [address] Work Phone: Rubella IgG Antibodyon 04-12 Rubella virus IgG IA Ql Positive [facility] [address] Work Phone: Comment on above: SOURCE: INTERPRETATI VE COMMENT NEGATIVE: No IgG antibodies specific to Rubella detected. It is likely that the patient has not had a previous exposure to Rubella through infection or vaccination. Alternatively, the patient may have been exposed to Rubella but a failure to respond may indicate immunodeficiency. EQUIVOCAL:Equivocal results; obtain additional sample for retesting. POSITIVE: IgG antibody to Rubella detected. This may indicate that the patient was exposed to Rubella through infection or vaccination.The interpretation of serological tests should take into accountthe immunological status of the patient. Test results forpatients, including immunocompromised patients, neonates, andpediatric patients, reflect their capacity to respondimmunologically to the virus as well as their exposure to thepathogen. Patients treated with IVIG may demonstrate alteredresults in serological assays. SYPHILIS SCREENING WITH REFL EXon 04-12-2021 Lab Specimen Source [facility] Comment on above: Performed By: #### [facility] #### [facility] [address] [place] [address] Performed By: #### H BSAG #### [facility] [address] [place] [address] Performed By: #### R UBIG #### [facility] [address] [place] [address] Performed By: #### H IV #### [facility] [address] [place] [address] T. pallidum IgG+IgM IA Ql (S) Non-Reactive See Below [facility] [address] Work Phone: Comment on above: SOURCE: Reference Ra nge: NONREACTIVENo significant level of Treponema pallidum antibody detected. Repeat testing in 2 to 4 weeks may be considered if early infection or incubating syphilis infection is suspected. TYPE + SCREENon 04-12-2021 ABO TYPE O [facility] Comment on above: Performed By: #### C BC #### [place] [address] RH TYPE Positive [facility] Comment on above: Performed By: #### C BC #### [place] [id number] URINE CULTURE,BACTERIALon URINE CULTURE,BACTERIAL PATIENT: ALAINA WARNER LOCATION: [employer]#: [id number] : 89 AGE: SEX: F ORDERED BY: MARIA R GOSS SOURCE: URINE COLLECTED: 04/12/21 13:50 ANTIBIOTICS AT VINCE.: RECEIVED : 04/12/21 22:08 SITE: Clean Catch/Voided R E S U L T S URINE CULTURE,BACTERIAL FINAL 04/13/21 14:23 NO SIGNIFICANT GROWTH. [facility] Comment on above: Performed By: #### U RINC #### [facility] [address] [place] [address] GROUP B STREP SCREENon 04-05 GROUP B STREP SCREEN MARIA R GOSS PATIENT: ALAINA WARNER LOCATION: [employer] BILL#: [id number] : 89 AGE: SEX: F ORDERED BY: PENDING, PROVIDER SOURCE: VAGINAL COLLECTED: 04/05/21 10:56 ANTIBIOTICS AT VINCE.: RECEIVED : 04/05/21 22:48 SITE: VAGINAL R E S U L T S GROUP B STREP SCREEN FINAL 04/07/21 11:42 NEGATIVE FOR GROUP B BETA STREP. Normal [facility] Comment on above: Performed By: #### C BC #### [facility] [address] [place] [address] Laboratory - Microbiology an d Antimicrobial susceptibilityon 04-05-2021 Bacteria identified Aer cx Nom (Genital specimen) [facility] [address] Work Phone: Vital Signs Date Time Vital Sign Value Performing Clinician Facility 01-12-2024 11:36-0400 Blood Pressure Location Spencer Gudimella [facility] 01-12-2024 11:36-0400 Diastolic blood pressure 78 mm[Hg] Spencer Gudimella [facility] 01-12-2024 11:36-0400 Heart rate 76 /min Spencer Gudimella [facility] 01-12-2024 11:36-0400 SaO2% (BldA) [Mass fraction] 98 % Spencer Gudimella [facility] 01-12-2024 11:36-0400 Systolic blood pressure 106 mm[Hg] Spencer Gudimella [facility] 12-02-2023 09:10-0400 Blood Pressure Location Elisa PATEL [facility] 12-02-2023 09:10-0400 Diastolic blood pressure 73 mm[Hg] Elisa PATEL [facility] 12-02-2023 09:10-0400 Heart rate 8 /min Elisa ROBUCK [facility] 12-02-2023 09:10-0400 Respiratory rate 16 /min Elisa ROBUCK [facility] 12-02-2023 09:10-0400 SaO2% (BldA) [Mass fraction] 100 % Elisa ROBUCK [facility] 12-02-2023 09:10-0400 Systolic blood pressure 107 mm[Hg] Elisa ROBUCK [facility] 11-22-2023 15:38-0400 Diastolic blood pressure 71 mm[Hg] Trevor Misha [facility] 11-22-2023 15:38-0400 Heart rate 88 /min Trevor Misha [facility] 11-22-2023 15:38-0400 Mean blood pressure 83 mm[Hg] Trevor Misha [facility] 11-22-2023 15:38-0400 Respiratory rate 16 /min Trevor Misha [facility] 11-22-2023 15:38-0400 SaO2% (BldA) [Mass fraction] 98 % Trevor Misha [facility] 11-22-2023 15:38-0400 Systolic blood pressure 107 mm[Hg] Trevor Misha [facility] 11-22-2023 15:00-0400 Diastolic blood pressure 68 mm[Hg] Trevor Misha [facility] 11-22-2023 15:00-0400 Heart rate 101 /min Trevor Misha [facility] 11-22-2023 15:00-0400 Mean blood pressure 81 mm[Hg] Trevor Misha [facility] 11-22-2023 15:00-0400 Respiratory rate 18 /min Trevor Cabral [facility] 11-22-2023 15:00-0400 Systolic blood pressure 108 mm[Hg] Trevor Cabral [facility] 11-22-2023 14:30-0400 Body temperature 97.7 [degF] Trevor Cabral [facility] 11-22-2023 14:30-0400 Diastolic blood pressure 86 mm[Hg] Trevor Cabral [facility] 11-22-2023 14:30-0400 Heart rate 100 /min Trevor Cabral [facility] 11-22-2023 14:30-0400 Respiratory rate 16 /min Trevor Cabral [facility] 11-22-2023 14:30-0400 SaO2% (BldA) [Mass fraction] 100 % Trevor Cabral [facility] 11-22-2023 14:30-0400 Systolic blood pressure 109 mm[Hg] Trevor Cabral [facility] 10-01-2023 12:40-0500 Blood Pressure Location Elisa PATEL [facility] 10-01-2023 12:40-0500 Diastolic blood pressure 69 mm[Hg] Elisa ROBUCK [facility] 10-01-2023 12:40-0500 Heart rate 91 /min Elisa ROBUCK [facility] 10-01-2023 12:40-0500 SaO2% (BldA) [Mass fraction] 96 % Elisa ROBUCK [facility] 10-01-2023 12:40-0500 Systolic blood pressure 101 mm[Hg] Elisa ROBUCK [facility] 08-04-2023 10:50-0500 Body temperature 98.6 [degF] Elisa ROBUCK [facility] 08-04-2023 10:50-0500 Diastolic blood pressure 86 mm[Hg] Elisa ROBUCK [facility] 08-04-2023 10:50-0500 Heart rate 79 /min Elisa ROBUCK [facility] 08-04-2023 10:50-0500 SaO2% (BldA) [Mass fraction] 96 % Elisa ROBUCK [facility] 08-04-2023 10:50-0500 Systolic blood pressure 119 mm[Hg] Elisa ROBUCK [facility] 08-03-2023 16:00-0500 Diastolic blood pressure 68 mm[Hg] Narinder Dulce [facility] 08-03-2023 16:00-0500 Heart rate 67 /min Narinder Dulce [facility] 08-03-2023 16:00-0500 Mean blood pressure 77 mm[Hg] Narinder Dulce [facility] 08-03-2023 16:00-0500 Systolic blood pressure 96 mm[Hg] Narinder Dulce [facility] 08-03-2023 15:19-0500 Diastolic blood pressure 71 mm[Hg] Narinder Dulce [facility] 08-03-2023 15:19-0500 Heart rate 72 /min Narinder Dulce [facility] 08-03-2023 15:19-0500 Mean blood pressure 84 mm[Hg] Narinder Cardona [facility] 08-03-2023 15:19-0500 Respiratory rate 18 /min Narinder Cardona [facility] 08-03-2023 15:19-0500 SaO2% (BldA) [Mass fraction] 100 % Narinder Cardona [facility] 08-03-2023 15:19-0500 Systolic blood pressure 111 mm[Hg] Narinder Cardona [facility] 08-03-2023 13:51-0500 Body temperature 97.34 [degF] Narinder Cardona [facility] 08-03-2023 13:51-0500 Diastolic blood pressure 80 mm[Hg] Narinder Cardona [facility] 08-03-2023 13:51-0500 Heart rate 96 /min Narinder Cardona [facility] 08-03-2023 13:51-0500 Respiratory rate 16 /min Narinder Cardona [facility] 08-03-2023 13:51-0500 SaO2% (BldA) [Mass fraction] 98 % Narinder Cardona [facility] 08-03-2023 13:51-0500 Systolic blood pressure 123 mm[Hg] Narinder Cardona [facility] 07-06-2023 10:28-0500 Body height 160 cm Maria R Goss MD Work Phone: [facility] 07-06-2023 10:28-0500 Body mass index (BMI) [Ratio] 23.42 kg/m2 Maria R Goss MD Work Phone: [facility] 07-06-2023 10:28-0500 Body weight 59.97 kg Maria R Goss MD Work Phone: [facility] 07-06-2023 10:28-0500 Diastolic blood pressure 70 mm[Hg] Maria R Goss MD Work Phone: [facility] 07-06-2023 10:28-0500 Systolic blood pressure 104 mm[Hg] Mraia R Goss MD Work Phone: [facility] 05-28-2023 15:47-0400 Body temperature 98.06 [degF] Julián Mercer [facility] 05-28-2023 15:47-0400 Diastolic blood pressure 76 mm[Hg] Julián Ruslan [facility] 05-28-2023 15:47-0400 Heart rate 81 /min Julián Mercer [facility] 05-28-2023 15:47-0400 Respiratory rate 16 /min Julián Mercer [facility] 05-28-2023 15:47-0400 SaO2% (BldA) [Mass fraction] 99 % Julián Mercer [facility] 05-28-2023 15:47-0400 Systolic blood pressure 116 mm[Hg] Julián Ruslan [facility] 05-22-2023 11:10-0400 Heart rate 94 /min Héctor Denton [facility] 05-22-2023 11:10-0400 SaO2% (BldA) [Mass fraction] 98 % Héctor Mayash [facility] 05-22-2023 11:10-0400 Respiratory rate 16 /min Héctor Denton [facility] 05-22-2023 11:10-0400 Diastolic blood pressure 72 mm[Hg] Héctor Mayash [facility] 05-22-2023 11:10-0400 Mean blood pressure 85 mm[Hg] Héctor Mayash [facility] 05-22-2023 11:10-0400 Systolic blood pressure 112 mm[Hg] Héctor Mayash [facility] 05-22-2023 09:58-0400 Heart rate 81 /min Héctor Mayash [facility] 05-22-2023 09:58-0400 SaO2% (BldA) [Mass fraction] 99 % Héctor Denton [facility] 05-22-2023 09:56-0400 Respiratory rate 20 /min Héctor Denton [facility] 05-22-2023 09:56-0400 Body temperature 97.52 [degF] Héctor Mayash [facility] 05-22-2023 09:55-0400 Blood Pressure Location Héctor Mayash [facility] 05-22-2023 09:55-0400 Diastolic blood pressure 77 mm[Hg] Héctor Mayash [facility] 05-22-2023 09:55-0400 Mean blood pressure 89 mm[Hg] Héctor Mayash [facility] 05-22-2023 09:55-0400 Systolic blood pressure 113 mm[Hg] Héctor Mayash [facility] 05-22-2023 09:50-0400 Blood Pressure Location Héctor Mayash [facility] 05-22-2023 09:50-0400 Body temperature 98.06 [degF] Héctor Mayash [facility] 05-22-2023 09:50-0400 Diastolic blood pressure 90 mm[Hg] Héctor Mayash [facility] 05-22-2023 09:50-0400 Heart rate 72 /min Héctor Mayash [facility] 05-22-2023 09:50-0400 Mean blood pressure 98 mm[Hg] Héctor Mayash [facility] 05-22-2023 09:50-0400 Respiratory rate 21 /min Héctor Mayash [facility] 05-22-2023 09:50-0400 SaO2% (BldA) [Mass fraction] 98 % Héctor Mayash [facility] 05-22-2023 09:50-0400 Systolic blood pressure 114 mm[Hg] Héctor Mayash [facility] 05-22-2023 09:35-0400 Blood Pressure Location Héctor Denton [facility] 05-22-2023 09:35-0400 Mean blood pressure 88 mm[Hg] Héctor Mayash [facility] 05-22-2023 09:35-0400 Respiratory rate 14 /min Héctor Mayash [facility] 05-22-2023 09:30-0400 Mean blood pressure 94 mm[Hg] Héctor Mayash [facility] 05-22-2023 09:30-0400 Respiratory rate 21 /min Héctor Mayash [facility] 05-22-2023 09:22-0400 Body temperature 97.16 [degF] Héctor Mayash [facility] 05-22-2023 09:20-0400 FIO2 100 % Héctor Mayash [facility] 05-22-2023 09:20-0400 Respiratory rate 16 /min Héctor Mayash [facility] 05-22-2023 09:15-0400 FIO2 100 % Héctor Denton [facility] 05-22-2023 09:10-0400 FIO2 100 % Héctor Corrie [facility] 05-22-2023 06:03-0400 Mean blood pressure 83 mm[Hg] Héctor Mayash [facility] 05-22-2023 06:02-0400 Heart rate 82 /min Héctor Denton [facility] 05-19-2023 22:45-0400 Diastolic blood pressure 69 mm[Hg] González Sabina [facility] 05-19-2023 22:45-0400 Heart rate 71 /min González Sabina [facility] 05-19-2023 22:45-0400 Mean blood pressure 80 mm[Hg] González Sabina [facility] 05-19-2023 22:45-0400 Respiratory rate 18 /min González Sabina [facility] 05-19-2023 22:45-0400 SaO2% (BldA) [Mass fraction] 98 % González Sabina [facility] 05-19-2023 22:45-0400 Systolic blood pressure 102 mm[Hg] González Sabina [facility] 05-19-2023 22:00-0400 Diastolic blood pressure 70 mm[Hg] González Sabina [facility] 05-19-2023 22:00-0400 Heart rate 74 /min González Sabina [facility] 05-19-2023 22:00-0400 Mean blood pressure 82 mm[Hg] González Sabina [facility] 05-19-2023 22:00-0400 SaO2% (BldA) [Mass fraction] 100 % González Sabina [facility] 05-19-2023 22:00-0400 Systolic blood pressure 105 mm[Hg] González Sabina [facility] 05-19-2023 21:07-0400 Diastolic blood pressure 76 mm[Hg] González Sabina [facility] 05-19-2023 21:07-0400 Heart rate 73 /min González Sabina [facility] 05-19-2023 21:07-0400 Mean blood pressure 86 mm[Hg] González Sabina [facility] 05-19-2023 21:07-0400 Respiratory rate 17 /min González Sabina [facility] 05-19-2023 21:07-0400 SaO2% (BldA) [Mass fraction] 99 % González Sabina [facility] 05-19-2023 21:07-0400 Systolic blood pressure 107 mm[Hg] González Sabina [facility] 05-19-2023 19:25-0400 Body temperature 98.06 [degF] González Sabina [facility] 05-19-2023 19:25-0400 Heart rate 87 /min González Sabina [facility] 04-16-2023 14:49-0400 Blood Pressure Location Elisa PATEL [facility] 04-16-2023 14:49-0400 Body temperature 98.6 [degF] Elisa ROBUCK [facility] 04-16-2023 14:49-0400 Diastolic blood pressure 83 mm[Hg] Elisa ROBUCK [facility] 04-16-2023 14:49-0400 Heart rate 97 /min Elisa ROBUCK [facility] 04-16-2023 14:49-0400 SaO2% (BldA) [Mass fraction] 97 % Elisa ROBUCK [facility] 04-16-2023 14:49-0400 Systolic blood pressure 118 mm[Hg] Elisa ROBUCK [facility] 03-24-2023 16:22-0400 Blood Pressure Location Elisa ROBUCK [facility] 03-24-2023 16:22-0400 Diastolic blood pressure 73 mm[Hg] Elisa ROBUCK [facility] 03-24-2023 16:22-0400 Heart rate 91 /min Elisa ROBUCK [facility] 03-24-2023 16:22-0400 SaO2% (BldA) [Mass fraction] 97 % Elisa ROBUCK [facility] 03-24-2023 16:22-0400 Systolic blood pressure 108 mm[Hg] Elisa ROBUCK [facility] 02-24-2023 11:07-0400 Body height 162.56 cm Eloisa Alvarez Work Phone: [address] Work Phone: 02-24-2023 11:07-0400 Body mass index (BMI) [Ratio] 22.21 kg/m2 Eloisa Alvarez Work Phone: [place] [address] Work Phone: 02-24-2023 11:07-0400 Body surface area Derived from formula 1.63 m2 Eloisa Alvarez Work Phone: [place] [address] [address] Work Phone: 02-24-2023 11:07-0400 Body weight 58.68 kg Eloisa Alvarez Work Phone: [place] [address] Work Phone: 02-24-2023 11:07-0400 Diastolic blood pressure 68 mm[Hg] Eloisa [place]field Work Phone: [place] [address] Work Phone: 02-24-2023 11:07-0400 Systolic blood pressure 110 mm[Hg] Eloisa Alvarez Work Phone: [place] [address] [address] Work Phone: 09-22-2022 14:21-0500 Blood Pressure Location Elisa PATEL [facility] 09-22-2022 14:21-0500 Diastolic blood pressure 72 mm[Hg] Elisa ROBUCK [facility] 09-22-2022 14:21-0500 Heart rate 86 /min Elisa ROBUCK [facility] 09-22-2022 14:21-0500 SaO2% (BldA) [Mass fraction] 97 % Elisa ROBUCK [facility] 09-22-2022 14:21-0500 Systolic blood pressure 109 mm[Hg] Elisa ROBUCK [facility] 08-25-2022 12:53-0500 Blood Pressure Location Elisa ROBUCK [facility] 08-25-2022 12:53-0500 Diastolic blood pressure 78 mm[Hg] Elisa PATEL [facility] 08-25-2022 12:53-0500 Heart rate 85 /min Elisa PATEL [facility] 08-25-2022 12:53-0500 SaO2% (BldA) [Mass fraction] 95 % Elisa PATEL [facility] 08-25-2022 12:53-0500 Systolic blood pressure 102 mm[Hg] Elisa PATEL [facility] 06-27-2022 15:13-0500 Body height 162.56 cm Eloisa Valdovinos [employer] Work Phone: [facility] [employer] Work Phone: 06-27-2022 15:13-0500 Body mass index (BMI) [Ratio] 22.57 kg/m2 Eloisa Valdovinos [employer] Work Phone: [facility] [employer] Work Phone: 06-27-2022 15:13-0500 Body surface area Derived from formula 1.64 m2 Eloisa Valdovinos Kim Work Phone: [facility] [employer] Work Phone: 06-27-2022 15:13-0500 Body weight 59.65 kg Eloisa A Lusk Work Phone: [facility] [employer] Work Phone: 06-27-2022 15:13-0500 Diastolic blood pressure 68 mm[Hg] Eloisa A Kim Work Phone: [facility] [employer] Work Phone: 06-27-2022 15:13-0500 Systolic blood pressure 112 mm[Hg] Eloisa A Kim Work Phone: [place] [address] [address] Work Phone: 02-04-2022 16:13-0400 Body height 162.56 cm Eloisa A Lusk Work Phone: [place] [address] [address] Work Phone: 02-04-2022 16:13-0400 Body mass index (BMI) [Ratio] 23 kg/m2 Eloisa A Lusk Work Phone: [place] [address] [address] Work Phone: 02-04-2022 16:13-0400 Body surface area Derived from formula 1.65 m2 Eloisa A Lusk Work Phone: [place] [address] [address] Work Phone: 02-04-2022 16:13-0400 Body weight 60.78 kg Eloisa A Lusk Work Phone: [place] [address] [address] Work Phone: 02-04-2022 16:13-0400 Diastolic blood pressure 82 mm[Hg] Eloisa A Lusk Work Phone: [place] [address] [address] Work Phone: 02-04-2022 16:13-0400 Systolic blood pressure 118 mm[Hg] Eloisa A Lusk Work Phone: [place] [address] [address] Work Phone: 01-07-2022 15:56-0400 Body height 162.56 cm Eloisa A Lusk Work Phone: [place] [address] [address] Work Phone: 01-07-2022 15:56-0400 Body mass index (BMI) [Ratio] 22.97 kg/m2 Eloisa A Kim Work Phone: [place] [address] [address] Work Phone: 01-07-2022 15:56-0400 Body surface area Derived from formula 1.65 m2 Eloisa Alvarez Work Phone: [place] [address] [address] Work Phone: 01-07-2022 15:56-0400 Body weight 60.7 kg Eloisa Alvarez Work Phone: [place] [address] [address] Work Phone: 01-07-2022 15:56-0400 Diastolic blood pressure 64 mm[Hg] Eloisa Alvarez Work Phone: [place] [address] [address] Work Phone: 01-07-2022 15:56-0400 Systolic blood pressure 112 mm[Hg] Eloisa Alvarez Work Phone: [place] [address] [address] Work Phone: 11-05-2021 15:57-0400 Blood Pressure Location Narinder Ras [facility] [place] 11-05-2021 15:57-0400 Body temperature 98.6 [degF] Narinder Romeroy [facility] [place] 11-05-2021 15:57-0400 Diastolic blood pressure 64 mm[Hg] Narinder Romeroy [facility] [place] 11-05-2021 15:57-0400 Heart rate 89 /min Narinder Romeroy [facility] [place] 11-05-2021 15:57-0400 Respiratory rate 14 /min Narinder Mcginnis [facility] [place] 11-05-2021 15:57-0400 Systolic blood pressure 97 mm[Hg] Narinder Mcginnis [facility] [place] 10-07-2021 14:53-0400 Body height 162.56 cm Eloisa A Lusk Work Phone: [place] [address] [address] Work Phone: 10-07-2021 14:53-0400 Body mass index (BMI) [Ratio] 24.98 kg/m2 Eloisa A Kim Work Phone: [place] [address] [address] Work Phone: 10-07-2021 14:53-0400 Body surface area Derived from formula 1.71 m2 Eloisa A Lusk Work Phone: [place] [address] [address] Work Phone: 10-07-2021 14:53-0400 Body weight 66 kg Eloisa A Lusk Work Phone: [place] [address] [address] Work Phone: 10-07-2021 14:53-0400 Diastolic blood pressure 62 mm[Hg] Eloisa A Lusk Work Phone: [place] [address] [address] Work Phone: 10-07-2021 14:53-0400 Systolic blood pressure 116 mm[Hg] Eloisa A Lusk Work Phone: [place] [address] [address] Work Phone: 07-16-2021 14:52-0500 Body height 162.56 cm Eloisa Bonifacio Lusk Work Phone: [place] [address] [address] Work Phone: 07-16-2021 14:52-0500 Body mass index (BMI) [Ratio] 25.43 kg/m2 Eloisa [place] Work Phone: [place] [address] [address] Work Phone: 07-16-2021 14:52-0500 Body surface area Derived from formula 1.72 m2 Eloisa Valdovinos [employer] Work Phone: [facility] [place] [address] [address] Work Phone: 07-16-2021 14:52-0500 Body temperature 97.7 [degF] Eloisa Valdovinos [employer] Work Phone: [facility] [place] [employer] Work Phone: 07-16-2021 14:52-0500 Body weight 67.19 kg Eloisa [place] Work Phone: [facility] [place] [employer] Work Phone: 07-16-2021 14:52-0500 Diastolic blood pressure 78 mm[Hg] Eloisa Valdovinos [employer] Work Phone: [facility] [employer] Work Phone: 07-16-2021 14:52-0500 Systolic blood pressure 118 mm[Hg] Eloisa Valdovinos Kim Work Phone: [facility] [place] [employer] Work Phone: 04-30-2021 11:25-0400 Body height 162.56 cm Eloisa Valdovinos [employer] Work Phone: [facility] [place] [employer] Work Phone: 04-30-2021 11:25-0400 Body mass index (BMI) [Ratio] 29.71 kg/m2 Eloisa Valdovinos Lusk Work Phone: SPO [facility] [employer] Work Phone: 04-30-2021 11:25-0400 Body surface area Derived from formula 1.84 m2 Eloisa Valdovinos Kim Work Phone: [employer] Work Phone: 04-30-2021 11:25-0400 Body temperature 97.7 [degF] Eloisa A Kim Work Phone: [place] [address] [address] Work Phone: 04-30-2021 11:25-0400 Body weight 78.5 kg Eloisa A Lusk Work Phone: [place] [address] [address] Work Phone: 04-30-2021 11:25-0400 Diastolic blood pressure 62 mm[Hg] Eloisa A Lusk Work Phone: [place] [address] [address] Work Phone: 04-30-2021 11:25-0400 Systolic blood pressure 104 mm[Hg] Eloisa A Kim Work Phone: [place] [address] [address] Work Phone: 04-24-2021 09:58-0400 Body height 162.56 cm Eloisa A Lusk Work Phone: [place] [address] [address] Work Phone: 04-24-2021 09:58-0400 Body mass index (BMI) [Ratio] 29.14 kg/m2 Eloisa A Kim Work Phone: [place] [address] [address] Work Phone: 04-24-2021 09:58-0400 Body surface area Derived from formula 1.82 m2 Eloisa A Kim Work Phone: [place] [address] [address] Work Phone: 04-24-2021 09:58-0400 Body temperature 97.7 [degF] Eloisa Bonifacio Lusk Work Phone: [place] [address] [address] Work Phone: 04-24-2021 09:58-0400 Body weight 77 kg Eloisa Bonifacio Kmi Work Phone: [place] [address] [address] Work Phone: 04-24-2021 09:58-0400 Diastolic blood pressure 72 mm[Hg] Eloisa Bonifacio FloydLusk Work Phone: [place] [address] [address] Work Phone: 04-24-2021 09:58-0400 Systolic blood pressure 110 mm[Hg] Eloisa Bonifacio FloydLusk Work Phone: [place] [address] [address] Work Phone: 04-12-2021 13:40-0400 Body height 162.56 cm Eloisa Bonifacio FloydKim Work Phone: [place] [address] [address] Work Phone: 04-12-2021 13:40-0400 Body mass index (BMI) [Ratio] 28.34 kg/m2 Eloisa A Kim Work Phone: [place] [address] [address] Work Phone: 04-12-2021 13:40-0400 Body surface area Derived from formula 1.8 m2 Eloisaduke Alvarez Work Phone: [place] [address] [address] Work Phone: 04-12-2021 13:40-0400 Body temperature 97.1 [degF] Eloisa Bonifacio Alvarez Work Phone: [place] [address] [address] Work Phone: 04-12-2021 13:40-0400 Body weight 74.9 kg Eloisa Bonifacio Lusk Work Phone: [place] [address] [address] Work Phone: 04-12-2021 13:40-0400 Diastolic blood pressure 70 mm[Hg] Eloisa Valdovinos Lusk Work Phone: [place] [address] [address] Work Phone: 04-12-2021 13:40-0400 Systolic blood pressure 114 mm[Hg] Eloisa Valdovinos Kim Work Phone: [facility] [address] Work Phone: 04-05-2021 10:27-0400 Body height 162.56 cm Eloisa Valdovinos Lusk Work Phone: JK-Ofpryisofi-Fbiny nd [address] Work Phone: 04-05-2021 10:27-0400 Body mass index (BMI) [Ratio] 27.97 kg/m2 Eloisa Valdovinos Kim Work Phone: MX-Xpsburavwp-Btznp nd [address] Work Phone: 04-05-2021 10:27-0400 Body surface area Derived from formula 1.79 m2 Eloisa Valdovinos Kim Work Phone: NT-Vmpzkdyzak-Vaxpj nd [address] Work Phone: 04-05-2021 10:27-0400 Body temperature 97.3 [degF] Eloisa Valdovinos Kim Work Phone: HP-Zndllcvsjz-Xhlgg nd [address] Work Phone: 04-05-2021 10:27-0400 Body weight 73.9 kg Eloisa Valdovinos Lusk Work Phone: ZD-Nzefsvenbf-Alxbm nd [address] Work Phone: 04-05-2021 10:27-0400 Diastolic blood pressure 62 mm[Hg] Eloisa Valdovinos Lusk Work Phone: LM-Hfqagoebvs-Wzaej nd [address] Work Phone: 04-05-2021 10:27-0400 Systolic blood pressure 90 mm[Hg] Eloisa A Lusk Work Phone: WT-Okkguoozzq-Oauws nd [address] Work Phone: 03-29-2021 11:07-0400 Body height 162.56 cm Eloisa Valdovinos Kim Work Phone: XO-Ygeqohzhov-Vqspf nd [address] Work Phone: 03-29-2021 11:07-0400 Body mass index (BMI) [Ratio] 27.89 kg/m2 Eloisa Valdovinos Kim Work Phone: LH-Iuyuvpfckq-Vyapl nd [address] Work Phone: 03-29-2021 11:07-0400 Body surface area Derived from formula 1.79 m2 Eloisa A Kim Work Phone: LY-Spqdyixfuv-Ucbtn nd [address] Work Phone: 03-29-2021 11:07-0400 Body temperature 97.8 [degF] Eloisa A Lusk Work Phone: JI-Pdosakiysw-Nhpwo nd [address] Work Phone: 03-29-2021 11:07-0400 Body weight 73.7 kg Eloisa A Lusk Work Phone: VI-Rwphojaoah-Asyly nd [address] Work Phone: 03-29-2021 11:07-0400 Diastolic blood pressure 74 mm[Hg] Eloisa A Kim Work Phone: AD-Jsrubyemzf-Szpjo nd [address] Work Phone: 03-29-2021 11:07-0400 Systolic blood pressure 118 mm[Hg] Eloisa A Lusk Work Phone: UE-Duagmaghli-Epody nd [address] Work Phone: Encounters Encounter Date Encounter Type Care Provider Facility Start: 02-24-2024 End: 02-24-2024 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 Elisa PATEL Facility:[facility] Start: 02-24-2024 End: 02-24-2024 Patient encounter procedure Elisa PATEL [facility] Start: 01-27-2024 ambulatory Sravani Dee Facility:[facility] Start: 01-20-2024 ambulatory Spencer Gudimella Facilit y:[facility] Start: 01-12-2024 End: 01-12-2024 ambulatory Spencer Gudimella Facility:[facility] [place] [place] Start: 01-12-2024 End: 01-12-2024 Lab Drop off Spencer Gudimella [facility] Start: 01-12-2024 End: 01-12-2024 ambulatory Spencer Gudimella Facility:[facility] Start: 01-12-2024 End: 01-12-2024 Patient encounter procedure Spencer Gudimella [facility] Start: 12-18-2023 End: 12-18-2023 ambulatory Elisa E JORGE Facility:[facility] [place] [place] Start: 12-18-2023 End: 12-18-2023 Patient encounter procedure Elisa PATEL [facility] Start: 12-08-2023 End: 12-08-2023 ambulatory Renea Curt Rojoe Facility:[facility] [place] [place] Start: 12-08-2023 End: 12-08-2023 Patient encounter procedure Renea Curt Rojoe [facility] Start: 12-02-2023 ambulatory Trevor Cabral Facility: [facility] Start: 12-02-2023 End: 12-02-2023 ambulatory Elisa E JORGE Facility:[facility] Start: 12-02-2023 End: 12-02-2023 Patient encounter procedure Elisa PATEL [facility] Start: 11-22-2023 End: 11-22-2023 Emergency department patient visit Trevor Cabral [facility] Start: 11-13-2023 [facility] Start: 10-13-2023 End: 10-13-2023 ambulatory Elisa E ROBUCK [place] Start: 10-13-2023 End: 10-13-2023 Patient encounter procedure Elisa E ROBUCK [facility] Start: 10-02-2023 End: 10-02-2023 ambulatory Elisa E ROBUCK Facility:[facility] [place] [place] Start: 10-02-2023 End: 10-02-2023 Patient encounter procedure Lucas Molina [facility] Start: 10-01-2023 End: 10-01-2023 ambulatory Elisa E ROBUCK Facility: [place] Start: 10-01-2023 End: 10-01-2023 Patient encounter procedure Elisa E ROBUCK [facility] Start: 09-30-2023 End: 09-30-2023 ambulatory Lucas Molina Facility:[facility] [place] [place] Start: 09-30-2023 End: 09-30-2023 Lab Drop off Lucas Baig Tracy [facility] Start: 08-04-2023 End: 08-04-2023 ambulatory Elisa E ROBUCK Facility: [place] Start: 08-04-2023 End: 08-04-2023 Patient encounter procedure Elisa E ROBUCK [facility] Start: 08-03-2023 End: 08-03-2023 Emergency department patient visit Narinder Cardona [facility] Start: 07-06-2023 End: 07-06-2023 ambulatory [facility] Start: 07-06-2023 End: 07-06-2023 Office outpatient visit 15 minutes Maria R Goss MD Work Phone: [facility] Comment on above: BV (bacterial vagino sis) (Primary Dx); Acute vaginitis; Dysuria Start: 06-10-2023 End: 06-10-2023 ambulatory Elisa PATEL Facility:[facility] [place] [place] Start: 06-10-2023 End: 06-10-2023 Patient encounter procedure Elisa PATEL [facility] Start: 06-03-2023 End: 06-04-2023 Pre-admission assessment Héctor Denton [facility] Start: 05-28-2023 End: 05-28-2023 Emergency department patient visit Julián Mercer [facility] Start: 05-22-2023 End: 05-22-2023 Admission to same day surgery center Héctor Denton [facility] Start: 05-22-2023 End: 05-22-2023 ambulatory Héctor Denton Facility:[facility] [place] [place] Start: 05-20-2023 End: 05-20-2023 ambulatory Héctor Delmi Corrie Facility:[facility] [place] [place] Start: 05-20-2023 End: 05-20-2023 Patient encounter procedure Héctor Denton [facility] Start: 05-19-2023 End: 05-19-2023 Emergency department patient visit González Muhammad [facility] Start: 04-16-2023 End: 04-16-2023 ambulatory Elisa PATEL Facility:[facility] Start: 04-16-2023 End: 04-16-2023 Patient encounter procedure Elisa E ROBUCK [facility] Start: 03-24-2023 End: 03-24-2023 ambulatory Elisa E ROBUCK Facility:[facility] Start: 03-24-2023 End: 03-24-2023 Patient encounter procedure Elisa E ROBUCK [facility] Start: 03-17-2023 ambulatory Elisa E ROBUCK Facility :[facility] Start: 03-02-2023 Chart Update Eloisa bennettHobo Labs Work Phone: [employer] Work Phone: Start: 02-26-2023 Chart Update Eloisa bennettield Work Phone: [facility] [employer] Work Phone: Start: 02-24-2023 ambulatory MD MARIA R BOURGEOIS CIA [facility] Facility:[id number] Start: 02-24-2023 Periodic preventive med est patient 18-39 yrs Eloisa Alvarez Work Phone: [facility] Work Phone: Start: 02-10-2023 ambulatory Elisa E ROBUCK Facility :[facility] Start: 09-22-2022 End: 09-22-2022 Patient encounter procedure Elisa E ROBUCK [facility] Start: 08-25-2022 End: 08-25-2022 Patient encounter procedure Elisa E ROBUCK [facility] Start: 07-01-2022 Chart Update Eloisa bennettield Work Phone: [employer] [employer] Work Phone: Start: 06-29-2022 Chart Update Eloisa bennettield Work Phone: [facility] [address] Work Phone: Start: 06-27-2022 ambulatory MD MARIA R GOSS Facility:[id number] Start: 06-27-2022 Office outpatient vi sit 15 minutes Eloisa Alvarez Work Phone: [facility] [address] Work Phone: Start: 06-24-2022 Patient encounter procedure Eloisa Alvarez Work Phone: [facility] [address] Work Phone: Start: 06-24-2022 ambulatory MD MARIA R GOSS Facility:[id number] Start: 04-01-2022 ambulatory MD MARIA R GOSS Facility:[id number] Start: 02-05-2022 Chart Update Eloisa bennettield Work Phone: [facility] [address] Work Phone: Start: 02-04-2022 Office outpatient vi sit 15 minutes Eloisa Alvarez Work Phone: [facility] [address] Work Phone: Start: 01-10-2022 Chart Update Eloisa bennettield Work Phone: [facility] [address] Work Phone: Start: 01-08-2022 Chart Update Eloisa Rosenberg nfield Work Phone: [facility] [address] Work Phone: Start: 01-07-2022 AUDIT Eloisa Rosenberg nfield Work Phone: [facility] [address] Work Phone: Start: 01-07-2022 FUV, Provider: Maria R Goss, Status: Pen, Time: 3:30 PM Eloisa Alvarez Work Phone: [facility] [address] Work Phone: Start: 01-06-2022 Patient encounter procedure Eloisa Alvarez Work Phone: [facility] [address] Work Phone: Start: 11-05-2021 End: 11-05-2021 Patient encounter procedure Narinder Mcginnis [facility] [place] Start: 10-18-2021 Chart Update Eloisa Rosenberg [employer] Work Phone: [facility] [place] [address] Work Phone: Start: 10-15-2021 Chart Update Eloisa bennettield Work Phone: [facility] [place] [address] [address] Work Phone: Start: 10-14-2021 Patient encounter procedure Eloisa Alvarez Work Phone: [facility] [place] [address] Work Phone: Start: 10-09-2021 Rx Renewal Eloisa Rosenberg nfield Work Phone: [facility] [place] [address] Work Phone: Start: 10-07-2021 Periodic preventive med est patient 18-39 yrs Eloisa Alvarez Work Phone: [facility] [place] [address] Work Phone: Start: 07-16-2021 Office outpatient vi sit 10 minutes Eloisa Alvarez Work Phone: [facility] [place] [address] Work Phone: Start: 04-30-2021 Office outpatient vi sit 10 minutes Eloisa Alvarze Work Phone: [facility] [place] [address] Work Phone: Start: 04-24-2021 Office outpatient vi sit 10 minutes Eloisa Alvarez Work Phone: [facility] [address] Work Phone: Start: 04-15-2021 Chart Update Eloisa gipson Work Phone: [facility] [address] Work Phone: Start: 04-12-2021 Office outpatient vi sit 10 minutes Eloisa Alvarez Work Phone: [facility] [address] Work Phone: Start: 04-08-2021 Chart Update Eloisa gipson Work Phone: [facility] [employer] Work Phone: Start: 04-05-2021 Office outpatient vi sit 10 minutes Eloisa Alvarez Work Phone: [facility] [employer] Work Phone: Patient encounter procedure Eloisa Alvarez Work Phone: [facility] [employer] Work Phone: Procedures Date Procedure Procedure Detail Performing Clinician Start: 05-22-2023 Laparoscopic cholecystectomy Héctor Denton Comment on above: With robotic assista nce Start: 10-07-2021 Microscopic observat ion [Identifier] in Cervix by Cyto stain Maria R Goss MD Work Phone: Start: 05-07-2021 Antibody screen Comment on above: Performed By: #### T +S #### [address] [address] Start: 04-12-2021 Antibody screen Comment on above: Performed By: #### C BC #### [address] [address] None (qualifier value) Narinder Mcginnis Plan of Treatment Date Care Activity Detail Author Start: 2048 Zoster Vaccines (1 o f 2) Zoster Vaccines (1 of 2) [facility] Start: 04-05-2031 DTaP/Tdap/Td Vaccine s (9 - Td or Tdap) DTaP/Tdap/Td Vaccines (9 - Td or Tdap) [facility] Start: 10-07-2024 Screening for malign ant neoplasm of cervix [facility] Start: 02-26-2024 Patient encounter procedure ANNUAL, Provider: Maria R Goss, Status: Pen, Time: 3:30 PM [facility] N[facility] Watkins Work Phone: Start: 02-26-2024 End: 02-26-2024 Patient encounter procedure 02/26/2024 3:30 PM EDT Office Visit [facility] [address] [place] [address] Maria R Goss MD [address] [facility] [place] [id number] [facility] Start: 07-24-2023 End: 07-24-2023 ambulatory 07/24/2023 9:30 AM EST Initial [facility] Office Building [address] [place] [id number] Maria R Goss MD [address] [place] [address] [facility] [place] [id number] [facility] Building Start: 07-06-2023 End: 07-13-2023 Bacteria identified in Genital specimen by Aerobe culture Genital Culture Microbiology Routine Acute vaginitis Expected: 07/06/2023 (Approximate), Expires: 07/13/2023 [facility] Service Area Work Phone: Comment on above: Expected: 07/06/2023 (Approximate), Expires: 07/13/2023 Start: 07-06-2023 End: 07-13-2023 Bacteria identified in Urine by Culture Urine Culture Microbiology Routine Dysuria Expected: 07/06/2023 (Approximate), Expires: 07/13/2023 [facility] Work Phone: Comment on above: Expected: 07/06/2023 (Approximate), Expires: 07/13/2023 Start: 03-27-2023 Influenza vaccination Influenza Vacc ine (#1) [facility] Start: 09-16-2022 RNVISIT, Provider: GERARD KUNZD 1,[id number], Status: Pen, Time: 3:00 PM RNVISIT, Provider: GERARD KUNZD 1,[id number], Status: Pen, Time: 3:00 PM [facility] Work Phone: Start: 04-01-2022 RNVISIT, Provider: GERARD KUNZD 1,[id number], Status: Pen, Time: 3:15 PM RNVISIT, Provider: GERARD KUNZD 1,[id number], Status: Pen, Time: 3:15 PM [facility] Work Phone: Start: 01-06-2022 RNVISIT, Provider: GERARD THAPALND 1,[id number], Status: Pen, Time: 3:30 PM RNVISIT, Provider: GERARD THAPALND 1,[id number], Status: Pen, Time: 3:30 PM [facility] Work Phone: Start: 10-14-2021 RNVISIT, Provider: GERARD KUNZD 1,[id number], Status: Pen, Time: 9:00 AM RNVISIT, Provider: GERARD THAPALND 1,[id number], Status: Pen, Time: 9:00 AM [facility] Work Phone: Start: 10-04-2021 Patient encounter procedure ANNUAL, Provider: Maria R Goss, Status: Pen, Time: 2:30 PM [facility] Work Phone: Start: 04-30-2021 EPVOB, Provider: Maria R Goss, Status: Pen, Time: 11:15 AM EPVOB, Provider: Maria R Goss, Status: Pen, Time: 11:15 AM [place] [address] [address] Work Phone: Start: 04-19-2021 EPVOB, Provider: Maria R Goss, Status: Pen, Time: 9:45 AM EPVOB, Provider: Maria R Goss, Status: Pen, Time: 9:45 AM [place] [address] [address] Work Phone: Start: 04-12-2021 EPVOB, Provider: Maria R Goss, Status: Pen, Time: 1:30 PM EPVOB, Provider: Maria R Goss, Status: Pen, Time: 1:30 PM [facility] [employer] Work Phone: Start: 11-27-2019 Screening for malign ant neoplasm of cervix HPV/Cotest [facility] Start: 07-12-2009 Varicella vaccination Varicell a Vaccines (2 of 2 - 2-dose childhood series) [facility] Start: 05-29-1999 COVID-19 Vaccine (#1) COVID-19 Vacci ne (#1) [facility] Start: 1998 Lipid panel Lipid Panel [facility] Start: 1998 Yearly Adult Physical Yearly Adult P hysical [facility] Immunizations Immunization Date Immunization Notes Care Provider Cale caballero 04-12-2021 influenza virus vaccine, unspecified formulation Elisa PATEL [facility] 04-05-2021 tetanus toxoid, redu angel diphtheria toxoid, and acellular pertussis vaccine, adsorbed Elisa PATEL [facility] 05-24-2019 influenza, seasonal, injectable; Translations: [Fluzone Quadravalent] Narinder Mcginnis [facility] [place] Comment on above: Early/Late Reason: N ursing Judgment 09-26-2019 tetanus toxoid, redu angel diphtheria toxoid, and acellular pertussis vaccine, adsorbed Narinder Mcginnis [facility] [place] 08-06-2016 influenza virus vaccine, unspecified formulation Elisa ROBUCK [facility] 08-18-2011 hepatitis A vaccine, unspecified formulation Elisa ROBUCK [facility] 08-18-2011 HPV, unspecified formulation Elisa ROBUCK [facility] 05-12-2011 HPV, unspecified formulation Elisa ROBUCK [facility] 05-12-2011 influenza virus vaccine, unspecified formulation Elisa ROBUCK [facility] 02-03-2011 hepatitis A vaccine, unspecified formulation Elisa ROBUCK [facility] 02-03-2011 HPV, unspecified formulation Elisa ROBUCK [facility] 02-03-2011 meningococcal ACWY vaccine, unspecified formulation Elisa ROBUCK [facility] 02-03-2011 tetanus toxoid, redu angel diphtheria toxoid, and acellular pertussis vaccine, adsorbed Elisa ROBUCK [facility] 01-10-2004 DTaP, unspecified formulation Elisa ROBUCK [facility] 01-10-2004 measles, mumps and rubella virus vaccine Elisa ROBUCK [facility] 01-10-2004 poliovirus vaccine, unspecified formulation Elisa ROBUCK [facility] 01-10-2004 varicella virus vaccine Bagley y ROBUCK [facility] 04-11-2002 DTaP, unspecified formulation Elisa ROBUCK [facility] 04-11-2002 Hib, unspecified formulation Elisa ROBUCK [facility] 11-27-1999 DTaP, unspecified formulation Elisa ROBUCK [facility] 11-27-1999 hepatitis B vaccine, pediatric or pediatric/adolescent dosage Elisa ROBUCK [facility] 11-27-1999 Hib, unspecified formulation Elisa ROBUCK [facility] 11-27-1999 measles, mumps and rubella virus vaccine Elisa ROBUCK [facility] 11-27-1999 poliovirus vaccine, unspecified formulation Elisa ROBUCK [facility] 05-15-1999 DTaP, unspecified formulation Elisa ROBUCK [facility] 05-15-1999 Hib, unspecified formulation Elisa ROBUCK [facility] 05-15-1999 poliovirus vaccine, unspecified formulation Elisa ROBUCK [facility] 03-13-1999 DTaP, unspecified formulation Elisa ROBUCK [facility] 03-13-1999 hepatitis B vaccine, pediatric or pediatric/adolescent dosage Elisa ROBUCK [facility] 03-13-1999 Hib, unspecified formulation Elisa ROBUCK [facility] 03-13-1999 poliovirus vaccine, unspecified formulation Elisa ROBUCK [facility] 1998 hepatitis B vaccine, pediatric or pediatric/adolescent dosage Elisa ROBUCK [facility] NEGATED: Highlighted row has not occurred!04-16-2023 influenza virus vaccine, unspecified formulation Elisa ROBUCK [facility] NEGATED: Highlighted row has not occurred!09-22-2022 influenza virus vaccine, unspecified formulation Elisa ROBUCK [facility] NEGATED: Highlighted row has not occurred!09-22-2022 SARS-CoV-2 mRNA (tozinameran 5y-11y) vaccine Elisa ROBUCK [facility] NEGATED: Highlighted row has not occurred!10-07-2021 influenza virus vaccine, unspecified formulation Narinder Colonchelsieleslee [facility] [place] NEGATED: Highlighted row has not occurred!02-28-2021 SARS-CoV-2 (COVID-19) mRNA-1273 vaccine Narinder Mcginnis [facility] [place] NEGATED: Highlighted row has not occurred!10-17-2020 influenza virus vaccine, unspecified formulation Narinder Colonval [facility] [place] NEGATED: Highlighted row has not occurred!05-12-2019 influenza virus vaccine, unspecified formulation Narinder Colonval [facility] [place] Payers Date Payer Category Payer Unknown [id number] 2018 Unknown 2018 Unknown [id number] 1998 Unknown [id number] 2.16. [id number] 1998 Unknown [id number] 2.16. [id number] 1998 Unknown [id number] 2.16. [id number] 1998 Unknown [id number] 2.16. [id number] 1998 Unknown [id number] [id number] 1998 Unknown [id number] 2.16.8 40.1.933708.3.579.2.727 1998 Unknown [id number] 2.16.8 40.1.000690.3.579.2.727 1998 Unknown [id number] 2.16.8 40.1.760738.3.579.2.727 1998 Unknown [id number] 2.16.8 40.1.058374.3.579.2.727 1998 Unknown [id number] 2.16.8 40.1.054508.3.579.2.727 1998 Unknown [id number] 2.16.8 40.1.008629.3.579.2.727 1998 Unknown [id number] 2.16.8 40.1.127697.3.579.2.727 1998 Unknown [id number] 2.16.8 40.1.944942.3.579.2.727 1998 Unknown [id number] 2.16.8 40.1.680334.3.579.2.727 1998 Unknown [id number] 2.16.8 40.1.269819.3.579.2. 1998 Unknown [id number] 2.16.8 40.1.528417.3.579.2. 1998 Unknown [id number] 2.16.8 40.1.488046.3.579.2. 1998 Unknown [id number] 2.16.8 40.1.138456.3.579.2. 1998 Unknown [id number] 2.16.8 40.1.509609.3.579.2. 1998 Unknown [id number] 2.16.8 40.1.477936.3.579.2. 1998 Unknown [id number] 2.16.8 40.1.308975.3.579.2 1998 Unknown [id number] 2.16.8 40.1.053596.3.579.2 1998 Unknown [id number] 2.16.8 40.1.870705.3.579.2 1998 Unknown [id number] 2.16.8 40.1.180438.3.579.2 1998 Unknown [id number] 2.16.8 40.1.744501.3.579.2 1998 Unknown [id number] 2.16.8 40.1.032791.3.579.2 1998 Unknown [id number] 2.16.8 40.1.578687.3.579.2 1998 Unknown [id number] 2.16.8 40.1.093724.3.579.2 1998 Unknown [id number] 2.16.8 40.1.501162.3.579.2 1998 Unknown [id number] 2.16.8 40.1.055402.3.579.2 1998 Unknown [id number] 2.16.8 40.1.062818.3.579.2.727 1998 Unknown [id number] 2.16.8 40.1.333565.3.579.2.727 Social History Date Type Detail Facility Start: 07-06-2023 Current some day smoker Current some day smoker [address] Work Phone: Start: 11-05-2021 End: 04-16-2023 Tobacco smoking status Never smoked tobacco (finding) [facility] Tobacco smoking status Never [facility] Start: 07-06-2023 Sex Assigned At Female [facility] Tobacco smoking status Smoker (finding) [facility] Tobacco Cigarettes, Vaping [facility] Tobacco smoking status No Smoking Status Entered [facility] Start: 07-06-2023 Tobacco smoking status NHIS Occasional tobacco smoker [facility] Work Phone: History of tobacco use Cigar Smoker [facility] Work Phone: Start: 07-06-2023 Tobacco use and exposure Smokeless tobacco non-user [facility] Work Phone: Start: 07-06-2023 Alcohol intake Ex-drinker (finding) [facility] Work Phone: Start: 2000 Sex Assigned At Not on file [facility] Work Phone: Start: 06-26-2023 End: 07-06-2023 Exposure to SARS-CoV-2 (event) Not sure [facility] Start: 08-04-2023 End: 01-12-2024 Tobacco smoking status Light tobacco smoker (finding) [facility] Functional Status Date Assessment Result Facility 01-12-2024 Functional Status N/A [facility] 11-22-2023 Functional Status N/A [facility] 08-03-2023 Functional Status N/A [facility] 05-28-2023 Functional Status N/A [facility] 05-21-2023 Functional Status No [facility] 05-19-2023 Functional Status N/A [facility] 09-22-2022 Functional Status N/A [facility] 08-25-2022 Functional Status N/A [facility] Clinical Notes 01-07-2021 to 12-02-2023 Maria R Goss MD - 07/06/2023 10:00 AM EST Note Date & Type Note Facility 12-02-2023 Hospital Discharg e instructions Patient Education 12/02/2023 09:24:02 Steps to Quit Smoking, Lyea-in-Xkyh Steps to Quit Smoking Smoking tobacco is the leading cause of preventable . It can affect almost every organ in the body. Smoking puts you and people around you at risk for many serious, long-lasting (chronic) diseases. Quitting smoking can be hard, but it is one of the best things that you can do for your health. It is never too late to quit. Do not give up if you cannot quit the first time. Some people need to try many times to quit. Do your best to stick to your quit plan, and talk with your doctor if you have any questions or concerns. How do I get ready to quit? Pick a date to quit. Set a date within the next 2 weeks to give you time to prepare. Write down the reasons why you are quitting. Keep this list in places where you will see it often. Tell your family, friends, and co-workers that you are quitting. Their support is important. Talk with your doctor about the choices that may help you quit. Find out if your health insurance will pay for these treatments. Know the people, places, things, and activities that make you want to smoke (triggers). Avoid them. What first steps can I take to quit smoking? Throw away all cigarettes at home, at work, and in your car. Throw away the things that you use when you smoke, such as ashtrays and lighters. Clean your car. Empty the ashtray. Clean your home, including curtains and carpets. What can I do to help me quit smoking? Talk with your doctor about taking medicines and seeing a counselor. You are more likely to succeed when you do both. If you are or : Talk with your doctor about counseling or other ways to quit smoking. Do not take medicine to help you quit smoking unless your doctor tells you to. Quit right away Quit smoking completely, instead of slowly cutting back on how much you smoke over a period of time. Stopping smoking right away may be more successful than slowly quitting. Go to counseling. In-person is best if this is an option. You are more likely to quit if you go to counseling sessions regularly. Take medicine You may take medicines to help you quit. Some medicines need a prescription, and some you can buy uvyu-exz-bspojox. Some medicines may contain a drug called nicotine to replace the nicotine in cigarettes. Medicines may: Help you stop having the desire to smoke (cravings). Help to stop the problems that come when you stop smoking (withdrawal symptoms). Your doctor may ask you to use: Nicotine patches, gum, or lozenges. Nicotine inhalers or sprays. Non-nicotine medicine that you take by mouth. Find resources Find resources and other ways to help you quit smoking and remain smoke-free after you quit. They include: Online chats with a counselor. Phone quitlines. Printed self-help materials. Support groups or group counseling. Text messaging programs. Mobile phone apps. Use apps on your mobile phone or tablet that can help you stick to your quit plan. Examples of free services include Quit Guide from the CDC and smokefree.gov What can I do to make it easier to quit? Talk to your family and friends. Ask them to support and encourage you. Call a phone quitline, such as 8-178-WLRD-NOW, reach out to support groups, or work with a counselor. Ask people who smoke to not smoke around you. Avoid places that make you want to smoke, such as: ?Bars. ?Parties. ?Smoke-break areas at work. Spend time with people who do not smoke. Lower the stress in your life. Stress can make you want to smoke. Try these things to lower stress: ?Getting regular exercise. ?Doing deep-breathing exercises. ?Doing yoga. ?Meditating. What benefits will I see if I quit smoking? Over time, you may have: A better sense of smell and taste. Less coughing and sore throat. A slower heart rate. Lower blood pressure. Clearer skin. Better breathing. Fewer sick days. Summary Quitting smoking can be hard, but it is one of the best things that you can do for your health. Do not give up if you cannot quit the first time. Some people need to try many times to quit. When you decide to quit smoking, make a plan to help you succeed. Quit smoking right away, not slowly over a period of time. When you start quitting, get help and support to keep you smoke-free. This information is not intended to replace advice given to you by your health care provider. Make sure you discuss any questions you have with your health care provider. Document Revised: 07/04/2022 Document Reviewed: 07/04/2022 [employer] Patient Education 2022 908 Devices. [facility] 11-22-2023 Hospital Discharg e instructions Patient Education 11/22/2023 15:40:27 Upper Respiratory Infection, Adult, Ppiq-kk-Fsgt Upper Respiratory Infection, Adult An upper respiratory infection (URI) affects the nose, throat, and upper airways that lead to the lungs. The most common type of URI is often called the common cold. URIs usually get better on their own, without medical treatment. What are the causes? A URI is caused by a germ (virus). You may catch these germs by: Breathing in droplets from an infected person's cough or sneeze. Touching something that has the germ on it (is contaminated) and then touching your mouth, nose, or eyes. What increases the risk? You are more likely to get a URI if: You are very young or very old. You have close contact with others, such as at work, school, or a health care facility. You smoke. You have long-term (chronic) heart or lung disease. You have a weakened disease-fighting system (immune system). You have nasal allergies or asthma. You have a lot of stress. You have poor nutrition. What are the signs or symptoms? Runny or stuffy (congested) nose. Cough. Sneezing. Sore throat. Headache. Feeling tired (fatigue). Fever. Not wanting to eat as much as usual. Pain in your forehead, behind your eyes, and over your cheekbones (sinus pain). Muscle aches. Redness or irritation of the eyes. Pressure in the ears or face. How is this treated? URIs usually get better on their own within 7 10 days. Medicines cannot cure URIs, but your doctor may recommend certain medicines to help relieve symptoms, such as: Fcfx-fdv-jhudfyp cold medicines. Medicines to reduce coughing (cough suppressants). Coughing is a type of defense against infection that helps to clear the nose, throat, windpipe, and lungs (respiratory system). Take these medicines only as told by your doctor. Medicines to lower your fever. Follow these instructions at home: Activity Rest as needed. If you have a fever, stay home from work or school until your fever is gone, or until your doctor says you may return to work or school. ?You should stay home until you cannot spread the infection anymore (you are not contagious). ?Your doctor may have you wear a face mask so you have less risk of spreading the infection. Relieving symptoms Rinse your mouth often with salt water. To make salt water, dissolve 1 tsp (3 6 g) of salt in 1 cup (237 mL) of warm water. Use a cool-mist humidifier to add moisture to the air. This can help you breathe more easily. Eating and drinking Drink enough fluid to keep your pee (urine) pale yellow. Eat soups and other clear broths. General instructions Take wwlm-tjb-naiiial and prescription medicines only as told by your doctor. Do not smoke or use any products that contain nicotine or tobacco. If you need help quitting, ask your doctor. Avoid being where people are smoking (avoid secondhand smoke). Stay up to date on all your shots (immunizations), and get the flu shot every year. Keep all follow-up visits. How to prevent the spread of infection to others Wash your hands with soap and water for at least 20 seconds. If you cannot use soap and water, use hand photographic platemaker. Avoid touching your mouth, face, eyes, or nose. Cough or sneeze into a tissue or your sleeve or elbow. Do not cough or sneeze into your hand or into the air. Contact a doctor if: You are getting worse, not better. You have any of these: ?A fever or chills. ?Brown or red mucus in your nose. ?Yellow or brown fluid (discharge)coming from your nose. ?Pain in your face, especially when you bend forward. ?Swollen neck glands. ?Pain when you swallow. ?White areas in the back of your throat. Get help right away if: You have shortness of breath that gets worse. You have very bad or constant: ?Headache. ?Ear pain. ?Pain in your forehead, behind your eyes, and over your cheekbones (sinus pain). ?Chest pain. You have long-lasting (chronic) lung disease along with any of these: ?Making high-pitched whistling sounds when you breathe, most often when you breathe out (wheezing). ?Long-lasting cough (more than 14 days). ?Coughing up blood. ?A change in your usual mucus. You have a stiff neck. You have changes in your: ?Vision. ?Hearing. ?Thinking. ?Mood. These symptoms may be an emergency. Get help right away. Call 911. Do not wait to see if the symptoms will go away. Do not drive yourself to the hospital. Summary An upper respiratory infection (URI) is caused by a germ (virus). The most common type of URI is often called the common cold. URIs usually get better within 7 10 days. Take dnji-vjy-chopvnq and prescription medicines only as told by your doctor. This information is not intended to replace advice given to you by your health care provider. Make sure you discuss any questions you have with your health care provider. Document Revised: 02/12/2022 Document Reviewed: 02/12/2022 [employer] Patient Education 2022 [employer]. 11/22/2023 15:40:27 Dysuria Dysuria Dysuria is pain or discomfort during urination. The pain or discomfort may be felt in the part of the body that drains urine from the bladder (urethra) or in the surrounding tissue of the genitals. The pain may also be felt in the groin area, lower abdomen, or lower back. You may have to urinate frequently or have the sudden feeling that you have to urinate (urgency). Dysuria can affect anyone, but it is more common in females. Dysuria can be caused by many different things, including: Urinary tract infection. Kidney stones or bladder stones. Certain STIs (sexually transmitted infections), such as chlamydia. Dehydration. Inflammation of the tissues of the vagina. Use of certain medicines. Use of certain soaps or scented products that cause irritation. Follow these instructions at home: Medicines Take kubs-bxh-wvnnedb and prescription medicines only as told by your health care provider. If you were prescribed an antibiotic medicine, take it as told by your health care provider. Do not stop taking the antibiotic even if you start to feel better. Eating and drinking Drink enough fluid to keep your urine pale yellow. Avoid caffeinated beverages, tea, and alcohol. These beverages can irritate the bladder and make dysuria worse. In males, alcohol may irritate the prostate. General instructions Watch your condition for any changes. Urinate often. Avoid holding urine for long periods of time. If you are female, you should wipe from front to back after urinating or having a bowel movement. Use each piece of toilet paper only once. Empty your bladder after sex. Keep all follow-up visits. This is important. If you had any tests done to find the cause of dysuria, it is up to you to get your test results. Ask your health care provider, or the department that is doing the test, when your results will be ready. Contact a health care provider if: You have a fever. You develop pain in your back or sides. You have nausea or vomiting. You have blood in your urine. You are not urinating as often as you usually do. Get help right away if: Your pain is severe and not relieved with medicines. You cannot eat or drink without vomiting. You are confused. You have a rapid heartbeat while resting. You have shaking or chills. You feel extremely weak. Summary Dysuria is pain or discomfort while urinating. Many different conditions can lead to dysuria. If you have dysuria, you may have to urinate frequently or have the sudden feeling that you have to urinate (urgency). Watch your condition for any changes. Keep all follow-up visits. Make sure that you urinate often and drink enough fluid to keep your urine pale yellow. This information is not intended to replace advice given to you by your health care provider. Make sure you discuss any questions you have with your health care provider. Document Revised: 02/22/2021 Document Reviewed: 02/22/2021 Else[employer] Patient Education 2022 [employer] [facility] 11/22/2023 14:28:12 With:Elisa PATEL Address: [address] [place] [phone]- Business (1) When:Within 3 Day(s) [facility] 11-22-2023 Evaluation + Plan note Diagnostic Tests PendingUrine Culture 11/22/23 [facility] 09-24-2023 Hospital Discharg e instructions [facility] 09/24/2023 14:02:18 With:Elisa PATEL CNP Address: [address] [place] [address], [place] [address]- When:Within 6 Week(s) [facility] 08-04-2023 Hospital Discharg e instructions Patient Education 08/04/2023 11:06:09 Steps to Quit Smoking, Lqdl-cg-Hczo Steps to Quit Smoking Smoking tobacco is the leading cause of preventable . It can affect almost every organ in the body. Smoking puts you and people around you at risk for many serious, long-lasting (chronic) diseases. Quitting smoking can be hard, but it is one of the best things that you can do for your health. It is never too late to quit. Do not give up if you cannot quit the first time. Some people need to try many times to quit. Do your best to stick to your quit plan, and talk with your doctor if you have any questions or concerns. How do I get ready to quit? Pick a date to quit. Set a date within the next 2 weeks to give you time to prepare. Write down the reasons why you are quitting. Keep this list in places where you will see it often. Tell your family, friends, and co-workers that you are quitting. Their support is important. Talk with your doctor about the choices that may help you quit. Find out if your health insurance will pay for these treatments. Know the people, places, things, and activities that make you want to smoke (triggers). Avoid them. What first steps can I take to quit smoking? Throw away all cigarettes at home, at work, and in your car. Throw away the things that you use when you smoke, such as ashtrays and lighters. Clean your car. Empty the ashtray. Clean your home, including curtains and carpets. What can I do to help me quit smoking? Talk with your doctor about taking medicines and seeing a counselor. You are more likely to succeed when you do both. If you are or : Talk with your doctor about counseling or other ways to quit smoking. Do not take medicine to help you quit smoking unless your doctor tells you to. Quit right away Quit smoking completely, instead of slowly cutting back on how much you smoke over a period of time. Stopping smoking right away may be more successful than slowly quitting. Go to counseling. In-person is best if this is an option. You are more likely to quit if you go to counseling sessions regularly. Take medicine You may take medicines to help you quit. Some medicines need a prescription, and some you can buy aflx-hlp-icedexk. Some medicines may contain a drug called nicotine to replace the nicotine in cigarettes. Medicines may: Help you stop having the desire to smoke (cravings). Help to stop the problems that come when you stop smoking (withdrawal symptoms). Your doctor may ask you to use: Nicotine patches, gum, or lozenges. Nicotine inhalers or sprays. Non-nicotine medicine that you take by mouth. Find resources Find resources and other ways to help you quit smoking and remain smoke-free after you quit. They include: Online chats with a counselor. Phone quitlines. Printed self-help materials. Support groups or group counseling. Text messaging programs. Mobile phone apps. Use apps on your mobile phone or tablet that can help you stick to your quit plan. Examples of free services include Quit Guide from the CDC and smokefree.gov What can I do to make it easier to quit? Talk to your family and friends. Ask them to support and encourage you. Call a phone quitline, such as 0-305-SIOW-NOW, reach out to support groups, or work with a counselor. Ask people who smoke to not smoke around you. Avoid places that make you want to smoke, such as: ?Bars. ?Parties. ?Smoke-break areas at work. Spend time with people who do not smoke. Lower the stress in your life. Stress can make you want to smoke. Try these things to lower stress: ?Getting regular exercise. ?Doing deep-breathing exercises. ?Doing yoga. ?Meditating. What benefits will I see if I quit smoking? Over time, you may have: A better sense of smell and taste. Less coughing and sore throat. A slower heart rate. Lower blood pressure. Clearer skin. Better breathing. Fewer sick days. Summary Quitting smoking can be hard, but it is one of the best things that you can do for your health. Do not give up if you cannot quit the first time. Some people need to try many times to quit. When you decide to quit smoking, make a plan to help you succeed. Quit smoking right away, not slowly over a period of time. When you start quitting, get help and support to keep you smoke-free. This information is not intended to replace advice given to you by your health care provider. Make sure you discuss any questions you have with your health care provider. Document Revised: 07/04/2022 Document Reviewed: 07/04/2022 [employer] Patient Education 2022 [employer]. [facility] 08/03/2023 10:57:28 With:Elisa PATEL CNP Address: [address] [place] [phone]- When: only if needed [facility] 08-03-2023 Hospital Discharg e instructions Follow Up Care 08/03/2023 13:49:06 With:Lucas Molina Address: [facility] [address] [address]- Business (1) When:08/06/2023 15:53:49 With:Follow-up with your ENVIRONMENTAL MONITORING SPECIALIST for further evaluation of your symptoms. If symptoms continue may report back to emergency department. Address:Unknown When:08/06/2023 15:53:46 With:Elisa PATEL Address: [address] [place] [phone]- Business (1) When:08/06/2023 15:53:25 Comments:Follow-up with your primary care provider in 3 to 5 days. If symptoms worsen, do not improve, or new symptoms arise please report back to emergency department for further evaluation. [facility] 07-06-2023 History of Presen t illness Narrative Subjective Patient ID: Alaina Warner is a 22 y.o. female who presents for Urinary Symptom (Patient is here today for concerns of burning when urinating she had also been feeling sick and ask for a test that came back positive. ). VITALIY Flores is here because last week she was having a burning sensation with urination. She reports now the burning with urination has resolved she denied any itching or but reports that she has been having yellowish-whitish discharge that is really thick over the last week that has not resolved. She reports that her last menstrual period was about the end of April but does not have an exact date Objective Physical Exam Pleasant in no acute distress Breathing comfortably External genitalia revealed no lesions no ulcers the vagina had a thin yellow discharge the cervix was nonfriable Extremities good mobility Psych appropriately oriented Urine positive Wet mount positive for clue clue cells no trichomoniasis no yeast Assessment/Plan Julianne is a 22-year-old who comes in with dysuria last week that has now resolved. Will send a urine culture urinalysis unremarkable. Vaginal discharge consistent with BV will treat her with clindamycin intravaginally since she is of unknown gestational age. Cultures were sent. Finally her urine Test came back positive patient possibly around 6 weeks we will see her for confirmation of dates in 2 weeks Maria R Goss MD 07/06/23 10:32 AM documented in this encounter [facility] Work Phone: 06-15-2023 Note [id number] [facility] 06-01-2023 Note [id number] [facility] 05-28-2023 Hospital Discharg e instructions Patient Education 05/28/2023 17:41:14 Dysuria Dysuria Dysuria is pain or discomfort during urination. The pain or discomfort may be felt in the part of the body that drains urine from the bladder (urethra) or in the surrounding tissue of the genitals. The pain may also be felt in the groin area, lower abdomen, or lower back. You may have to urinate frequently or have the sudden feeling that you have to urinate (urgency). Dysuria can affect anyone, but it is more common in females. Dysuria can be caused by many different things, including: Urinary tract infection. Kidney stones or bladder stones. Certain STIs (sexually transmitted infections), such as chlamydia. Dehydration. Inflammation of the tissues of the vagina. Use of certain medicines. Use of certain soaps or scented products that cause irritation. Follow these instructions at home: Medicines Take orss-vxm-xhqwwcj and prescription medicines only as told by your health care provider. If you were prescribed an antibiotic medicine, take it as told by your health care provider. Do not stop taking the antibiotic even if you start to feel better. Eating and drinking Drink enough fluid to keep your urine pale yellow. Avoid caffeinated beverages, tea, and alcohol. These beverages can irritate the bladder and make dysuria worse. In males, alcohol may irritate the prostate. General instructions Watch your condition for any changes. Urinate often. Avoid holding urine for long periods of time. If you are female, you should wipe from front to back after urinating or having a bowel movement. Use each piece of toilet paper only once. Empty your bladder after sex. Keep all follow-up visits. This is important. If you had any tests done to find the cause of dysuria, it is up to you to get your test results. Ask your health care provider, or the department that is doing the test, when your results will be ready. Contact a health care provider if: You have a fever. You develop pain in your back or sides. You have nausea or vomiting. You have blood in your urine. You are not urinating as often as you usually do. Get help right away if: Your pain is severe and not relieved with medicines. You cannot eat or drink without vomiting. You are confused. You have a rapid heartbeat while resting. You have shaking or chills. You feel extremely weak. Summary Dysuria is pain or discomfort while urinating. Many different conditions can lead to dysuria. If you have dysuria, you may have to urinate frequently or have the sudden feeling that you have to urinate (urgency). Watch your condition for any changes. Keep all follow-up visits. Make sure that you urinate often and drink enough fluid to keep your urine pale yellow. This information is not intended to replace advice given to you by your health care provider. Make sure you discuss any questions you have with your health care provider. Document Revised: 02/22/2021 Document Reviewed: 02/22/2021 [employer] Patient Education 2022 908 Devices. Follow Up Care 05/28/2023 15:46:08 With:Elisa PATEL Address: [address] [place], [place] [id number]- Business (1) When:Within 3 Day(s) [facility] 05-22-2023 Hospital Discharg e instructions Patient Education 05/22/2023 10:08:25 Post Op Patient Instructions - FT (Custom) (CUSTOM) 05/22/2023 10:06:16 Minimally Invasive Cholecystectomy, Care After Minimally Invasive Cholecystectomy, Care After The following information offers guidance on how to care for yourself after your procedure. Your health care provider may also give you more specific instructions. If you have problems or questions, contact your health care provider. What can I expect after the procedure? After the procedure, it is common to have: Pain at your incision sites. You will be given medicines to control this pain. Mild nausea or vomiting. Bloating and possible shoulder pain from the gas that was used during the procedure. Follow these instructions at home: Medicines Take oxdj-nza-tgbgztj and prescription medicines only as told by your health care provider. If you were prescribed an antibiotic medicine, take it as told by your health care provider. Do not stop using the antibiotic even if you start to feel better. Ask your health care provider if the medicine prescribed to you: ?Requires you to avoid driving or using machinery. ?Can cause constipation. You may need to take these actions to prevent or treat constipation: ?Drink enough fluid to keep your urine pale yellow. ?Take edle-atq-xrweqeq or prescription medicines. ?Eat foods that are high in fiber, such as beans, whole grains, and fresh fruits and vegetables. ?Limit foods that are high in fat and processed sugars, such as fried or sweet foods. Incision care Follow instructions from your health care provider about how to take care of your incisions. Make sure you: ?Wash your hands with soap and water for at least 20 seconds before and after you change your bandage (dressing). If soap and water are not available, use hand photographic platemaker. ?Change your dressing as told by your health care provider. ?Leave stitches (sutures), skin glue, or adhesive strips in place. These skin closures may need to be in place for 2 weeks or longer. If adhesive strip edges start to loosen and curl up, you may trim the loose edges. Do not remove adhesive strips completely unless your health care provider tells you to do that. Do not take baths, swim, or use a hot tub until your health care provider approves. Ask your health care provider if you may take showers. You may only be allowed to take sponge baths. Check your incision area every day for signs of infection. Check for: ?More redness, swelling, or pain. ?Fluid or blood. ?Warmth. ?Pus or a bad smell. Activity Rest as told by your health care provider. Do not do activities that require a lot of effort. Avoid sitting for a long time without moving. Get up to take short walks every 1 2 hours. This is important to improve blood flow and breathing. Ask for help if you feel weak or unsteady. Do not lift anything that is heavier than 10 lb (4.5 kg), or the limit that you are told, until your health care provider says that it is safe. Do not play contact sports until your health care provider approves. Do not return to work or school until your health care provider approves. Return to your normal activities as told by your health care provider. Ask your health care provider what activities are safe for you. General instructions If you were given a sedative during the procedure, it can affect you for several hours. Do not drive or operate machinery until your health care provider says that it is safe. Keep all follow-up visits. This is important. Contact a health care provider if: You develop a rash. You have more redness, swelling, or pain around your incisions. You have fluid or blood coming from your incisions. Your incisions feel warm to the touch. You have pus or a bad smell coming from your incisions. You have a fever. One or more of your incisions breaks open. Get help right away if: You have trouble breathing. You have chest pain. You have more pain in your shoulders. You faint or feel dizzy when you stand. You have severe pain in your abdomen. You have nausea or vomiting that lasts for more than one day. You have leg pain that is new or unusual, or if it is localized to one specific spot. These symptoms may represent a serious problem that is an emergency. Do not wait to see if the symptoms will go away. Get medical help right away. Call your local emergency services (911 in the [place] Do not drive yourself to the hospital. Summary After your procedure, it is common to have pain at the incision sites. You may also have nausea or bloating. Follow your health care provider's instructions about medicine, activity restrictions, and caring for your incision areas. Do not do activities that require a lot of effort. Contact a health care provider if you have a fever or other signs of infection, such as more redness, swelling, or pain around the incisions. Get help right away if you have chest pain, increasing pain in the shoulders, or trouble breathing. This information is not intended to replace advice given to you by your health care provider. Make sure you discuss any questions you have with your health care provider. Document Revised: 01/14/2022 Document Reviewed: 01/14/2022 [employer] Patient Education 2022 908 Devices. Follow Up Care 05/20/2023 15:59:45 With:[facility] Address: [address] [place] [address] [address] [place] [phone] When:06/03/2023 11:00:00 Comments:You will have a phone visit between 11am-2pm. Please call with any questions or concerns [facility] 05-20-2023 Hospital Discharg e instructions Patient Education 05/19/2023 23:06:47 Cholelithiasis Cholelithiasis Cholelithiasis is a disease in which gallstones form in the gallbladder. The gallbladder is an organ that stores bile. Bile is a fluid that helps to digest fats. Gallstones begin as small crystals and can slowly grow into stones. They may cause no symptoms until they block the gallbladder duct, or cystic duct, when the gallbladder tightens (contracts) after food is eaten. This can cause pain and is known as a gallbladder attack, or biliary colic. There are two main types of gallstones: Cholesterol stones. These are the most common type of gallstone. These stones are made of hardened cholesterol and are usually yellow-green in color. Cholesterol is a fat-like substance that is made in the liver. Pigment stones. These are dark in color and are made of a red-yellow substance, called bilirubin,that forms when hemoglobin from red blood cells breaks down. What are the causes? This condition may be caused by an imbalance in the different parts that make bile. This can happen if the bile: Has too much bilirubin. This can happen in certain blood diseases, such as sickle cell anemia. Has too much cholesterol. Does not have enough bile salts. These salts help the body absorb and digest fats. In some cases, this condition can also be caused by the gallbladder not emptying completely or often enough. This is common during . What increases the risk? The following factors may make you more likely to develop this condition: Being female. Having multiple pregnancies. Health care providers sometimes advise removing diseased gallbladders before future pregnancies. Eating a diet that is heavy in fried foods, fat, and refined carbohydrates, such as white bread and white rice. Being obese. Being older than age 40. Using medicines that contain female hormones (estrogen) for a long time. Losing weight quickly. Having a family history of gallstones. Having certain medical problems, such as: ?Diabetes mellitus. ?Cystic fibrosis. ?Crohn's disease. ?Cirrhosis or other long-term (chronic) liver disease. ?Certain blood diseases, such as sickle cell anemia or leukemia. What are the signs or symptoms? In many cases, having gallstones causes no symptoms. When you have gallstones but do not have symptoms, you have silent gallstones. If a gallstone blocks your bile duct, it can cause a gallbladder attack. The main symptom of a gallbladder attack is sudden pain in the upper right part of the abdomen. The pain: Usually comes at night or after eating. Can last for one hour or more. Can spread to your right shoulder, back, or chest. Can feel like indigestion. This is discomfort, burning, or fullness in your upper abdomen. If the bile duct is blocked for more than a few hours, it can cause an infection or inflammation of your gallbladder (cholecystitis), liver, or pancreas. This can cause: Nausea or vomiting. Bloating. Pain in your abdomen that lasts for 5 hours or longer. Tenderness in your upper abdomen, often in the upper right section and under your rib cage. Fever or chills. Skin or the white parts of your eyes turning yellow (jaundice). This usually happens when a stone has blocked bile from passing through the common bile duct. Dark urine or light-colored stools. How is this diagnosed? This condition may be diagnosed based on: A physical exam. Your medical history. Ultrasound. CT scan. MRI. You may also have other tests, including: Blood tests to check for signs of an infection or inflammation. Cholescintigraphy, or HIDA scan. This is a scan of your gallbladder and bile ducts (biliary system) using non-harmful radioactive material and special cameras that can see the radioactive material. Endoscopic retrograde cholangiopancreatogram. This involves inserting a small tube with a camera on the end (endoscope) through your mouth to look at bile ducts and check for blockages. How is this treated? Treatment for this condition depends on the severity of the condition. Silent gallstones do not need treatment. Treatment may be needed if a blockage causes a gallbladder attack or other symptoms. Treatment may include: Home care, if symptoms are not severe. ?During a simple gallbladder attack, stop eating and drinking for 12 24 hours (except for water and clear liquids). This helps to cool down your gallbladder. After 1 or 2 days, you can start to eat a diet of simple or clear foods, such as broths and crackers. ?You may also need medicines for pain or nausea or both. ?If you have cholecystitis and an infection, you will need antibiotics. A hospital stay, if needed for pain control or for cholecystitis with severe infection. Cholecystectomy, or surgery to remove your gallbladder. This is the most common treatment if all other treatments have not worked. Medicines to break up gallstones. These are most effective at treating small gallstones. Medicines may be used for up to 6 12 months. Endoscopic retrograde cholangiopancreatogram. A small basket can be attached to the endoscope and used to capture and remove gallstones, mainly those that are in the common bile duct. Follow these instructions at home: Medicines Take tyli-xkw-lzbnfii and prescription medicines only as told by your health care provider. If you were prescribed an antibiotic medicine, take it as told by your health care provider. Do not stop taking the antibiotic even if you start to feel better. Ask your health care provider if the medicine prescribed to you requires you to avoid driving or using machinery. Eating and drinking Drink enough fluid to keep your urine pale yellow. This is important during a gallbladder attack. Water and clear liquids are preferred. Follow a healthy diet. This includes: ?Reducing fatty foods, such as fried food and foods high in cholesterol. ?Reducing refined carbohydrates, such as white bread and white rice. ?Eating more fiber. Aim for foods such as almonds, fruit, and beans. Alcohol use If you drink alcohol: ?Limit how much you use to: ?0 1 drink a day for non women. ?0 2 drinks a day for men. ?Be aware of how much alcohol is in your drink. In the [place] one drink equals one 12 oz bottle of beer (355 mL), one 5 oz glass of wine (148 mL), or one 1 oz glass of hard liquor (44 mL). General instructions Do not use any products that contain nicotine or tobacco, such as cigarettes, e-cigarettes, and chewing tobacco. If you need help quitting, ask your health care provider. Maintain a healthy weight. Keep all follow-up visits as told by your health care provider. These may include consultations with a surgeon or specialist. This is important. Where to find more information National [place] of Diabetes and Digestive and Kidney Diseases: www.niddk.nih.gov Contact a health care provider if: You think you have had a gallbladder attack. You have been diagnosed with silent gallstones and you develop pain in your abdomen or indigestion. You begin to have attacks more often. You have dark urine or light-colored stools. Get help right away if: You have pain from a gallbladder attack that lasts for more than 2 hours. You have pain in your abdomen that lasts for more than 5 hours or is getting worse. You have a fever or chills. You have nausea and vomiting that do not go away. You develop jaundice. Summary Cholelithiasis is a disease in which gallstones form in the gallbladder. This condition may be caused by an imbalance in the different parts that make bile. This can happen if your bile has too much bilirubin or cholesterol, or does not have enough bile salts. Treatment for gallstones depends on the severity of the condition. Silent gallstones do not need treatment. If gallstones cause a gallbladder attack or other symptoms, treatment usually involves not eating or drinking anything. Treatment may also include pain medicines and antibiotics, and it sometimes includes a hospital stay. Surgery to remove the gallbladder is common if all other treatments have not worked. This information is not intended to replace advice given to you by your health care provider. Make sure you discuss any questions you have with your health care provider. Document Revised: 06/04/2020 Document Reviewed: 06/04/2020 [employer] Patient Education 2022 908 Devices. Follow Up Care 05/19/2023 19:14:14 With:Héctor Denton Address: [address] [facility] [address] [phone] Business (1) When:05/22/2023 With:Elisa JORGE Address: [address] [place] [address]- Business (1) When:Within 3 Day(s) [facility] 05-19-2023 Evaluation + Plan note Extrac bryce from: Title:ED Note Author:Shanti Marr PA-C Date:05/19/23 1. Symptomatic cholelithiasi s (K80.20: Calculus of gallbladder without cholecystitis without obstruction) Orders: Sodium Chloride 0.9% intravenous solution, 1,000 mL, Soln-IV, IV, Once, Stop date 05/19/23 20:54:00 EDT, STAT, Start date 05/19/23 20:54:00 EDT, Infuse over 61, minute(s) Automated Diff Basic Metabolic Panel CBC w/ Auto Diff ED Cardiac Monitoring eGFR Extra Blue Tube Hepatic Function Panel Lipase Level NPO Diet Saline Lock Insert U Beta Hcg Qual UA With Cult Reflex US Gallbladder [facility]05-01-2023 History of Present illness Narrative Julianne is a 22-year-old who 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 Patient has been on the Depo-Provera for over a year and reports that from the time she started that she never really stopped bleeding she would bleed every month throughout the month sometimes heavy sometimes light. Patient is no longer interested in doing the Depo-Provera her last injection was over 3 months ago. Patient wants to be switched back to her control pills that she was taking previously. Patient reports also that shehad a miscarriage at approximately a month ago and had very heavy bleeding. She did not go to the emergency room but reports that since then she has been having some low-grade discomfort and still having some bloody discharge.[address] Work Phone: [phone] 507-510702-27-2023 Hospital Discharge instructions Follow Up Care 09/22/2022 14:40:48 With:MARILYNJULIAN HERNANDEZElisa Gilmer Address: [address] [place] [phone]- When:Within 1 Year(s) [facility] 01-30-2023 Hospital Discharge instructions Follow Up Care 08/25/2022 13:08:42 With:MARILYNJULIAN HERNANDEZElisa Address: [address] [place] [phone]- When:Within 6 Month(s) [facility] 01-24-2023 Hospital Discharge instructions Follow Up Care 08/19/2022 11:38:13 With:JORGE ORGANIZATIONAL RESEARCH CONSULTANTElisa Address: [address] [place] [phone]- When:Within 1 Month(s) [facility] 10-14-2021 NoteSend Summary: Discharge Summary Providers: Provider RoleProvider Name AttendingMaria R Goss Christina A Note Recipients: Eloisa Alvarez MD - [id number] [] Discharge: Summary: Admission Date: .07-May-2021 05:34:00 Discharge Date: 09-May-2021 Attending Physician at Discharge: Wolfgang Admission Reason: 39 weeks gestation Final Discharge Diagnoses: 39 weeks gestation Procedures: Physical Exam: Awake alert in no apparent distress ambulating without difficulty lungs are clear to auscultation Heart reveals a regular rate and rhythm Abdomen was soft nontender uterine fundus below the umbilicus Perineum scant bleeding Extremities good mobility +1 edema Hospital Course: Patient is a 2 para 1 who presented at 39+ weeks gestation for an elective induction. She was admitted and received Todd catheter with oral Cytotec x1 dose. Subsequent doses were turned to oral Cytotec. The patient contracted adequately and eventually the Todd bulb came out. The patient was then started on Pitocin. The patient progressed to fully dilated the following morning and had a normal spontaneous vaginal delivery with an intact perineum. the patient did very well and desired to be discharged home on post day #1. Discharge Information: and Continuing Care: Lab Results - Pending: None Radiology Results - Pending: None [place] Suicide Risk: negative Discharge Instructions: Activity: Return to normal activity as tolerated Nutrition/Diet: Regular Follow Up Appointments: Follow-Up - OB Provider: Physician/Dept/Service: OB Provider Dr Goss Call to Schedule in: 6 weeks Discharge Medications: Home Medication 1 Plus 1 oral tablet - 1 tab(s) orally once a day ibuprofen 600 mg oral tablet - 1 tab(s) orally every 6 hours PRN Medication Electronic Signatures: Maria R Goss) (Signed 09-May-2021 11:29) Authored: Send Summary, Summary Content, Ongoing Care, Note Completion Last Updated: 09-May-2021 11:29 by Maria R Goss)[facility] 05-08-2021 NoteProvider Information: Maternal Delivery Information: Delivery Type: vaginal delivery Did this pt receive corticosteroids at any time during this : No Was chorioamnionitis diagnosed during this labor: no What antibiotic(s) were administered during labor and/or pre-incision: none Did this patient receive progesterone in any form to prevent premature delivery: no Rupture of Membranes: artificial Spontaneous Labor: no Induction or Scheduled : induction Is patient at delivery >/= to 37 to < 39 completed weeks of gestation: no Vaginal Delivery Type: spontaneous Vaginal Delivery Complications: none Delivery Anesthesia: epidural Presentation/Lie: vertex Vertex Presentation: Left: occiput anterior Episiotomy & Repair: none Perineal Laceration: none Other Laceration: none Abrasion: none QBL (mL): 250 mL Blood Products Transfused during Delivery (indicate number of units given): none Placenta: spontaneous intact Choose Baby: A Cord Characteristics: no anomalies noted Delayed Cord Clamping (equal to or greater than 30 seconds): no Day of Delivery (Baby A): 08-May-2021 Gestational Age at Delivery (wk.days): 39.4 Term: term 37.0 to 41.6 weeks Live : yes Vaginal Delivery Provider: Maria R Goss Dictation: no Hemorrhage Risk Screen: Hemorrhage Medium Risk Factors (T&S) (2 or more medium risks Go to High Risk section & obtain T&C)augmentation of labor (with oxytocin), labor > or = 18 hours Hemorrhage Risk Assessmenthemorrhage risks reviewed and additional factors added if applicable Hemorrhage Risk Score HighPatient is at High Risk for an OB hemorrhage. Order Type & Cross. Score Calculation - IT Use Only2 Electronic Signatures: Maria R oGss) (Signed 08-May-2021 06:46) Authored: Provider Information, Hemorrhage Risk, Note Completion Last Updated: 08-May-2021 06:46 by Maria R Goss)[facility] 05-07-2021 NoteHPI/OB History: Care Provider: Maria R Goss HPI Descriptive Info: HPI Patient is a 20-year-old 2 para 1-0-0-1 at 39-3/7 weeks gestation with an EDC of . She transferred to our practice late in the at 35 weeks. She reports her had been uncomplicated. She requested an elective induction at 39 weeks. She has been doing well and reports rare contractions. Denies leaking of fluid vaginal bleeding abnormal discharge. She reports good movement. OB History: at term x1 Labs: Labs: Labs: Blood Typed Date: 12-Apr-2021 Blood Type: O positive Antibody Screen Results: negative Chlamydia Results: not ordered Gonorrhea Results: not ordered Group B Strep Date: 05-Apr-2021 Strep Results: negative HBsAG Date: 12-Apr-2021 HBsAG Results: negative Hemoglobin A1C (dd-mmm-yy): 12-Apr-2021 Hemoglobin A1C: 4.4 % Estimated Average Glucose: 80 HIV Date: 12-Apr-2021 HIV Results: negative Rubella Date: 12-Apr-2021 Rubella Results: immune Rubella Comments: Result Value POSITIVE Syphilis (mmm-dd-yyyy): 12-Apr-2021 Syphilis Results: negative Antepartum/: Antepartum/PP: Last Menstrual [id number] MORRO by Last Menstrual [id number] Date Earliest [id number] Final [id number] Current EGA:39.3 Patient is > or = 35.0 wks EGAyes Determined byAyaka EFW (kg)3.005 kilogram(s) EFW (lb)6 pound(s) EFW (oz)10 ounce(s) Presentationcephalic presentation verified bycervical exam Vaginal BleedingNo Contractions/Abdominal PainYes Discharge/Loss of FluidNo MovementGood Hemorrhage Medium Risk Factors (T&S) (2 or more medium risks Go to High Risk section & obtain T&C)augmentation of labor (with oxytocin) Hemorrhage Risk Assessmenthemorrhage risk completed on admission Hemorrhage Risk ScorePatient is at Medium Risk for an OB hemorrhage. Order Type & Screen. 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 Negative Past surgical history. Negative Past obstetric history spontaneous vaginal delivery x1 Social History: Social History: Smoking Statusformer smoker (1) Alcohol Usedenies(1) Drug Usehistory of abuse (1) Drug 2 Usedenies (1) Allergies: No Known Allergies: Medications Prior to Admission: Admission Medication Reconciliation has not been completed for this patient. Review of Systems: Constitutional: NEGATIVE: Fever, Chills, Anorexia, Weight Loss, Malaise Respiratory: NEGATIVE: Dry Cough, Productive Cough, Hemoptysis, Wheezing, Shortness of Breath Cardiac: NEGATIVE: Chest Pain, Dyspnea on Exertion, Orthopnea, Palpitations, Syncope Gastrointestinal: NEGATIVE: Nausea, Vomiting, Diarrhea, Constipation, Abdominal Pain Genitourinary: NEGATIVE: Discharge, Dysuria, Flank Pain, Frequency, Hematuria Musculoskeletal: NEGATIVE: Decreased ROM, Pain, Swelling, Stiffness, Weakness Neurological: NEGATIVE: Dizziness, Confusion, Headache, Seizures, Syncope Psychiatric: NEGATIVE: Mood Changes, Anxiety, Hallucinations, Sleep Changes, Suicidal Ideas Skin: NEGATIVE: Mass, Pain, Pruritus, Rash, Ulcer Objective: Objective Information: T PRBPSpO2 [id number]/61 Date/Time05/07 6:1410/12 6:14 Range (96 - 96 ) (118 - 118 )/ (61 - 61 ) Physical Exam by System: Constitutional: alert, oriented Obstetric: Gravid uterus nontender Cervix 1 cm 50% medium consistency -3 station and posterior Alberto score 3 Head/Neck: neck supple, no thyromegaly Respiratory/Thorax: normal respiratory effort, lungs clear, no wheezes or rhonchi Cardiovascular: S1 S2 RRR, no murmurs Genitourinary: no CVAT, no suprapubic tenderness Extremities: no calf tenderness, reflexes 2+ Psychological: appropriate affect Skin: no rashes or lesions Testing Indications: [id number] weeks gestation elective induction NST Interpretation - Baby A: Baseline [id number] Variabilitymoderate (amplitude range 6 to 25 bpm) InterpretationReactive (2 15x15 accels) AccelerationsPresent DecelerationsAbsent Biophysical Profile - Baby A: ReactiveReactive non stress test BPP Score3 Recent Lab Results: Results: CBC: 05/07/2021 06:31 \ Hgb / \ 11.8 L / WBC Plt 12.4 H 266 / Hct \ / 34.9 L \ RBC: 3.45 L MCV: 101 H Neutrophil %: 73.8 Assessment and Plan: Assessment: Patient is a 20-year-old 2 para 1-0-0-1 at 39-3/7 weeks gestation for an elective induction. has been uncomplicated. We will begin with Todd catheter and p.o. misoprostol. Once Alberto score is favorable with which is 6 or higher we will proceed to starting Pitocin. Ris (more content not included)...[facility]06-14-[facility]21 Evaluation + Plan note Future Scheduled Tests Laboratory* Gestational Screen Glucose 1 Hour 01/07/21 * Antibody Screen 01/07/21 * CBC w/ Indices 01/07/21 * ABO/Rh 02/06/21 * ABO/Rh 01/07/21 Radiology* CT Abdomen/Pelvis w/ + w/o Contrast 10/07/21 [facility] [place] Evaluation + Plan note Future Appointments Appointment Date:09/22/2022 02:20:00 PM Scheduled Provider:Elisa PATEL CNP Location:[facility] Appointment Type: Open Future Scheduled Tests Radiology* CT Abdomen/Pelvis w/ + w/o Contrast 10/07/21 [facility] [place] Evaluation + Plan note Future Appointments Appointment Date:03/24/2023 04:20:00 PM Scheduled Provider:Elisa PATEL CNP Location:[facility] Appointment Type:FM Open Future Scheduled Tests Radiology* CT Abdomen/Pelvis w/ + w/o Contrast 10/07/21 [facility] [place] Evaluation + Plan note Future Appointments Appointment Date:05/21/2023 10:00:00 AM Scheduled Provider: Location:[facility] Appointment Type:Surgery CALL PAT FT Appointment Date:05/22/2023 08:00:00 AM Scheduled Provider: Location:[facility] Appointment Type:[facility]gery FT [facility] Future Appointments Appointment Date:06/03/2023 11:00:00 AM Scheduled Provider: [facility] Type:Trauma Phone Visit (FT) Diagnostic Tests Pending * Chlamydia/Gonococcus, JOHNIE 05/28/23 [facility] Future Appointments Appointment Date:08/04/2023 11:00:00 AM Scheduled Provider:Elisa PATEL CNP Location:[facility] Appointment Type: Open Diagnostic Tests Pending * Urine Culture 08/03/23 [facility] Future Appointments Appointment Date:10/01/2023 12:40:00 PM Scheduled Provider:Elisa PATEL CNP Location:[facility] Appointment Type:FM Acute Appointment Date:10/02/2023 12:30:00 PM Scheduled Provider: [facility] Type:US Abdominal/Pelvis (FT) Appointment Date:10/13/2023 03:00:00 PM Scheduled Provider:Elisa PATEL CNP Location:[facility] Appointment Type:FM Open Future Scheduled Tests Radiology* US Pelvis Non-OB Complete 10/02/23 * US Transvaginal Non-OB 10/02/23 [facility] Future Appointments Appointment Date:10/02/2023 12:30:00 PM Scheduled Provider: [facility] Appointment Type:US Abdominal/Pelvis (FT) Appointment Date:10/13/2023 03:00:00 PM Scheduled Provider:Elisa PATEL CNP Location:[facility] Appointment Type: Open Appointment Date:11/02/2023 10:00:00 AM Scheduled Provider: [facility] Type:CV Holter/Event (FT) Appointment Date:11/13/2023 01:00:00 PM Scheduled Provider:Elisa PATEL CNP Location:[facility] Appointment Type: Open [facility] Scheduled Tests Laboratory* TSH With T4fr Reflex 10/01/23 * Basic Metabolic Panel 10/01/23 * Lipid Panel 10/01/23 Radiology* US Pelvis Non-OB Complete 10/02/23 * US Transvaginal Non-OB 10/02/23 [facility] Evaluation + Plan note Future Appointments Appointment Date:10/13/2023 03:00:00 PM Scheduled Provider:Elisa PATEL CNP Location:[facility] Appointment Type: Open Appointment Date:11/02/2023 10:00:00 AM Scheduled Provider: Location[facility] Appointment Type:CV Holter/Event (FT) Appointment Date:11/13/2023 01:00:00 PM Scheduled Provider:Elisa PATEL CNP [facility] App[facility]ments Appointment Date:11/02/2023 10:00:00 AM Scheduled Provider: Location[facility] Appointment Type:CV Holter/Event (FT) Appointment Date:11/13/2023 01:00:00 PM Scheduled Provider:Elisa PATEL CNP Location:[facility] Appointment Type:[facility] Evaluation + Plan note Future Appointments Appointment Date:12/18/2023 11:00:00 AM Scheduled Provider: Location[facility] Appointment Type:CV Holter/Event (FT) Appointment Date:01/27/2024 10:30:00 AM Scheduled Provider:Sravani Dee MD Location:[facility] [place] [place] [facility] Appointment Type:[facility] Evaluation + Plan note Future Appointments Appointment Date:01/27/2024 10:30:00 AM Scheduled Provider:Sravani Dee MD Location:[facility] [place] [place] [facility] Appointment Type:[place] New [facility] Future Appointments Appointment Date:01/20/2024 09:40:00 AM Scheduled Provider:Spencer Gan MD Location:[facility] Appointment Type:FM Open Appointment Date:01/27/2024 10:30:00 AM Scheduled Provider:Sravani Dee MD Location:[facility] [place] [place] [facility] Appointment Type:[place] New Patient [facility] [place] Evaluation + Plan note Future Appointments Appointment Date:01/20/2024 09:40:00 AM Scheduled Provider:Spencer Gan MD Location:[facility] Appointment Type: Open Appointment Date:01/27/2024 10:30:00 AM Scheduled Provider:Sravani Dee MD Location:[facility] [place] [place] [facility] Appointment Type:[facility] New Patient Diagnostic Tests Pending * Chlam/GC/Trich,JOHNIE 01/12/24 * RPR with Conf Rfx 01/12/24 * HIV Screen 4th Generation wRfx 01/12/24 * Acute Hepatitis A B C Panel 01/12/24 * Urine Culture 01/12/24 [facility] Diagnosis BV (bacterial vaginosis)- Primary Unspecified vaginitis and vulvovaginitis Acute vaginitis Unspecified vaginitis and vulvovaginitis Dysuria documented in this encounter [facility] Work Phone: History of Present illness NarrativePatient is a 20-year-old who is 8 weeks . Patient reports she is exclusively breast-feeding and that is going very well. She would like to start some form of contraception that will not affect her breast milk production. Patient reports no bleeding. Patient reports she has been sexually active using condoms. 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 Patient has concerns about continuing with her current form of contraception. Patient reports that she is consistently forgetting to take her pill on time or on the right day. Patient has no additional concerns today. She is no longer breast-feeding.[employer] Work Phone: History of Present illness NarrativePatient is a 21-year-old woman who comes in for a test of cure for chlamydia. Patient had previously been treated twice but had unprotected sex. She reports that she has not had unprotected sex sinceshe was last treated. Patient has no other complaints. Patient does report that she believes she had an HSV exposure by sharing drinks with a friend.[facility] Work Phone: History of Present illness NarrativePatient is here for evaluation of vulvar irritation for several days. Patient reports that she has been on the Depo-Provera now for approximately 6 months and occasionally has slight bleeding. Patient reports that she used new panty liners and is concerned that the irritation was not from the pantyliners and that it may be from some other source. However since she stopped using those pantilinersthe irritation and swelling has resolved patient currently denies any abnormal discharge[facility] Work Phone: Hospital course Narrative No data available for this section [facility] [place] [facility] Discharge instructions No data available for this section [facility] [place] Progress note No data available for this section [facility] [place] Summary Purpose Family History No Family History Records FoundNo Family History Records FoundNo Family History Records Found No data available for this section No data available for this section No data available for this section No data available for this section No data available for this section No data available for this section No Family History Records Found No data available for this section No data available for this section No data available for this section No data available for this section No data available for this section No data available for this section No data available for this section No data available for this section No data available for this section No data available for this section No data available for this section No data available for this section No data available for this section No Family History Records FoundNo Family History Records FoundNo Family History Records FoundNo Family History Records FoundNo Family History Records FoundNo Family History Records FoundNo Family History Records FoundNo Family History Records FoundNo Family History Records FoundNo Family History Records Found No data available for this section No Family History Records Found Advance Directives No Advanced Directives Records FoundNo Advanced Directives Records FoundNo Advanced Directives Records FoundNo Advanced Directives Records FoundNo Advanced Directives Records FoundNo Advanced Directives Records FoundNo Advanced Directives Records FoundNo Advanced Directives Records FoundNo Advanced Directives Records FoundNo Advanced Directives Records FoundNo Advanced Directives Records FoundNo Advanced Directives Records FoundNo Advanced Directives Records FoundNo Advanced Directives Records FoundNo Advanced Directives Records Found Chief Complaint PATIENT HERE TODAY TO DISCUSS CONTROL. SHE IS INTERESTED IN PILLS BUT CONCERNED ABOUT MILK SUPPLY SHE IS . NO PERIOD SINCE DELIVERING. NO OTHER CONCERNS AT THIS TIME.Patient here today for yearly. She has no concerns. LMP:09/30/2021 She would like to switch to the Depo shot as she forgets to take the pill often.* Patient is here for DEPO injection. * OFFICE Supply * [facility]:[id number] * LOT #:[id number] * EXP:08/26/2022 * Injection Site: Rt buttock * Depo Provera 150 mg/mL IM * Return Date: 01/06/2022 * Patient here for depo injection * OFFICE supply * [facility]: [id number] * LOT# [id number] * EXP:01/2024 * SITE:RIGHT BUTTOCK * Depo Provera 150mg/mL IM * Return Date:03/31/22 Patient is here for test of cure. She has no symptoms and is doing well.* Patient here for depo injection * OFFICE supply * [facility]: 37857-002-81 * LOT# [id number] * EXP:04/2024 * SITE: LEFT DELTOID * Depo Provera 150mg/mL IM * Return Date:09/16/22 Patient here today for vaginal irritation. She states it was worse yesterday when she was wearing pads for her spotting. She states they were new. As well as a new razor she is using. LMP:11/28/2022PT HERE TODAY WANTING TO DISCUSS CONTROL. PT WAS ON THE DEPO, BUT MISSED HER LAST ONE IN . PT STATES SHE HAS BEEN BLEEDING WITH THE DEPO, HAVING MULTIPLE EPISODES OF BLEEDING A MONTH. P T WOULD LIKE TO SWITCH BACK TO THE PILL. Additional Source Comments INFORMATION SOURCE (unrecogn ized section and content) DATE CREATED AUTHOR 06/01/2021 [facility] DATE CREATED AUTHOR AUTHOR'S ORGANIZ ATION 02/25/2023 [employer] DATE CREATED AUTHOR AUTHOR'S ORGANIZ ATION 03/13/2023 [facility] DATE CREATED AUTHOR AUTHOR'S ORGANIZ ATION 07/11/2023 [facility] DATE CREATED AUTHOR AUTHOR'S ORGANIZ ATION 01/14/2024 [facility] ical Center DATE CREATED AUTHOR AUTHOR'S ORGANIZ ATION 01/15/2024 [facility] ical Center DATE CREATED AUTHOR AUTHOR'S ORGANIZ ATION 01/16/2024 [facility] ical Center DATE CREATED AUTHOR AUTHOR'S ORGANIZ ATION 01/18/2024 [facility] ical Center DATE CREATED AUTHOR AUTHOR'S ORGANIZ ATION 02/27/2024 [facility] Patient Care team informatio n (unrecognized section and content) Checkman Relationship Specialty Start Date End Date Eloisa Alvarez MD [address] [place] [address] - [place] [address] PCP - General 03/29/21 Reason for Visit (unrecogniz ed section and content) Reason Comments Urinary Symptom Patient is here toda y for concerns of burning when urinating she had also been feeling sick and ask for a test that came back positive. FOR RECORDS PERTAINING TO PATIENTS WHO ARE OR HAVE BEEN ENROLLED IN A CHEMICAL DEPENDENCY/SUBSTANCEABUSE PROGRAM, SOME INFORMATION MAY BE OMITTED. This clinical summary was aggregated from multiple sources. Caution should be exercised in using it in the provision of clinical care. This summary normalizes information from multiple sources, and as a consequence, information in this document may materially change the coding, format and clinical context of patient data. In addition, data may be omitted in some cases. CLINICAL DECISIONS SHOULD BE BASED ON THE PRIMARY CLINICAL RECORDS. [facility] provides no warranty or guarantee of the accuracy or completeness of information in this document.
[2024-02-28 09:38] LABS: Estimated Average Glucose 91 mg/dL; Glycohemoglobin A1C 4.8 % (4.5-6.2)
[2024-02-28 09:43] LABS: Basophils Absolute Auto 0.1 10^3/uL (0.0-0.1); Basophils Percent Auto 0.7 % (0.2-2.0); Eosinophils Absolute Auto 0.2 10^3/uL (0.0-0.7); Eosinophils Percent Auto 2.7 % (0.9-7.0); Hemoglobin 13.4 g/dL (12.0-16.0); Immature Granulocytes Abs Auto 0.02 10^3/uL (0.00-0.03); Immature Granulocytes Pct Auto 0.2 % (0.0-0.5); Lymphocytes Absolute Auto 2.4 10^3/uL (1.2-3.8); Lymphocytes Percent Auto 27.2 % (20.5-60.0); Mean Corpuscular HGB Conc 33.5 g/dL (29.9-35.2); Mean Corpuscular Hemoglobin 32.8 pg (26.7-34.0); Mean Platelet Volume 10.7 fL (9.5-13.5); Monocytes Absolute Auto 0.5 10^3/uL (0.3-0.8); Neutrophils Absolute Auto 5.5 10^3/uL (1.4-6.5); Neutrophils Percent Auto 63.2 % (43.0-75.0); Platelet Count 211 10^3/uL (150-450); Red Blood Count 4.08 10^6/uL (4.20-5.40); Red Cell Distribution Width 12.4 % (11.0-15.0); White Blood Count 8.6 10^3/uL (4.0-11.0)
[2024-03-01 05:10] LABS: HCV Ab Non Reactive (Non Reactive); HIV Ab/p24 Ag Screen Non Reactive (Non Reactive)
[2024-03-01 06:09] LABS: HBsAg Screen Negative (Negative)
[2024-03-01 10:09] LABS: Rapid Plasma Reagin, Quant Non Reactive titer (NonRea<1:1)
== END 2024-02-28 08:12 | disposition home or self-care (01) ==
LOC: LAB 08:14
PROVIDERS: Visit Provider Obstetrics & Gynecology
DX: N92.6 Irregular menstruation, unspecified (principal); Z36.0 Encounter for antenatal screening for chromosomal anomalies
CPT/HCPCS: 36415; 83036; 85025; 86592; 86762; 86803; 86850; 86900; 86901; 87086; 87340; 87389